=== PATIENT | male | born 1945 | race Caucasian/White ===

== ENCOUNTER 2018-07-10 12:17 | Outpatient (CLI) | payer MEDICARE, SELFPAY ==
[2018-07-11 09:52] LABS: PSA, Diagnostic 0.6 ng/ml (0-6.5)
== END 2018-07-10 12:37 ==
PROVIDERS: PCP Family Medicine; Visit Provider Nurse Practitioner
DX: C61 Malignant neoplasm of prostate (principal)
CPT/HCPCS: 36415; 84153

== ENCOUNTER 2018-12-29 07:00 | Outpatient (CLI) | payer MEDICARE, OTHER, SELFPAY ==
[2018-12-29 11:19] LABS: Cholesterol 185 mg/dL (50-200); Glucose 94 mg/dL (70-100); HDL Cholesterol 64 mg/dL (40-60); LDL CHOLESTEROL 106 mg/dL (<100); Triglyceride 95 mg/dL (30-150)
[2019-01-01 10:59] LABS: Hepatitis C Ab w Rflx HCV PCR Negative (NEGAT)
== END 2018-12-29 07:20 ==
PROVIDERS: PCP Family Medicine; Visit Provider Family Medicine
DX: E78.5 Hyperlipidemia, unspecified (principal); C61 Malignant neoplasm of prostate; Z11.59 Encounter for screening for other viral diseases
CPT/HCPCS: 36415; 80061; 82947; 83721; 86803; 84153

== ENCOUNTER 2019-04-27 04:17 | Outpatient (CLI) | payer MEDICARE, OTHER, SELFPAY ==
[2019-04-30 10:11] LABS: PSA, Screening 0.8 ng/ml (0-6.5)
== END 2019-04-27 04:37 ==
PROVIDERS: Family Medicine; PCP Family Medicine; Visit Provider Family Medicine
DX: C61 Malignant neoplasm of prostate (principal)
CPT/HCPCS: 84153

== ENCOUNTER 2019-08-14 12:47 | Outpatient (CLI) | payer MEDICARE, OTHER, SELFPAY ==
[2019-08-16 10:19] LABS: PSA, Diagnostic 0.9 ng/mL (0.0-6.5)
== END 2019-08-14 13:07 ==
PROVIDERS: PCP Family Medicine; Visit Provider Nurse Practitioner
DX: C61 Malignant neoplasm of prostate (principal)
CPT/HCPCS: 36415; 84153

== ENCOUNTER 2020-06-13 00:06 | Outpatient (CLI) | payer MEDICARE, OTHER, SELFPAY ==
[2020-06-13 12:49] LABS: Abs Immature Grans 0.02 10^3/uL (0.0-0.06); Absolute Basophil Count 0.05 10^3/uL (0.0-0.2); Basophils % 0.5; HCT 45.3 % (40.0-50.0); MCH 29.9 pg (27.0-33.0); MCHC 33.1 % (32.0-36.0); MCV 90.4 fL (80-95); MPV 11.6 fL (8.0-11.0); Nucleated RBC 0 %; RBC 5.01 10^6/uL (4.36-5.78); RDW 12.2 % (11.8-14.1); RDW-SD 40.1 fL; WBC 10.86 10^3/uL (4.4-10.8)
[2020-06-13 13:03] LABS: ALT 29 U/L (16-63); AST 20 U/L (15-37); Albumin 3.9 g/dL (3.4-5.0); Alkaline Phosphatase 52 U/L (46-116); Anion Gap 8.3 mmol/L (3-11); BUN 24 mg/dL (7-18); Bilirubin, Total 0.6 mg/dL (0.2-1.0); CO2 25.7 mmol/L (21.0-32.0); CREATININE 1.22 mg/dL (0.70-1.30); Calculated LDL 101 mg/dL (<100); Chloride 103 mmol/L (98-107); Cholesterol 178 mg/dL (<200); Estimated GFR 58.07 (mL/min/1.73m2); Glucose 90 mg/dL (74-106); HDL Cholesterol 56 mg/dL (40-60); Potassium 4.7 mmol/L (3.5-5.1); Sodium 137 mmol/L (136-145); Total Protein 6.7 g/dL (6.4-8.2); Triglyceride 105 mg/dL (<150)
[2020-06-13 13:40] LABS: Absolute Lymphocyte Count 5.97 10^3/uL (1.2-3.4); Absolute Neutrophil Count 3.26 10^3/uL (1.2-6.7)
[2020-06-13 13:43] LABS: Absolute Eosinophil Count 0.33 10^3/uL (0.0-0.7); Diff Comment Manual Differential
[2020-06-13 13:44] LABS: RBC Morphology Normal
[2020-06-13 13:46] LABS: Platelet Count 176 10^3/uL (130-400)
[2020-06-13 13:47] LABS: Atypical Lymphocytes % 8
[2020-06-16 11:38] LABS: Path Consult (Tech Order) C
== END 2020-06-13 00:26 ==
PROVIDERS: PCP Family Medicine; Visit Provider Family Medicine
DX: E78.5 Hyperlipidemia, unspecified (principal); C61 Malignant neoplasm of prostate
CPT/HCPCS: 80053; 80061; 84153; 85025

== ENCOUNTER 2020-07-13 12:15 | Emergency (ER) | payer MEDICARE, OTHER, SELFPAY ==
[2020-07-13 12:18] VITALS: BP 174/97; PULSE 76; RESP 18; TEMP 36.5; O2SAT 97
--- NOTE | 2020-07-13 12:43 | W.ED.GENAD ---
Discharge Plan Disposition Patient Disposition: HOME Condition: Improving Discharge Details Clinical Impression: Laceration of hand, right Primary Care Provider: Donnell Cabrera ED Provider: Juan Francisco Garcia Home Meds and New Rx's Prescriptions: Continued atorvastatin [Lipitor] 10 mg tablet 10 mg PO DAILY Qty: 90 RF: 3 PreserVision AREDS 1 EACH tablet 1 ea PO DAILY RF: 0 Discharge Instructions Instructions: Laceration (ED) Additional Instructions: Once daily gentle soap and water cleanse, pat dry and then replace dressing. Return to develop a fever, redness, foul-smelling discharge from the wound or any other acute concerns. Return in 7 to 10 days time for removal of sutures. Call your doctor's office on Tuesday to determine if you need an updated tetanus shot. Medical Decision Making 74-year-old male was struck by a tree on the dorsum of his right hand causing a approximate 7 cm chevron shaped laceration. Tetanus status is unclear, patient will follow-up with primary care Tuesday or Tuesday. He was verbally consented for the procedure, anesthetized, liberally irrigated, examined in a bloodless field without evidence of foreign body. 11 Interrupted sutures were placed with 4-0 nylon, with good approximation of the wound edges. Patient improved and stable for outpatient management. HPI General Mode of arrival: ambulatory. Date/Time Provider Initiated Documentation: 07/13/20 12:15. Limitations to Documentation: no limitations. Information obtained by: patient and family. History of Present Illness 74 year old M presents to the emergency department with the chief complaint of Right hand laceration after struck by tree, described as moderate, Quality is described as dull and constant, and is localized to the upper extremity. Patient reports no radiation. Patient started experiencing this minute(s) and it has been constant. No relieving factors improve symptom(s), No exacerbating factors reported . Patient notes denies fever/chills, headaches and syncope. Patient did receive the following treatments prior to arrival, none Related Data Home Medications Medication Instructions Recorded Confirmed PreserVision AREDS 1 ea PO DAILY 09/08/15 07/13/20 atorvastatin 10 mg tablet 10 mg PO DAILY #90 tab-cap 01/02/20 07/13/20 Previous Rx's Medication Instructions Recorded atorvastatin 10 mg tablet 10 mg PO DAILY #90 tab-cap 01/02/20 Allergies Allergy/AdvReac Type Severity Reaction Status Date / Time No Known Allergies Allergy Unverified 07/13/20 12:21 General Stated Complaint: Laceration TIM: 3 Review of Systems Narrative: Tetanus out of date. No numbness or tingling. No other injury. [facility] Family History Father , 84 Neoplasm Brother Hyperlipidemia Daughter No problems noted. Daughter No problems noted. Social History Smoking/Tobacco Use Status: Never Alcohol Intake: never Drug use: Never Caregiver/Support person: Yes Household members: spouse Housing: house Communication Needs: None Pets and animals: Yes Pets and animals: cat(s) Do you think of yourself as: straight/heterosexual What is your relationship status?: How often do you talk on the phone with friends or family?: twice per week How often do you get together with friends or relatives?: once per week How often do you attend mosque or hoahaoism services?: 1-3 times per year Do you belong to any clubs or organized social groups?: yes Panel score (0-1 are the most socially isolated patients): 3 What type of physical activity do you participate in: other Details: treadmill 3 miles a day. Katrin/Druze: Anabaptism Seatbelt use: always Helmet use: Yes Drive intox or ride w/intox driver's license examiner: No Do you feel safe at home: Yes Do you feel safe in your relationship?: Yes Exam Narrative Exam Narrative: GEN: awake, alert, oriented 3. Pleasant, well groomed, interactive. HEAD: Normocephalic, atraumatic CHEST/RESP: No respiratory distress EXT: Full ROM, no edema, the left arm has a subtle skin tear mid forearm. Right hand dorsum with a chevron shaped laceration measuring approximately 7 cm. Normal capillary refill and normal sensation. Neuro: Grossly normal neurologic exam, conversant, interactive. Psych: Speech fluent, thoughts congruent, affect normal Course Vital Signs Vital signs: Vital Signs Temperature 36.5 C 07/13/20 12:18 Pulse 76 07/13/20 12:18 Respiratory Rate 18 07/13/20 12:18 Blood Pressure 174/97 H 07/13/20 12:18 Pulse Oximetry 97 07/13/20 12:18 Temperature 36.5 C 07/13/20 12:18 Temperature Source Temporal Artery Scan 07/13/20 12:18 Pulse 76 07/13/20 12:18 Respiratory Rate 18 07/13/20 12:18 Respiratory Effort Non-Labored 07/13/20 12:23 Blood Pressure 174/97 H 07/13/20 12:18 Blood Pressure Position Sitting 07/13/20 12:18 Pulse Oximetry 97 07/13/20 12:18 Oxygen Delivery Method Room Air 07/13/20 12:18 Oxygen Flow Rate 0 07/13/20 12:18 Pain Level 0 07/13/20 12:18 Procedures Laceration Laceration 1: Site: hand Side (If applicable): right Size (cm): 7 Description: irregular Depth: simple, single layer Local Anesthetic: Lidocaine 1% Amount of anesthesia used (mL): 4 Pre-repair: wound explored and irrigated extensively Skin layer closed with: nylon Size (cm): 4-0 Number of sutures: 11 Technique: simple, interrupted
== END 2020-07-13 13:05 | disposition home or self-care (01) ==
PROVIDERS: Emergency Provider Emergency Medicine; PCP Family Medicine
DX: S61.411A Laceration without foreign body of right hand, initial encounter (principal); W20.8XXA Other cause of strike by thrown, projected or falling object, initial encounter
CPT/HCPCS: 12002; 90471

== ENCOUNTER 2020-07-25 10:48 | Emergency (ER) | payer MEDICARE, OTHER, SELFPAY ==
[2020-07-25 10:54] VITALS: BP 177/92; PULSE 69; RESP 18; TEMP 36.2; O2SAT 97
--- NOTE | 2020-07-25 10:58 | ED.GENADUL_ITS ---
Discharge Plan Disposition Patient Disposition: HOME Condition: Stable Discharge Details Clinical Impression: Encounter for removal of sutures Primary Care Provider: Donnell Cabrera ED Provider: April Mendez Home Meds and New Rx's Prescriptions: No Action atorvastatin [Lipitor] 10 mg tablet 10 mg PO DAILY Qty: 90 RF: 3 cephalexin 500 mg capsule 500 mg PO QID Qty: 20 RF: 0 PreserVision AREDS 1 EACH tablet 1 ea PO DAILY RF: 0 Discharge Instructions Instructions: Stitches Removal (ED) Additional Instructions: Continue taking antibiotics as previously prescribed by PCP. Keep Steri-Strips on for approximately 4 days. Keep clean and dry, covered with a clean dry dressing as needed. Follow up with primary care provider in 3-5 days. Return to ED sooner if any worsening or concerns. Increase oral fluids. Referrals: Donnell Cabrera [Primary Care Provider] - Discharge Data Discharge Date/Time-TO BE ENTERED AT DEPARTURE: 07/25/20 11:30 Medical Decision Making Sutures removed and Steri-Strips applied by director of staff development. Patient discussed home care, verbalized understanding. This text was generated using Hapticomation system, please disregard any oddities of phrase or misspellings. HPI General Mode of arrival: ambulatory . Date/Time Provider Initiated Documentation: 07/25/20 10:50 . Limitations to Documentation: no limitations . Information obtained by: patient and old records reviewed . HPI Narrative: Patient here for suture removal. Had 11 sutures placed to the dorsum of right hand on July 13, 2020. This was approximately 12 days ago. He has a arrow shaped laceration noted with mild surrounding erythema. He states that he was seen by his primary care 2 days ago for some surrounding redness and was placed on antibiotics which he is still currently taking. Sutures will be removed and Steri-Strips will be applied. Related Data Home Medications Medication Instructions Recorded Confirmed PreserVision AREDS 1 ea PO DAILY 09/08/15 07/14/20 atorvastatin 10 mg tablet 10 mg PO DAILY #90 tab-cap 01/02/20 07/14/20 cephalexin 500 mg capsule 500 mg PO QID #20 cap 07/18/20 07/18/20 Previous Rx's Medication Instructions Recorded atorvastatin 10 mg tablet 10 mg PO DAILY #90 tab-cap 01/02/20 cephalexin 500 mg capsule 500 mg PO QID #20 cap 07/18/20 Allergies Allergy/AdvReac Type Severity Reaction Status Date / Time No Known Allergies Allergy Unverified 07/14/20 16:51 General TIM: 3 Review of Systems All systems reviewed & are unremarkable except as noted in HPI and below Integumentary/Breasts Skin/Breast: Reports wounds (Sutured laceration noted to the dorsum of right hand) PFSH Family History Father , 84 Neoplasm Brother Hyperlipidemia Daughter No problems noted. Daughter No problems noted. Social History Smoking/Tobacco Use Status: Never Alcohol Intake: never Drug use: Never Caregiver/Support person: Yes Household members: spouse Housing: house Communication Needs: None Pets and animals: Yes Pets and animals: cat(s) Do you think of yourself as: straight/heterosexual What is your relationship status?: How often do you talk on the phone with friends or family?: twice per week How often do you get together with friends or relatives?: once per week How often do you attend scientology or buddhist services?: 1-3 times per year Do you belong to any clubs or organized social groups?: yes Panel score (0-1 are the most socially isolated patients): 3 What type of physical activity do you participate in: other Details: treadmill 3 miles a day. Katrin/Confucianism: Sabianism Seatbelt use: always Helmet use: Yes Drive intox or ride w/intox driver education road instructor: No Do you feel safe at home: Yes Do you feel safe in your relationship?: Yes Exam Extrem Hand/finger images: 1. Sutured laceration noted with 11 simple interrupted sutures with mild surrounding erythema. Will take out sutures and apply Steri-Strips.
[2020-07-25 11:24] VITALS: PULSE 69; RESP 18; TEMP 36.2; O2SAT 97
== END 2020-07-25 11:30 | disposition home or self-care (01) ==
PROVIDERS: Emergency Provider Registered Nurse Emergency; PCP Family Medicine
DX: S61.411D Laceration without foreign body of right hand, subsequent encounter (principal); W20.8XXA Other cause of strike by thrown, projected or falling object, initial encounter; Z48.02 Encounter for removal of sutures

== ENCOUNTER 2020-08-08 01:35 | Outpatient (CLI) | payer MEDICARE, OTHER, SELFPAY ==
[2020-08-08 12:24] LABS: Abs Immature Grans 0.02 10^3/uL (0.0-0.06); HCT 45.8 % (40.0-50.0); HGB 15.2 g/dL (13.5-17.5); MCH 29.9 pg (27.0-33.0); MCHC 33.2 % (32.0-36.0); MPV 11.5 fL (8.0-11.0); Nucleated RBC 0 %; Platelet Count 184 10^3/uL (130-400); RBC 5.09 10^6/uL (4.36-5.78); RDW 12.1 % (11.8-14.1); RDW-SD 39.7 fL
[2020-08-08 13:29] LABS: Absolute Neutrophil Count 4.77 10^3/uL (1.2-6.7)
[2020-08-08 13:30] LABS: Absolute Eosinophil Count 0.11 10^3/uL (0.0-0.7); Absolute Lymphocyte Count 5.77 10^3/uL (1.2-3.4); Absolute Monocyte Count 0.44 10^3/uL (0.1-0.8); Atypical Lymphocytes % 3
[2020-08-08 13:31] LABS: Diff Comment Manual Differential; RBC Morphology Normal
== END 2020-08-08 01:55 ==
PROVIDERS: PCP Family Medicine; Visit Provider Family Medicine
DX: D72.820 Lymphocytosis (symptomatic) (principal)
CPT/HCPCS: 36415; 85025

== ENCOUNTER 2020-12-30 21:22 | Outpatient (REF) | payer MEDICARE, OTHER, SELFPAY ==
[2020-12-30 21:21] LABS: Abs Immature Grans 0.03 10^3/uL (0.0-0.06); HGB 15.2 g/dL (13.5-17.5); MCHC 33.8 % (32.0-36.0); MCV 88.8 fL (80-95); MPV 11.2 fL (8.0-11.0); Nucleated RBC 0 %; Platelet Count 187 10^3/uL (130-400); RBC 5.07 10^6/uL (4.36-5.78); RDW-SD 38.7 fL; WBC 13.64 10^3/uL (4.4-10.8)
[2020-12-30 21:31] LABS: Anion Gap 12.2 mmol/L (3-11); BUN 21 mg/dL (7-18); CO2 25.8 mmol/L (21.0-32.0); CREATININE 1.3 mg/dL (0.70-1.30); Calcium 9.2 mg/dL (8.5-10.1); Chloride 105 mmol/L (98-107); Estimated GFR 53.82 (mL/min/1.73m2); Glucose 116 mg/dL (74-106); Sodium 143 mmol/L (136-145)
[2020-12-30 23:01] LABS: Absolute Lymphocyte Count 6.55 10^3/uL (1.2-3.4); Absolute Monocyte Count 0.41 10^3/uL (0.1-0.8); Absolute Neutrophil Count 6.68 10^3/uL (1.2-6.7); Atypical Lymphocytes % 15; RBC Morphology Normal
[2020-12-30 23:02] LABS: Diff Comment Manual Differential
[2020-12-31 09:58] LABS: C-Reactive Protein 0.06 mg/dL (0.0-0.3)
[2020-12-31 10:11] LABS: ESR 2 mm//hr (0-20)
== END 2020-12-30 21:23 | disposition home or self-care (01) ==
LOC: LBN 21:22
PROVIDERS: PCP Family Medicine; Visit Provider Family Medicine
DX: E87.1 Hypo-osmolality and hyponatremia (principal); D72.828 Other elevated white blood cell count; F48.8 Other specified nonpsychotic mental disorders; Z01.30 Encounter for examination of blood pressure without abnormal findings
CPT/HCPCS: 80048; 85652; 85025; 86140

== ENCOUNTER 2021-01-06 04:06 | Outpatient (CLI) | payer MEDICARE, OTHER, SELFPAY ==
[2021-01-06 10:35] LABS: HCT 46.3 % (40.0-50.0); HGB 15.5 g/dL (13.5-17.5); MCHC 33.5 % (32.0-36.0); MCV 89.6 fL (80-95); MPV 11.2 fL (8.0-11.0); Nucleated RBC 0 %; Platelet Count 178 10^3/uL (130-400); RBC 5.17 10^6/uL (4.36-5.78); RDW-SD 39.6 fL; WBC 11.64 10^3/uL (4.4-10.8)
[2021-01-06 11:14] LABS: Absolute Lymphocyte Count 5.59 10^3/uL (1.2-3.4); Absolute Neutrophil Count 5.35 10^3/uL (1.2-6.7); Atypical Lymphocytes % 36
[2021-01-06 11:15] LABS: Diff Comment Manual Differential; RBC Morphology Normal
[2021-01-09 10:38] LABS: Leukemia/Lymphoma by FC (Blood See Comments
== END 2021-01-06 04:07 | disposition home or self-care (01) ==
LOC: LBO 04:06
PROVIDERS: PCP Family Medicine; Visit Provider Family Medicine
DX: D72.829 Elevated white blood cell count, unspecified (principal)
CPT/HCPCS: 36415; 88185; 85025; 88184; 88189

== ENCOUNTER 2021-04-08 02:22 | Outpatient (CLI) | payer MEDICARE, OTHER, SELFPAY ==
[2021-04-08 12:48] LABS: HGB 14.6 g/dL (13.5-17.5); MCH 29.9 pg (27.0-33.0); MCV 87.9 fL (80-95); MPV 11.1 fL (8.0-11.0); Nucleated RBC 0 %; Platelet Count 160 10^3/uL (130-400); RBC 4.89 10^6/uL (4.36-5.78); RDW 12.2 % (11.8-14.1); RDW-SD 39.3 fL; WBC 11.59 10^3/uL (4.4-10.8)
[2021-04-08 12:52] LABS: Calculated LDL 112 mg/dL (<100); Cholesterol 184 mg/dL (<200); HDL Cholesterol 61 mg/dL (40-60); Triglyceride 55 mg/dL (<150)
[2021-04-08 12:53] LABS: ALT 28 U/L (16-63); AST 13 U/L (15-37); Albumin 3.9 g/dL (3.4-5.0); Alkaline Phosphatase 51 U/L (46-116); Anion Gap 10.2 mmol/L (3-11); BUN 24 mg/dL (7-18); Bilirubin, Total 0.9 mg/dL (0.2-1.0); CO2 25.8 mmol/L (21.0-32.0); CREATININE 1.3 mg/dL (0.70-1.30); Calcium 8.9 mg/dL (8.5-10.1); Chloride 107 mmol/L (98-107); Estimated GFR 53.82 (mL/min/1.73m2); Glucose 93 mg/dL (74-106); Potassium 4.1 mmol/L (3.5-5.1); Sodium 143 mmol/L (136-145); Total Protein 6.5 g/dL (6.4-8.2)
[2021-04-08 13:44] LABS: Absolute Eosinophil Count 0.23 10^3/uL (0.0-0.7); Absolute Lymphocyte Count 4.17 10^3/uL (1.2-3.4); Absolute Monocyte Count 1.39 10^3/uL (0.1-0.8); Diff Comment Manual Differential; RBC Morphology Normal
[2021-04-09 09:44] LABS: IgA 112 mg/dL (85-499); IgG 962 mg/dL (610-1,616); IgM 31 mg/dL (35-242)
== END 2021-04-08 02:23 | disposition home or self-care (01) ==
LOC: LOS 02:22
PROVIDERS: Student in an Organized Health Care Education/Training Program; PCP Nurse Practitioner Family; Visit Provider Nurse Practitioner Family
DX: N52.9 Male erectile dysfunction, unspecified (principal); E78.5 Hyperlipidemia, unspecified; D72.829 Elevated white blood cell count, unspecified; Z85.46 Personal history of malignant neoplasm of prostate
CPT/HCPCS: 36415; 80053; 80061; 82784; 84154; 85025

== ENCOUNTER 2021-07-20 02:51 | Outpatient (CLI) | payer MEDICARE, OTHER, SELFPAY ==
[2021-07-20 10:25] LABS: Abs Immature Grans 0.02 10^3/uL (0.0-0.06); Absolute Basophil Count 0.05 10^3/uL (0.0-0.2); Absolute Eosinophil Count 0.22 10^3/uL (0.0-0.7); Absolute Lymphocyte Count 4.39 10^3/uL (1.2-3.4); Absolute Monocyte Count 0.52 10^3/uL (0.1-0.8); Absolute Neutrophil Count 4.06 10^3/uL (1.2-6.7); Basophils % 0.5; Eosinophils % 2.4; HCT 43.7 % (40.0-50.0); HGB 14.8 g/dL (13.5-17.5); Immature Grans % 0.2; Lymphocytes % 47.4; MCH 30.5 pg (27.0-33.0); MCHC 33.9 % (32.0-36.0); MCV 90.1 fL (80-95); MPV 10.9 fL (8.0-11.0); Monocytes % 5.6; Neutrophils % 43.9; Nucleated RBC 0 %; Platelet Count 178 10^3/uL (130-400); RBC 4.85 10^6/uL (4.36-5.78); RDW 11.9 % (11.8-14.1); RDW-SD 39.3 fL; WBC 9.26 10^3/uL (4.4-10.8)
[2021-07-20 10:41] LABS: ALT 31 U/L (16-63); AST 23 U/L (15-37); Albumin 3.8 g/dL (3.4-5.0); Alkaline Phosphatase 53 U/L (46-116); Anion Gap 8.4 mmol/L (3-11); BUN 20 mg/dL (7-18); Bilirubin, Total 0.5 mg/dL (0.2-1.0); CO2 26.6 mmol/L (21.0-32.0); CREATININE 1.2 mg/dL (0.70-1.30); Calcium 8.7 mg/dL (8.5-10.1); Chloride 105 mmol/L (98-107); Estimated GFR 59.02 (mL/min/1.73m2); Glucose 79 mg/dL (74-106); Potassium 4.4 mmol/L (3.5-5.1); Sodium 140 mmol/L (136-145); Total Protein 6.6 g/dL (6.4-8.2)
[2021-07-21 10:01] LABS: IgA 107 mg/dL (85-499); IgG 928 mg/dL (610-1,616); IgM 31 mg/dL (35-242)
== END 2021-07-20 02:52 | disposition home or self-care (01) ==
LOC: LOS 02:52
PROVIDERS: PCP Nurse Practitioner Family; Visit Provider Internal Medicine Hematology & Oncology
DX: D72.820 Lymphocytosis (symptomatic) (principal)
CPT/HCPCS: 36415; 80053; 82784; 85025

== ENCOUNTER 2021-08-04 02:10 | Outpatient (CLI) | payer MEDICARE, SELFPAY ==
[2021-08-05 14:08] LABS: PSA, Ultrasensitive 1.5 ng/mL (<= 6.5)
== END 2021-08-04 02:11 | disposition home or self-care (01) ==
PROVIDERS: PCP Nurse Practitioner Family; Visit Provider Nurse Practitioner Family
DX: C61 Malignant neoplasm of prostate (principal)
CPT/HCPCS: 36415; 84153

== ENCOUNTER 2021-11-27 03:58 | Outpatient (CLI) | payer MEDICARE, SELFPAY ==
[2021-11-27 08:52] LABS: HCT 45.8 % (40.0-50.0); HGB 15.1 g/dL (13.5-17.5); MCH 29.8 pg (27.0-33.0); MCV 90.3 fL (80-95); MPV 10.9 fL (8.0-11.0); Nucleated RBC 0 %; Platelet Count 161 10^3/uL (130-400); RBC 5.07 10^6/uL (4.36-5.78); RDW 12.2 % (11.8-14.1); RDW-SD 40.2 fL; WBC 11.54 10^3/uL (4.4-10.8)
[2021-11-27 09:11] LABS: Absolute Eosinophil Count 0.81 10^3/uL (0.0-0.7); Absolute Lymphocyte Count 6.23 10^3/uL (1.2-3.4); Absolute Monocyte Count 0.46 10^3/uL (0.1-0.8); Absolute Neutrophil Count 4.04 10^3/uL (1.2-6.7); Atypical Lymphocytes % 38
[2021-11-27 09:12] LABS: Diff Comment Manual Differential; RBC Morphology Normal
[2021-11-27 09:23] LABS: ALT 27 U/L (16-63); AST 16 U/L (15-37); Albumin 4.1 g/dL (3.4-5.0); Alkaline Phosphatase 60 U/L (46-116); Anion Gap 7.3 mmol/L (3-11); BUN 23 mg/dL (7-18); Bilirubin, Total 0.5 mg/dL (0.2-1.0); CO2 27.7 mmol/L (21.0-32.0); CREATININE 1.3 mg/dL (0.70-1.30); Calcium 9.1 mg/dL (8.5-10.1); Chloride 105 mmol/L (98-107); Estimated GFR 53.67 (mL/min/1.73m2); Glucose 86 mg/dL (74-106); Potassium 4.3 mmol/L (3.5-5.1); Sodium 140 mmol/L (136-145)
[2021-11-30 10:24] LABS: IgA 118 mg/dL (85-499); IgG 990 mg/dL (610-1,616); IgM 32 mg/dL (35-242)
== END 2021-11-27 03:59 | disposition home or self-care (01) ==
PROVIDERS: PCP Family Medicine; Visit Provider Internal Medicine Hematology & Oncology
DX: D72.820 Lymphocytosis (symptomatic) (principal)
CPT/HCPCS: 36415; 80053; 82784; 85025

== ENCOUNTER 2022-02-04 03:35 | Outpatient (CLI) | payer MEDICARE, SELFPAY ==
[2022-02-04 12:39] LABS: LDH 197 U/L (85-227)
[2022-02-09 15:47] LABS: Testosterone, Total 623 ng/dL (240-950)
== END 2022-02-04 03:36 | disposition home or self-care (01) ==
LOC: LOS 03:35
PROVIDERS: PCP Family Medicine; Visit Provider Nurse Practitioner Family
DX: C61 Malignant neoplasm of prostate (principal)
CPT/HCPCS: 36415; 80053; 82784; 84153; 84403; 83615; 85025

== ENCOUNTER 2022-05-24 03:50 | Outpatient (CLI) | payer MEDICARE, SELFPAY ==
[2022-05-24 12:57] LABS: Abs Immature Grans 0.04 10^3/uL (0.0-0.06); Absolute Basophil Count 0.05 10^3/uL (0.0-0.2); Absolute Eosinophil Count 0.23 10^3/uL (0.0-0.7); Absolute Lymphocyte Count 4.42 10^3/uL (1.2-3.4); Absolute Monocyte Count 0.47 10^3/uL (0.1-0.8); Absolute Neutrophil Count 4.31 10^3/uL (1.2-6.7); Basophils % 0.5; Eosinophils % 2.4; HCT 42.2 % (40.0-50.0); HGB 14.5 g/dL (13.5-17.5); Immature Grans % 0.4; Lymphocytes % 46.4; MCH 30.3 pg (27.0-33.0); MCHC 34.4 % (32.0-36.0); MCV 88 fL (80-95); MPV 11.7 fL (8.0-11.0); Monocytes % 4.9; Neutrophils % 45.4; Platelet Count 155 10^3/uL (130-400); RBC 4.79 10^6/uL (4.36-5.78); RDW 12.2 % (11.8-14.1); RDW-SD 39.5 fL; WBC 9.52 10^3/uL (4.4-10.8)
[2022-05-24 13:25] LABS: ALT 56 U/L (16-63); AST 25 U/L (15-37); Albumin 3.7 g/dL (3.4-5.0); Alkaline Phosphatase 68 U/L (46-116); Anion Gap 10.3 mmol/L (3-11); BUN 24 mg/dL (7-18); Bilirubin, Total 0.6 mg/dL (0.2-1.0); CO2 25.7 mmol/L (21.0-32.0); CREATININE 1.2 mg/dL (0.70-1.30); Chloride 105 mmol/L (98-107); Estimated GFR 58.86 (mL/min/1.73m2); Glucose 114 mg/dL (74-106); Potassium 4.2 mmol/L (3.5-5.1); Sodium 141 mmol/L (136-145); Total Protein 6.9 g/dL (6.4-8.2)
[2022-05-25 09:40] LABS: IgA 105 mg/dL (85-499); IgG 946 mg/dL (610-1,616); IgM 31 mg/dL (35-242)
[2022-05-25 14:59] LABS: PSA, Ultrasensitive 0.59 ng/mL (<= 6.5)
[2022-05-29 02:03] LABS: Testosterone, Total 7.7 ng/dL (240-950)
== END 2022-05-24 03:51 | disposition home or self-care (01) ==
LOC: LOS 03:50
PROVIDERS: Internal Medicine; PCP Family Medicine; Visit Provider Nurse Practitioner Family
DX: C61 Malignant neoplasm of prostate (principal); C77.5 Secondary and unspecified malignant neoplasm of intrapelvic lymph nodes; D72.820 Lymphocytosis (symptomatic)
CPT/HCPCS: 36415; 80053; 82784; 84153; 84403; 85025

== ENCOUNTER 2022-07-05 04:44 | Outpatient (CLI) | payer MEDICARE, SELFPAY ==
[2022-07-05 12:33] LABS: Abs Immature Grans 0.03 10^3/uL (0.0-0.06); Absolute Basophil Count 0.05 10^3/uL (0.0-0.2); Absolute Eosinophil Count 0.19 10^3/uL (0.0-0.7); Absolute Lymphocyte Count 4.48 10^3/uL (1.2-3.4); Absolute Monocyte Count 0.52 10^3/uL (0.1-0.8); Absolute Neutrophil Count 4.16 10^3/uL (1.2-6.7); Basophils % 0.5; HCT 42.4 % (40.0-50.0); Immature Grans % 0.3; Lymphocytes % 47.5; MCV 91 fL (80-95); MPV 11.4 fL (8.0-11.0); Monocytes % 5.5; Neutrophils % 44.2; Platelet Count 175 10^3/uL (130-400); RBC 4.66 10^6/uL (4.36-5.78); RDW 12.6 % (11.8-14.1); RDW-SD 41.3 fL; WBC 9.43 10^3/uL (4.4-10.8)
[2022-07-05 12:54] LABS: ALT 36 U/L (16-63); AST 25 U/L (15-37); Albumin 3.8 g/dL (3.4-5.0); Alkaline Phosphatase 64 U/L (46-116); Anion Gap 7.7 mmol/L (3-11); BUN 26 mg/dL (7-18); Bilirubin, Total 0.6 mg/dL (0.2-1.0); CO2 27.3 mmol/L (21.0-32.0); CREATININE 1.2 mg/dL (0.70-1.30); Calcium 8.8 mg/dL (8.5-10.1); Chloride 104 mmol/L (98-107); Estimated GFR 62.67 (mL/min/1.73m2); Glucose 94 mg/dL (74-106); Potassium 4.2 mmol/L (3.5-5.1); Sodium 139 mmol/L (136-145)
[2022-07-06 15:44] LABS: PSA, Ultrasensitive 0.04 ng/mL (<= 6.5)
[2022-07-07 15:52] LABS: Testosterone, Total <7.0 ng/dL (240-950)
== END 2022-07-05 04:45 | disposition home or self-care (01) ==
LOC: LOS 04:44
PROVIDERS: PCP Family Medicine; Visit Provider Internal Medicine
DX: C61 Malignant neoplasm of prostate (principal); C77.5 Secondary and unspecified malignant neoplasm of intrapelvic lymph nodes
CPT/HCPCS: 36415; 80053; 84153; 84403; 85025

== ENCOUNTER 2022-09-24 00:57 | Outpatient (CLI) | payer MEDICARE, SELFPAY ==
[2022-09-24 12:20] LABS: Abs Immature Grans 0.01 10^3/uL (0.0-0.06); Absolute Basophil Count 0.08 10^3/uL (0.0-0.2); Absolute Eosinophil Count 0.31 10^3/uL (0.0-0.7); Absolute Lymphocyte Count 5.22 10^3/uL (1.2-3.4); Absolute Monocyte Count 0.56 10^3/uL (0.1-0.8); Absolute Neutrophil Count 4.04 10^3/uL (1.2-6.7); Basophils % 0.8; HCT 40.5 % (40.0-50.0); HGB 13.7 g/dL (13.5-17.5); Immature Grans % 0.1; Lymphocytes % 51.1; MCH 30.4 pg (27.0-33.0); MCHC 33.8 % (32.0-36.0); MCV 90 fL (80-95); MPV 11.3 fL (8.0-11.0); Monocytes % 5.5; Neutrophils % 39.5; Platelet Count 156 10^3/uL (130-400); RBC 4.51 10^6/uL (4.36-5.78); RDW 12.1 % (11.8-14.1); RDW-SD 39.9 fL; WBC 10.22 10^3/uL (4.4-10.8)
[2022-09-24 12:56] LABS: Diff Comment Diff Reviewed; RBC Morphology Normal
[2022-09-24 13:09] LABS: ALT 27 U/L (16-63); AST 27 U/L (15-37); Albumin 3.8 g/dL (3.4-5.0); Alkaline Phosphatase 71 U/L (46-116); Anion Gap 7.6 mmol/L (3-11); BUN 27 mg/dL (7-18); Bilirubin, Total 0.6 mg/dL (0.2-1.0); CO2 27.4 mmol/L (21.0-32.0); CREATININE 1.3 mg/dL (0.70-1.30); Calcium 9.3 mg/dL (8.5-10.1); Chloride 105 mmol/L (98-107); Estimated GFR 56.58 (mL/min/1.73m2); Glucose 95 mg/dL (74-106); Potassium 4.7 mmol/L (3.5-5.1); Sodium 140 mmol/L (136-145); Total Protein 6.9 g/dL (6.4-8.2)
[2022-09-29 11:42] LABS: PSA, Ultrasensitive <0.01 ng/mL (<= 6.5)
[2022-09-30 13:07] LABS: Testosterone, Total <7.0 ng/dL (240-950)
== END 2022-09-24 00:58 | disposition home or self-care (01) ==
LOC: LOS 00:57
PROVIDERS: PCP Family Medicine; Visit Provider Internal Medicine
DX: C61 Malignant neoplasm of prostate (principal); C77.5 Secondary and unspecified malignant neoplasm of intrapelvic lymph nodes
CPT/HCPCS: 36415; 80053; 84153; 84403; 85025

== ENCOUNTER 2022-12-20 04:03 | Outpatient (CLI) | payer MEDICARE, SELFPAY ==
[2022-12-20 12:25] LABS: Abs Immature Grans 0.02 10^3/uL (0.0-0.06); Absolute Basophil Count 0.04 10^3/uL (0.0-0.2); Absolute Eosinophil Count 0.15 10^3/uL (0.0-0.7); Absolute Lymphocyte Count 5.28 10^3/uL (1.2-3.4); Absolute Monocyte Count 0.52 10^3/uL (0.1-0.8); Absolute Neutrophil Count 4.69 10^3/uL (1.2-6.7); Basophils % 0.4; Eosinophils % 1.4; HCT 41.3 % (40.0-50.0); HGB 14.1 g/dL (13.5-17.5); Immature Grans % 0.2; Lymphocytes % 49.3; MCH 30.1 pg (27.0-33.0); MCHC 34.1 % (32.0-36.0); MCV 88 fL (80-95); MPV 11.5 fL (8.0-11.0); Monocytes % 4.9; Neutrophils % 43.8; Platelet Count 177 10^3/uL (130-400); RBC 4.69 10^6/uL (4.36-5.78); RDW 12.3 % (11.8-14.1); RDW-SD 39.1 fL
[2022-12-20 12:39] LABS: ALT 31 U/L (16-63); AST 25 U/L (15-37); Albumin 3.7 g/dL (3.4-5.0); Alkaline Phosphatase 74 U/L (46-116); Anion Gap 8.4 mmol/L (3-11); BUN 26 mg/dL (7-18); Bilirubin, Total 0.6 mg/dL (0.2-1.0); CO2 27.6 mmol/L (21.0-32.0); CREATININE 1.3 mg/dL (0.70-1.30); Chloride 105 mmol/L (98-107); Estimated GFR 56.58 (mL/min/1.73m2); Glucose 97 mg/dL (74-106); Potassium 3.7 mmol/L (3.5-5.1); Sodium 141 mmol/L (136-145); Total Protein 6.9 g/dL (6.4-8.2)
[2022-12-20 12:54] LABS: Diff Comment Agrees w/ Instrument; RBC Morphology Normal
[2022-12-23 11:08] LABS: PSA, Ultrasensitive <0.01 ng/mL (<= 6.5)
[2022-12-24 02:55] LABS: Testosterone, Total <7.0 ng/dL (240-950)
== END 2022-12-20 04:04 | disposition home or self-care (01) ==
PROVIDERS: PCP Family Medicine; Visit Provider Internal Medicine
DX: C61 Malignant neoplasm of prostate (principal); C77.5 Secondary and unspecified malignant neoplasm of intrapelvic lymph nodes
CPT/HCPCS: 36415; 80053; 84153; 84403; 85025

== ENCOUNTER 2023-03-11 01:06 | Outpatient (CLI) | payer MEDICARE, SELFPAY ==
[2023-03-11 12:45] LABS: Abs Immature Grans 0.01 10^3/uL (0.0-0.06); Absolute Basophil Count 0.04 10^3/uL (0.0-0.2); Absolute Eosinophil Count 0.17 10^3/uL (0.0-0.7); Absolute Lymphocyte Count 4.63 10^3/uL (1.2-3.4); Absolute Monocyte Count 0.51 10^3/uL (0.1-0.8); Absolute Neutrophil Count 4.43 10^3/uL (1.2-6.7); Basophils % 0.4; Eosinophils % 1.7; HCT 40.8 % (40.0-50.0); HGB 13.8 g/dL (13.5-17.5); Immature Grans % 0.1; Lymphocytes % 47.3; MCH 30.1 pg (27.0-33.0); MCHC 33.8 % (32.0-36.0); MCV 89 fL (80-95); MPV 11.2 fL (8.0-11.0); Monocytes % 5.2; Neutrophils % 45.3; Platelet Count 169 10^3/uL (130-400); RBC 4.58 10^6/uL (4.36-5.78); RDW 12.1 % (11.8-14.1); RDW-SD 39.3 fL; WBC 9.79 10^3/uL (4.4-10.8)
[2023-03-11 13:22] LABS: ALT 30 U/L (16-63); AST 25 U/L (15-37); Albumin 3.9 g/dL (3.4-5.0); Alkaline Phosphatase 69 U/L (46-116); Anion Gap 8.9 mmol/L (3-11); BUN 32 mg/dL (7-18); Bilirubin, Total 0.7 mg/dL (0.2-1.0); CO2 26.1 mmol/L (21.0-32.0); CREATININE 1.4 mg/dL (0.70-1.30); Calcium 9.5 mg/dL (8.5-10.1); Chloride 103 mmol/L (98-107); Estimated GFR 51.77 (mL/min/1.73m2); Glucose 91 mg/dL (74-106); Potassium 3.5 mmol/L (3.5-5.1); Sodium 138 mmol/L (136-145); Total Protein 7.1 g/dL (6.4-8.2)
[2023-03-11 13:27] LABS: Iron 106 ug/dL (65-175); Total Iron Binding Capacity 275 ug/dL (250-450); Transferrin Sat 39 % (20-55)
[2023-03-14 10:13] LABS: PSA, Ultrasensitive <0.01 ng/mL (<= 6.5)
[2023-03-15 23:20] LABS: Testosterone, Total 7.5 ng/dL (240-950)
== END 2023-03-11 01:07 | disposition home or self-care (01) ==
LOC: LOS 01:07
PROVIDERS: PCP Family Medicine; Visit Provider Family Medicine
DX: Z00.00 Encounter for general adult medical examination without abnormal findings; C61 Malignant neoplasm of prostate; C77.5 Secondary and unspecified malignant neoplasm of intrapelvic lymph nodes
CPT/HCPCS: 80053; 84153; 84403; 83540; 83550; 85025

== ENCOUNTER 2023-06-03 03:25 | Outpatient (CLI) | payer MEDICARE, SELFPAY ==
[2023-06-03 13:01] LABS: Abs Immature Grans 0.01 10^3/uL (0.0-0.06); Absolute Basophil Count 0.05 10^3/uL (0.0-0.2); Absolute Eosinophil Count 0.21 10^3/uL (0.0-0.7); Absolute Lymphocyte Count 4.87 10^3/uL (1.2-3.4); Absolute Monocyte Count 0.56 10^3/uL (0.1-0.8); Absolute Neutrophil Count 3.94 10^3/uL (1.2-6.7); Basophils % 0.5; Eosinophils % 2.2; HCT 39.2 % (40.0-50.0); HGB 13.5 g/dL (13.5-17.5); Immature Grans % 0.1; Lymphocytes % 50.5; MCH 30.3 pg (27.0-33.0); MCHC 34.4 % (32.0-36.0); MCV 88 fL (80-95); MPV 10.8 fL (8.0-11.0); Monocytes % 5.8; Neutrophils % 40.9; Platelet Count 165 10^3/uL (130-400); RBC 4.45 10^6/uL (4.36-5.78); RDW 12.1 % (11.8-14.1); RDW-SD 38.8 fL; WBC 9.64 10^3/uL (4.4-10.8)
[2023-06-03 13:10] LABS: ALT 32 U/L (16-63); AST 23 U/L (15-37); Albumin 3.6 g/dL (3.4-5.0); Alkaline Phosphatase 69 U/L (46-116); Anion Gap 9.3 mmol/L (3-11); BUN 30 mg/dL (7-18); Bilirubin, Total 0.7 mg/dL (0.2-1.0); CO2 25.7 mmol/L (21.0-32.0); CREATININE 1.3 mg/dL (0.70-1.30); Chloride 102 mmol/L (98-107); Estimated GFR 56.58 (mL/min/1.73m2); Glucose 116 mg/dL (74-106); Potassium 3.5 mmol/L (3.5-5.1); Sodium 137 mmol/L (136-145); Total Protein 6.6 g/dL (6.4-8.2)
[2023-06-07 12:44] LABS: PSA, Ultrasensitive <0.01 ng/mL (<= 6.5)
[2023-06-08 14:16] LABS: Testosterone, Total <7.0 ng/dL (240-950)
== END 2023-06-03 03:26 | disposition home or self-care (01) ==
LOC: LOS 03:25
PROVIDERS: Nurse Practitioner Family; PCP Family Medicine; Visit Provider Internal Medicine
DX: C61 Malignant neoplasm of prostate (principal); C77.5 Secondary and unspecified malignant neoplasm of intrapelvic lymph nodes
CPT/HCPCS: 36415; 80053; 84153; 84403; 85025

== ENCOUNTER 2023-08-29 03:32 | Outpatient (CLI) | payer MEDICARE, SELFPAY ==
[2023-08-29 12:28] LABS: Abs Immature Grans 0.03 10^3/uL (0.0-0.06); Absolute Basophil Count 0.06 10^3/uL (0.0-0.2); Absolute Eosinophil Count 0.16 10^3/uL (0.0-0.7); Absolute Lymphocyte Count 5.27 10^3/uL (1.2-3.4); Absolute Monocyte Count 0.53 10^3/uL (0.1-0.8); Absolute Neutrophil Count 4.53 10^3/uL (1.2-6.7); Basophils % 0.6; Eosinophils % 1.5; HCT 40.8 % (40.0-50.0); HGB 13.9 g/dL (13.5-17.5); Immature Grans % 0.3; Lymphocytes % 49.8; MCH 30.2 pg (27.0-33.0); MCHC 34.1 % (32.0-36.0); MCV 89 fL (80-95); MPV 11.5 fL (8.0-11.0); Neutrophils % 42.8; Platelet Count 167 10^3/uL (130-400); RBC 4.61 10^6/uL (4.36-5.78); RDW 12.2 % (11.8-14.1); RDW-SD 39.7 fL; WBC 10.58 10^3/uL (4.4-10.8)
[2023-08-29 12:41] LABS: ALT 25 U/L (16-63); AST 23 U/L (15-37); Albumin 3.7 g/dL (3.4-5.0); Alkaline Phosphatase 74 U/L (46-116); Anion Gap 9.1 mmol/L (3-11); BUN 30 mg/dL (7-18); Bilirubin, Total 0.5 mg/dL (0.2-1.0); CO2 27.9 mmol/L (21.0-32.0); CREATININE 1.3 mg/dL (0.70-1.30); Calcium 9.4 mg/dL (8.5-10.1); Chloride 104 mmol/L (98-107); Diff Comment Agrees w/ Instrument; Estimated GFR 56.23 (mL/min/1.73m2); Glucose 99 mg/dL (74-106); Potassium 3.8 mmol/L (3.5-5.1); RBC Morphology Normal; Sodium 141 mmol/L (136-145); Total Protein 7.1 g/dL (6.4-8.2)
[2023-08-30 16:45] LABS: PSA, Ultrasensitive <0.01 ng/mL (<= 6.5)
[2023-09-01 20:28] LABS: Testosterone, Total 7.1 ng/dL (240-950)
== END 2023-08-29 03:33 | disposition home or self-care (01) ==
LOC: LOS 03:32
PROVIDERS: PCP Family Medicine; Visit Provider Nurse Practitioner Family
DX: C61 Malignant neoplasm of prostate (principal)
CPT/HCPCS: 36415; 80053; 84153; 84403; 85025

== ENCOUNTER 2023-11-18 02:53 | Outpatient (CLI) | payer MEDICARE, SELFPAY ==
[2023-11-18 12:49] LABS: Abs Immature Grans 0.02 10^3/uL (0.0-0.06); Absolute Basophil Count 0.04 10^3/uL (0.0-0.2); Absolute Eosinophil Count 0.19 10^3/uL (0.0-0.7); Absolute Lymphocyte Count 4.84 10^3/uL (1.2-3.4); Absolute Monocyte Count 0.51 10^3/uL (0.1-0.8); Absolute Neutrophil Count 2.92 10^3/uL (1.2-6.7); Basophils % 0.5; Eosinophils % 2.2; HCT 37.5 % (40.0-50.0); HGB 12.9 g/dL (13.5-17.5); Immature Grans % 0.2; Lymphocytes % 56.8; MCH 30.4 pg (27.0-33.0); MCHC 34.4 % (32.0-36.0); MCV 88 fL (80-95); MPV 11.2 fL (8.0-11.0); Neutrophils % 34.3; Platelet Count 139 10^3/uL (130-400); RBC 4.24 10^6/uL (4.36-5.78); RDW 12.3 % (11.8-14.1); RDW-SD 39.6 fL; WBC 8.52 10^3/uL (4.4-10.8)
[2023-11-18 12:52] LABS: ALT 36 U/L (16-63); AST 36 U/L (15-37); Albumin 3.5 g/dL (3.4-5.0); Alkaline Phosphatase 65 U/L (46-116); Anion Gap 7.7 mmol/L (3-11); BUN 26 mg/dL (7-18); Bilirubin, Total 0.6 mg/dL (0.2-1.0); CO2 28.3 mmol/L (21.0-32.0); CREATININE 1.3 mg/dL (0.70-1.30); Chloride 104 mmol/L (98-107); Estimated GFR 56.23 (mL/min/1.73m2); Glucose 100 mg/dL (74-106); Potassium 4.5 mmol/L (3.5-5.1); Sodium 140 mmol/L (136-145); Total Protein 6.8 g/dL (6.4-8.2)
[2023-11-21 11:23] LABS: PSA, Ultrasensitive <0.01 ng/mL (<= 6.5)
[2023-11-22 12:32] LABS: Testosterone, Total <7.0 ng/dL (240-950)
== END 2023-11-18 02:54 | disposition home or self-care (01) ==
LOC: LOS 02:53
PROVIDERS: PCP Family Medicine; Visit Provider Internal Medicine
DX: C77.5 Secondary and unspecified malignant neoplasm of intrapelvic lymph nodes (principal); C61 Malignant neoplasm of prostate
CPT/HCPCS: 36415; 80053; 84153; 84403; 85025

== ENCOUNTER 2024-02-13 05:00 | Outpatient (CLI) | payer MEDICARE, SELFPAY ==
[2024-02-13 12:21] LABS: Abs Immature Grans 0.02 10^3/uL (0.0-0.06); Absolute Basophil Count 0.06 10^3/uL (0.0-0.2); Absolute Lymphocyte Count 4.94 10^3/uL (1.2-3.4); Absolute Monocyte Count 0.56 10^3/uL (0.1-0.8); Absolute Neutrophil Count 3.96 10^3/uL (1.2-6.7); Basophils % 0.6 %; Eosinophils % 2.1 %; HCT 40.7 % (40.0-50.0); HGB 13.6 g/dL (13.5-17.5); Immature Grans % 0.2 %; Lymphocytes % 50.7 %; MCHC 33.4 % (32.0-36.0); MCV 90 fL (80-95); MPV 11.1 fL (8.0-11.0); Monocytes % 5.7 %; Neutrophils % 40.7 %; Platelet Count 156 10^3/uL (130-400); RBC 4.54 10^6/uL (4.36-5.78); RDW 12.4 % (11.8-14.1); RDW-SD 40.7 fL; WBC 9.74 10^3/uL (4.4-10.8)
[2024-02-13 12:57] LABS: ALT 27 U/L (16-63); AST 21 U/L (15-37); Albumin 3.8 g/dL (3.4-5.0); Alkaline Phosphatase 75 U/L (46-116); Anion Gap 10.5 mmol/L (3-11); BUN 28 mg/dL (7-18); Bilirubin, Total 0.5 mg/dL (0.2-1.0); CO2 25.5 mmol/L (21.0-32.0); CREATININE 1.3 mg/dL (0.70-1.30); Calcium 9.2 mg/dL (8.5-10.1); Chloride 106 mmol/L (98-107); Estimated GFR 56.23 (mL/min/1.73m2); Glucose 93 mg/dL (74-106); Potassium 3.6 mmol/L (3.5-5.1); Sodium 142 mmol/L (136-145); Total Protein 6.9 g/dL (6.4-8.2)
[2024-02-15 13:43] LABS: PSA, Ultrasensitive <0.01 ng/mL (<= 6.5)
[2024-02-16 16:48] LABS: Testosterone, Total <7.0 ng/dL (240-950)
== END 2024-02-13 05:01 | disposition home or self-care (01) ==
LOC: LOS 05:01
PROVIDERS: PCP Family Medicine; Visit Provider Nurse Practitioner Family
DX: C61 Malignant neoplasm of prostate (principal); C77.5 Secondary and unspecified malignant neoplasm of intrapelvic lymph nodes
CPT/HCPCS: 36415; 80053; 84153; 84403; 85025

== ENCOUNTER → 2024-04-23 00:54 | Outpatient (CLI) | payer MEDICARE, SELFPAY ==
--- NOTE | 2024-04-23 | DI.DEXA_ITS ---
Exam(s) XR DEXA BONE DENSITY W/WO BRI EXAM: XR DEXA BONE DENSITY W/WO BRI CLINICAL HISTORY: PROSTATE CANCER C61 C77.5 ANDROGEN DEPRIVATION THERAPY Z79.818 OSTEOPOROSIS TECHNIQUE: COMPARISON: No exams were available for comparison FINDINGS: Lateral Spine Image: Unremarkable. No compression deformities identified. Left hip: Total T-Score: -0.9 Total Z-Score: 0.1 T- and Z-scores: Within normal limits. There is no evidence of osteoporosis. Lumbar Spine: Total T-Score: 0.5 Total Z-Score: 1.7 T- and Z-scores: Within normal limits. IMPRESSION: No evidence of osteoporosis.
== END ==
PROVIDERS: PCP Family Medicine; Visit Provider Internal Medicine
DX: Z79.818 Long term (current) use of other agents affecting estrogen receptors and estrogen levels (principal); C61 Malignant neoplasm of prostate; C77.5 Secondary and unspecified malignant neoplasm of intrapelvic lymph nodes
CPT/HCPCS: 77080

== ENCOUNTER 2024-05-14 03:32 | Outpatient (CLI) | payer MEDICARE, SELFPAY ==
--- OUTSIDE RECORDS SUMMARY | 2024-05-14 03:40 | XMS_ITS | Encounter Summary ---
Author Organization [facility] Address [facility] [place] [address] Care Team Providers Care Industrial Controller Name Role Phone Unknown Primary Care Provider Unavailabl e Encounter Details Date Type Department Care Team (Latest Contact Info) Description 06/14/2023 Travel Social History Tobacco Use Types Packs/Day Years Used Date Smoking Tobacco: Never Smokeless Tobacco: Never Overall Financial Resource Strain (CARDIA) Answe r Date Recorded How hard is it for you to pa y for the very basics like food, housing, medical care, and heating? Not hard at all 04/09/2022 Hunger Vital Sign Answer Date Recorded Within the past 12 months, y ou worried that your food would run out before you got the money to buy more. Never true 04/09/20 22 Ran Out of Food in the Last Year Not on file 04/09/2022 PRAPARE - Transportation Answer Date Re corded In the past 12 months, has l ack of transportation kept you from medical appointments or from getting medications? No 05/2022 In the past 12 months, has l ack of transportation kept you from meetings, work, or from getting things needed for daily living? No 04/09/2022 Housing Stability Vital Sign Answer Michael e Recorded In the last 12 months, was t here a time when you were not able to pay the mortgage or rent on time? No 04/09/2022 In the last 12 months, how many places have you lived? 1 04/09/2022 In the last 12 months, was t here a time when you did not have a steady place to sleep or slept in a nursing home (including now)? No 04/09/2022 Sex and Gender Information Value Date Recorded Sex Assigned at Not on file Gender Identity Not on file Sexual Orientation Not on file documented as of this encounter Plan of Treatment Upcoming Encounters Date Type Department Care Team (Late st Contact Info) Description 05/22/2024 1:00 PM EDT Office Visit Hematology/Oncology at [address] [phone] Iris Nguyen APRN [facility] DR MEDICAL ONCOLOGY [place] [address] 05/22/2024 1:30 PM EDT Infusion Hematology Oncology at [address] [phone] documented as of this encounter Visit Diagnoses Not on filedocumented in this encounter Care Teams Industrial Controller Relationship Specialty Start Date End Date Unknown None PCP - General 08/10/22 documented as of this encounter
--- OUTSIDE RECORDS SUMMARY | 2024-05-14 03:40 | XMS_ITS | Encounter Summary ---
Author Organization [facility] Address [address] [place] [address] Care Team Providers Care Mend Worker Name Role Phone Donnell Cabrera MD Primary Care Provider [phone] Encounter Details Date Type Department Care Team (Late st Contact Info) Description 01/07/2021 Lab Requisition [facility] Pathology & Laboratory Medicine - [facility] [address] [place] [address] Hong Sage MD [address] [place] [id number] Encounter for other general examination Social History Tobacco Use Types Packs/Day Years Used Date Smoking Tobacco: Never Assessed Sex and Gender Information Value Date Recorded Sex Assigned at Not on file Gender Identity Not on file Sexual Orientation Not on file documented as of this encounter Plan of Treatment Not on file documented as of this encounter Procedures Procedure Name Priority Date/Time Associated Diagnosis Comments LEUKEMIA/LYMPHOMA PANEL BY FLOW CYTOMETRY Today 01/06/2021 8:56 EDT Encounter for other general examination documented in this encounter Results * LEUKEMIA/LYMPHOMA PANEL BY FLOW CYTOMETRY (01/06/2021 8:56 EDT) Final Immunophenotypic Interpretation Peripheral blood, flow cytometric analysis: -CD5+ B-cell lymphoproliferative disorder. See comment. 15:05 EDT [facility] Comment The results of flow cytometry show a clonal proliferation of B-cells expressing CD5 without surface light chain expression. The immunophenotypic profile is characteristic of chronic lymphocytic leukemia; however, the absolute count of clonal B-cells is 4,520/cmm (6,550 * 69%). While the absolute count falls short of the numerical diagnostic criterion of 5,000/cmm for CLL, if there is evidence of a tissue mass or lymphadenopathy these findings would fit with CLL; otherwise, high count monoclonal B-cell lymphocytosis (MBL) remains in the differential diagnosis. Correlation of these findings with morphologic and clinical data is essential. 15:05 [facility] Attestation By the signature below, the attending physician certifies that they have 1) personally conducted a gross and/or microscopic examination of the described specimen(s), and/or personally interpreted the results of laboratory testing of the described specimen(s), and 2) personally rendered or confirmed the above diagnosis. 15:05 [facility] at 1505 Clinical History 75 yo male with abnormal lymphocytes. 15:05 [facility] Description The specimen consists of peripheral blood that has been prepared using ammonium chloride lysing agent. Gating is performed using CD45 fluorescence and side scatter. Cellular viability (assessed by propidium iodide exclusion) is excellent (99%) among cells with CD45 and side scatter properties typical of lymphocytes and excellent (99%) among CD45+ events overall. Scatter plots incorporating all of the markers have been interpreted and evaluated for the presence or absence of abnormal cell populations. Only pertinent abnormal findings are included. If not otherwise addressed all other markers were normal/negative. There is a clonal population of B-lymphocytes accounting for 69% of the lymphocytes. The cells comprising this population are positive for CD19, dim CD20, CD5, CD23, dim CD22 and HLA-DR. They are negative for CD10, FMC7, CD11c, CD11b and surface light chain expression. By light scatter criteria, the cells are similar in size to normal lymphocytes. 6% of the B-lymphocytes express CD38. A minority of the lymphoid cells are T-lymphocytes (CD2+CD3+CD5+CD7+) with CD4+ and CD8+ subsets represented. The remaining lymphocytes are NK-cells (CD2+CD3-CD16+CD56+) . The remainder of the CD45+ events is predominantly of myeloid lineage. There is no increase in blasts. 15:05 [facility] Flow Markers CD2, CD3, CD4, CD5, CD7, CD8, CD10, CD11b, CD11c, CD13, CD14, CD16, CD19, CD20, CD22, CD23, CD33, CD34, CD38, CD45, CD56, CD57, CD117, FMC7, HLADR, Handley, and Lambda. 1 15:05 T [facility] FDA Disclaimer This test was developed and its performance characteristics determined by the Department of Pathology and Laboratory Medicine, [place], [place] It has not been cleared or approved by the U.S. Food and Drug Administration. FDA does not require this test to go through premarket FDA review. This test is used for clinical purposes. It should not be regarded as investigational or for research. This laboratory is certified under the Clinical Laboratory Improvement Amendments (CLIA) as qualified to perform high complexity clinical laboratory testing. 1 15:05 T [facility] Scanned Images 1 15:05 [facility] Blood VENOUS BLOOD / Unknown 01/06/2021 8:56 EDT 01/07/2021 8:36 EDT Hong Sage MD PATHOLOGY ORDERAB LES [facility] [address] [place] [address] documented in this encounter Visit Diagnoses Diagnosis Encounter for other general examination documented in this encounter Care Teams Mend Worker Relationship Specialty Start Date End Date Donnell Cabrera MD PCP - General Family Medicine - Primary Care 01/01/21 documented as of this encounter
--- OUTSIDE RECORDS SUMMARY | 2024-05-14 03:40 | XMS_ITS | Encounter Summary ---
Author Organization [facility] Address [address] [place] [id number] Care Team Providers Care Felt Hat Flanging Operator Name Role Phone Donnell Cabrera MD Primary Care Provider [phone] Encounter Details Date Type Department Care Team (Late st Contact Info) Description 08/14/2019 Lab Requisition [facility] Pathology & Laboratory Medicine - [address] [address] Unknown, Provider, Social History Tobacco Use Types Packs/Day Years Used Date Smoking Tobacco: Never Assessed Sex and Gender Information Value Date Recorded Sex Assigned at Not on file Gender Identity Not on file Sexual Orientation Not on file documented as of this encounter Plan of Treatment Not on file documented as of this encounter Procedures Procedure Name Priority Date/Time Associated Diagnosis Comments PSA TOTAL, DIAGNOSTIC Routine 08/14/2019 12:55 EST documented in this encounter Results * PSA TOTAL, DIAGNOSTIC (08/14/2019 12:55 EST) PSA 0.9 0.0 - 6.5 ng/mL 08/15/2019 12:[address] [facility] Blood VENOUS BLOOD / Unknown Non-Lab Collect / Unknown 08/14/2019 12:55 EST 08/14/2019 22:38 EST Provider Unknown CHEMISTRY & BLOOD GA S ORDERABLES [facility] [address] [place] [address] documented in this encounter Visit Diagnoses Not on filedocumented in this encounter Care Teams Felt Hat Flanging Operator Relationship Specialty Start Date End Date Donnell Cabrera MD PCP - General Family Medicine - Primary Care 01/01/21 documented as of this encounter
--- OUTSIDE RECORDS SUMMARY | 2024-05-14 03:40 | XMS_ITS | Encounter Summary ---
Author Organization [facility] Address [facility] [place] [address] Care Team Providers Care Bender Helper Name Role Phone Unknown Primary Care Provider Unavailabl e Encounter Details Date Type Department Care Team (Latest Contact Info) Description 09/06/2023 Travel Social History Tobacco Use Types Packs/Day [...] place to sleep or slept in a fpc (including now)? No 04/09/2022 Sex and Gender Information Value Date Recorded Sex Assigned at Not on file Gender Identity Not on file Sexual Orientation Not on file documented as of this encounter Plan of Treatment Upcoming Encounters Date Type Department Care Team (Late st Contact Info) Description 05/22/2024 1:00 PM EDT Office Visit Hematology/Oncology at [address] [phone] Iris Nguyen APRN [facility] [place] [address] 05/22/2024 1:30 PM EDT Infusion Hematology Oncology at [address] [phone] documented as of this encounter Visit Diagnoses Not on filedocumented in this encounter Care Teams Bender Helper Relationship Specialty Start Date End Date Unknown None PCP - General 08/10/22 documented as of this encounter
--- OUTSIDE RECORDS SUMMARY | 2024-05-14 03:40 | XMS_ITS | Encounter Summary ---
Author Organization [facility] Address [facility] [place] [address] Care Team Providers Care Deputy Fire Chief Name Role Phone Unknown Primary Care Provider Unavailabl e Encounter Details Date Type Department Care Team (Latest Contact Info) Description 02/21/2024 Travel Social History Tobacco Use Types Packs/Day [...] place to sleep or slept in a fdc (including now)? No 04/09/2022 Sex and Gender Information Value Date Recorded Sex Assigned at Not on file Gender Identity Not on file Sexual Orientation Not on file documented as of this encounter Plan of Treatment Upcoming Encounters Date Type Department Care Team (Late st Contact Info) Description 05/22/2024 1:00 PM EDT Office Visit Hematology/Oncology at [address] [phone] Iris Nguyen APRN [facility] [place] [address] 05/22/2024 1:30 PM EDT Infusion Hematology Oncology at [address] [phone] documented as of this encounter Visit Diagnoses Not on filedocumented in this encounter Care Teams Deputy Fire Chief Relationship Specialty Start Date End Date Unknown None PCP - General 08/10/22 documented as of this encounter
--- OUTSIDE RECORDS SUMMARY | 2024-05-14 03:40 | XMS_ITS | Clinical Summary ---
Author Organization [facility] Address [facility] [place] [address] Care Team Providers Care Filbert Grower Name Role Phone Unknown Primary Care Provider Unavailabl e Allergies No known active allergies Medications Medication Sig Dispensed Refills Start Date End Date Status Vitamin A-Vitamin C-Vit E-Min Tablet Take by mouth. Active atorvastatin (LIPITOR) 10 mg Tablet Take 10 mg by mouth daily. Active losartan (Cozaar) 50 mg Tablet Take 50 mg by mouth nightly. 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 01/19/2021 Prostate cancer 12/06/2011 Encounters Date Type Department Care Team Description 04/23/2024 2:15 PM EDT Ancillary Procedure [place] [address] Roman Addison MD 02/21/2024 10:00 AM EDT Office Visit Hematology/Oncology at [address] [phone] Roman Addison MD Burns, Kimberly A, APRN Prostate cancer metastatic to intrapelvic lymph node (Primary Dx); Prostate cancer; Asymptomatic menopausal state; Androgen deprivation therapy 02/21/2024 Travel from Last 3 Months Family History Relation Status Comments Brother Alive Daughter 1 Alive A&W Daughter 2 Alive A&W Mother Alive alzheimer Social History Tobacco Use Types Packs/Day Years [...] place to sleep or slept in a chcf (including now)? No 04/09/2022 Sex and Gender Information Value Date Recorded Sex Assigned at Not on file Gender Identity Not on file Sexual Orientation Not on file Last Filed Vital Signs Vital Sign Reading Time Taken Comments Blood Pressure 127/76 02/21/2024 9:57 AM EDT Pulse 53 02/21/2024 9:57 AM EDT Temperature 36.3 ??C (97.3 ??F) 02/21/2024 9:57 AM ED T Respiratory Rate 16 02/21/2024 9:57 AM EDT Oxygen Saturation 97% 02/21/2024 9:57 AM EDT Inhaled Oxygen Concentration - - Weight 84.4 kg (186 lb) 02/21/2024 9:57 AM EDT Height 165.1 cm (5' 5) 02/21/2024 9:57 AM EDT Body Mass Index 30.95 02/21/2024 9:57 AM EDT Plan of Treatment Upcoming Encounters Date Type Department Care Team (Late st Contact Info) Description 05/22/2024 1:00 PM EDT Office Visit Hematology/Oncology at [address] [phone] Iris Nguyen APRN [facility] [place] [address] 05/22/2024 1:30 PM EDT Infusion Hematology Oncology at [address] [phone] Health Maintenance Due Date Last Done Comments Hepatitis C Screening 1963 Tdap adult 1964 Tetanus vaccine 1964 Zoster vaccine (1 of 2) 1995 Advance Directive 2000 Pneumoccocal Vaccine: 65+ (1 of 1 - PCV) 2010 Covid-19 Vaccine (1 - season) 2023 Influenza (Flu) vaccine (1 o f 1 - Influenza standard series) 06/03/2024 Procedures Procedure Name Priority Date/Time Associated Diagnosis Comments FILM LIBRARY- STORAGE ONLY DXA IMAGES Routine 04/23/2024 2:11 PM EDT DIAGNOSTIC RADIOLOGY SCAN 04/23/2024 12:00 AM EDT from Last 3 Months Results * Film Library- Storage Only DXA Images (04/23/2024 2:11 PM EDT) Narrative MARTINA - 04/23/2024 2:11 PM EDT This exam is auto-finalizing. It's purpose is for storage only. Roman Addison MD IMMiguel FILM LIBRARY ORD ERABLES MARTINA [place] * Scan Doc: Diagnostic Radiology (04/23/2024 12:00 AM EDT) Anatomical Region Laterality Modality Other Narrative 04/23/2024 12:00 AM EDT Ordered by an unspecified provider. Scanning Provider MEDIA MGR SCAN EXT O RDR/RSLT from Last 3 Months Care Teams Filbert Grower Relationship Specialty Start Date End Date Unknown None PCP - General 08/10/22
--- OUTSIDE RECORDS SUMMARY | 2024-05-14 03:40 | XMS_ITS | Encounter Summary ---
Author Organization [facility] Address [facility] [place] [address] Care Team Providers Care Adjuster Electrical Contacts Name Role Phone Unknown Primary Care Provider Unavailabl e Reason for Visit * Reason Comments Injections Lupron * Treatment/Therapy Plan Authorization (Routine) - Authorized Specialty Diagnoses / Procedures Referred By Contac t Referred To Contact Hematology and Oncology Diagnoses Prostate cancer metastatic to intrapelvic lymph node Procedures INFUSION Roman Addison MD [facility] DR [place] [address] Roman Addison MD [address] [place] [address] DR [place]EM[place]Y [place] [address] Referral ID Status Reason Start Date Expiration Date V isits Requested Visits Authorized [id number] Authorized 10/03/2022 07/09/2024 99 99 Encounter Details Date Type Department Care Team (Late st Contact Info) Description 06/14/2023 2:30 PM EDT Infusion Hematology Oncology at [address] [phone] Prostate cancer metastatic to intrapelvic lymph node Social History Tobacco Use Types Packs/Day Years [...] place to sleep or slept in a snf (including now)? No 04/09/2022 Sex and Gender Information Value Date Recorded Sex Assigned at Not on file Gender Identity Not on file Sexual Orientation Not on file documented as of this encounter Progress Notes * Nani Galvez RN - 06/14/2023 2:30 PM EDT Infusion Note Diagnosis: Prostate Cancer Treatment: Lupron Injection Administrations This Visit leuprolide (Lupron Depot) injection 22.5 mg Admin Date 06/14/2023 Action Given Dose 22.5 mg Route Intramuscular Administered By Nani Galvez, RN Patient aware to call clinic with any questions or concerns. Plan: Return to clinic as scheduled. documented in this encounter Plan of Treatment Upcoming Encounters Date Type Department Care Team (Late st Contact Info) Description 05/22/2024 1:00 PM EDT Office Visit Hematology/Oncology at [address] [phone] Iris Nguyen APRN [facility] [place] [address] 05/22/2024 1:30 PM EDT Infusion Hematology Oncology at [address] [phone] documented as of this encounter Visit Diagnoses Diagnosis Prostate cancer metastatic to intrapelvic lymph node documented in this encounter Administered Medications Inactive Administered Medications - up to 3 most recent administrations Medication Order MAR Action Action Date Dose Rate Site leuprolide (Lupron Depot) injection 22.5 mg 22.5 mg, Intramuscular, ONCE, 1 dose, On Tue06/14/23 at 1515, Last injection site was... leuprolide IM injection site: L Gluteal (12/28/2022 3:19 PM) , Routine, This agent is restricted to outpatient use. Is this drug being given as an outpatient? Yes Given 06/14/2023 3:15 PM EDT 22.5 mg documented in this encounter Care Teams Adjuster Electrical Contacts Relationship Specialty Start Date End Date Unknown None PCP - General 08/10/22 documented as of this encounter
--- OUTSIDE RECORDS SUMMARY | 2024-05-14 03:40 | XMS_ITS | Encounter Summary ---
Author Organization [facility] Address [address] [place] [address] Care Team Providers Care Mine Safety Manager Name Role Phone Donnell Cabrera MD Primary Care Provider [phone] Encounter Details Date Type Department Care Team (Late st Contact Info) Description 07/20/2021 Lab Requisition [facility] Pathology & Laboratory Medicine - [facility] [address], [place] [id number] Outr Resulting Lab, Provider Social History Tobacco Use Types Packs/Day Years Used Date Smoking Tobacco: Never Assessed Sex and Gender Information Value Date Recorded Sex Assigned at Not on file Gender Identity Not on file Sexual Orientation Not on file documented as of this encounter Plan of Treatment Not on file documented as of this encounter Procedures Procedure Name Priority Date/Time Associated Diagnosis Comments IMMUNOGLOBULINS Routine 07/20/2021 8:07 EDT documented in this encounter Results * (ABNORMAL) IMMUNOGLOBULINS (07/20/2021 8:07 EDT) IgG 928 610-1,616 mg/dL 07/21/2021 9:57 EDT [facility] IgA 107 85 - 499 mg/dL 07/21/2021 9:57 EDT [facility] IgM 31(L) 35 - 242 mg/dL 07/21/2021 9:57 EDT [facility] Blood VENOUS BLOOD / Unknown 07/20/2021 8:07 EDT 07/20/2021 17:14 EDT Provider Outr Resulting Lab CHEMISTRY & BLOOD GAS ORDERABLES [facility] [address] [place] [address] documented in this encounter Visit Diagnoses Not on filedocumented in this encounter Care Teams Mine Safety Manager Relationship Specialty Start Date End Date Donnell Cabrera MD PCP - General Family Medicine - Primary Care 01/01/21 documented as of this encounter
--- OUTSIDE RECORDS SUMMARY | 2024-05-14 03:40 | XMS_ITS | Encounter Summary ---
Author Organization [facility] Address [facility] [place] [address] Care Team Providers Care Sleep Tech Name Role Phone Unknown Primary Care Provider Unavailabl e Encounter Details Date Type Department Care Team (Late st Contact Info) Description 04/23/2024 2:15 PM EDT Ancillary Procedure [place] [phone] Roman Addison MD [facility] [place] [address] Social History Tobacco Use Types Packs/Day Years [...] place to sleep or slept in a longterm (including now)? No 04/09/2022 Sex and Gender Information Value Date Recorded Sex Assigned at Not on file Gender Identity Not on file Sexual Orientation Not on file documented as of this encounter Plan of Treatment Upcoming Encounters Date Type Department Care Team (Late st Contact Info) Description 05/22/2024 1:00 PM EDT Office Visit Hematology/Oncology at [address] [phone] Iris Nguyen APRN [facility] [place] [address] 05/22/2024 1:30 PM EDT Infusion Hematology Oncology at [address] [phone] documented as of this encounter Procedures Procedure Name Priority Date/Time Associated Diagnosis Comments FILM LIBRARY- STORAGE ONLY DXA IMAGES Routine 04/23/2024 2:11 PM EDT documented in this encounter Results * Film Library- Storage Only DXA Images (04/23/2024 2:11 PM EDT) Narrative MARTINA - 04/23/2024 2:11 PM EDT This exam is auto-finalizing. It's purpose is for storage only. Roman Addison MD IMG FILM LIBRARY ORD ERABLES [facility] [place], [place] documented in this encounter Visit Diagnoses Not on filedocumented in this encounter Care Teams Sleep Tech Relationship Specialty Start Date End Date Unknown None PCP - General 08/10/22 documented as of this encounter
--- OUTSIDE RECORDS SUMMARY | 2024-05-14 03:40 | XMS_ITS | Encounter Summary ---
Author Organization [facility] Address [facility] [place] [address] Care Team Providers Care Quotation Checker Name Role Phone Unknown Primary Care Provider Unavailabl e Encounter Details Date Type Department Care Team (Late st Contact Info) Description 09/06/2023 11:00 AM EST Office Visit Hematology/Oncology at [address] [phone] Roman Addison MD [facility] [address] [place] [address] Iris Nguyen APRN [facility] [place] [address] Prostate cancer metastatic to intrapelvic lymph node; Hot flashes Social History Tobacco Use Types Packs/Day Years [...] on file documented as of this encounter Last Filed Vital Signs Vital Sign Reading Time Taken Comments Blood Pressure 142/90 09/06/2023 10:52 AM EST Pulse 72 09/06/2023 10:52 AM EST Temperature 36.2 ??C (97.1 ??F) 09/06/2023 10:[address] Respiratory Rate 18 09/06/2023 10:52 AM EST Oxygen Saturation 98% 09/06/2023 10:52 AM EST Inhaled Oxygen Concentration - - Weight 83.2 kg (183 lb 6.4 oz) 09/06/2023 10:52 AM EST Height 165.1 cm (5' 5) 09/06/2023 10:52 AM EST Body Mass Index 30.52 09/06/2023 10:52 AM EST documented in this encounter Progress Notes * Iris Nguyen, SEGUNDO - 09/06/2023 11:00 AM EST Diagnosis: Prostate cancer with metastasis to pelvic lymph nodes CC:I feel fine HPI:Brenton Joaquin is 78 y.o.M referred by Yamel Woods for consultation of metastatic prostate cancer. He was initially diagnosed with intermediate risk localized prostate cancer in April 2012. He completed external beam radiation on 04/18/2012 and follow-up with radiation oncology team. There was continuing elevation from 1.0 to 1.5 in one year and then to 2.0 in next 6 months. PSA was 2.0 in January 2022 with PSA doubling time above 2 years. PET scan demonstrated activity in the prostate gland with Increased activity in right obturator and a left external iliac nodes concerning for metastatic disease. Based on the PSA his disease has been slowly progressing but technically he has metastatic cancer based on the PET scan. Interval history (06/14/23) Brenton Joaquin returns to clinic today for followup of his metastatic prostate cancer and Lupron injection. He continues to receive lupron every 3 months. He tolerates the treatment with only minimal side effects hot flashes and mild fatigue. Hot flashes are most bothersome during the summer months. He denies any pain. He denies any chest pain, shortness of breath or cou gh. His appetite is good. He continues to gain weight despite his best efforts. He has no issues with his bowels. He has no urinary symptoms. ROS is otherwise negative. Social History: He is . He lives in [place]. 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 Allergies: No Known Allergies Medications: losartan-hydroCHLOROthiazide (Hyzaar) 50-12.5 mg tablet losartan (Cozaar) 50 mg Tablet atorvastatin (LIPITOR) 10 mg Tablet Vitamin A-Vitamin C-Vit E-Min Tablet No current facility-administered medications for this visit. Review of Systems: As in interval history PE: General: AAAx3, in NAD Head: Normocephalic, without obvious abnormality, atraumatic Neck: No adenopathy Lungs: Clear to auscultation bilaterally, respirations unlabored Heart: Regular rate and rhythm Abdomen: Soft, non-tender, bowel sounds active all four quadrants, no masses, no organomegaly. There is no appreciable ascites Extremities: No swelling Lymph nodes: Cervical, supraclavicular, and axillary nodes normal Vitals BP 142/90 (Patient Position: Sitting) Pulse 72 Temp 36.2 ??C (97.1 ??F) (Temporal) Resp 18 Ht 165.1 cm (5' 5) Wt 83.2 kg (183 lb 6.4 oz) SpO2 98% BMI 30.52 kg/m?? Wt Readings from Last 3 Encounters: 09/06/23 83.2 kg (183 lb 6.4 oz) 06/14/23 83.6 kg (184 lb 6.4 oz) 03/22/23 86.3 kg (190 lb 3.2 oz) Pathology: 11/08/11 Adenocarcinoma, Linda grade 3+4 This was followed by TRUS biopsy which demonstrated Callender 3+4 involving 10% the right base core. The right lateral base had adenocarcinoma Callender 3+4 with 10% of this core. The left lateral apex had adenocarcinoma 3+3 involving 5% of the core. The remaining nine cores demonstrated benign prostatic tissue. Labs: 09/06/23 BUN 30, creatinine 1.3, glucose 99, calcium 9.4 AST 23, ALT 25, alkaline phosphatase 74, total protein 7.1, albumin 3.7, WBC 10.58, hemoglobin 13.9, platelet count 167, 06/03/2023 BUN 30, creatinine 1.3, glucose 116, calcium 9.0, AST 23, ALT 32, alkaline phosphatase 69,total protein 6.6, albumin 3.6, WBC 9.64, hemoglobin 13.5, platelet count 165, 03/11/23 WBC 9.79 H/H 13.8/40.8 Plts 169 Na 138 K+ 3.5 BUN/Cr 32/1.4 Glu 91 T bili 0.7 AST 25 ALT 30 Alk ramirez 69 12/20/22- WBC-10.70 Hgb/Hct-14.1/41.3 MCV-88 Plt-177 ANC-4.69 Na-141 K+-3.7 BUN/Cr-26/1.3 Glucose-97 Ca-9.0 T. Bili-0.6 AST-25 ALT-31 Alk phos-74 Albumin-3.7 09/24/22- WBC-10.22 Hgb/Hct-13.7/40.5 Plt-156 ANC-4.04 Na-140 K+-4.7 BUN/cr-27/1.3 Glucose-95 Ca-9.3 T. Bili-0.6 AST-27 ALT-27 Alk phos-71 Albumin-3.8 07/05/2022 BUN 26, creatinine 1.2, glucose 94, calcium 8.8, TB 0.6, AST 25, ALT 36, alkaline phosphatase 64, total protein 7.0, albumin 3.8, WBC 9.43, hemoglobin 14, platelet count 175, ANC 4.60 05/3022 WBC 9.52 H/H 14.5/42.2 Plts 155 Na 141 K+ 4.2 BUN/cr 24/1.2 T bili 0.6 ALT 56 AST 25 Ca 9.0 Date PSA Test Notes 09/06/23 <0.01 7.1 06/03/23 <0.01 <7.0 03/11/23 <0.01 7.5 12/20/22 <0.01 <7.0 09/24/22 <0.01 <7.0 07/05/22 0.04 <7.0 06/01/22 0.59 Pend. [id number] 02/04/2022 2.0 623 LDH 197 08/04/21 1.5 Date 06/13/2020 1.0 08/14/2019 0.9 07/10/2018 0.6 07/19/2017 0.5 07/20/2016 0.5 12/25/2015 0.5 06/05/2015 0.5 10/21/2014 0.5 05/01/14 0.5 11/19/13 0.5 08/03/13 0.7 04/30/2013 1.0 02/22/2013 1.50 11/09/2012 0.79 08/07/2012--first after treatment PSA 1.67 10/26/2011--before treatment 6.5 Imagin04/07/22 pelvic MRI: Extraprostatic disease: Seminal vesicle involvement:No Lymphadenopathy:No Sphincter involvement:No Bladder involvement:No Osseous metastases: No . MRI-derived Extraprostatic extension risk: None Other findings: Sigmoid diverticulosis without evidence of acute diverticulitis. 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 IMPRESSION No focal lesion identified. No finding to correlate with the abnormality seen on PSMA scan. 03/02/22 PET scan: IMPRESSION 1. Recurrent cancer within the prostate gland. 2. Increased activity in right obturator and a left external iliac nodes concerning for metastatic disease. Assessment and Plan: Diagnosis: Recurrence of prostate cancer with regional lymph node metastasis, Treatment: -04/18/2012 completed ERBT. Did not have ADT. 2021: PET scan demonstrated activity in the prostate gland with Increased activity in right obturator and a left external iliac nodes concerning for metastatic disease -04/30/22 to present: Lupron 22.5q 3months Mr. Joaquin had rising PSA s/p xrt. PSA was 2.0 in January 2022 with PSA doubling time above 2 years. PET scan demonstrated activity in the prostate gland with Increased activity in right obturator and a left external iliac nodes concerning for metastatic disease. Based on the PSA his disease has been slowly progressing but technically he has metastatic cancer based on the PET scan. He was informed ofthe prognosis of lymph node only metastatic disease with median survival around 8 years for all comers. He was informed of treatment option particularly first-line androgen deprivation therapy with either gonadotropin-releasing hormone agonist or antagonist. We discussed side effects of Lupron which include but not limited to hot flashes, night sweats, fatigue, musculoskeletal complaints, osteoporosis, increase blood sugar and cholesterol, decrease in muscle and bone mass, decrease in libido, remote increase in cardiovascular events. Given his minimal comorbidities and life expectancy 10+ years it was recommend he start ADT. Alternative would be continued observation and treatment only if he develops symptoms or PSA doubling timegetting significantly shorter than 6-9 months. He elected to proceed with Lupron. 06/01/22 He has had one dose of lupron on April 20. His PSA is lower than it was 3 months ago. He has had hot flashes with the lupron. He is otherwise tolerating it without any problems. We did have a brief discussion about abiraterone/ prednisone. We discussed possible side effects of the treatment. He will consider it and discuss it further with Dr Addison. 12/2822 PSA undetectable. He has had an excellent response to the treatment. Dr. Addison discussedadding abiraterone and prednisone to the treatment with ADT as data shows some improvement in outcome following comments. Discussed risks and benefits of abiraterone and prednisone. He like to hold off decision of secondary hormonal therapy. We will see him back in 3 months with blood work. Continue Lupron every 3 months we will discuss intermittent versus continuous ADT later. 03/2023 PSA remains undetectable. He continues to have an excellent response to treatment. At this point there is no need to add secondary hormonal treatment at this time. He knows that this remains an option should he need it. He will receive his Lupron today and return in 3 months with labs prior for his next dose. 06/14/23 PSA is undetectable. He tolerates treatment reasonably well with mild hot flashes and fatigue. He is doing well with oncological standpoint. We discussed intermittent versus continuous ADT. He wants to think about intermittent option but wants to continue leuprolide for now. We will see him back in 3 months with blood work. 09/06/23 PSA remains undetectable. He has mild hot flashes He continues to do well and elects continuous ADT at this time. Considering intermittent ADT in the future. We will see him back in 3 months with labs. #Monoclonal B cell lymphocytosis: Follows up with Dr. Thornton # Weight gain- Again discussed side effects of Lupron therapy - loss of muscle mass and relationship to weight gain. Discussed dietary changes- avoid sweets and processed foods. 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 #Hot flashes: secondary to treatment. Declines pharmacological therapy. Plan: 1. Lupron 22.5 mg today 2. Next visit in with CBC, CMP, PSA, testosterone and his next lupron injection. In 3 months Iris Nguyen APRN 30 minutes were spent on date of visit, including non-face to face time. We reviewed his labs and plan of care in detail today and all questions answered. documented in this encounter Plan of Treatment Upcoming Encounters Date Type Department Care Team (Late st Contact Info) Description 05/22/2024 1:00 PM EDT Office Visit Hematology/Oncology at [address] [phone] Iris Nguyen APRN [facility] MEDICAL [place] [address] 05/22/2024 1:30 PM EDT Infusion Hematology Oncology at [address] [phone] documented as of this encounter Visit Diagnoses Diagnosis Prostate cancer metastatic to intrapelvic lymph node Hot flashes Symptomatic menopausal or female climacteric states documented in this encounter Care Teams Quotation Checker Relationship Specialty Start Date End Date Unknown None PCP - General 08/10/22 documented as of this encounter
--- OUTSIDE RECORDS SUMMARY | 2024-05-14 03:40 | XMS_ITS | Encounter Summary ---
Author Organization [facility] Address [address] [place] [address] Care Team Providers Care Stabilizer Operator Name Role Phone Donnell Cabrera MD Primary Care Provider [phone] Encounter Details Date Type Department Care Team (Late st Contact Info) Description 06/13/2020 Lab Requisition [facility] Pathology & Laboratory Medicine - [facility] [address] [place], [place] [address] Outr Resulting Lab, Provider Social History Tobacco [...] Associated Diagnosis Comments PSA TOTAL, DIAGNOSTIC Routine 06/13/2020 8:59 EDT documented in this encounter Results * PSA TOTAL, DIAGNOSTIC (06/13/2020 8:59 EDT) PSA 1.0 0.0 - 6.5 ng/mL 06/16/2020 10:30 EDT [facility] Blood VENOUS BLOOD / Unknown 06/13/2020 8:59 EDT 06/13/2020 22:00 EDT Narrative [facility] - 06/16/2020 10:30 EDT NOTE: Serum PSA concentration should not be interpreted as absolute evidence for the presence or absence of malignant disease. Assayed on Siemens ADVIA Dr Lal [employer] XPT using chemiluminescent technology.??Values obtained by using different assay methods cannot be used interchangeably. Provider Outr Resulting Lab CHEMISTRY & BLOOD GAS ORDERABLES [facility] [address] [place] [address] documented in this encounter Visit Diagnoses Not on filedocumented in this encounter Care Teams Stabilizer Operator Relationship Specialty Start Date End Date Donnell Cabrera MD PCP - General Family Medicine - Primary Care 01/01/21 documented as of this encounter
--- OUTSIDE RECORDS SUMMARY | 2024-05-14 03:40 | XMS_ITS | Encounter Summary ---
Author Organization Formerly [facility] Address [facility] [place] [address] Care Team Providers Care Project Production Engineer Name Role Phone Unknown Primary Care Provider Unavailabl e Reason for Visit * Reason Comments Injections * Treatment/Therapy Plan Authorization (Routine) - Authorized Specialty Diagnoses / Procedures Referred By Contac t Referred To Contact Hematology and Oncology Diagnoses Prostate cancer metastatic to intrapelvic lymph node Procedures INFUSION Roman Addison MD [facility] DR HEM[place]Y [place] [address] Roman Addison MD [address] [place] [address] [place] [address] Referral ID Status Reason Start Date Expiration Date V isits Requested Visits Authorized [id number] Authorized 10/03/2022 07/09/2024 99 99 Encounter Details Date Type Department Care Team (Late st Contact Info) Description 09/06/2023 11:30 AM EST Infusion Hematology Oncology at [address] [phone] Prostate cancer metastatic to intrapelvic lymph node [...] place to sleep or slept in a long-term (including now)? No 04/09/2022 Sex and Gender Information Value Date Recorded Sex Assigned at Not on file Gender Identity Not on file Sexual Orientation Not on file documented as of this encounter Progress Notes * Kimberley Haile, RN - 09/06/2023 11:30 AM EST Infusion Note Diagnosis: Prostate Cancer Treatment: Lupron Injection Lupron injected IM in right buttocks. Patient instructed on side effects of Lupron. Patient states understanding of teaching and patient aware to call clinic with any questions or concerns. Plan: Return to clinic as scheduled. documented in this encounter Plan of Treatment Upcoming Encounters Date Type Department Care Team (Late st Contact Info) Description 05/22/2024 1:00 PM EDT Office Visit Hematology/Oncology at [address] [phone] Iris Nguyen APRN [facility] MEDICAL [place] [address] 05/22/2024 1:30 PM EDT Infusion Hematology Oncology at [address] [phone] documented as of this encounter Visit Diagnoses Diagnosis Prostate cancer metastatic to intrapelvic lymph node documented in this encounter Administered Medications Inactive Administered Medications - up to 3 most recent administrations Medication Order MAR Action Action Date Dose Rate Site leuprolide (Lupron Depot) injection 22.5 mg 22.5 mg, Intramuscular, ONCE, 1 dose, On Tue09/06/23 at 1200, Last injection site was... leuprolide IM injection site: R Gluteal (03/22/2023 9:24 AM) , Routine, This agent is restricted to outpatient use. Is this drug being given as an outpatient? Yes Given 09/06/2023 11:51 AM EST 22.5 mg Right Gluteal documented in this encounter Care Teams Project Production Engineer Relationship Specialty Start Date End Date Unknown None PCP - General 08/10/22 documented as of this encounter
--- OUTSIDE RECORDS SUMMARY | 2024-05-14 03:40 | XMS_ITS | Referral Summary ---
Author Organization [facility] Address [address] [place] [address] Care Team Providers Care Mobile Product Manager Name Role Phone Donnell Cabrera MD Primary Care Provider [phone] Social History Tobacco Use Types Packs/Day Years Used Date Smoking Tobacco: Never Assessed Sex and Gender Information Value Date Recorded Sex Assigned at Not on file Gender Identity Not on file Sexual Orientation Not on file Plan of Treatment Not on file Care Teams Mobile Product Manager Relationship Specialty Start Date End Date Donnell Cabrera MD PCP - General Family Medicine - Primary Care 01/01/21
--- OUTSIDE RECORDS SUMMARY | 2024-05-14 03:40 | XMS_ITS | Clinical Summary ---
Author Organization [facility] Address [address] [place] [address] Care Team Providers Care Vending Machine Filler Name Role Phone Donnell Cabrera MD Primary Care Provider [phone] Social History Tobacco Use Types Packs/Day Years Used Date Smoking Tobacco: Never Assessed Sex and Gender Information Value Date Recorded Sex Assigned at Not on file Gender Identity Not on file Sexual Orientation Not on file Plan of Treatment Health Maintenance Due Date Last Done Comments Hepatitis C Screen 1945 RSV Immunization ( o r 60+ Years) (1 - 1-dose 60+ series) 2005 Fall Risk Screening 2010 COVID-19 Vaccine (2022- season) 2023 Care Teams Vending Machine Filler Relationship Specialty Start Date End Date Donnell Cabrera MD PCP - General Family Medicine - Primary Care 01/01/21
--- OUTSIDE RECORDS SUMMARY | 2024-05-14 03:40 | XMS_ITS ---
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 Past Plans No past plan information found. Radiation Treatments * No radiation treatments are documented for this patient in [facility]. Treatments may have been administered in another system. Treatment Summaries Prostate cancer* Cancer Treatment Summary Provided by Cherise Tuttle on 07/29/16 General Information Patient name Brenton Joaquin (home) Date of 1945 Support contact Nicol Joaquin Care Team Medical Oncologist No primary care provider on file. Surgeon/Urologist Dr Luis Fernando Garcia Radiation Oncologist Dr Luis Fernando Gamez and Dr Kamlesh Nunez Primary Care Physician WILL RUSH Treatment Summary Chemotherapy and Supportive Care Treatment History Prostate Cancer Notes 11/13/2014 Date of Presentation 10/26/2011 Age at Presentation 66 year old PSA at Presentation 6.5 Presence of Symptoms at Presentation negative Result of ZACHARY normal Date of TRUS and Biopsy 11/08/2011 Volume in cc 29.1 [place] grade/score a+b=c 3+4=7 Total Cores 12 Positive cores 3 Prostate confined yes REZA--extracapsular extension -negative SV--seminal vesicle extension -negative Regular Lymph Nodes -negative Distant Mets -negative CT Abdomen/Pelvis at Presentation Yes --12/08/2011 Prostate Confined positive Dane Involvement -negative Metastases -negative Urinary Continence at Presentation normal Primary Therapy EBRT--external beam radiation EBRT Date Began 02/14/2012 ERBT Total Dose (Gy) 79.2 Gy Treatment Fractions 44 treatments Elapsed Date 04/18/2012 Concurrent ADT (hormone therapy) -none Histologic Type Adenocarcinoma Post Primary Therapy - Amari Date 11/19/2013 Post Primary Therapy - Amari PSA 0.5 Follow-up and Survivorship Care How Frequent? Coordinating Provider Radiation Oncology visits Yearly followup at this time Radiation oncology Lab tests PSA Radiation oncology Imaging exams Imaging would be needed if PSA were to rise to more than 2.5. Imaging would include abone scan, CT of the chest, abdomen and pelvis and possibly a MRI of the pelvis Radiation oncology Monitor for ongoing toxicities: Potential late effects of treatment(s): Late and custodial effects or radiation therapy to the prostate include the followin. Changes in urinary flow due to fibrosis or scaring that can occur to the bladder neck. 2. Blood in your urine could be due to previous radiation therapy. You may be at increased risk fora bladder tumor so this symptom needs to be evaluated if it occurs, with CT scans of your abdomen and pelvis and a test called a cystoscopy to look inside your bladder 3. Blood in your stool: Radiation therapy can cause some blood vessel changes to the lining of yourrectum called angioectasias. If you see blood in your stool you need to let your doctor know. 4. Erectile dysfunction can result from treatment . Call your doctor if you have any of these signs and symptoms: Difficulty or changes in your urine flow Blood in your urine or stool New pain that does not go away after two weeks You should have a colonoscopy every five years You should have your PSA checked as noted above. These recommendations are from the National cancercare Network (NCCN) guidelines. . Your PSA results have been as follows: Date 07/20/2016 0.5 12/25/2015 0.5 06/05/2015 0.5 10/21/2014 0.5 05/01/14 0.5 11/19/13 0.5 08/03/13 0.7 04/30/2013 1.0 02/22/2013 1.50 11/09/2012 0.79 08/07/2012--first after treatment PSA 1.67 10/26/2011--before treatment 6.5 03/19/2011 5.83 02/16/2010 5.57 08/29/2009 5.1 02/22/2013 1.50 11/09/2012 0.79 08/07/2012--first after treatment PSA 1.67 10/26/2011--before treatment 6.5 03/19/2011 5.83 02/16/2010 5.57 08/29/2009 5.1 Wellness: --continue to see your primary doctor for health maintenance --continue to see your primary doctor for immunization --we recommend regular exercise for bone health and for overall well being. --cancer screening: colonoscopy every five to ten years based on findings --diet with high fiber, fruits and vegetables to minimize risk of constipation --good hydration with water and avoiding caffeine to minimize risk of bladder irritation and bleeding. Comment: Based on current guidelines if your PSA were to rise to 2.5 you would be considered to have biochemical failure a term that means that your doctor should do some tests to determine if there is recurrence of your prostate cancer. Those tests should include a CT scan of your abdomen and pelvis as well as a nuclear bone scan. If your PSA were to rise at that level you should be seen by a medical oncologist for a consultation to calculate your PSA doubling time and to determine the timing for considering starting what is called hormone therapy and or chemotherapy. Resources: Helpful websites www. cancer. gov National Cancer [place] www.nccn.org National Comprehensive Cancer Network www.canceradvocacy.org National Coalition for Cancer Survivorship www.livestrong.org Livestrong Survivor Care www.acscsn.org Cancer Survivors Network Cherise Tuttle APRN- Radiation Oncology Adapted from [place] [employer] of Clinical Oncology 2008 Cancer Treatment Plan Summary Survivorship care provider contacts CERTIFIED GREEN BUILDING ENGINEER: Cherise Tuttle
--- OUTSIDE RECORDS SUMMARY | 2024-05-14 03:40 | XMS_ITS | Encounter Summary ---
Author Organization [facility] Address [address] [place] [address] Care Team Providers Care Bilingual Student Tutor Name Role Phone Donnell Cabrera MD Primary Care Provider [phone] Encounter Details Date Type Department Care Team (Late st Contact Info) Description 05/24/2022 Lab Requisition [facility] Pathology & Laboratory Medicine - [facility] [address] [place], [place] [address] Outr Resulting Lab, Provider Social History Tobacco [...] Priority Date/Time Associated Diagnosis Comments IMMUNOGLOBULINS Routine 05/24/2022 8:06 EDT documented in this encounter Results * (ABNORMAL) IMMUNOGLOBULINS (05/24/2022 8:06 EDT) IgG 946 610-1,616 mg/dL 05/25/2022 9:34 EDT [facility] IgA 105 85 - 499 mg/dL 05/25/2022 9:34 EDT [facility] IgM 31(L) 35 - 242 mg/dL 05/25/2022 9:34 EDT [facility] Blood VENOUS BLOOD / Unknown 05/24/2022 8:06 EDT 05/24/2022 21:20 EDT Provider Outr Resulting Lab CHEMISTRY & BLOOD GAS ORDERABLES [facility] [address] [place] [address] documented in this encounter Visit Diagnoses Not on filedocumented in this encounter Care Teams Bilingual Student Tutor Relationship Specialty Start Date End Date Donnell Cabrera MD PCP - General Family Medicine - Primary Care 01/01/21 documented as of this encounter
--- OUTSIDE RECORDS SUMMARY | 2024-05-14 03:40 | XMS_ITS | Encounter Summary ---
Author Organization Formerly [facility] Address [facility] [place] [address] Care Team Providers Care An/Sqq 89(V)15 Sonar System Journeyman Name Role Phone Unknown Primary Care Provider Unavailabl e Encounter Details Date Type Department Care Team (Late st Contact Info) Description 02/21/2024 10:00 AM EDT Office Visit Hematology/Oncology at [address] [phone] Roman Armstrong MD [facility] DR HEMATOLOGY [place] [address] Iris Nguyen APRN [facility] [place] [address] Prostate cancer metastatic to intrapelvic lymph node (Primary Dx); Prostate cancer; Asymptomatic menopausal state; Androgen deprivation therapy Social History Tobacco Use Types Packs/Day Years [...] place to sleep or slept in a mcc (including now)? No 04/09/2022 Sex and Gender [...] Mass Index 30.95 02/21/2024 9:57 AM EDT documented in this encounter Progress Notes * Roman Armstrong MD - 02/21/2024 10:00 AM EDT Diagnosis: Prostate cancer with metastasis to pelvic [...] based on the PET scan. Interval history Brenton Joaquin returns to clinic today for followup of his metastatic prostate cancer. He continues to receive lupron every 3 months. He tolerates the treatment with only minimal side effects hot flashes/sweats and mild fatigue. Hot flashes/ sweats are most bothersome during the summer months. He denies any pain. He denies any chest pain, shortness of breath or cough. His appetite is good. He continues to have some trouble sleeping, unrelated to hot flashes. He has no issues with his bowels. He has no urinary symptoms. ROS is otherwise negative. Social History: He is . He lives in [place]. 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 Allergies: No Known Allergies Medications: losartan (Cozaar) 50 mg Tablet atorvastatin (LIPITOR) 10 mg Tablet Vitamin A-Vitamin C-Vit E-Min Tablet Review of Systems: As in interval history [...] supraclavicular, and axillary nodes normal Vitals BP 127/76 (Patient Position: Sitting) Pulse 53 Temp 36.3 ??C (97.3 ??F) (Temporal) Resp 16 Ht 165.1 cm (5' 5) Wt 84.4 kg (186 lb) SpO2 97% BMI 30.95 kg/m?? Wt Readings from Last 3 Encounters: 02/21/24 84.4 kg (186 lb) 11/29/23 84.5 kg (186 lb 3.2 oz) 09/06/23 83.2 kg (183 lb 6.4 oz) Pathology: 11/08/11 Adenocarcinoma, [place] grade 3+4 This was followed by TRUS biopsy which demonstrated [place] 3+4 involving 10% the right base core. The right lateral base had adenocarcinoma [place] 3+4 with 10% of this core. The left lateral apex had adenocarcinoma 3+3 involving 5% of the core. The remaining nine cores demonstrated benign prostatic tissue. Labs: 02/13/2024 BUN 28, creatinine 1.3, calcium 9.2, AST 21, ALT 27, alkaline phosphatase 75, albumin 3.8, WBC 9.74, hemoglobin 13.6, platelet count 156, ANC 3.96. 11/18/23 BUN 26 creatinine 1.3, glucose 100, calcium 9.0 AST 36, ALT 36, alkaline phosphatase 65, total protein 6.8, albumin 3.5, WBC 8.52, hemoglobin 12.9, platelet count 139 09/06/23 BUN 30, creatinine 1.3, glucose 99, [...] 25 Ca 9.0 Date PSA Test Notes 02/13/24 <0.01 <7.0 11/18/23 <0.01 <7.0 09/06/23 <0.01 7.1 06/03/23 <0.01 <7.0 03/11/23 <0.01 7.5 12/20/22 <0.01 <7.0 09/24/22 <0.01 <7.0 07/05/22 0.04 <7.0 06/01/22 0.59 Pend. [id number] 02/04/2022 2.0 623 LDH 197 08/04/21 1.5 [...] it and discuss it further with Dr Armstrong. 12/2822 PSA undetectable. He has had an excellent response to the treatment. Dr. Armstrong discussedadding abiraterone and prednisone to the treatment [...] him back in 3 months with labs. 11/29/23 PSA remains undetectable. Testosterone is <7.0. He continues to have hot flashes which are bothersome during the summer months. Considering intermittent ADT and will discuss at next visit.He declines restaging studies. 02/21/2024 Mr. Joaquin has been on ADT since April 2022 with complete biochemical response. He has side effects including hot flashes and night sweats as well as fatigue and wants to discuss intermittent versus continuous ADT. We talked about benefits and the risks of intermittent ADT. Overall his prognosis is good. Intermittent ADT demonstrated improvement in quality of life but no change in outcome compared to continuousADT. Upon discussion with he decided to proceed with intermittent ADT. Will hold Lupron today. Willuse PSA of 2.0 for resuming of ADT. Next visit in 3 months with blood work # DEXA scan: Will obtain by DEXA scan prior to next visit #Monoclonal B cell lymphocytosis: Follows up with Dr. Thornton #Hot flashes: secondary to treatment. Declines pharmacological therapy. Plan: 1. Hold Lupron today 2. Next visit wit CBC, CMP, PSA, testosterone and possible lupron injection in 3 months ROMAN ARMSTRONG MD This encounter was primarily counseling-based (>50 % of total time) with total time of 30 minutes, of which 25 minutes was spent with the patien discussing: * Diagnostic/test results and/or recommendations for additional diagnostic or confirmatory studies; * Prognosis - related of the diagnosis/stage of the disease and course of treatment; * Risks and benefits of pertinent management and treatment options; * Instructions for disease management and the importance of compliance with recommended treatment; * Risk factor reduction, including additional screening and/or surveillance studies, documented in this encounter Miscellaneous Notes * Addendum Note - Roman Armstrong MD - 02/21/2024 10:00 AM EDTAddended by: ROMAN ARMSTRONG on: 02/21/2024 01:15 PM Modules accepted: Orders documented in this encounter Plan of Treatment Upcoming Encounters Date Type Department Care Team (Late st Contact Info) Description 05/22/2024 1:00 PM EDT Office Visit Hematology/Oncology at [address] [phone] Iris Nguyen APRN [facility] [place] [address] 05/22/2024 1:30 PM EDT Infusion Hematology Oncology at [address] [phone] Scheduled Orders Name Type Priority Associated Diagnoses Orde r Schedule PSA (Ultrasensitive) Lab Routine Prostate cancer metastatic to intrapelvic lymph node As Needed for 4 Occurrences starting 02/21/2024 until 02/20/2025 CBC (with Diff) Lab Routine Prostate cancer metastatic to intrapelvic lymph node As Needed for 4 Occurrences starting 02/21/2024 until 02/20/2025 Comprehensive metabolic panel (non-fasting) Lab Routine Prostate cancer metastatic to intrapelvic lymph node As Needed for 4 Occurrences starting 02/21/2024 until 02/20/2025 Testosterone, total Lab Routine Prostate cancer metastatic to intrapelvic lymph node As Needed for 4 Occurrences starting 02/21/2024 until 02/20/2025 DXA Central Spine, Hip, and/or Whole Body (Generic) Imaging Routine Prostate cancer metastatic to intrapelvic lymph node Asymptomatic menopausal state Androgen deprivation therapy Expected: 03/23/2024, Expires: 09/22/2024 documented as of this encounter Visit Diagnoses Diagnosis Prostate cancer metastatic to intrapelvic lymph node- Primary Prostate cancer Malignant neoplasm of prostate Asymptomatic menopausal state Asymptomatic postmenopausal status (age-related) (natural) Androgen deprivation therapy Encounter for therapeutic drug monitoring documented in this encounter Care Teams An/Sqq 89(V)15 Sonar System Journeyman Relationship Specialty Start Date End Date Unknown None PCP - General 08/10/22 documented as of this encounter
--- OUTSIDE RECORDS SUMMARY | 2024-05-14 03:40 | XMS_ITS | Encounter Summary ---
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 No 04/09/2022 Sex and Gender Information Value Date Recorded Sex Assigned at Not on file Gender Identity Not on file Sexual Orientation Not on file documented as of this encounter Last Filed Vital Signs Vital Sign Reading Time Taken Comments Blood Pressure 138/77 06/14/2023 2:13 PM EDT Pulse 86 06/14/2023 2:13 PM EDT Temperature 36.1 ??C (96.9 ??F) 06/14/2023 2:13 PM ED T Respiratory Rate 18 06/14/2023 2:13 PM EDT Oxygen Saturation 97% 06/14/2023 2:13 PM EDT Inhaled Oxygen Concentration - - Weight 83.6 kg (184 lb 6.4 oz) 06/14/2023 2:13 P M EDT Height 165.1 cm (5' 5) 06/14/2023 2:13 PM EDT Body Mass Index 30.69 06/14/2023 2:13 PM EDT documented in this encounter Progress Notes * Roman Addison MD - 06/14/2023 2:00 PM EDT Diagnosis: 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 He was initially diagnosed with intermediate risk localized prostate cancer in April 2012. He completed external beam radiation on 04/18/2012 and follow-up with radiation oncology team. There was continuing elevation from 1.0 to 1.5 in one year and then to 2.0 in next 6 months. ZACHARY 6 months ago: Prostate surface smooth, firm. No concerning reported symptoms or physical examination findings today. No urinary sx , no hematuria, no bleeding with stool. Has no bone pain. Interval history (06/14/23) Brenton Joaquin returns to clinic today for followup of his metastatic prostate cancer and Lupron injection. He continues to receive lupron every 3 months. He tolerates the treatment with only minimal side effects hot flashes and mild fatigue.. . He denies any pain. He denies any chest pain, shortness of breath or cough. His appetite is good. He continues to gain weight despite his best efforts. r. He has no issues with his bowels. He has no urinary symptoms. ROS is otherwise negative. 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 Allergies: Medications: Reviewed Review of Systems: Constitutional: Positive for hot flashes HEENT: Negative for sore throat, mouth sores and trouble swallowing. Eyes: Negative. Respiratory: Negative for cough, shortness of breath and wheezing. Cardiovascular: Negative for chest pain, palpitations and leg swelling. Gastrointestinal: Negative for nausea, vomiting, abdominal pain, diarrhea, constipation and abdominal distention. Genitourinary: Negative for dysuria and difficulty urinating. Musculoskeletal: Negative. Skin: Negative. Neurological: Negative. Hematological: Negative for adenopathy. PE: General: AAAx3, in NAD Head: Normocephalic, without obvious abnormality, atraumatic Eyes: Ears: Nose: Nares normal, septum midline, mucosa normal, no drainage or sinus tenderness Throat: Lips, mucosa, and tongue normal; teeth and gums normal Neck: Supple, symmetrical, trachea midline, no adenopathy, thyroid: not enlarged, symmetric, no tenderness/mass/nodules, no carotid bruit or JVD Back: Symmetric, no curvature, ROM normal, no CVA tenderness Lungs: Clear to auscultation bilaterally, respirations unlabored Chest Wall: No tenderness or deformity Heart: Regular rate and rhythm, S1, S2 normal, no murmur, rub or gallop Abdomen: Soft, non-tender, bowel sounds active all four quadrants, no masses, no organomegaly. There is no appreciable ascites Extremities: Extremities normal, atraumatic, no cyanosis or edema Pulses: 2+ and symmetric Skin: Skin color, texture, turgor normal, no rashes or lesions Lymph nodes: Cervical, supraclavicular, and axillary nodes normal Neurologic: Normal Vitals BP 138/77 (Patient Position: Sitting) Pulse 86 Temp 36.1 ??C (96.9 ??F) (Temporal) Resp 18 Ht 165.1 cm (5' 5) Wt 83.6 kg (184 lb 6.4 oz) SpO2 97% BMI 30.69 kg/m?? Wt Readings from Last 3 Encounters: 06/14/23 83.6 kg (184 lb 6.4 oz) 03/22/23 86.3 kg (190 lb 3.2 oz) 12/28/22 85.1 kg (187 lb 9.6 oz) Pathology: 11/08/11 Adenocarcinoma, Linda grade 3+4 This was followed by TRUS biopsy which demonstrated Linda 3+4 involving 10% the right base core. The right lateral base had adenocarcinoma [place] 3+4 with 10% of this core. The left lateral apex had adenocarcinoma 3+3 involving 5% of the core. The remaining nine cores demonstrated benign prostatic tissue. Labs: 06/03/2023 BUN 30, creatinine 1.3, glucose 116, [...] 25 Ca 9.0 Date PSA Test Notes 06/03/23 <0.01 03/11/23 <0.01 7.5 12/20/22 <0.01 <7.0 09/24/22 <0.01 <7.0 07/05/22 0.04 <7.0 06/01/22 0.59 Pend. [id number] 02/04/2022 2.0 623 LDH 197 08/04/21 1.5 [...] -04/18/2012 completed ERBT. Did not have ADT. Mr. Joaquin has rising PSA s/p xrt. Last PSA was 2.0 in January 2022 with PSA doubling time above 2 years. PET scan demonstrated activity in the prostate gland with Increased activity in right obturator and a left external iliac nodes concerning for metastatic disease. Based on the PSA his disease has been slowly progressing but technically he has metastatic cancer based on the PET scan. We discussed prognosis of lymph node only metastatic disease with median survival around 8 years for all comers. We discussed treatment option particularly first-line androgen deprivation therapy with either gonadotropin-releasing hormone agonist or antagonist. We discussed side effects of Lupron which include but not limited to hot flashes, night sweats, fatigue, musculoskeletal complaints, osteoporosis, increase blood sugar and cholesterol, decrease in muscle and bone mass, decrease in libido, remote increase in cardiovascular events. All questions were answered to patient satisfaction. Given his minimal comorbidities and life expectancy 10+ years I can recommend starting ADT. Alternative would be continued observation and treatment only if he develops symptoms or PSA doubling time getting significantly shorter than 6-9 months. He is interested to proceed with Lupron. Schedule first injection in 1-2 weeks at [facility]. We discussed the role of secondary hormonal therapy abiraterone/prednisone next visit. He would like to be followed in [facility] 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 to follow with Dr. Thornton 06/01/22 He has had one dose of [...] back in 3 months with blood work. # Weight gain- Discussed side effects of Lupron therapy - loss of muscle mass and relationship to weight gain. Discussed dietary changes- avoid sweets and processed foods. Watch caloric intake. He iswalking 3 miles a day on the [employer] [place] so he is active. Plan: 1. Lupron 22.5 mg today 2. Next visit in with CBc, cMP, PSA, testosterone and his next lupron injection. In 3 months documented in this encounter Plan of Treatment Upcoming Encounters Date Type Department Care Team (Late st Contact Info) Description 05/22/2024 1:00 PM EDT Office Visit Hematology/Oncology at [address] [phone] Iris Nguyen APRN [facility] MEDICAL ONCOLOGY [place], [place] [id number] 05/22/2024 1:30 PM EDT Infusion Hematology Oncology at [address] [phone] Scheduled Orders Name Type Priority Associated Diagnoses Orde r Schedule PSA (Ultrasensitive) Lab Routine Prostate cancer metastatic to intrapelvic lymph node Every 3 months for 4 Occurrences starting 06/14/2023 until 06/14/2024 CBC (with Diff) Lab Routine Prostate cancer metastatic to intrapelvic lymph node Every 3 months for 4 Occurrences starting 06/14/2023 until 06/14/2024 Comprehensive metabolic panel (non-fasting) Lab Routine Prostate cancer metastatic to intrapelvic lymph node Every 3 months for 4 Occurrences starting 06/14/2023 until 06/14/2024 Testosterone, total Lab Routine Prostate cancer metastatic to intrapelvic lymph node Every 3 months for 4 Occurrences starting 06/14/2023 until 06/14/2024 documented as of this encounter Visit Diagnoses Diagnosis Prostate cancer metastatic to intrapelvic lymph node- Primary Encounter for monitoring androgen deprivation therapy Encounter for therapeutic drug monitoring documented in this encounter Care Teams Kettle Loader Relationship Specialty Start Date End Date Unknown None PCP - General 08/10/22 documented as of this encounter
--- OUTSIDE RECORDS SUMMARY | 2024-05-14 03:40 | XMS_ITS | Encounter Summary ---
Author Organization [facility] Address [address] [place] [address] Care Team Providers Care Field Tech Name Role Phone Donnell Cabrera MD Primary Care Provider [phone] Encounter Details Date Type Department Care Team (Late st Contact Info) Description 04/08/2021 Lab Requisition [facility] Pathology & Laboratory Medicine - [facility] [address], [place] [address] Outr Resulting Lab, Provider Social History Tobacco [...] Priority Date/Time Associated Diagnosis Comments IMMUNOGLOBULINS Routine 04/08/2021 8:35 EDT documented in this encounter Results * (ABNORMAL) IMMUNOGLOBULINS (04/08/2021 8:35 EDT) IgG 962 610-1,616 mg/dL 04/09/2021 9:39 EDT [facility] IgA 112 85 - 499 mg/dL 04/09/2021 9:39 EDT [facility] IgM 31(L) 35 - 242 mg/dL 04/09/2021 9:39 EDT [facility] Blood VENOUS BLOOD / Unknown 04/08/2021 8:35 EDT 04/08/2021 20:46 EDT Provider Outr Resulting Lab CHEMISTRY & BLOOD GAS ORDERABLES [facility] [address] [place] [address] documented in this encounter Visit Diagnoses Not on filedocumented in this encounter Care Teams Field Tech Relationship Specialty Start Date End Date Donnell Cabrera MD PCP - General Family Medicine - Primary Care 01/01/21 documented as of this encounter
--- OUTSIDE RECORDS SUMMARY | 2024-05-14 03:40 | XMS_ITS | Encounter Summary ---
Author Organization [facility] Address [address] [place] [id number] Care Team Providers Care Section Supervisor Name Role Phone Donnell Cabrera MD Primary Care Provider [phone] Encounter Details Date Type Department Care Team (Late st Contact Info) Description 11/27/2021 Lab Requisition [facility] Pathology & Laboratory Medicine - [address] [phone] Outr Resulting Lab, Provider Social History Tobacco [...] Priority Date/Time Associated Diagnosis Comments IMMUNOGLOBULINS Routine 11/27/2021 8:25 EST documented in this encounter Results * (ABNORMAL) IMMUNOGLOBULINS (11/27/2021 8:25 EST) IgG 990 610-1,616 mg/dL 11/30/2021 10:19 EST [facility] IgA 118 85 - 499 mg/dL 11/30/2021 10:19 EST [facility] IgM 32(L) 35 - 242 mg/dL 11/30/2021 10:19 EST [facility] Blood VENOUS BLOOD / Unknown 11/27/2021 8:25 EST 11/27/2021 16:31 EST Provider Outr Resulting Lab CHEMISTRY & BLOOD GAS ORDERABLES [facility] [address] [place] [address] documented in this encounter Visit Diagnoses Not on filedocumented in this encounter Care Teams Section Supervisor Relationship Specialty Start Date End Date Donnell Cabrera MD PCP - General Family Medicine - Primary Care 01/01/21 documented as of this encounter
--- OUTSIDE RECORDS SUMMARY | 2024-05-14 03:40 | XMS_ITS | Encounter Summary ---
Author Organization [facility] Address [facility] [place] [address] Care Team Providers Care Supervisor Area Name Role Phone Unknown Primary Care Provider Unavailabl e Encounter Details Date Type Department Care Team (Latest Contact Info) Description 11/29/2023 Travel Social History Tobacco Use Types Packs/Day [...] place to sleep or slept in a prison (including now)? No 04/09/2022 Sex and Gender Information Value Date Recorded Sex Assigned at Not on file Gender Identity Not on file Sexual Orientation Not on file documented as of this encounter Plan of Treatment Upcoming Encounters Date Type Department Care Team (Late st Contact Info) Description 05/22/2024 1:00 PM EDT Office Visit Hematology/Oncology at [address] [phone] Iris Nguyen APRN [facility] [place] [address] 05/22/2024 1:30 PM EDT Infusion Hematology Oncology at [address] [phone] documented as of this encounter Visit Diagnoses Not on filedocumented in this encounter Care Teams Supervisor Area Relationship Specialty Start Date End Date Unknown None PCP - General 08/10/22 documented as of this encounter
--- OUTSIDE RECORDS SUMMARY | 2024-05-14 03:40 | XMS_ITS | Encounter Summary ---
Author Organization [facility] Address [facility] [place] [address] Care Team Providers Care Head Of Mathematics Name Role Phone Unknown Primary Care Provider Unavailabl e Encounter Details Date Type Department Care Team (Late st Contact Info) Description 11/29/2023 1:30 PM EST Office Visit Hematology/Oncology at [address] [phone] Roman Addison MD [facility] [place] [address] Iris Nguyen APRN [facility] [place] [place] [address] Hot flashes; Prostate cancer metastatic to intrapelvic lymph node [...] Sign Reading Time Taken Comments Blood Pressure 157/79 11/29/2023 1:29 PM EST Pulse 87 11/29/2023 1:29 PM EST Temperature 36.2 ??C (97.1 ??F) 11/29/2023 1:29 PM ES T Respiratory Rate 16 11/29/2023 1:29 PM EST Oxygen Saturation 98% 11/29/2023 1:29 PM EST Inhaled Oxygen Concentration - - Weight 84.5 kg (186 lb 3.2 oz) 11/29/2023 1:29 P M EST Height 165.1 cm (5' 5) 11/29/2023 1:29 PM EST Body Mass Index 30.99 11/29/2023 1:29 PM EST documented in this encounter Progress Notes * Iris Nguyen APRN - 11/29/2023 1:30 PM EST Diagnosis: Prostate cancer with metastasis to [...] most bothersome during the summer months. He declines any pharmacological treatment for his hot flashes. He denies any pain. He denies any chest pain, shortness of breath or cough. His appetite is good. He continues to have some trouble sleeping, unrelated to hot flashes. He has no issues with his bowels. He hasno urinary symptoms. ROS is otherwise negative. Social History: He is . He lives in [place]. 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 Wt Readings from Last 3 Encounters: 11/29/23 84.5 kg (186 lb 3.2 oz) 09/06/23 83.2 kg (183 lb 6.4 oz) 06/14/23 83.6 kg (184 lb 6.4 oz) Pathology: 11/08/11 Adenocarcinoma, Linda grade 3+4 This was followed by TRUS biopsy which demonstrated Linda 3+4 involving 10% the right base core. The right lateral base had adenocarcinoma [place] 3+4 with 10% of this core. The left lateral apex had adenocarcinoma 3+3 involving 5% of the core. The remaining nine cores demonstrated benign prostatic tissue. Labs: 11/18/23 BUN 26 creatinine 1.3, glucose 100, [...] 25 Ca 9.0 Date PSA Test Notes 11/18/23 <0.01 <7.0 09/06/23 <0.01 7.1 06/03/23 <0.01 <7.0 03/11/23 <0.01 7.5 12/20/22 <0.01 <7.0 09/24/22 <0.01 <7.0 07/05/22 0.04 <7.0 06/01/22 0.59 Pend. [id number] 02/04/2022 2.0 623 LDH 197 08/04/21 1.5 [...] discuss at next visit.He declines restaging studies. #Monoclonal B cell lymphocytosis: Follows up with Dr. Thornton #Hot flashes: secondary to treatment. Declines pharmacological therapy. Plan: 1. Lupron 22.5 mg today 2. Next visit with MD CBC, CMP, PSA, testosterone and possible lupron injection in 3 months (he is considering intermittent ADT). Iris Nguyen APRN 30 minutes were spent on date of visit, including non-face to face time. We reviewed his labs and plan of care in detail today and all questions answered. documented in this encounter Plan of Treatment Upcoming Encounters Date Type Department Care Team (Late st Contact Info) Description 05/22/2024 1:00 PM EDT Office Visit Hematology/Oncology at [address] [phone] Iris Nguyen, [facility] [place] [address] 05/22/2024 1:30 PM EDT Infusion Hematology Oncology at [address] [phone] documented as of this encounter Visit Diagnoses Diagnosis Hot flashes Symptomatic menopausal or female climacteric states Prostate cancer metastatic to intrapelvic lymph node documented in this encounter Care Teams Head Of Mathematics Relationship Specialty Start Date End Date Unknown None PCP - General 08/10/22 documented as of this encounter
--- OUTSIDE RECORDS SUMMARY | 2024-05-14 03:40 | XMS_ITS | Encounter Summary ---
Author Organization [facility] Address [facility] [place] [address] Care Team Providers Care Life Management Teacher Name Role Phone Unknown Primary Care Provider Unavailabl e Reason for Visit * Reason Comments Injections Lupron IM * Treatment/Therapy Plan Authorization (Routine) - Authorized Specialty Diagnoses / Procedures Referred By Contac t Referred To Contact Hematology and Oncology Diagnoses Prostate cancer metastatic to intrapelvic lymph node Procedures INFUSION Roman Addison MD [facility] DR HEMATOLOGY [place] [address] Roman Addison MD [address] [place] [address] DR HEMATOLOGY [place] [address] Referral ID Status Reason Start Date Expiration Date V isits Requested Visits Authorized [id number] Authorized 10/03/2022 07/09/2024 99 99 Encounter Details Date Type Department Care Team (Late st Contact Info) Description 11/29/2023 2:00 PM EST Infusion Hematology Oncology at [address] [phone] Prostate cancer metastatic to intrapelvic lymph node [...] place to sleep or slept in a correction (including now)? No 04/09/2022 Sex and Gender Information Value Date Recorded Sex Assigned at Not on file Gender Identity Not on file Sexual Orientation Not on file documented as of this encounter Progress Notes * Deb Orlando RN - 11/29/2023 2:00 PM EST Infusion Note Diagnosis: Prostate Cancer Treatment: Lupron Injection in RIGHT gluteal. Patient aware to call clinic with any questions or concerns. Plan: Return to clinic as scheduled. documented in this encounter Plan of Treatment Upcoming Encounters Date Type Department Care Team (Late st Contact Info) Description 05/22/2024 1:00 PM EDT Office Visit Hematology/Oncology at [address] [phone] Iris Nguyen [address]N [facility] [place] [address] 05/22/2024 1:30 PM EDT Infusion Hematology Oncology at [address] [phone] documented as of this encounter Visit Diagnoses Diagnosis Prostate cancer metastatic to intrapelvic lymph node documented in this encounter Administered Medications Inactive Administered Medications - up to 3 most recent administrations Medication Order MAR Action Action Date Dose Rate Site leuprolide (Lupron Depot) injection 22.5 mg 22.5 mg, Intramuscular, ONCE, 1 dose, On Tue11/29/23 at 1415, Last injection site was... leuprolide IM injection site: L Gluteal (06/14/2023 3:15 PM), Routine, This agent is restricted to outpatient use. Is this drug being given as an outpatient? Yes Given 11/29/2023 2:15 PM EST 22.5 mg Right Gluteal documented in this encounter Care Teams Life Management Teacher Relationship Specialty Start Date End Date Unknown None PCP - General 08/10/22 documented as of this encounter
--- OUTSIDE RECORDS SUMMARY | 2024-05-14 03:41 | XMS_ITS | Encounter Summary ---
Author Organization [facility] [place] [address] Care Team Providers Care Billing Specialist Name Role Phone Donnell Cabrera MD Primary Care Provider [phone] Encounter Details Date Type Department Care Team (Late Contact Info) Description 04/27/2021 Orders Only Hematology/Oncology at [address] [phone] Ryan Thornton MD [facility] DR [place] [address] Lymphocytosis; Monoclonal B-cell lymphocytosis Social History Tobacco Use Types Packs/Day Years Used Date Smoking Tobacco: Never Smokeless Tobacco: Never Sex and Gender Information Value Date Recorded Sex Assigned at Not on file Gender Identity Not on file Sexual Orientation Not on file documented as of this encounter Plan of Treatment Upcoming Encounters Date Type Department Care Team (Late Contact Info) Description 05/22/2024 1:00 PM EDT Office Visit Hematology/Oncology at [address] [phone] Iris Nguyen APRN [facility] [place] [address] 05/22/2024 1:30 PM EDT Infusion Hematology Oncology at [address] [phone] documented as of this encounter Visit Diagnoses Diagnosis Lymphocytosis Lymphocytosis (symptomatic) Monoclonal B-cell lymphocytosis Lymphocytosis (symptomatic) documented in this encounter Care Teams Billing Specialist Relationship Specialty Start Date End Date Donnell Cabrera MD PCP - General General Internal Medicine 08/23/19 9/3 documented as of this encounter
--- OUTSIDE RECORDS SUMMARY | 2024-05-14 03:41 | XMS_ITS | Encounter Summary ---
Author Organization [facility] Address [facility] [place] [address] Care Team Providers Care Primary Teacher Name Role Phone Unknown Primary Care Provider Unavailabl e Encounter Details Date Type Department Care Team (Latest Contact Info) Description 12/28/2022 Travel Social History Tobacco Use Types Packs/Day [...] 1:00 PM EDT Office Visit Hematology/Oncology at [address] [phone] Iris Nguyen APRN [facility] [place] [address] 05/22/2024 1:30 PM EDT Infusion Hematology Oncology at [address] [phone] documented as of this encounter Visit Diagnoses Not on filedocumented in this encounter Care Teams Primary Teacher Relationship Specialty Start Date End Date Unknown None PCP - General 08/10/22 documented as of this encounter
--- OUTSIDE RECORDS SUMMARY | 2024-05-14 03:41 | XMS_ITS | Encounter Summary ---
Author Organization [facility] Address [facility] [place] [address] Care Team Providers Care Combination Operator Name Role Phone Unknown Primary Care Provider Unavailabl e Encounter Details Date Type Department Care Team (Late st Contact Info) Description 03/25/2023 Orders Only Hematology/Oncology at [address] [phone] Christi Potter, [facility] [place] [address] Prostate cancer metastatic to intrapelvic lymph node [...] place to sleep or slept in a half-way (including now)? No 04/09/2022 Sex and Gender Information Value Date Recorded Sex Assigned at Not on file Gender Identity Not on file Sexual Orientation Not on file documented as of this encounter Plan of Treatment Upcoming Encounters Date Type Department Care Team (Late st Contact Info) Description 05/22/2024 1:00 PM EDT Office Visit Hematology/Oncology at [address] [phone] Iris Nguyen APRN [facility] [place] [address] 05/22/2024 1:30 PM EDT Infusion Hematology Oncology at [address] [phone] Scheduled Orders Name Type Priority Associated Diagnoses Orde r Schedule CBC (with Diff) Lab STAT Prostate cancer metastatic to intrapelvic lymph node Every 12 Weeks for 4 Occurrences starting 03/25/2023 until 03/25/2024 Comprehensive metabolic panel (non-fasting) Lab STAT Prostate cancer metastatic to intrapelvic lymph node Every 12 Weeks for 4 Occurrences starting 03/25/2023 until 03/25/2024 PSA (Ultrasensitive) Lab STAT Prostate cancer metastatic to intrapelvic lymph node Every 12 Weeks for 4 Occurrences starting 03/25/2023 until 03/25/2024 Testosterone, total Lab STAT Prostate cancer metastatic to intrapelvic lymph node Every 12 Weeks for 4 Occurrences starting 03/25/2023 until 03/25/2024 documented as of this encounter Visit Diagnoses Diagnosis Prostate cancer metastatic to intrapelvic lymph node documented in this encounter Care Teams Combination Operator Relationship Specialty Start Date End Date Unknown None PCP - General 08/10/22 documented as of this encounter
--- OUTSIDE RECORDS SUMMARY | 2024-05-14 03:41 | XMS_ITS | Encounter Summary ---
Author Organization [place] [address] Care Team Providers Care Senior Security Analyst Name Role Phone Donnell Cabrera MD Primary Care Provider [phone] Encounter Details Date Type Department Care Team (Latest Contact Info) Description 01/19/2021 9:19 AM EDT - 01/19/2021 11:59 PM EDT Hospital Encounter [place]ematology [place] [phone] Lymphocytosis Discharge Disposition: Home Social History Tobacco Use Types Packs/Day Years Used Date Smoking Tobacco: Never Smokeless Tobacco: Never Sex and Gender Information Value Date Recorded Sex Assigned at Not on file Gender Identity Not on file Sexual Orientation Not on file documented as of this encounter Medications at Time of Discharge Medication Sig Dispensed Refills Start Date End Date atorvastatin (LIPITOR) 10 mg Tablet Take 10 mg by mouth daily. Vitamin A-Vitamin C-Vit E-Min Tablet Take by mouth. losartan (Cozaar) 25 mg Tablet Take 50 mg by mouth daily. 12/28/2022 multivitamin (THERAGRAN) tablet Take 1 tablet by mouth daily. 10/05/2022 documented as of this encounter Plan of Treatment Upcoming Encounters Date Type Department Care Team (Late st Contact Info) Description 05/22/2024 1:00 PM EDT Office Visit Hematology/Oncology at [address] [phone] Iris Nguyen APRN [facility] [place] [address] 05/22/2024 1:30 PM EDT Infusion Hematology Oncology at [address] [phone] documented as of this encounter Procedures Procedure Name Priority Date/Time Associated Diagnosis Comments HC IGG, SERUM Routine 01/19/2021 9:39 AM EDT Lymphocytosis HEMOGRAM Routine 01/19/2021 9:39 AM EDT Lymphocytosis DIFFERENTIAL, AUTOMATED Routine 01/19/2021 9:39 AM EDT Lymphocytosis HC RETIC,AUTO INCLUDES RETHE & IRF Routine 01/19/2021 9:39 AM EDT Lymphocytosis HC CBC,PLT & AUTO DIFF Routine 9:39 AM EDT Lymphocytosis COMPREHENSIVE METABOLIC PANEL Routine 01/19/2021 9:39 AM EDT Lymphocytosis documented in this encounter Results * (ABNORMAL) Differential, Automated (01/19/2021 9:39 AM EDT) Neutrophil % 51.7 % [facility] Neutrophil Absolute 5.62 1.70 - 6.10 x10(3)/mc L [facility] Lymph % 42.5 % [facility] Lymphocytes Abs 4.6(H) 0.9 - 3.2 x10(3)/mc L [facility] Monocyte % 4.4 % [facility] Monocyte Abs 0.5 0.3 - 0.9 x10(3)/mc L [facility] Eos % 0.6 % [facility] Eosinophils Abs 0.1 0.0 - 0.4 x10(3)/mc L [facility] Basophil % 0.5 % [facility] Baso Absolute 0.0 0.0 - 0.1 x10(3)/mc L [facility] Immature Gran % 0.30 % [facility] Comment: Immature granulocytes(IG's)percentage and absolute count will include metamyelocytes, myelocytes, and promyelocytes. Blood smears from CBCs yielding IG's will be scanned manually for concordance. If this scan disagrees with the automated IG or if promyelocytes are noted, a manual differential will be performed. Immature Gran Absolute 0.03 0.00 - 0.04 x10(3)/mc L [facility] Blood specimen (specimen) 01/19/2021 9:39 AM EDT 01/19/2021 10:08 AM EDT Narrative Resulting Agency Comment Spec In Lab Naomie Beard MD HEMATOLOGY ORDERA BLES [facility] [place] [address] * (ABNORMAL) Hemogram (01/19/2021 9:39 AM EDT) White Blood Cell 10.8(H) 4.0 - 9.5 x10(3)/mc L [facility] Red Blood Cell 5.01 4.58 - 5.54 x10(6)/mc L [facility] Hemoglobin 15.1 13.7 - 16.5 gm/dL [facility] Hematocrit 45.0 40.5 - 48.5 % [facility] Mean Cell Volume 89.8 82.9 - 93.1 fL [facility] Mean Cell Hemoglobin 30.1 27.5 - 32.1 pg [facility] Mean Cell Hemoglobin Concentration 33.6 32.0 - 35.7 gm/dL [facility] Platelet 165 145 - 357 x10(3)/mc L [facility] RDW Standard Deviation 39.6 36.0 - 45.0 fL [facility] RDW coefficient of variation 12.3 11.4 - 13.8 % [facility] Mean Platelet Volume 11.2 7.6 - 12.9 fL [facility] NRBC% auto 0.0 % [facility] NRBC Absolute 0.000 0.000 - 0.000 x10(3)/mc L [facility] Blood specimen (specimen) 01/19/2021 9:39 AM EDT 01/19/2021 10:08 AM EDT Narrative Resulting Agency Comment Spec In Lab Naomie Beard MD HEMATOLOGY ORDERA BLES [facility] [place] [address] * (ABNORMAL) Comprehensive metabolic panel (non-fasting) (01/19/2021 9:39 AM EDT) Glucose 96 65 - 199 mg/dL [facility] Comment:Diabetes: >=200 mg/d L plus symptoms Blood Urea Nitrogen 21(H) 10 - 20 mg/dL [facility] Creatinine 1.18 0.80 - 1.50 mg/dL [facility] Sodium 140 135 - 145 mmol/L [facility] Potassium 4.6 3.5 - 5.0 mmol/L [facility] Comment: Please note: ??Patients with WBC >100,000 may have falsely elevated Potassium levels. ??For accurate Potassium quantification in these patients send serum separator tube (gold top) for subsequent determinations. ??Contact the Clinical Chemistry Laboratory if there are any questions. Chloride 106 98 - 107 mmol/L [facility] Carbon Dioxide 25 22 - 31 mmol/L [facility] Anion Gap 9 5 - 15 mmol/L [facility] Calcium 9.6 8.5 - 10.5 mg/dL [facility] Protein, Total 6.8 6.1 - 8.0 gm/dL [facility] Albumin 4.3 3.2 - 5.2 gm/dL [facility] Aspartate Aminotransferase 21 0 - 39 unit/L [facility] Alanine Aminotransferase 19 0 - 55 unit/L [facility] Alkaline Phosphatase 55 40 - 130 unit/L [facility] Bilirubin, Total 0.3 0.2 - 1.3 mg/dL [facility] Est Glomerular Filtration Rate 60 >=60 mL/min/1. 73 m?? [facility] Comment: This patient? s estimated glomerular filtration rate (eGFR) is between 60 mL/min/1.73 m2 (patients with less muscle mass per kg body weight) and 70 mL/min/1.73 m2 (patients with more muscle mass per kg body weight) as determined by the CKD-EPI equation. Assessment of eGFR is not appropriate when creatinine concentrations are rapidly changing. For clinical decisions where creatinine clearance will affect therapy, a 24-hour urine creatinine clearance may be advised. Assignment of CKD stage 1 - 5 for patients with an eGFR near the transition point between stages may be based on clinical assessment of muscle mass and symptoms in addition to eGFR. Blood specimen (specimen) 01/19/2021 9:39 AM EDT 01/19/2021 10:08 AM EDT Narrative Resulting Agency Comment Spec In Lab Ryan Thornton MD CHEMISTRY ORDERABLES [facility] [place] [address] * (ABNORMAL) Immunoglobulins, Quantitative (01/19/2021 9:39 AM EDT) Immunoglobulin G 981 700 - 1,600 mg/dL [facility] Comment: Pediatric Reference Intervals obtained from the Caliper Reference Interval project. http://www.sickkids.ca/caliperproject/index.html IgA 117 70 - 400 mg/dL [facility] IgM 29(L) 40 - 230 mg/dL [facility] Blood specimen (specimen) 01/19/2021 9:39 AM EDT 01/19/2021 10:08 AM EDT Narrative Resulting Agency Comment Spec In Lab Ryan Thornton MD CHEMISTRY ORDERABLES [facility] [place] [address] * Reticulocyte Count (01/19/2021 9:39 AM EDT) Reticulocyte % 1.3 0.7 - 2.6 % [facility] Retic Abs # 0.070 0.030 - 0.120 x10(6)/[facility] Immature Retic% 5.9 0.0 - 15.6 % [facility] Reticulated Hgb 34.6 31.3 - 40.2 pg [facility] Blood specimen (specimen) 01/19/2021 9:39 AM EDT 01/19/2021 10:08 AM EDT Narrative Resulting Agency Comment Spec In Lab Ryan Thornton MD HEMATOLOGY ORDERABLE S [facility] [address] documented in this encounter Visit Diagnoses Diagnosis Lymphocytosis Lymphocytosis (symptomatic) documented in this encounter Care Teams Senior Security Analyst Relationship Specialty Start Date End Date Donnell Cabrera MD PCP - General General Internal Medicine 08/23/19 9/ documented as of this encounter
--- OUTSIDE RECORDS SUMMARY | 2024-05-14 03:41 | XMS_ITS | Encounter Summary ---
Author Organization [facility] [place] [address] Care Team Providers Care Coal Conveyor Operator Name Role Phone Catracho Good MD Primary Care Provider [phone] Encounter Details Date Type Department Care Team (Late Contact Info) Description 01/12/2022 Orders Only Radiation Oncology at [address] [phone] Yamel Woods [facility] [place] [address] Malignant neoplasm of prostate (Primary Dx) Social History Tobacco Use Types Packs/Day Years [...] 1:00 PM EDT Office Visit Hematology/Oncology at [address] [phone] Iris Nguyen [facility] [place] [address] 05/22/2024 1:30 PM EDT Infusion Hematology Oncology at [address] [phone] documented as of this encounter Visit Diagnoses Diagnosis Malignant neoplasm of prostate- Primary documented in this encounter Care Teams Coal Conveyor Operator Relationship Specialty Start Date End Date Catracho Good MD PCP - General Family Medicine 08/12/21 08/09/22 documented as of this encounter
--- OUTSIDE RECORDS SUMMARY | 2024-05-14 03:41 | XMS_ITS | Encounter Summary ---
Author Organization [facility] [place] [address] Care Team Providers Care Sales Solutions Representative Name Role Phone Donnell Cabrera MD Primary Care Provider [phone] Encounter Details Date Type Department Care Team (Latest Contact Info) Description 01/19/2021 9:25 AM EDT Laboratory Appointment Lab [address] [place] [phone] Malignant neoplasm of prostate Social History Tobacco Use Types Packs/Day Years [...] 1:00 PM EDT Office Visit Hematology/Oncology at [address] [phone] Iris Nguyen APRN [facility] [place] [address] 05/22/2024 1:30 PM EDT Infusion Hematology Oncology at [address] [phone] documented as of this encounter Procedures Procedure Name Priority Date/Time Associated Diagnosis Comments HC PROSTATE SPECIFIC ANTIGEN Routine 01/19/2021 9:39 AM EDT Malignant neoplasm of prostate documented in this encounter Results * PSA (Ultrasensitive) (01/19/2021 9:39 AM EDT) Prostate Specific Antigen (Ultrasensitive ) 1.41 0.00 - 4.00 ng/mL [facility] Comment: PLEASE NOTE: The above reference interval is intended for healthy males with an intact prostate. Values within this reference interval may indicate recurrence in men who have undergone radical prostatectomy. Blood specimen (specimen) 01/19/2021 9:39 AM EDT 01/19/2021 10:08 AM EDT Narrative Resulting Agency Comment Spec In Lab Cherise Tuttle APRN CHEMISTRY ORDERABLES [facility] [place] [address] documented in this encounter Visit Diagnoses Diagnosis Malignant neoplasm of prostate documented in this encounter Care Teams Sales Solutions Representative Relationship Specialty Start Date End Date Donnell Cabrera MD PCP - General General Internal Medicine 08/23/19/ documented as of this encounter
--- OUTSIDE RECORDS SUMMARY | 2024-05-14 03:41 | XMS_ITS | Encounter Summary ---
Author Organization [facility] Address [facility] [place] [address] Care Team Providers Care Executive Creative Director Name Role Phone Unknown Primary Care Provider Unavailabl e Encounter Details Date Type Department Care Team (Latest Contact Info) Description 03/22/2023 Travel Social History Tobacco Use Types Packs/Day [...] 1:00 PM EDT Office Visit Hematology/Oncology at [address] [phone] Iris Nguyen APRN [facility] [place] [address] 05/22/2024 1:30 PM EDT Infusion Hematology Oncology at [address] [phone] documented as of this encounter Visit Diagnoses Not on filedocumented in this encounter Care Teams Executive Creative Director Relationship Specialty Start Date End Date Unknown None PCP - General 08/10/22 documented as of this encounter
--- OUTSIDE RECORDS SUMMARY | 2024-05-14 03:41 | XMS_ITS | Encounter Summary ---
[place] [address] Care Team Providers Care Junk Dealer Name Role Phone Catracho Good MD Primary Care Provider [phone] Reason for Visit * Diagnostic Test (Routine) - Closed Specialty Diagnoses / Procedures Referred By Contac t Referred To Contact Radiology Diagnoses Malignant neoplasm of prostate Procedures NM PET CT PSMA Prostate (Pylarify) Yamel Woods IT HELP DESK ANALYST [facility] [place] [address] [place] [address] Referral ID Status Reason Start Date Expiration Date V isits Requested Visits Authorized [id number] Closed Specialty Service Requested 02/11/2022 08/14/2023 1 1 Encounter Details Date Type Department Care Team (Latest Contact Info) Description 03/02/2022 11:54 AM EDT - 03/02/2022 11:59 PM EDT Hospital Encounter [place] [phone] Yamel Woods [facility] [place] [address] Discharge Disposition: Home Social History Tobacco Use [...] 1:00 PM EDT Office Visit Hematology/Oncology at [address] [phone] Iris Nguyen, IT HELP DESK ANALYST [facility] [place] [address] 05/22/2024 1:30 PM EDT Infusion Hematology Oncology at [address] [phone] documented as of this encounter Procedures Procedure Name Priority Date/Time Associated Diagnosis Comments NM PET CT PSMA PROSTATE (PYLARIFY) Routine 03/02/2022 1:25 PM EDT Malignant neoplasm of prostate documented in this encounter Results * NM PET CT PSMA Prostate (Pylarify) (03/02/2022 1:25 PM EDT) Anatomical Region Laterality Modality Positron Emissio n Tomography (PET) Impressions 03/04/2022 10:31 AM EDT 1. ??Recurrent cancer within the prostate gland. 2. ??Increased activity in right obturator and a left external iliac nodes concerning for metastatic disease. Thank you for referring this patient to [facility]. Thank you for letting us participate in the care of this patient. ??If you are a health care provider and have any questions regarding this report, please contact the number below. ??For patients who have questions please contact the health customer care team coach that requested your imaging first. ? Electronically signed by: Kamlesh Meier MD, [facility] ([phone]), at 03/04/2022 10:31 AM Narrative 03/04/2022 10:31 AM EDT EXAMINATION: NM PET CT PSMA PROSTATE (PYLARIFY) CLINICAL HISTORY: Prostate cancer, restaging rising PSA s/p xrt TECHNIQUE: Following IV injection of Piflufolastat (F-18 PSMA) and a standard uptake of approximately 60 minutes, a noncontrast CT scan followed by a PET scan were acquired from the base of the skull to mid thighs. The noncontrast CT was used for anatomic localization and photon attenuation correction of the PET scan. Piflufolastat (F-18 PSMA ligand) dose: 9.8 mCi COMPARISON: None FINDINGS: HEAD/NECK: Normal activity in all soft tissue regions of the neck and visualized lower head. Physiologic activity present in the lacrimal and salivary glands. CHEST: Normal activity in all soft tissue regions. A small amount of coronary artery calcification is present. ABDOMEN/PELVIS: Increased activity is present in the prostate gland. Increased activity is present in nonenlarged right obturator (image 250) and left external iliac (image 252) lymph nodes. There is a bowel containing right inguinal hernia. SKELETON/EXTREMITIES: Normal activity in all regions of the axial and visualized appendicular skeleton. Procedure Note Kamlesh Meier MD - 03/04/2022 EXAMINATION: NM PET CT PSMA PROSTATE (PYLARIFY) CLINICAL HISTORY: Prostate cancer, restaging rising PSA s/p xrt TECHNIQUE: Following IV injection of Piflufolastat (F-18 PSMA) and astandard uptake of approximately 60 minutes, a noncontrast CT scan followed by aPET scan were acquired from the base of the skull to mid thighs. The noncontrast CTwas used for anatomic localization and photon attenuation correction of thePET scan. Piflufolastat (F-18 PSMA ligand) dose: 9.8 mCi COMPARISON: None FINDINGS: HEAD/NECK: Normal activity in all soft tissue regions of the neck and visualizedlower head. Physiologic activity present in the lacrimal and salivary glands. CHEST: Normal activity in all soft tissue regions. A small amount of coronary artery calcification is present. ABDOMEN/PELVIS: Increased activity is present in the prostate gland. Increased activity is present in nonenlarged right obturator (image 250)and left external iliac (image 252) lymph nodes. There is a bowel containing right inguinal hernia. SKELETON/EXTREMITIES: Normal activity in all regions of the axial and visualized appendicular skeleton. IMPRESSION 1. Recurrent cancer within the prostate gland. 2. Increased activity in right obturator and a left external iliacnodes concerning for metastatic disease. Thank you for referring this patient to [facility]. Thank you for letting us participate in the care of this patient. If youare a health care provider and have any questions regarding this report,please contact the number below. For patients who have questions please contactthe health customer care team coach that requested your imaging first. Yamel Woods APRN [facility] PET ORDERABLES documented in this encounter Visit Diagnoses Not on filedocumented in this encounter Care Teams Junk Dealer Relationship Specialty Start Date End Date Catracho Good MD PCP - General Family Medicine 08/12/21 08/09/22 documented as of this encounter
--- OUTSIDE RECORDS SUMMARY | 2024-05-14 03:41 | XMS_ITS | Encounter Summary ---
Author Organization Formerly [facility] [place] [address] Care Team Providers Care Inspector Cold Working Name Role Phone Catracho Good MD Primary Care Provider [phone] Encounter Details Date Type Department Care Team (Late st Contact Info) Description 06/01/2022 11:00 AM EDT Office Visit Hematology/Oncology at [address] [phone] Christi Potter APRN [facility] [place] [address] Prostate cancer Social History Tobacco Use Types Packs/Day Years [...] place to sleep or slept in a care home (including now)? No 04/09/2022 Sex and Gender Information Value Date Recorded Sex Assigned at Not on file Gender Identity Not on file Sexual Orientation Not on file documented as of this encounter Last Filed Vital Signs Vital Sign Reading Time Taken Comments Blood Pressure 174/87 06/01/2022 11:19 AM EDT Pulse 67 06/01/2022 11:19 AM EDT Temperature 36.4 ??C (97.5 ??F) 06/01/2022 11:19 AM E DT Respiratory Rate 16 06/01/2022 11:19 AM EDT Oxygen Saturation 98% 06/01/2022 11:19 AM EDT Inhaled Oxygen Concentration - - Weight 82.6 kg (182 lb) 06/01/2022 11:19 AM EDT Height 165.1 cm (5' 5) 06/01/2022 11:19 AM EDT Body Mass Index 30.29 06/01/2022 11:19 AM EDT documented in this encounter Patient Instructions * Patient Instructions* Christi Potter APRN - 06/01/2022 11:00 AM EDT He will need labs lupron and provider visit jul 13. Also to discuss possible aberaterone. 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 Has no bone pain. 06/01/22 interval history: Since his last visit with Dr Addison he has received his first dose of lupron. He states that he is less tolerant of the heat and sweats more. He also is having hot flashes. His energy is about the same. He denies any problems with chest pain, shortness of breath or cough. His appetite is good. He has no blood in his urine or bowel movements. ROS Is otherwise negative. PMH: Hearing loss, hypertension, elevated cholesterol, monoclonal B-cell lymphocytosis Past Medical History: Diagnosis Date ??? Anxiety ??? Prostate cancer Patient Active Problem List Diagnosis ??? Prostate cancer metastatic to intrapelvic lymph node ??? Monoclonal B-cell lymphocytosis ??? Secondary hypertension ??? Prostate cancer Social History: Non-smoker, does not drink alcohol, he is retired, Family History: Noncontributory No family history on file. Allergies: Medications: Reviewed Review of Systems: Constitutional: Negative for fever, chills, activity change, fatigue and unexpected weight change. Positive for hot flashes HEENT: Negative for [...] Head: Normocephalic, without obvious abnormality, atraumatic Eyes: PERRL, conjunctiva/corneas clear, EOM's intact, fundi benign, both eyes Ears: Normal TM's and external ear canals, both ears Nose: Nares normal, septum midline, mucosa normal, [...] axillary nodes normal Neurologic: Normal Vitals BP 174/87 (Patient Position: Sitting) Pulse 67 Temp 36.4 ??C (97.5 ??F) (Temporal) Resp 16 Ht 165.1 cm (5' 5) Wt 82.6 kg (182 lb) SpO2 98% BMI 30.29 kg/m?? 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 The right lateral base had adenocarcinoma Linda 3+4 with 10% of this core. The left lateral apex had adenocarcinoma 3+3 involving 5% of the core. The remaining nine cores demonstrated benign prostatic tissue. Labs: 05/3022 WBC 9.52 H/H 14.5/42.2 Plts 155 Na 141 K+ 4.2 BUN/cr 24/1.2 T bili 0.6 ALT 56 AST 25 Ca 9.0 Date PSA Test Notes 06/01/22 0.59 Pend. [id number] 02/04/2022 2.0 623 LDH 197 08/04/21 1.5 Date 06/13/2020 1.0 08/14/2019 0.9 07/10/2018 0.6 07/19/2017 0.5 07/20/2016 0.5 12/25/2015 0.5 06/05/2015 0.5 10/21/2014 0.5 05/01/14 0.5 11/19/13 0.5 08/03/13 0.7 04/30/2013 1.0 02/22/2013 1.50 11/09/2012 0.79 08/07/2012--first after treatment PSA 1.67 10/26/2011--before treatment 6.5 Imagin04/07/22 pelvic MRI: Extraprostatic disease: ?? Seminal vesicle involvement:No Lymphadenopathy:No Sphincter involvement:No Bladder involvement:No Osseous metastases: No . MRI-derived Extraprostatic extension risk: None ?? Other findings: Sigmoid diverticulosis without evidence of acute diverticulitis. 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 ?? IMPRESSION ?? No focal lesion identified. No finding to correlate with the abnormality seen on PSMA scan. 03/02/22 PET scan: IMPRESSION 1. Recurrent cancer within the prostate gland. 2. Increased activity in right obturator and a left external iliac nodes concerning for metastatic disease. ?? Assessment and Plan: Diagnosis: Recurrence of prostate cancer with regional lymph node metastasis, Treatment: -04/18/2012 completed TURBT. Did not have ADT. Mr. Joaquin has [...] Schedule first injection in 1-2 weeks at [facility]. We discussed the role of secondary hormonal therapy abiraterone/prednisone next visit. He would like to be followed in [facility] ?? 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 Norberto 06/01/22 He has had one dose of [...] and discuss it further with Dr Addison. Plan: 1. We discussed abiraterone/prednisone briefly I have given him printed information and he will discuss this more with Dr Addison when he returns for followup. 2. Next visit in with CBc, cMP, PSA, testosterone when he returns in July for his next lupron injection. ? documented in this encounter Plan of Treatment Upcoming Encounters Date Type Department Care Team (Late st Contact Info) Description 05/22/2024 1:00 PM EDT Office Visit Hematology/Oncology at [address] [phone] Iris Nguyen APRN [facility] [place] [address] 05/22/2024 1:30 PM EDT Infusion Hematology Oncology at [address] [phone] documented as of this encounter Visit Diagnoses Diagnosis Prostate cancer Malignant neoplasm of prostate documented in this encounter Care Teams Inspector Cold Working Relationship Specialty Start Date End Date Catracho Good MD PCP - General Family Medicine 08/12/21 08/09/22 documented as of this encounter
--- OUTSIDE RECORDS SUMMARY | 2024-05-14 03:41 | XMS_ITS | Encounter Summary ---
[place] [address] Care Team Providers Care School Photographs Detailer Name Role Phone Catracho Good MD Primary Care Provider [phone] Reason for Referral * Consultation (Routine) - Closed Specialty Diagnoses / Procedures Referred By Damien craig Referred To Contact Hematology and Oncology Diagnoses Malignant neoplasm of prostate Yamel Woods APRN [facility] [place] [address] [facility] Hem [place]c [address] [place] [address] Referral ID Status Reason Start Date Expiration Date V isits Requested Visits Authorized [id number] Closed Consult, Test & Treat 03/05/2022 03/05/2023 1 1 * Diagnostic Test (Routine) - Closed Specialty Diagnoses / Procedures Referred By Damien craig Referred To Contact Radiology Diagnoses Malignant neoplasm of prostate Procedures MRI Pelvis wwo (Prostate) Yamel Woods APRN [facility] [place] [address] [facility] [place] [address] Referral ID Status Reason Start Date Expiration Date V isits Requested Visits Authorized [id number] Closed Specialty Service Requested 03/05/2022 09/04/2023 1 1 Encounter Details Date Type Department Care Team (Latest Contact Info) Description 03/05/2022 11:00 AM EDT TH Visit (TeleHealth) [place] [address] Yamel Woods APRN [facility] [place] [address] Malignant neoplasm of prostate (Primary Dx) Social History Tobacco Use Types Packs/Day Years Used Date Smoking Tobacco: Never Smokeless Tobacco: Never Sex and Gender Information Value Date Recorded Sex Assigned at Not on file Gender Identity Not on file Sexual Orientation Not on file documented as of this encounter Progress Notes * Yamel Woods APRN - 03/05/2022 11:00 AM EDTSummary: 76 year old male dx Prostate cancer, compl EBRT 04/18/12 PSA elevation to 2.0 PSMA PET + for recurring malignancy [facility] [place] [address] Phone: RADIATION ONCOLOGY FOLLOW UP NOTE Date of visit: 03/05/2022 Patient Brenton Joaquin 1945 PCP: Catracho Good MD pt just had new PCP assigned and will get name to us for records. Urologist:Dr Luis Fernando Garcia Radiation oncologist: Dr. Kamlesh Nunez consult then Luis Fernando Sanchez MD for [facility]. Chief Complaint: follow up/labs for prostate cancer // F/U on results of PET and discussion with Mariajose. Time since completed RT: completed external beam radiation on 04/18/2012 ADT:none Current treatment:Surveillance yearly of prostate cancer/PSA Additionally monitored now by heme/onc for MBL. HPI: Mr Joaquin is a pleasant 76 year old man who was treated with radiation therapy for prostate cancer.He completed external beam radiation on 04/18/2012 and is in clinic for scheduled follow up. ?? Mr Joaquin had his PSA monitored as part of yearly screening with the pattern noted below. Due TO PSA elevation he was referred to Dr Luis Fernando Garcia who saw patient on 11/08/[address] [facility]. An ultrasound was done which demonstrated a prostate volume of 29.1 cc with no hypoechoic areas. This was followed by TRUS biopsy which demonstrated Linda 3+4 involving 10% the right base core. The right lateral base had adenocarcinoma Lima 3+4 with 10% of this core. The left lateral apex had adenocarcinoma 3+3 involving 5% of the core. The remaining nine cores demonstrated benign prostatic tissue. After consultation with Dr Kamlesh Nunez, Mr Joaquin elected to be treated with external beam radiation therapy with care that was delivered at the [facility] in [facility] .He was treated to a total dose of 7920 cGy which was completed on 04/18/2012. ?? TREATMENT SUMMERY; Site Technique Dose/ Fraction Fraction Number MeV p e TOTAL DOSE Treatment Dates PTV 1 IMRT 180 25 p 4500 02/13 to 03/20/12 ? PTV 2 IMRT 180 14 P 2520 03/21 to 04/18/12 ? PTV 2 IMRT 180 5 p 900 04/12 to 04/18/12 FINAL DOSE: 7920: cGy in 44 FX ?? Reviewed prostate cancer survivor care plan with patient 11/13/2014 Prostate Cancer Notes 11/13/2014 Date of Presentation 10/26/2011 Age at Presentation 66 year old PSA at Presentation 6.5 Presence of Symptoms at Presentation negative Ethnicity White Result of ZACHARY normal Date of TRUS and Biopsy 11/08/2011 Volume in cc 29.1 CC Linda grade/score a+b=c 3+4=7 Total Cores 12 Positive cores 3 Prostate confined yes REZA -negative SV -negative Regular Nodes -negative Distant Mets -negative CT Abdomen/Pelvis at Presentation Yes --12/08/2011 Prostate Confined postive Dane Involvement -negative Metastases -negative Urinary Continence at Presentation normal Primary Therapy EBRT EBRT Date Began 02/14/2012 ERBT Total Dose (Gy) 79.2 Gy Treatment Fractions 44 Elapsed Date 04/18/2012 Concurrent ADT -negative Histologic Type Adenocarcinoma Post Primary Therapy - Amari Date 11/19/2013 Post Primary Therapy - Amari PSA 0.5 ?? Interim HPI: REVIEW OF PSMA PET TODAY EXAMINATION: NM PET CT PSMA PROSTATE (JORGITO) ?? CLINICAL HISTORY: Prostate cancer, restaging rising PSA s/p xrt ? TECHNIQUE: Following IV injection of Piflufolastat (F-18 PSMA) and a standard uptake of approximately 60 minutes, a noncontrast CT scan followed by a PET scan were acquired from the base of the skull to mid thighs. The noncontrast CT was used for anatomic localization and photon attenuation correction of the PET scan. ?? Piflufolastat (F-18 PSMA ligand) dose: 9.8 mCi ?? COMPARISON: None ?? FINDINGS: ?? HEAD/NECK: Normal activity in all soft tissue regions of the neck and visualized lower head. Physiologic activity present in the lacrimal and salivary glands. ?? CHEST: Normal activity in all soft tissue regions. ?? A small amount of coronary artery calcification is present. ?? ABDOMEN/PELVIS: Increased activity is present in the prostate gland. ?? Increased activity is present in nonenlarged right obturator (image 250) and left external iliac (image 252) lymph nodes. ?? There is a bowel containing right inguinal hernia. ?? SKELETON/EXTREMITIES: Normal activity in all regions of the axial and visualized appendicular skeleton. ?? IMPRESSION 1. Recurrent cancer within the prostate gland. 2. Increased activity in right obturator and a left external iliac nodes concerning for metastatic disease. ?? Thank you for referring this patient to [facility] PET Center. ?? 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 Clonal proliferation of B-Cells expressing CD5 without surface light chain expression Characteristic of CLL; however, the absolute count of clonal B cells is 4,520 (69% of 6,550). 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 losartan (Cozaar) 25 mg Tablet Take 25 mg by mouth daily. atorvastatin (LIPITOR) 10 mg Tablet Take 10 mg by mouth daily. Vitamin A-Vitamin C-Vit E-Min Tablet Take by mouth. multivitamin (THERAGRAN) tablet Take 1 tablet by mouth daily. No Known Allergies Past Medical History: Diagnosis Date ??? Anxiety ??? Prostate cancer No past surgical history on file. No family history on file. Social History Tobacco Use ??? Smoking status: Never Smoker ??? Smokeless tobacco: Never Used Review of Symptoms: I reviewed the IPSS/CINTHYA/Epic-Cp survey results from today 02/11/2022 ??1:00 PM EDT - Filed by Patient Urinary function problem No Problem Urinary control Total control Urinary dripping/leakage problem No problem 5. How big a problem, if any, has each of the following been for you? Pain or burning with urination No problem Weak urine stream/incomplete bladder emptying No problem Need to urinate frequently Very small problem 6. How big a problem, if any, has each of the following been for you? Rectal pain or urgency of bowel movements No problem Overall problems with your bowel movements No problem Bloody stools No problem Ability to reach orgasm Poor Quality of your erections None at all Problem with sexual function or lack of it No problem 10. How big a problem, if any, has each of the following been for you? Hot flashes or breast tenderness/enlargement No problem Feeling depressed No problem Urinary Incontinence Symptom Score (range: 0 - 12) 0 Urinary Irritation/Obstructive Symptom Score (range: 0 - 12) 1 Bowel Symptom Score (range: 0 - 16) 0 Vitality/Hormonal Symptom Score (range: 0 - 12) 0 Overall Prostate Cancer QOL Score (range: 0 - 60) 1 Q - Prostate Followup Survey Question 02/11/2022 ??1:03 PM EDT - Filed by Patient Reason for visit Follow up on existing problem(s) Incomplete emptying Not at all Frequency Not at all Intermittency Not at all Urgency Not at all Weak Stream Not at all Straining Not at all Nocturia None Quality of life Pleased Total IPSS Score (range: 0 - 35) 0 Confidence, level - past 6 months Very low Penetration - past 6 months Almost never or never Penetration, maintain - past 6 months Almost never or never Erection, maintain - past 6 months Did not attempt intercourse Sexual satisfaction - past 6 months Did not attempt intercourse Sexual Health in Men (range: 1 - 21) 3 (Severe ED) Patient concerns for most recent visit 02/11/22 Additionally today for this TOV he says he has some achiness at end of day when he is going to bed in the lower lumbar L hand side which may radiate to the buttocks. He still notes no issues with urination ad that there are no changes since we last spoke 2 weeks ago. 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 Still doing some repairs. Fatigue: Toward end of day gets a little tired, but fairly active in going up and down stairs and repairs, tries to walk 3 miles /day Weight/appetite/diet: appetite is good, a bit higher in wt than he would like Respiratory: No sx , no illness GI: No n/v/d/c, no blood in stool :See Q above, basically not having urinary sx, no blood in urine. There have been no real changesin urinary funx. 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 Bone health: Multi vit, no bone pain Neuro:no sx Mood:usually he has good mood. Sleep: no trouble sleeping, gets up early 4 am , gets on tread mill for hour Function:appliance repair. Exercise:sev miles per day Smoking:none Alcohol:not much Support/ social relationships: lives with , primary support, her health good Advanced directives not discussed at this time Financial/transportation concerns:none at this time Performance Status: KPS Score ECOG Grade Definition x 90-100 0 Fully active, able to carry on all pre-disease performance without restriction 70-80 1 Restricted in physically strenuous activity but ambulatory and able to carry out work of a light or sedentary nature, e.g., light house work, office work 50-60 2 Ambulatory and capable of all selfcare but unable to carry out any work activities; up and about more than 50% of waking hours 30-40 3 Capable of only limited selfcare; confined to bed or chair more than 50% of waking hours 10-20 4 Completely disabled; cannot carry on any selfcare; totally confined to bed or chair Physical Examination: TOV today Psychiatric: Mood and Affect: Mood normal. Behavior: Behavior normal. Thought Content: Thought content normal. Judgment: Judgment normal. New Labs Reviewed this visit: Date PSA Test Notes 02/04/2022 2.0 623 LDH 197 08/04/21 1.5 Date 06/13/2020 1.0 08/14/2019 0.9 07/10/2018 0.6 07/19/2017 0.5 07/20/2016 0.5 12/25/2015 0.5 06/05/2015 0.5 10/21/2014 0.5 05/01/14 0.5 11/19/13 0.5 08/03/13 0.7 04/30/2013 1.0 02/22/2013 1.50 11/09/2012 0.79 08/07/2012--first after treatment PSA 1.67 10/26/2011--before treatment 6.5 Lab results 11/27/2021 Hemoglobin 15.1 MCV 90.3 Platelet count 161 Absolute lymphocytes are high c/w his known monoclonal b cell proliferative process Sodium 140 Potassium 4.3 Chloride 105 BUN 23 Creatinine 1.3 Estimated GFR is 53.67 Calcium 9.1 Total bilirubin 0.5 AST 16 ALT 27 Alk phos 60 LDH 197 Albumin 4.1 Assessment: 76 y.o. presenting for follow up/ lab for prostate cancer. Medical Decision Making/Recommendations/Plan: # prostate cancer: reviewed PSA results with pt. There is continuing elevation from 1.0 to 1.5 in one year and then to 2.0 in next 6 months. ZACHARY 6 months ago: Prostate surface smooth, firm. No concerning reported symptoms or physical examination findings today. No urinary sx , no hematuria, no bleeding with stool. Has no bone pain. # Heme: no anemia, WBC now WNL, PLT WNL. Recent eval for CLL but finding of MBL as # not adequate to make dx. However he did not have eval with CT scan for adenopathy. He has no known palpable adenopathy, no constitutional sx. # effects of EBRT: Acute: 1. LUTS (lower urinary tract symptoms) 2. Bowel dysfunction 3. Sexual health/Erectile Dysfunction 4. Fatigue 5. Mood changes Late: We reviewed potential late effects of radiation that require medical evaluation including : 1. Changes in urinary flow/difficulty passing urine (scarring from radiation) 2. Blood in urine (may be infection, inflammation bladder wall (cystitis), formation of telangiectasia (small, thin blood vessels that are dilated or broken, near the surface of the bladder and may bleed) or bladder/genitourinary cancer 3. Blood in bowel movements (stools)- maybe from hemorrhoids, telangiectasia from radiation, colorectal cancer Symptoms that you should bring to the attention of your provider: Difficulty or changes in your urine flow Blood in your urine or stool # ADT:none # survivorship/lifestyle/wellness: Genetic Risk Evaluation: Body weight/nutrition weighs bit more than he would like. Exercise:3 miles/day amb Bone health:no bone pain Smoking:no smoking Alcohol: rare ETOH use Annual exam with PCP: Up to date on vaccinations:Moderna vaxs Nov -December 2020. Plans booster soon. Colorectal screening:never had, not interested. Never any bleeding. Lung cancer screening:n/a # resources provided:none at this time # referrals done: None at this time # follow up: Per NCCN guidelines, PSA and history/physical every 6-12 months X 5 years, then annually. Annual ZACHARY (unless PSA undetectable or prostatectomy). PSA may be checked more frequently depending on risk level or other patient specific factors. PSA now 2.0 and up from 1.5 /6 months prior. No changes in urinary funx. He has had some L sided back pain radiating to L buttock pain noticed when he goes to bed at [facility]. Discussed findings with Dr Nunez prior to TOV today and discussed with pt plan for MRI pelvis/prostate and will repeat the PSA and prostate labs when he comes in for MRI. Referral to Med Onc with note for appt to occur after the MRI sched and completed. Requesting TOV after the MRI so we can discuss and make sure of plan moving forward. May present at TB depending on findings. Next visit: TOV w/ [facility] after MRI soon Already have Aug appt and labs scheduled. Med Onc consult for prostate cancer recurr by PSMA scan. Labs: PSA, testosterone, CBC, CMP, LDH Brenton Joaquin had the opportunity to ask questions and I answered them to the best of my knowledge. Brenton Joaquin agreed to contact radiation oncology in between visits if he has any questions/concerns or new symptoms in regards to the radiation therapy/prostate cancer Yamel Woods MSN, TURBINE MECHANIC, OIL FIELD TESTER-C Nurse Practitioner Radiation Oncology documented in this encounter Plan of Treatment Upcoming Encounters Date Type Department Care Team (Late st Contact Info) Description 05/22/2024 1:00 PM EDT Office Visit Hematology/Oncology at [address] [phone] Iris Nguyen APRN [facility] [place] [address] 05/22/2024 1:30 PM EDT Infusion Hematology Oncology at [address] [phone] Scheduled Referrals Name Type Priority Associated Diagnoses Order Schedule Referral to Hematology and Oncology Outpatient Referral Routine Malignant neoplasm of prostate Ordered: 03/05/2022 documented as of this encounter Results * MRI Pelvis wwo (Prostate) (04/07/2022 1:15 PM EDT) Anatomical Region Laterality Modality Pelvis Magnetic Resonan ce Impressions 04/08/2022 8:45 AM EDT No focal lesion identified. No finding to correlate with the abnormality seen on PSMA scan. PI-RADS v2.1 Assessment Categories PI-RADS 1 -- Very low (clinically significant cancer is highly unlikely to be present) PI-RADS 2 -- Low (clinically significant cancer is unlikely to be present) PI-RADS 3 -- Intermediate (the presence of clinically significant cancer is equivocal) PI-RADS 4 -- High (clinically significant cancer is likely to be present) PI-RADS 5 -- Very high (clinically significant cancer is highly likely to be present) References: Kit S1, Anthony JH1, Luis Fernando S1, Soares C1, Klein J1, Czarnijose M1, Gold S1, Pena G1, Rayn K1, Adolfo MJ1, Niels BJ1, Mohsen PA1, Monica PL1, Gabby B1. ??A Grading System for the Assessment of Risk of Extraprostatic Extension of Prostate Cancer at Multiparametric MRI. Radiology. 2019 Dec;290(3):709-719. doi: 10.1148/radiol.3034914387. Epub 2018Oct 24. I have personally reviewed the image(s) and the resident's interpretation and agree with the findings, Preet Villanueva MD at 04/08/2022 8:45 AM Thank you for letting us participate in the care of this patient. ??If you are a health care provider and have any questions regarding this report, please contact the number below. ??For patients who have questions please contact the health floor care technician that requested your imaging first. ? Electronically signed by: Preet Villanueva MD, [facility] ([phone]), at 04/08/2022 8:45 AM Narrative 04/08/2022 8:45 AM EDT EXAMINATION: MRI PELVIS WWO (PROSTATE) CLINICAL HISTORY: 03/02/22 PSMA scan, No change in urinary funx, but has had some L back pain at noc rad to buttock. elevating PSA over last 3 readings 1.0-1.5-2.0. PSMA scan + for recurrence REASON FOR PROSTATE EXAM:Elevated PSA with positive PSMA, history of prostate cancer s/p external beam radiation completed in 2011 HAS PATIENT HAD PREVIOUS BIOPSY?:Yes MOST RECENT PSA LEVEL:2.0 TECHNIQUE: Multiparametric MRI of the prostate prior to and following IV administration of 17 cc of Dotarem contrast. ?? QUALITY: Compromized by motion artifact on multiple sequences. COMPARISON: Prostate MRI 01/20/2012 PET/CT 03/02/2022 FINDINGS: Prostate dimensions: 3.8 x 4.0 x 3.1cm. Estimated prostate volume: 24.5cc (X x Y x Z x 0.52) PSA density: 0.08 (PSA/prostate volume >0.15 susp, 0.25 highly susp) Peripheral zone: T2: Uniform high signal intensity . No focal lesions. Transition zone: No focal lesions. T2: Homogeneous intermediate signal intensity (normal) . Fiducial markers in place. Extraprostatic disease: Seminal vesicle involvement:No Lymphadenopathy:No Sphincter involvement:No Bladder involvement:No Osseous metastases: No . MRI-derived Extraprostatic extension risk: None Other findings: Sigmoid diverticulosis without evidence of acute diverticulitis. 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 Procedure Note Preet Villanueva MD - 04/08/2022 EXAMINATION: MRI PELVIS WWO (PROSTATE) CLINICAL HISTORY: 03/02/22 PSMA scan, No change in urinary funx, but hashad some L back pain at noc rad to buttock. elevating PSA over last 3 readings 1.0-1.5-2.0. PSMA scan + forrecurrence REASON FOR PROSTATE EXAM:Elevated PSA with positive PSMA, history ofprostate cancer s/p external beam radiation completed in 2011 HAS PATIENT HAD PREVIOUS BIOPSY?:Yes MOST RECENT PSA LEVEL:2.0 TECHNIQUE: Multiparametric MRI of the prostate prior to and following IV administration of 17 cc of Dotarem contrast. QUALITY: Compromized by motion artifact on multiple sequences. COMPARISON: Prostate MRI 01/20/2012 PET/CT 03/02/2022 FINDINGS: Prostate dimensions: 3.8 x 4.0 x 3.1cm. Estimated prostate volume: 24.5cc (X x Y x Z x 0.52) PSA density: 0.08 (PSA/prostate volume >0.15 susp, 0.25 highly susp) Peripheral zone: T2: Uniform high signal intensity . No focal lesions. Transition zone: No focal lesions. T2: Homogeneous intermediate signal intensity (normal). Fiducial markers in place. Extraprostatic disease: Seminal vesicle involvement:No Lymphadenopathy:No Sphincter involvement:No Bladder involvement:No Osseous metastases: No . MRI-derived Extraprostatic extension risk: None Other findings: Sigmoid diverticulosis without evidence of acutediverticulitis. 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 Rightspermatic cord lipoma.. IMPRESSION No focal lesion identified. No finding to correlate with the abnormalityseen on PSMA scan. PI-RADS v2.1 Assessment Categories PI-RADS 1 -- Very low (clinically significant cancer is highly unlikely mari present) PI-RADS 2 -- Low (clinically significant cancer is unlikely to bepresent) PI-RADS 3 -- Intermediate (the presence of clinically significant canceris equivocal) PI-RADS 4 -- High (clinically significant cancer is likely to bepresent) PI-RADS 5 -- Very high (clinically significant cancer is highly likely mari present) References: Memitchel S1, Anthony JH1, Gould S1, Soares C1, Klein J1, Czarniecki M1,Gold S1, Pena G1, Rayn K1, Mata MJ1, Wood BJ1, Connolly PA1, Monica PL1, Turkkat B1.A Grading System for the Assessment of Risk of Extraprostatic Extension of Prostate Cancer at Multiparametric MRI. Radiology. 2019Mar;290(3):709-719. doi: 10.1148/radiol.7663070384. Epub 2018Oct 24. I have personally reviewed the image(s) and the resident's interpretationand agree with the findings, Preet Villanueva MD at 04/08/2022 8:45 AM Thank you for letting us participate in the care of this patient. If youare a health care provider and have any questions regarding this report,please contact the number below. For patients who have questions please contactthe health floor care technician that requested your imaging first. Electronically signed by: Preet Villanueva MD, [facility]([phone]), at 04/08/2022 8:45 AM Yamel Woods APRN IMG MRI ORDERABLES documented in this encounter Visit Diagnoses Diagnosis Malignant neoplasm of prostate- Primary Malignant neoplasm of prostate documented in this encounter Care Teams School Photographs Detailer Relationship Specialty Start Date End Date Catracho Good MD PCP - General Family Medicine 08/12/21 08/09/22 documented as of this encounter
--- OUTSIDE RECORDS SUMMARY | 2024-05-14 03:41 | XMS_ITS | Encounter Summary ---
Author Organization [facility] Address [facility] [place] [address] Care Team Providers Care Pest Control Worker Name Role Phone Unknown Primary Care Provider Unavailabl e Encounter Details Date Type Department Care Team (Latest Contact Info) Description 10/05/2022 Travel Social History Tobacco Use Types Packs/Day [...] place to sleep or slept in a retirement (including now)? No 04/09/2022 Sex and Gender Information Value Date Recorded Sex Assigned at Not on file Gender Identity Not on file Sexual Orientation Not on file documented as of this encounter Plan of Treatment Upcoming Encounters Date Type Department Care Team (Late st Contact Info) Description 05/22/2024 1:00 PM EDT Office Visit Hematology/Oncology at [address] [phone] Iris Nguyen APRN [facility] [place] [address] 05/22/2024 1:30 PM EDT Infusion Hematology Oncology at [address] [phone] documented as of this encounter Visit Diagnoses Not on filedocumented in this encounter Care Teams Pest Control Worker Relationship Specialty Start Date End Date Unknown None PCP - General 08/10/22 documented as of this encounter
--- OUTSIDE RECORDS SUMMARY | 2024-05-14 03:41 | XMS_ITS | Encounter Summary ---
[place] [address] Care Team Providers Care Display And Banner Designer Name Role Phone Catracho Good MD Primary Care Provider [phone] Reason for Referral * Diagnostic Test (Routine) - Closed Specialty Diagnoses / Procedures Referred By Contac t Referred To Contact Radiology Diagnoses Malignant neoplasm of prostate Procedures NM PET CT PSMA Prostate (Pylarify) Yamel Woods APRN [facility] [place] [address] [place] [address] Referral ID Status Reason Start Date Expiration Date V isits Requested Visits Authorized [id number] Closed Specialty Service Requested 02/11/2022 08/14/2023 1 1 Encounter Details Date Type Department Care Team (Late st Contact Info) Description 02/11/2022 1:00 PM EDT Office Visit Radiation Oncology at [address] [phone] Yamel Woods APRN [facility] [place] [address] Malignant neoplasm of prostate (Primary Dx) Social History Tobacco Use Types Packs/Day Years Used Date Smoking Tobacco: Never Smokeless Tobacco: Never Sex and Gender Information Value Date Recorded Sex Assigned at Not on file Gender Identity Not on file Sexual Orientation Not on file documented as of this encounter Last Filed Vital Signs Vital Sign Reading Time Taken Comments Blood Pressure 175/86 02/11/2022 12:51 PM EDT Pulse 87 02/11/2022 12:51 PM EDT Temperature 37.2 ??C (98.9 ??F) 02/11/2022 12:51 PM E DT Respiratory Rate 18 02/11/2022 12:51 PM EDT Oxygen Saturation 99% 02/11/2022 12:51 PM EDT Inhaled Oxygen Concentration - - Weight 82.4 kg (181 lb 9.6 oz) 02/11/2022 12:51 PM EDT Height 165.1 cm (5' 5) 02/11/2022 12:51 PM EDT Body Mass Index 30.22 02/11/2022 12:51 PM EDT documented in this encounter Progress Notes * Yamel Woods, AMMUNITION AND EXPLOSIVES HANDLER - 02/11/2022 1:00 PM EDTSummary: 76 year old male dx Prostate cancer, compl EBRT 04/18/12 [facility] [place] [address] Phone: RADIATION ONCOLOGY FOLLOW UP NOTE Date of visit: 02/10/2022 Patient Brenton Joaquin 1945 PCP: Catracho Good MD pt just had new PCP assigned and will get name to us for records. Urologist:Dr Luis Fernando Garcia Radiation oncologist: Dr. Kamlesh Nunez consult then Luis Fernando Sanchez MD for [facility]. Chief Complaint: follow up/labs for prostate cancer Time since completed RT: completed external beam radiation on 04/18/2012 ADT:none Current treatment:Surveillance yearly of proste cancer/PSA Additionally monitored now by heme/onc for [...] Garcia who [place] [facility] An ultrasound was done which demonstrated a prostate volume of 29.1 cc with no hypoechoic areas. This was followed by TRUS biopsy which demonstrated [place] 3+4 involving 10% the right base core. [...] with care that was delivered at the [facility] in [facility] .He was treated to a total dose [...] - Amari PSA 0.5 ?? Interim HPI: Consult Heme/Onc Flow Cytometry 01/09/21: Interpretation: Peripheral [...] count monoc lonal B-cell lymphocytosis (MBL) Medications 12/03/21 1528 Medication Sig Taking? 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 BP 175/86 (Patient Position: Sitting) Pulse 87 Temp 37.2 ??C (98.9 ??F) (Temporal) Resp 18 Ht 165.1 cm (5' 5) Wt 82.4 kg (181 lb 9.6 oz) Constitutional: seen in clinic, no distress HENT: normocephalic, anicteric, neck supple, no adenopathy Cardiovascular: Rate and Rhythm: Normal rate and regular rhythm. Pulmonary: Effort: Pulmonary effort is normal. Genitourinary: Rectum: deferred as examined last visit: no bleeding per rectal exam, no pain with exam, prostate surface smooth. No irregular masses appreciated at that time Musculoskeletal: Normal range of motion. General: No swelling or deformity. No spinal percussion tenderness No CVA tenderness Comments: Ambulates without assistance Skin: General: Skin is warm and dry. Neurological: General: No focal deficit present. Mental Status: alert and oriented to person, place, and time. Gait: Gait normal. Psychiatric: Mood and Affect: Mood normal. Behavior: [...] Platelet count 161 Absolute lymphocytes are high Sodium 140 Potassium 4.3 Chloride 105 BUN [...] months prior. No changes in urinary funx. Will get PSMA scan and plan discuss findings in TOV after that Next visit: 3months (will check sooner to assess for further rising PSA) Labs: PSA, testosterone, CBC, CMP, LDH Brenton Joaquin had the opportunity to ask questions and I answered them to the best of my knowledge. Brenton Joaquin agreed to contact radiation oncology in between visits if he has any questions/concerns or new symptoms in regards to the radiation therapy/prostate cancer Yamel Woods MSN, AMMUNITION AND EXPLOSIVES HANDLER, BEEF CATTLE SPECIALIST-C Nurse Practitioner Radiation Oncology documented in this encounter Plan of Treatment Upcoming Encounters Date Type Department Care Team (Late st Contact Info) Description 05/22/2024 1:00 PM EDT Office Visit Hematology/Oncology at [address] [phone] Iris Nguyen APRN [facility] [place] [address] 05/22/2024 1:30 PM EDT Infusion Hematology Oncology at [address] [phone] documented as of this encounter Results * NM PET CT PSMA Prostate (Tg) (03/02/2022 1:25 PM EDT) Anatomical Region Laterality Modality Positron Emissio n Tomography (PET) Impressions 03/04/2022 10:31 AM EDT 1. ??Recurrent cancer within the prostate gland. 2. ??Increased activity in right obturator and a left external iliac nodes concerning for metastatic disease. Thank you for referring this patient to [facility]. Thank you for letting us participate in the care of this patient. ??If you are a health care provider and have any questions regarding this report, please contact the number below. ??For patients who have questions please contact the health reproductive healthcare assistant that requested your imaging first. ? Electronically signed by: Kamlesh Meier MD, [facility] ([phone]), at 03/04/2022 10:31 AM Narrative 03/04/2022 10:31 [...] Thank you for referring this patient to [facility]. Thank you for letting us participate in the care of this patient. If youare a health care provider and have any questions regarding this report,please contact the number below. For patients who have questions please contactthe health reproductive healthcare assistant that requested your imaging first. Yamel Mendoza Chuck AMMUNITION AND EXPLOSIVES HANDLER IMG PET ORDERABLES documented in this encounter Visit Diagnoses Diagnosis Malignant neoplasm of prostate- Primary Malignant neoplasm of prostate documented in this encounter Care Teams Display And Banner Designer Relationship Specialty Start Date End Date Catracho Good MD PCP - General Family Medicine 08/12/21 08/09/22 documented as of this encounter
--- OUTSIDE RECORDS SUMMARY | 2024-05-14 03:41 | XMS_ITS | Encounter Summary ---
Author Organization [facility] [place] [address] Care Team Providers Care Crabber Name Role Phone Catracho Good MD Primary Care Provider [phone] Encounter Details Date Type Department Care Team (Latest Contact Info) Description 04/13/2022 2:30 PM EDT TH Visit (TeleHealth) Radiation Oncology at [address] [phone] Yamel Woods, SEGUNDO [facility] [place] [address] Malignant neoplasm of prostate Social History Tobacco [...] place to sleep or slept in a usp (including now)? No 04/09/2022 Sex and Gender Information Value Date Recorded Sex Assigned at Not on file Gender Identity Not on file Sexual Orientation Not on file documented as of this encounter Progress Notes * Yamel Woods, CAUL PULLER - 04/13/2022 2:30 PM EDTSummary: 76 year old male dx Prostate cancer, compl EBRT 04/18/12 PSA elevation to 2.0 PSMA PET + for recurring malignancy [facility] [place] [address] Phone: RADIATION ONCOLOGY FOLLOW UP NOTE Date of visit: 04/12/2022 Patient Brenton Joaquin 1945 PCP: Catracho Good MD pt just had new PCP assigned and will get name to us for records. Urologist:Dr Luis Fernando Garcia Radiation oncologist: Dr. Kamlesh Nunez consult then Luis Fernando Sanchez MD for [facility]. Chief Complaint: follow up/labs for prostate cancer // F/U on results of imaging and check in on plan ongoing for care with medical oncology. Time since completed RT: completed external beam radiation on 04/18/2012 ADT:none (medical oncology has begun management ongoing now with lupron) Current treatment:Surveillance yearly of prostate cancer/PSA Additionally monitored now by heme/onc for [facility]. HPI: Mr Joaquin is a pleasant 76 [...] Garcia who saw patient on 11/08/2011 at [facility]. An ultrasound was done which demonstrated a [...] with care that was delivered at the [facility] in [facility] .He was treated to a [...] Biopsy 11/08/2011 Volume in cc 29.1 CC [place] grade/score a+b=c 3+4=7 Total Cores 12 Positive [...] PSA 0.5 ?? Interim HPI: REVIEW OF Narrative & Impression EXAMINATION: MRI PELVIS WWO (PROSTATE) ?? CLINICAL HISTORY: 03/02/22 PSMA scan, No change in urinary funx, but has had some L back pain at noc rad to buttock. elevating PSA over last 3 readings 1.0-1.5-2.0. PSMA scan + for recurrence ?? REASON FOR PROSTATE EXAM:Elevated PSA with positive PSMA, history of prostate cancer s/p external beam radiation completed in 2011 HAS PATIENT HAD PREVIOUS BIOPSY?:Yes MOST RECENT PSA LEVEL:2.0 ?? TECHNIQUE: Multiparametric MRI of the prostate prior to and following IV administration of 17 cc of Dotarem contrast. ?? QUALITY: Compromized by motion artifact on multiple sequences. ?? COMPARISON: Prostate MRI 01/20/2012 PET/CT 03/02/2022 ?? FINDINGS: Prostate dimensions: 3.8 x 4.0 x 3.1cm. Estimated prostate volume: 24.5cc (X x Y x Z x 0.52) PSA density: 0.08 (PSA/prostate volume >0.15 susp, 0.25 highly susp) ?? Peripheral zone: T2: Uniform high signal intensity . No focal lesions. ?? Transition zone: No focal lesions. T2: Homogeneous intermediate signal intensity (normal) . Fiducial markers in place. ?? Extraprostatic disease: ?? Seminal vesicle involvement:No Lymphadenopathy:No Sphincter involvement:No Bladder involvement:No Osseous metastases: No . MRI-derived Extraprostatic extension risk: None ?? Other findings: Sigmoid diverticulosis without evidence of acute diverticulitis. 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 ?? IMPRESSION ?? No focal lesion identified. No finding to correlate with the abnormality seen on PSMA scan. PSMA PET 03/02/22 EXAMINATION: NM PET CT PSMA PROSTATE (PYLARIFY) ?? CLINICAL HISTORY: Prostate cancer, restaging rising [...] Thank you for referring this patient to [facility]. ?? Consult Heme/Onc Flow Cytometry [...] count monoc lonal B-cell lymphocytosis (MBL) Medications 04/09/22 1313 Medication Sig Taking? losartan (Cozaar) 25 mg [...] Never Smoker ??? Smokeless tobacco: Never Used Vaping Use ??? Vaping Use: Never used Review of Symptoms: I reviewed the IPSS/CINTHYA/Epic-Cp survey results from last visit 02/11/22 02/11/2022 ??1:00 PM EDT - Filed by [...] to bed in the lower lumbar L side which may radiate to the buttocks. He still notes no issues with urination and that there are no changes since we last spoke 2 weeks ago. 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 Behavior: [...] Assessment: 76 y.o. presenting for follow up/ MRI for prostate cancer. As above we discussed the findings of the MRI and that the PSMA PET was more sensitive to finding areas of concern for mets of his Prostate cancer. He discussed the Lupron tx that was agreed upon from Dr Addison's last meeting with him and that will start soon. He had many questions and these were answered. I reviewed the last notes from Dr Addison. He knows he is in good hands with a plan for managing this next phase of his prostate cancer and that with the hormone blockade he may be able to get further years of control over the disease. We reviewed that there are other lines of tx as he goes forward if the lupron is not tolerable or the cancer progresses further and we discussed the abiraterone/prednisone, enzalutamide and further chemo options which could be discussed if dz progresses over time. He understands at this point he will carry on with medical oncology but can call me at any time if he has questions. Medical Decision Making/Recommendations/Plan: # prostate cancer: reviewed [...] noticed when he goes to bed at [facility]. Next visit: None further in Rad Oncology Brenton Joaquin had the opportunity to ask questions and I answered them to the best of my knowledge. Brenton Joaquin agreed to contact radiation oncology in between visits if he has any questions/concerns or new symptoms in regards to the radiation therapy/prostate cancer Yamel Woods MSN, CAUL PULLER, HYDRAULIC LIFT DRIVER-C Nurse Practitioner Radiation Oncology documented in this encounter Plan of Treatment Upcoming Encounters Date Type Department Care Team (Late st Contact Info) Description 05/22/2024 1:00 PM EDT Office Visit Hematology/Oncology at [address] [phone] Iris Nguyen APRN [facility] [place] [address] 05/22/2024 1:30 PM EDT Infusion Hematology Oncology at [address] [phone] documented as of this encounter Visit Diagnoses Diagnosis Malignant neoplasm of prostate documented in this encounter Care Teams Crabber Relationship Specialty Start Date End Date Catracho Good MD PCP - General Family Medicine 08/12/21 08/09/22 documented as of this encounter
--- OUTSIDE RECORDS SUMMARY | 2024-05-14 03:41 | XMS_ITS | Encounter Summary ---
Author Organization [facility] [place] [address] Care Team Providers Care Telephone Order Supervisor Name Role Phone Brady Christensen MD Primary Care Provider [phone] Reason for Visit * Reason Comments Radiation Follow-up prostate cancer Encounter Details Date Type Department Care Team (Late st Contact Info) Description 01/08/2016 9:45 AM EDT Office Visit Radiation Oncology at [address] [phone] Cherise Tuttle APR[address] RADI[place] [address] Malignant neoplasm of prostate Social History Tobacco Use Types Packs/Day Years Used Date Smoking Tobacco: Never Sex and Gender Information Value Date Recorded Sex Assigned at Not on file Gender Identity Not on file Sexual Orientation Not on file documented as of this encounter Last Filed Vital Signs Vital Sign Reading Time Taken Comments Blood Pressure 138/88 01/08/2016 9:00 AM EDT Pulse 75 01/08/2016 9:00 AM EDT Temperature 36.4 ??C (97.5 ??F) 01/08/2016 9:00 AM ED T Respiratory Rate 20 01/08/2016 9:00 AM EDT Oxygen Saturation 98% 01/08/2016 9:00 AM EDT Inhaled Oxygen Concentration - - Weight 86.6 kg (191 lb) 01/08/2016 9:00 AM EDT Height - - Body Mass Index 30.84 07/03/2015 10:43 AM EDT documented in this encounter Patient Instructions * Patient Instructions* Cherise Tuttle APRN - 01/08/2016 10:07 AM EDT Date 12/25/2015 0.5 06/05/2015 0.5 10/21/2014 0.5 05/01/14 0.5 11/19/13 0.5 08/03/13 0.7 04/30/2013 1.0 02/22/2013 1.50 11/09/2012 0.79 08/07/2012--first after treatment PSA 1.67 10/26/2011--before treatment 6.5 03/19/2011 5.83 02/16/2010 5.57 08/29/2009 5.1 02/22/2013 1.50 11/09/2012 0.79 08/07/2012--first after treatment PSA 1.67 10/26/2011--before treatment 6.5 03/19/2011 5.83 02/16/2010 5.57 08/29/2009 5.1 Vitals Office Visit from 01/08/2016 in [facility] Radiation Oncology Weight - Scale 86.637 kg (191 lb) Temp 36.4 ??C (97.5 ??F) Temp Source Oral Heart Rate 75 Heart Rate Source NIBP Resp 20 BP 138/88 mmHg BP Location Left arm SpO2 98 % documented in this encounter Progress Notes * Cherise Tuttle APRN - 01/07/2016 9:38 AM EDT Identification: Mr Joaquin is a pleasant 70 year old man who was treated with radiation therapy for prostate cancer. He completed external beam radiation on 04/18/2012 and is in clinic for scheduled follow up. HPI Mr Joaquin had his PSA monitored as part of yearly screening with the pattern noted below. Due PSA elevation he was referred to Dr Luis Fernando Garcia who saw patient on 11/08/2011 at [facility]. An ultrasound was done which demonstrated a prostate volume of 29.1 cc with no hypoechoic areas. This was followed by TRUS biopsy which demonstrated Daisetta 3+4 involving 10% the right base core. The right lateral base had adenocarcinoma Daisetta 3+4 with 10% of this core. The left lateral apex had adenocarcinoma 3+3 involving 5% of the core. The remaining nine cores demonstrated benign prostatic tissue. After consultation with Dr Kamlesh Nunez, Mr Joaquin elected to be treated with external beam radiation therapy with care that was delivered at the [facility] in [facility] .He was treated to a total dose of 7920 cGy which was completed on 04/18/2012. TREATMENT SUMMERY; Site Technique Dose/ Fraction Fraction Number MeV p e TOTAL DOSE Treatment Dates PTV 1 IMRT 180 25 p 4500 02/13 to 03/20/12 PTV 2 IMRT 180 14 P 2520 03/21 to 04/18/12 PTV 2 IMRT 180 5 p 900 04/12 to 04/18/12 FINAL DOSE: 7920: cGy in 44 FX Reviewed prostate cancer survivor care plan with patient 11/13/2014 Prostate Cancer Notes 11/13/2014 Date of Presentation 10/26/2011 Age at Presentation 66 year old PSA at Presentation 6.5 Presence of Symptoms at Presentation negative Ethnicity White Result of ZACHARY normal Date of TRUS and Biopsy 11/08/2011 Volume in cc 29.1 Linda grade/score a+b=c 3+4=7 Total Cores 12 Positive cores 3 Prostate confined yes REZA -negative SV -negative Regular Nodes -negative Distant Mets -negative CT Abdomen/Pelvis at Presentation Yes --12/08/2011 Prostate Confined postive Dane Involvement -negative Metastases -negative Urinary Continence at Presentation normal Primary Therapy EBRT EBRT Date Began 02/14/2012 ERBT Total Dose (Gy) 79.2 Gy Treatment Fractions 44 Elapsed Date 04/18/2012 Concurrent ADT - Histologic Type Adenocarcinoma Post Primary Therapy - Janey Date 11/19/2013 Post Primary Therapy - Janey PSA 0.5 PMH: Past Medical History Diagnosis Date ??? Anxiety ??? Prostate cancer PSH: none Family history: No history of malignancy, kidney stones, no bleeding disorders or trouble with anesthesia in the past. Mother with Alzheimer's. Patient was adopted by his stepfather. One biological brother, no known prostate issues. Social History: Never smoker. No EtOH. 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 , two daughters and three grandchildren. No Known Allergies Current Outpatient Prescriptions on File Prior to Visit Medication Sig Dispense Refill ??? atorvastatin (LIPITOR) 10 mg Tablet Take 10 mg by mouth daily. ??? Vitamin A-Vitamin C-Vit E-Min (OCUVITE) Tab Take by mouth. ??? multivitamin (THERAGRAN) tablet Take 1 tablet by mouth daily. No current facility-administered medications on file prior to visit. Advance Directive: Patient has executed and his is his DPOA Interim History: Mr Joaquin reports that he is doing well. 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 Heenjoys the work. He denies any urinary issues. His IPSS score is 2. He denies dysuria, hematuria and incontinence. He is pleased with his urinary function International Prostate Symptom Score Total Score__1__ 0 1 2 3 4 5 Not at all Less than one time in five Less than half of the time About half of the time More than half of the time Almost always Incomplete emptying X frequency X intermittency X urgency X Weak stream X Flow resistance X Not at all Every eight hours Every four hours Every three hours Every 2 hours Every hour nocturia X He denies any bowel issues . He has no diarrhea, no constipation, no abdominal discomfort. He has occasional bowel urgency. He is not sexually active. Review of Systems Constitutional: Negative for activity change, appetite change, fatigue and unexpected weight change. 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 Eyes: Negative. Respiratory: Negative. Negative for cough, chest tightness and shortness of breath. Cardiovascular: Negative. Negative for chest pain and leg swelling. Gastrointestinal: Negative. Negative for abdominal pain, diarrhea, constipation, blood in stool, abdominal distention and anal bleeding. Bowels move daily-no blood Bowels are regular He has never had a colonoscopy--screening guaiac by PCP Genitourinary: Negative. Negative for dysuria, urgency, frequency, hematuria, decreased urine volume and difficulty urinating. Not sexually active See interim history Musculoskeletal: Positive for back pain. Negative for arthralgias. Occasional low back pain --not persistent Skin: Negative. Neurological: Negative. Psychiatric/Behavioral: The patient is nervous/anxious. Anxiety before medical appointments is not new for patient Vitals Office Visit from 01/08/2016 in [facility] Radiation Oncology Weight - Scale 86.637 kg (191 lb) Temp 36.4 ??C (97.5 ??F) Temp Source Oral Heart Rate 75 Heart Rate Source NIBP Resp 20 BP 138/88 mmHg BP Location Left arm SpO2 98 % Karnofsky: 100 IPSS : 2 CINTHYA: 1--patient is not sexually active. Physical Exam Constitutional: He is oriented to person, place, and time. He appears well- developed and well-nourished. No distress. HENT: Head: Normocephalic and atraumatic. Eyes: Conjunctivae and EOM are normal. Right eye exhibits no discharge. Left eye exhibits no discharge. No scleral icterus. Neck: Neck supple. Cardiovascular: Normal rate, regular rhythm and normal heart sounds. Exam reveals no gallop and no friction rub. No murmur heard. Pulmonary/Chest: Effort normal and breath sounds normal. No respiratory distress. He has no wheezes. He has no rales. He exhibits no tenderness. Abdominal: Soft. Bowel sounds are normal. He exhibits no distension. There is no hepatomegaly. There is no tenderness. There is no CVA tenderness. Genitourinary: Rectum normal and prostate normal. Guaiac negative stool. Rectal: Good sphincter tone. Prostate is flat and smooth with no induration, no tenderness. Guaiac negative Musculoskeletal: Normal range of motion. He exhibits no edema or tenderness. Lymphadenopathy: Head (right side): No submental, no submandibular, no tonsillar, no preauricular, no posterior auricular and no occipital adenopathy present. Head (left side): No submental, no submandibular, no tonsillar, no preauricular, no posterior auricular and no occipital adenopathy present. He has no cervical adenopathy. He has no axillary adenopathy. Right: No supraclavicular adenopathy present. Left: No supraclavicular adenopathy present. Neurological: He is alert and oriented to person, place, and time. He exhibits normal muscle tone. Coordination normal. Skin: Skin is warm and dry. No rash noted. He is not diaphoretic. No erythema. No pallor. Psychiatric: He has a normal mood and affect. His behavior is normal. Judgment and thought content normal. Vitals reviewed. Date 12/25/2015 0.5 06/05/2015 0.5 10/21/2014 0.5 05/01/14 0.5 11/19/13 0.5 08/03/13 0.7 04/30/2013 1.0 02/22/2013 1.50 11/09/2012 0.79 08/07/2012--first after treatment PSA 1.67 10/26/2011--before treatment 6.5 03/19/2011 5.83 02/16/2010 5.57 08/29/2009 5.1 02/22/2013 1.50 11/09/2012 0.79 08/07/2012--first after treatment PSA 1.67 10/26/2011--before treatment 6.5 03/19/2011 5.83 02/16/2010 5.57 08/29/2009 5.1 Assessment Plan: Mr Joaquin is a pleasant 70 year old man with adenocarcinoma of the prostate, Daisetta 3+4=7, pretreatment PSA of 6.5. He was treated with external beam radiation 79.2 Gy completed on 04/18/2012. His PSA is stable at 0.5 and is at his post treatment janey. He is doing with no evidence of disease. We will repeat his PSA in six months and see him for clinical evaluation. Mr Joaquin is to call if he has any questions or concerns. documented in this encounter Plan of Treatment Upcoming Encounters Date Type Department Care Team (Late st Contact Info) Description 05/22/2024 1:00 PM EDT Office Visit Hematology/Oncology at [address] [phone] Iris Nguyen APRN [facility] [place] [address] 05/22/2024 1:30 PM EDT Infusion Hematology Oncology at [address] [phone] documented as of this encounter Visit Diagnoses Diagnosis Malignant neoplasm of prostate documented in this encounter Care Teams Telephone Order Supervisor Relationship Specialty Start Date End Date Brady Christensen MD [address] [place] [address] PCP - General 11/08/11 07/27/17 documented as of this encounter
--- OUTSIDE RECORDS SUMMARY | 2024-05-14 03:41 | XMS_ITS | Encounter Summary ---
Author Organization [facility] [place] [address] Care Team Providers Care Switch Repairer Name Role Phone Catracho Good MD Primary Care Provider [phone] Encounter Details Date Type Department Care Team (Late Contact Info) Description 11/26/2021 Telephone Hematology/Oncology at [address] [phone] Teagan Bronson Social History Tobacco Use Types Packs/Day Years [...] 1:00 PM EDT Office Visit Hematology/Oncology at [address] [phone] Iris Nguyen APRN [facility] [place] [address] 05/22/2024 1:30 PM EDT Infusion Hematology Oncology at [address] [phone] documented as of this encounter Visit Diagnoses Not on filedocumented in this encounter Care Teams Switch Repairer Relationship Specialty Start Date End Date Catracho Good MD PCP - General Family Medicine 08/12/21 08/09/22 documented as of this encounter
--- OUTSIDE RECORDS SUMMARY | 2024-05-14 03:41 | XMS_ITS | Encounter Summary ---
Author Organization [facility] Address [facility] [place] [address] Care Team Providers Care Nutritionist Public Health Name Role Phone Unknown Primary Care Provider Unavailabl e Reason for Visit * Reason Comments Injections Lupron 22.5mg * Treatment/Therapy Plan Authorization (Routine) - Authorized Specialty Diagnoses / Procedures Referred By Contac t Referred To Contact Hematology and Oncology Diagnoses Prostate cancer metastatic to intrapelvic lymph node Procedures INFUSION Roman Addison MD [facility] DR HEMATOLOGY [place] [address] Roman Addison MD [address] [place] [address] DR HEM[place]OLOGY [place] [address] Referral ID Status Reason Start Date Expiration Date V isits Requested Visits Authorized [id number] Authorized 10/03/2022 07/09/2024 99 99 Encounter Details Date Type Department Care Team (Late st Contact Info) Description 03/22/2023 9:00 AM EDT Infusion Hematology Oncology at [address] [phone] Prostate cancer metastatic to intrapelvic lymph node [...] as of this encounter Progress Notes * Dory Valentine RN - 03/22/2023 9:00 AM EDT Infusion Note Diagnosis: Prostate Cancer Treatment: Lupron Injection Lupron 22.5 mg injected IM in right buttocks. Patient instructed on side effects of Lupron. Patient states understanding of teaching and patient aware to call clinic with any questions or concerns. Plan: Return to clinic as scheduled. documented in this encounter Plan of Treatment Upcoming Encounters Date Type Department Care Team (Late st Contact Info) Description 05/22/2024 1:00 PM EDT Office Visit Hematology/Oncology at [address] [phone] Iris Nguyen APRN [facility] [place] [address] 05/22/2024 1:30 PM EDT Infusion Hematology Oncology at [address] [phone] documented as of this encounter Visit Diagnoses Diagnosis Prostate cancer metastatic to intrapelvic lymph node documented in this encounter Administered Medications Inactive Administered Medications - up to 3 most recent administrations Medication Order MAR Action Action Date Dose Rate Site leuprolide (Lupron Depot) injection 22.5 mg 22.5 mg, Intramuscular, ONCE, 1 dose, On Tue03/22/23 at 0930, Last injection site was... leuprolide IM injection site: L Gluteal (12/28/2022 3:19 PM) , Routine, This agent is restricted to outpatient use. Is this drug being given as an outpatient? Yes Given 03/22/2023 9:24 AM EDT 22.5 mg documented in this encounter Care Teams Nutritionist Public Health Relationship Specialty Start Date End Date Unknown None PCP - General 08/10/22 documented as of this encounter
--- OUTSIDE RECORDS SUMMARY | 2024-05-14 03:41 | XMS_ITS | Encounter Summary ---
Author Organization [facility] Address [facility] [place] [address] Care Team Providers Care Feather Maker Name Role Phone Donnell Cabrera MD Primary Care Provider [phone] Encounter Details Date Type Department Care Team (Late st Contact Info) Description 04/23/2021 1:30 PM EDT Office Visit Hematology/Oncology at [address] [phone] Ryan Thornton MD [facility] [place] [address] Azalia Cannon, [employer] [address] [place] [address] DR HEMATOLOGY ONCOLOGY [place], [place] [id number] Lymphocytosis; Monoclonal B-cell lymphocytosis Social History Tobacco Use Types Packs/Day Years Used Date Smoking Tobacco: Never Smokeless Tobacco: Never Sex and Gender Information Value Date Recorded Sex Assigned at Not on file Gender Identity Not on file Sexual Orientation Not on file documented as of this encounter Last Filed Vital Signs Vital Sign Reading Time Taken Comments Blood Pressure 154/91 04/23/2021 1:26 PM EDT Pulse 99 04/23/2021 1:26 PM EDT Temperature 37.1 ??C (98.8 ??F) 04/23/2021 1:26 PM ED T Respiratory Rate 20 04/23/2021 1:26 PM EDT Oxygen Saturation 98% 04/23/2021 1:26 PM EDT Inhaled Oxygen Concentration - - Weight 84.1 kg (185 lb 6.4 oz) 04/23/2021 1:26 P M EDT Height 167.5 cm (5' 5.95) 04/23/2021 1:26 PM ED T Body Mass Index 29.97 04/23/2021 1:26 PM EDT documented in this encounter Progress Notes * Azalia Cannon APRN - 04/23/2021 1:30 PM EDT Subjective: Patient ID: Brenton Joaquin is a 75 y.o. male. Patient Active Problem List Diagnosis ??? Monoclonal B-cell lymphocytosis ??? Secondary hypertension ??? Prostate cancer HPI (Summary visit notes Naomie Beard MD, 01/19/21) ASSESSMENT & PLANS Mr. Brenton Joaquin is a 75 y.o. male with a history of prostate cancer (s/p radiation) who presents for evaluation of leukocytosis. 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 Furthermore, his WBC and absolute lymphocyte count are down even further today, which is reassuring. He has no other signs/symptoms of CLL (no lymphadenopathy, splenomegaly, B symptoms such as night sweats or weight loss, no cytopenias or evidence of hemolysis etc). We reviewed his overall good prognosis and that this is not considered a blood cancer. We discussed that this does have the potential to become CLL,and we would consider repeating flow cytometry for confirmation if his WBC/absolute lymphocyte count continued to increase over time, or if he developed any symptoms. ?? We reviewed that even if this does develop into CLL, he may never require treatment. Briefly discussed treatment options - including a pill (I.e. Ibrutinib) instead of IV chemotherapy if he ever wereto require treatment, and also reviewed indications for treatment including: WBC doubling in less than 6mo (once above 20k), progressive anemia/thrombocytopenia, AIHA, B-symptoms, symptomatic splenomegaly, bulky adenopathy, among others, however, we remain hopeful this may never become a problem for him. In the interim, management consists of active surveillance following blood counts every 3-6moand then less frequently if blood counts remain stable. Will plan to follow with Dr. Thornton at [facility]. ?? Brenton and his had the opportunity to ask questions, all of which were answered. ?? Summary of Plan: # Monoclonal B Cell Lymphocytosis - Labs ordered today: CBC, CMP, Retic, Quantitative Immunoglobulins - RTC to [facility] in 3 mo with labs - knows to call with any questions or concerns in the interim INTERVAL HPI 04/23/21 Brenton Joaquin is a 75 yo male diagnosed 01/21 with Monoclonal B Cell Lymphocytosis. (See summary above.) He comes to the [facility] oncology clinic in [facility] today for 3 month follow-up. Brenton has been feeling well. His energy is good. He continues to work a few days a week and gets upevery morning at 530 and he and his walk 3 miles. He does feel tired later in the day, but attributes this to age. He denies unusual fatigue, unusual weight loss, night sweats or fevers. He has not had any change in appetite. He has not noticed any new lumps or bumps. His appetite is good. He denies abdominal pain, early satiety, abdominal cramping or fullness. Bowels are working well. No nausea. He has not noticed any unusual bleeding or bruising. He denies shortness of breath or new cough. Other ROS are negative. No Known Allergies Current Medications ??? losartan (Cozaar) 25 mg Tablet ??? atorvastatin (LIPITOR) 10 mg Tablet ??? Vitamin A-Vitamin C-Vit E-Min (OCUVITE) Tab ??? multivitamin (THERAGRAN) tablet Social History Tobacco Use ??? Smoking status: Never Smoker ??? Smokeless tobacco: Never Used Substance Use Topics ??? Alcohol use: Not on file ??? Drug use: Not on file Review of Systems Constitutional: Negative. Negative for fatigue. HENT: Negative. Respiratory: Negative. Cardiovascular: Negative. Gastrointestinal: Negative. Genitourinary: Negative. Musculoskeletal: Negative. Neurological: Negative. Hematological: Negative. Psychiatric/Behavioral: Negative. Objective: Physical Exam Vitals reviewed. Constitutional: Appearance: Normal appearance. He is not ill-appearing. Eyes: Extraocular Movements: Extraocular movements intact. Cardiovascular: Rate and Rhythm: Normal rate and regular rhythm. Pulmonary: Breath sounds: Normal breath sounds. No wheezing or rales. Abdominal: General: Bowel sounds are normal. Palpations: Abdomen is soft. There is no splenomegaly. Tenderness: There is no abdominal tenderness. Musculoskeletal: Right lower leg: No edema. Left lower leg: No edema. Lymphadenopathy: Cervical: No cervical adenopathy. Upper Body: Right upper body: No supraclavicular or axillary adenopathy. Left upper body: No supraclavicular or axillary adenopathy. Skin: General: Skin is warm and dry. Findings: No bruising. Neurological: Mental Status: He is alert and oriented to person, place, and time. Coordination: Coordination normal. Psychiatric: Mood and Affect: Mood normal. Thought Content: Thought content normal. BP (!) 154/91 (Patient Position: Sitting) Pulse 99 Temp 37.1 ??C (98.8 ??F) (Temporal) Resp 20 Ht 167.5 cm (5' 5.95) Wt 84.1 kg (185 lb 6.4 oz) SpO2 98% BMI 29.97 kg/m?? LABS 04/08/21 WBC 11.59; ANC 5.80; ALC 4.17; AMC 1.39; H/H 14.6/ 43.0; PLT 160; BUN 24; CREAT 1.3; BILI 0.9; LFTsnormal; electrolytes normal. IMMUNGLOBULINS IgG - 962; IgA - 112; IgM - 31. PSA - 1.2 Assessment and Plan: Assessment: Brenton Joaquin is a 75 yo male diagnosed 01/21 with Monoclonal B Cell Lymphocytosis. (See summary above.) He comes to the [facility] oncology clinic in [facility] today for 3 month follow-up. Brenton is doing well and he remains active. CBC, CMP, IMMUNOGLOBULINS are reviewed with Brenton today and are stable. Plan: Reviewed with Brenton signs/symptoms to notify clinic; ie night sweats, fevers, new lumps or bumps, unusual bleeding or fatigue. RTC in 3 months with labs. documented in this encounter Plan of Treatment Upcoming Encounters Date Type Department Care Team (Late st Contact Info) Description 05/22/2024 1:00 PM EDT Office Visit Hematology/Oncology at [address] [phone] Iris Nguyen APRN [facility] [place] [address] 05/22/2024 1:30 PM EDT Infusion Hematology Oncology at [address] [phone] documented as of this encounter Visit Diagnoses Diagnosis Lymphocytosis Lymphocytosis (symptomatic) Monoclonal B-cell lymphocytosis Lymphocytosis (symptomatic) documented in this encounter Care Teams Feather Maker Relationship Specialty Start Date End Date Donnell Cabrera MD PCP - General General Internal Medicine 08/23/19 9/3 documented as of this encounter
--- OUTSIDE RECORDS SUMMARY | 2024-05-14 03:41 | XMS_ITS | Encounter Summary ---
[place] [address] Care Team Providers Care Special Education Coordinator Name Role Phone Catracho Good MD Primary Care Provider [phone] Reason for Referral * Diagnostic Test (Routine) - Closed Specialty Diagnoses / Procedures Referred By Contac t Referred To Contact Radiology Diagnoses Malignant neoplasm of prostate Procedures NM PET CT PSMA Prostate (Pylarify) Yamel Woods PRIVACY MANAGER [facility] [address] [place] [address] Referral ID Status Reason Start Date Expiration Date V isits Requested Visits Authorized [id number] Closed Specialty Service Requested 02/11/2022 08/14/2023 1 1 Reason for Visit * Diagnostic Test (Routine) - Closed Specialty Diagnoses / Procedures Referred By Contac t Referred To Contact Radiology Diagnoses Malignant neoplasm of prostate Procedures NM PET CT PSMA Prostate (Pylarify) Yamel Woods APRN [facility] [address] [place] [address] Referral ID Status Reason Start Date Expiration Date V isits Requested Visits Authorized [id number] Closed Specialty Service Requested 02/11/2022 08/14/2023 1 1 Encounter Details Date Type Department Care Team (Latest Contact Info) Description 03/02/2022 11:53 AM EDT Hospital Encounter [place] [phone] [address] [facility] [place] [address] Malignant neoplasm of prostate Discharge Disposition: Home Social History Tobacco Use [...] 1:00 PM EDT Office Visit Hematology/Oncology at [address] [phone] Iris Nguyen [facility] [place] [address] 05/22/2024 1:30 PM EDT Infusion Hematology Oncology at [address] [phone] documented as of this encounter Procedures Procedure [...] Thank you for referring this patient to [facility]. Thank you for letting us participate in the care of this patient. ??If you are a health care provider and have any questions regarding this report, please contact the number below. ??For patients who have questions please contact the health home care and home health aides teacher that requested your imaging first. ? Electronically signed by: Kamlesh Meier MD, [facility] ([phone]), at 03/04/2022 10:31 AM Narrative 03/04/2022 10:31 [...] Thank you for referring this patient to [facility]. Thank you for letting us participate in the care of this patient. If youare a health care provider and have any questions regarding this report,please contact the number below. For patients who have questions please contactthe health home care and home health aides teacher that requested your imaging first. Electronically signed by: Kamlesh Meier MD, [facility]([phone]), at 03/04/2022 10:31 AM Yamel Woods PRIVACY MANAGER IMG PET ORDERABLES documented in this encounter Visit Diagnoses Diagnosis Malignant neoplasm of prostate documented in this encounter Administered Medications Inactive Administered Medications - up to 3 most recent administrations Medication Order MAR Action Action Date Dose Rate Site piflufolastat (F-18) injection 5-10 mCi 5-10 mCi, Intravenous, ONCE PRN, 1 dose, Starting on Tue03/02/22 at 1219, Until Tue03/02/22 at 1215, Per Protocol, Radiology Contrast, Routine Given 03/02/2022 12:15 PM EDT 9.8 mCi Right Arm documented in this encounter Care Teams Special Education Coordinator Relationship Specialty Start Date End Date Catracho Good MD PCP - General Family Medicine 08/12/21 08/09/22 documented as of this encounter
--- OUTSIDE RECORDS SUMMARY | 2024-05-14 03:41 | XMS_ITS | Encounter Summary ---
Author Organization [facility] Address [facility] [place] [address] Care Team Providers Care Wastewater Supervisor Name Role Phone Unknown Primary Care Provider Unavailabl e Encounter Details Date Type Department Care Team (Late st Contact Info) Description 03/22/2023 8:30 AM EDT Office Visit Hematology/Oncology at [address] [phone] Christi Potter, [facility] [address] Prostate cancer metastatic to intrapelvic lymph node [...] Sign Reading Time Taken Comments Blood Pressure 176/80 03/22/2023 8:39 AM EDT Pulse 73 03/22/2023 8:39 AM EDT Temperature 36.5 ??C (97.7 ??F) 03/22/2023 8:39 AM ED T Respiratory Rate 18 03/22/2023 8:39 AM EDT Oxygen Saturation 98% 03/22/2023 8:39 AM EDT Inhaled Oxygen Concentration - - Weight 86.3 kg (190 lb 3.2 oz) 03/22/2023 8:39 A M EDT Height 165.1 cm (5' 5) 03/22/2023 8:39 AM EDT Body Mass Index 31.65 03/22/2023 8:39 AM EDT documented in this encounter Patient Instructions * Patient Instructions* Christi Potter APRN - 03/22/2023 8:30 AM EDT He will return in 3 months with labs and alli. documented in this encounter Progress Notes * Christi Potter APRN - 03/22/2023 8:30 AM EDT Diagnosis: Prostate cancer with metastasis [...] stool. Has no bone pain. Interval history (03/22/23) Brenton Joaquin returns to clinic today for followup of his metastatic prostate cancer. He continues to receive lupron every 3 months. He continues to tolerate the treatmentwith only minimal side effects. He continues to have some mild hot flashes. He denies any pain. He denies any chest pain, shortness of breath or cough. His appetite is good. He continues to gain weight despite his best efforts. He is up 6 lb since the beginning of the year. He has no issues with his bowels. He has no urinary symptoms. Energy remains stable. ROS is otherwise negative. interval history(12/28/22): Brenton Joaquin is in clinic for follow-up on metastatic prostate cancer.He is receiving lupron injections every 3 months. He is tolerating the therapy well. He has some mild hot flashes especially at night. Otherwise no noticeable side effects. Denies any pain. Denies any bowel or urinary issues. No shortness of breath, chest pain or edema. He has gained some weight since starting therapy and he has noticed an increase in belly fat. ROS Is otherwise negative. PMH: No interval changes since [...] axillary nodes normal Neurologic: Normal Vitals BP 176/80 (Patient Position: Sitting) Pulse 73 Temp 36.5 ??C (97.7 ??F) (Temporal) Resp 18 Ht 165.1 cm (5' 5) Wt 86.3 kg (190 lb 3.2 oz) SpO2 98% BMI 31.65 kg/m?? Wt Readings from Last 3 Encounters: 03/22/23 86.3 kg (190 lb 3.2 oz) 12/28/22 85.1 kg (187 lb 9.6 oz) 10/05/22 83.5 kg (184 lb) Pathology: 11/08/11 Adenocarcinoma, Linda grade 3+4 This was followed by TRUS biopsy which demonstrated Fairburn 3+4 involving 10% the right base core. The right lateral base had adenocarcinoma Fairburn 3+4 with 10% of this core. The left lateral apex had adenocarcinoma 3+3 involving 5% of the core. The remaining nine cores demonstrated benign prostatic tissue. Labs: 03/11/23 WBC 9.79 H/H 13.8/40.8 Plts 169 [...] 25 Ca 9.0 Date PSA Test Notes 03/11/23 <0.01 <7.0 12/20/22 <0.01 <7.0 09/24/22 <0.01 <7.0 07/05/22 0.04 <7.0 06/01/22 0.59 Pend. [id number] 02/04/2022 2.0 623 LDH 197 08/04/21 1.5 [...] Schedule first injection in 1-2 weeks at [facility]. We discussed the role of secondary hormonal therapy abiraterone/prednisone next visit. 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 # Weight gain- Discussed side effects of Lupron therapy - loss of muscle mass and relationship to weight gain. Discussed dietary changes- avoid sweets and processed foods. Watch caloric intake. He iswalking 3 miles a day on the [employer] so he is active. Plan: 1. Lupron 22.5 mg today 2. Next visit in with CBc, cMP, PSA, testosterone and his next lupron injection. In 3 months documented in this encounter Plan of Treatment Upcoming Encounters Date Type Department Care Team (Late st Contact Info) Description 05/22/2024 1:00 PM EDT Office Visit Hematology/Oncology at [address] [phone] Iris Nguyen APRN [facility] [place] [address] 05/22/2024 1:30 PM EDT Infusion Hematology Oncology at [address] [phone] documented as of this encounter Visit Diagnoses Diagnosis Prostate cancer metastatic to intrapelvic lymph node documented in this encounter Care Teams Wastewater Supervisor Relationship Specialty Start Date End Date Unknown None PCP - General 08/10/22 documented as of this encounter
--- OUTSIDE RECORDS SUMMARY | 2024-05-14 03:41 | XMS_ITS | Encounter Summary ---
Author Organization [facility] Address [facility] [place] [address] Care Team Providers Care Admitting Supervisor Name Role Phone Unknown Primary Care Provider Unavailabl e Encounter Details Date Type Department Care Team (Late st Contact Info) Description 06/13/2023 Telephone Hematology/Oncology at [address] [phone] Latasha Anguiano Social History Tobacco Use Types Packs/Day Years [...] place to sleep or slept in a assisted (including now)? No 04/09/2022 Sex and Gender Information Value Date Recorded Sex Assigned at Not on file Gender Identity Not on file Sexual Orientation Not on file documented as of this encounter Miscellaneous Notes * Telephone Encounter - Latasha Anguiano - 06/13/2023 3:54 PM EDT Called to see if dana had labs done. I had to leave a message on the home number as cell phone is currently not available documented in this encounter Plan of Treatment Upcoming Encounters Date Type Department Care Team (Late st Contact Info) Description 05/22/2024 1:00 PM EDT Office Visit Hematology/Oncology at [address] [phone] Iris Nguyen APRN [facility] [place] [address] 05/22/2024 1:30 PM EDT Infusion Hematology Oncology at [address] [phone] documented as of this encounter Visit Diagnoses Not on filedocumented in this encounter Care Teams Admitting Supervisor Relationship Specialty Start Date End Date Unknown None PCP - General 08/10/22 documented as of this encounter
--- OUTSIDE RECORDS SUMMARY | 2024-05-14 03:41 | XMS_ITS | Encounter Summary ---
Author Organization [facility] Address [facility] [place] [address] Care Team Providers Care Firer Glost Kiln Name Role Phone Unknown Primary Care Provider Unavailabl e Reason for Visit * Reason Comments Injections Lupron 22.5mg * Treatment/Therapy Plan Authorization (Routine) - Authorized Specialty Diagnoses / Procedures Referred By Contcarlton t Referred To Contact Hematology and Oncology Diagnoses Prostate cancer metastatic to intrapelvic lymph node Procedures INFUSION Roman Addison MD [facility] [place] [address] Roman Addison MD [address] [place] [address] DR [place]Y [place] [address] Referral ID Status Reason Start Date Expiration Date V isits Requested Visits Authorized [id number] Authorized 10/03/2022 07/09/2024 99 99 Encounter Details Date Type Department Care Team (Late st Contact Info) Description 10/05/2022 11:30 AM EST Infusion Hematology Oncology at [address] [phone] Prostate cancer metastatic to intrapelvic [...] as of this encounter Progress Notes * Supriya Herrera RN - 10/05/2022 11:30 AM EST Infusion Note Diagnosis: Prostate [...] PM EDT Office Visit Hematology/Oncology at [address] [phone] Iris Nguyen APRN [facility] [address] 05/22/2024 1:30 PM EDT Infusion Hematology Oncology at [address] [phone] documented as of this encounter Visit Diagnoses Diagnosis Prostate cancer metastatic to intrapelvic lymph node documented in this encounter Administered Medications Inactive Administered Medications - up to 3 most recent administrations Medication Order MAR Action Action Date Dose Rate Site leuprolide (Lupron Depot) injection 22.5 mg 22.5 mg, Intramuscular, ONCE, 1 dose, On Tue10/05/22 at 1145, , Routine, This agent is restricted to outpatient use. Is this drug being given as an outpatient? Yes Given 10/05/2022 11:36 AM EST 22.5 mg documented in this encounter Care Teams Firer Glost Kiln Relationship Specialty Start Date End Date Unknown None PCP - General 08/10/22 documented as of this encounter
--- OUTSIDE RECORDS SUMMARY | 2024-05-14 03:41 | XMS_ITS | Encounter Summary ---
Author Organization [place] [address] Care Team Providers Care Diamond Sizer Name Role Phone Donnell Cabrera MD Primary Care Provider [phone] Encounter Details Date Type Department Care Team (Late st Contact Info) Description 08/14/2020 2:30 PM EST TH Visit (TeleHealth) Radiation Oncology at [address] [phone] Christi Potter APRN [facility] [place] [address] Prostate cancer Social History Tobacco Use Types Packs/Day Years Used Date Smoking Tobacco: Never Smokeless Tobacco: Never Sex and Gender Information Value Date Recorded Sex Assigned at Not on file Gender Identity Not on file Sexual Orientation Not on file documented as of this encounter Patient Instructions * Patient Instructions* Christi Potter APRN - 08/14/2020 2:30 PM EST He will return in one year with PSA documented in this encounter Progress Notes * Christi Potter APRN - 08/14/2020 2:30 PM EST Identification: Mr Joaquin is a pleasant 72 year old man who was treated with radiation therapy for prostate cancer. He completed external beam radiation on 04/18/2012 and is in clinic for scheduled follow up. He was last seen a year ago. HPI Mr Joaquin had his PSA monitored as part of yearly screening with the pattern noted below. Due TO PSA elevation he was referred to Dr Luis Fernando Garcia who saw patient on 11/08/2011 at [facility]. An ultrasound was done which demonstrated a prostate volume of 29.1 cc with no hypoechoic areas. This was followed by TRUS biopsy which demonstrated Linda 3+4 involving 10% the right base core. The right lateral base had adenocarcinoma Osakis 3+4 with 10% of this core. The left lateral apex had adenocarcinoma 3+3 involving 5% of the core. The remaining nine cores demonstrated benign prostatic tissue. After consultation with Dr Kamlesh Nunez, Mr Joaquin elected to be treated with external beam radiation therapy with care that was delivered at the [facility] in [facility] .He was treated to a [...] Biopsy 11/08/2011 Volume in cc 29.1 CC Osakis grade/score a+b=c 3+4=7 Total Cores 12 Positive [...] - Janey PSA 0.5 PMH: Past Medical History: Diagnosis Date ??? Anxiety ??? Prostate cancer PSH: none Family history: No history of malignancy, kidney stones, no bleeding disorders or trouble with anesthesia in the past. Mother with Alzheimer's. Patient was adopted by his stepfather. One biological brother, no known prostate issues. Social History: Never smoker. No Etoh. 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 , two daughters and three grandchildren. No Known Allergies Medications 08/14/20 1443 Medication Sig Taking? atorvastatin (LIPITOR) 10 mg Tablet Take 10 mg by mouth daily. Vitamin A-Vitamin C-Vit E-Min (OCUVITE) Tab Take by mouth. multivitamin (THERAGRAN) tablet Take 1 tablet by mouth daily. Advance Directive: Patient has executed and his is his DPOA Interim History: Mr Joaquin reports that he is doing well. He reports that his PCP checked his PSA afew months ago and that it was 1.0 and he was somewhat anxious about those results. He has not had any new health issues over the last year. 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 He enjoys the work. He is walking and is very active around the house doing projectsl He denies any urinary issues. He denies dysuria, hematuria and incontinence. He is pleased with hisurinary function He denies any bowel issues . He has no diarrhea, no constipation, no abdominal discomfort. He has occasional bowel urgency. He has never had a colonoscopy. He is not sexually active. See patient survey below: Expanded Prostate Cancer Index Composite For Clinical Practice (Epic-Cp) Question 08/23/2019 ??9:40 AM EST - Filed by Patient on 08/23/2019 Urinary function problem No Problem Urinary control Total control # of pads used per day None Urinary dripping/leakage problem No problem 5. How big a problem, if any, has each of the following been for you? Pain or burning with urination No problem 5. How big a problem, if any, has each of the following been for you? Weak urine stream/incomplete bladder emptying No problem 5. How big a problem, if any, has each of the following been for you? Need to urinate frequently No problem 6. How big a problem, if any, has each of the following been for you? Rectal pain or urgency of bowel movements No problem 6. How big a problem, if any, has each of the following been for you? Increased frequency of your bowel movements No problem 6. How big a problem, if any, has each of the following been for you? Overall problems with your bowel movements No problem 6. How big a problem, if any, has each of the following been for you? Bloody stools No problem Ability to reach orgasm Poor Quality of your erections None at all Problem with sexual function or lack of it No problem 10. How big a problem, if any, has each of the following been for you? Hot flashes or breast tenderness/enlargement No problem 10. How big a problem, if any, has each of the following been for you? Feeling depressed No problem 10. How big a problem, if any, has each of the following been for you? Lack of energy No problem Urinary Incontinence Symptom Score (range: 0 - 12) 0 Urinary Irritation/Obstructive Symptom Score (range: 0 - 12) 0 Bowel Symptom Score (range: 0 - 16) 0 Vitality/Hormonal Symptom Score (range: 0 - 12) 0 Overall Prostate Cancer QOL Score (range: 0 - 60) 0 Q - Prostate Followup Survey Question 08/23/2019 ??9:43 AM EST - Filed by Patient on 08/23/2019 Reason for visit Follow up on existing problem(s) Incomplete emptying Not at all Frequency Not at all Intermittency Not at all Urgency Not at all Weak Stream Not at all Straining Not at all Nocturia 1 time Quality of life Pleased Total IPSS Score (range: 0 - 35) 1 ( Mild LUTS) Confidence, level - past 6 months Very low Penetration - past 6 months No sexual activity Penetration, maintain - past 6 months Did not attempt intercourse Erection, maintain - past 6 months Did not attempt intercourse Sexual satisfaction - past 6 months Did not attempt intercourse Sexual Health in Men (range: 1 - 21) 1 (Severe ED) Review of Systems Constitutional: Negative. Negative for activity change, appetite change, fatigue and unexpected weight change. 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 HENT: Negative. Eyes: Negative. Respiratory: Negative. Negative for cough, chest tightness and shortness of breath. Cardiovascular: Negative. Negative for chest pain and leg swelling. Gastrointestinal: Negative. Negative for abdominal distention, abdominal pain, anal bleeding, bloodin stool, constipation and diarrhea. Bowels move daily-no blood Bowels are regular He has never had a colonoscopy--screening guaiac by PCP Genitourinary: Negative. Negative for decreased urine volume, difficulty urinating, dysuria, frequency, hematuria and urgency. Not sexually active See interim history Musculoskeletal: Positive for back pain. Negative for arthralgias. Occasional low back pain --not persistent Skin: Negative. Neurological: Negative. Negative for weakness. Psychiatric/Behavioral: The patient is not nervous/anxious. His ROS is unchanged from 1 year ago. Date 06/13/2020 1.0 08/14/2019 0.9 07/10/2018 0.6 07/19/2017 0.5 07/20/2016 0.5 12/25/2015 0.5 06/05/2015 0.5 10/21/2014 0.5 05/01/14 0.5 11/19/13 0.5 08/03/13 0.7 04/30/2013 1.0 02/22/2013 1.50 11/09/2012 0.79 08/07/2012--first after treatment PSA 1.67 10/26/2011--before treatment 6.5 Assessment Plan: Mr Joaquin is a pleasant 75 y.o. with adenocarcinoma of the prostate, Osakis 3+4=7, pretreatment PSA of 6.5. He was treated with external beam radiation 79.2 Gy completed on 04/18/2012. His PSA has risen slightly and is 1.0 with a janey of 0.5. Patient was reassured that this does not warrant any intervention other than ongoing monitoring yearly. Clinically and functionally he is doing very well. We will repeat his PSA in one year and see him for clinical evaluation. Mr Joaquin is to call if he has any questions or concerns. Patient verbally consents to this telephone visit and understands that this visit may be billed, similar to a clinic office visit. I provided care to the patient today via telephone call. The total time associated with this visit was 17 minutes. documented in this encounter Plan of Treatment Upcoming Encounters Date Type Department Care Team (Late st Contact Info) Description 05/22/2024 1:00 PM EDT Office Visit Hematology/Oncology at [address] [phone] Iris Nguyen APRN [facility] [place] [address] 05/22/2024 1:30 PM EDT Infusion Hematology Oncology at [address] [phone] documented as of this encounter Visit Diagnoses Diagnosis Prostate cancer Malignant neoplasm of prostate documented in this encounter Care Teams Diamond Sizer Relationship Specialty Start Date End Date Donnell Cabrera MD PCP - General General Internal Medicine 08/23/19/3 documented as of this encounter
--- OUTSIDE RECORDS SUMMARY | 2024-05-14 03:41 | XMS_ITS | Encounter Summary ---
Author Organization [facility] [place] [address] Care Team Providers Care Drafter Automotive Design Name Role Phone Hong Sage MD Primary Care Provider [phone] Encounter Details Date Type Department Care Team (Late st Contact Info) Description 01/04/2019 Telephone Radiation Oncology at [address] [phone] Cherise Tuttle APRN [address] [place] [address] [place] [address] Social History Tobacco Use Types Packs/Day Years Used Date Smoking Tobacco: Never Smokeless Tobacco: Never Sex and Gender Information Value Date Recorded Sex Assigned at Not on file Gender Identity Not on file Sexual Orientation Not on file documented as of this encounter Miscellaneous Notes * Telephone Encounter - Cherise Tuttle APRN - 01/04/2019 12:38 PM EDT Return call to patient. He recently saw his PCP and had his PSA done. It has risen to 1.0 and he was concerned about the rise and wondered if there were any interventions needed. I reassured Mr Joaquin that at this time ongoing surveillance is indicated and that there no needs for any intervention. He is due to return to clinic in July. He completed XRT in 2011. Patient questions were answered. documented in this encounter Plan of Treatment Upcoming Encounters Date Type Department Care Team (Late st Contact Info) Description 05/22/2024 1:00 PM EDT Office Visit Hematology/Oncology at [address] [phone] Iris Nguyen APRN [facility] [place] [address] 05/22/2024 1:30 PM EDT Infusion Hematology Oncology at [address] [phone] documented as of this encounter Visit Diagnoses Not on filedocumented in this encounter Care Teams Drafter Automotive Design Relationship Specialty Start Date End Date Hong Sage MD [address] [place] [address] PCP - General Family Medicine 07/28/17 08/22/19 documented as of this encounter
--- OUTSIDE RECORDS SUMMARY | 2024-05-14 03:41 | XMS_ITS | Encounter Summary ---
Author Organization [facility] Address [facility] [place] [address] Care Team Providers Care Gas Welder Name Role Phone Catracho Good MD Primary Care Provider [phone] Encounter Details Date Type Department Care Team (Late st Contact Info) Description 07/13/2022 3:30 PM EDT Office Visit Hematology/Oncology at [address] [phone] Roman Addison MD [facility] DR HEMATOLOGY [place] [address] Prostate cancer; Prostate cancer metastatic to intrapelvic lymph node [...] Sign Reading Time Taken Comments Blood Pressure 156/90 07/13/2022 3:39 PM EDT Pulse 75 07/13/2022 3:39 PM EDT Temperature 36.2 ??C (97.1 ??F) 07/13/2022 3:39 PM ED T Respiratory Rate 16 07/13/2022 3:39 PM EDT Oxygen Saturation 98% 07/13/2022 3:39 PM EDT Inhaled Oxygen Concentration - - Weight 81.6 kg (180 lb) 07/13/2022 3:39 PM EDT Height 165.1 cm (5' 5) 07/13/2022 3:39 PM EDT Body Mass Index 29.95 07/13/2022 3:39 PM EDT documented in this encounter Progress Notes * Roman Addison MD - 07/13/2022 3:30 PM EDT Diagnosis: Prostate cancer with metastasis [...] bleeding with stool. Has no bone pain. interval history: Brenton Joaquin is in clinic for follow-up on metastatic prostate cancer. He received first dose of Lupron 3 months ago and tolerated it well. Complains of mild hot flashes. Otherwise no noticeable side effects. Denies any pain. ROS Is otherwise negative. PMH: No interval [...] axillary nodes normal Neurologic: Normal Vitals BP 156/90 (Patient Position: Sitting) Pulse 75 Temp 36.2 ??C (97.1 ??F) (Temporal) Resp 16 Ht 165.1 cm (5' 5) Wt 81.6 kg (180 lb) SpO2 98% BMI 29.95 kg/m?? Pathology: 11/08/11 Adenocarcinoma, [place] grade 3+4 This was followed by TRUS biopsy which demonstrated Linda 3+4 involving 10% the right base core. The right lateral base had adenocarcinoma [place] 3+4 with 10% of this core. The left lateral apex had adenocarcinoma 3+3 involving 5% of the core. The remaining nine cores demonstrated benign prostatic tissue. Labs: 07/05/2022 BUN 26, creatinine 1.2, glucose 94, calcium 8.8, TB 0.6, AST 25, ALT 36, alkaline phosphatase 64, total protein 7.0, albumin 3.8, WBC 9.43, hemoglobin 14, platelet count 175, ANC 4.60 05/3022 WBC 9.52 H/H 14.5/42.2 Plts 155 Na 141 K+ 4.2 BUN/cr 24/1.2 T bili 0.6 ALT 56 AST 25 Ca 9.0 Date PSA Test Notes 07/05/22 0.04 <7.0 06/01/22 0.59 Pend. [id number] 02/04/2022 2.0 623 LDH 197 08/04/21 1.5 [...] Schedule first injection in 1-2 weeks at [facility]. We discussed the role of secondary hormonal therapy abiraterone/prednisone next visit. He would like to be followed in [facility] ?? 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 07/13/2022 PSA 0.04 down from 2 prior initiation of ADT. He has excellent response to the treatment. We discussed setting abiraterone and prednisone to the treatment with ADT as data shows some improvement in outcome following comments. Discussed risks and benefits of abiraterone and prednisone. Helike to hold off decision of secondary hormonal therapy. I am okay with that plan. We will see him back in 3 months with blood work. Continue Lupron every 3 months we will discuss intermittent versuscontinuous ADT later Plan: 1. Lupron 22.5 mg today 2. Next visit in with CBc, cMP, PSA, testosterone and his next lupron injection. In 3 months ? documented in this encounter Plan of Treatment Upcoming Encounters Date Type Department Care Team (Late st Contact Info) Description 05/22/2024 1:00 PM EDT Office Visit Hematology/Oncology at [address] [phone] Iris Nguyen APRN [facility] [place] [address] 05/22/2024 1:30 PM EDT Infusion Hematology Oncology at [address] [phone] documented as of this encounter Visit Diagnoses Diagnosis Prostate cancer Malignant neoplasm of prostate Prostate cancer metastatic to intrapelvic lymph node documented in this encounter Care Teams Gas Welder Relationship Specialty Start Date End Date Catracho Good MD PCP - General Family Medicine 08/12/21 08/09/22 documented as of this encounter
--- OUTSIDE RECORDS SUMMARY | 2024-05-14 03:41 | XMS_ITS | Encounter Summary ---
[facility] [address] Care Team Providers Care Cut Off Machine Operator Name Role Phone Brady Christensen MD Primary Care Provider [phone] Reason for Visit * Reason Comments Radiation Follow-up prostate cancer Encounter Details Date Type Department Care Team (Late st Contact Info) Description 07/29/2016 9:45 AM EDT Office Visit Radiation Oncology at [address] [phone] Cherise Tuttle [address] [place] [address] Malignant neoplasm of prostate Social History Tobacco Use Types Packs/Day Years Used Date Smoking Tobacco: Never Sex and Gender Information Value Date Recorded Sex Assigned at Not on file Gender Identity Not on file Sexual Orientation Not on file documented as of this encounter Last Filed Vital Signs Vital Sign Reading Time Taken Comments Blood Pressure 173/83 07/29/2016 9:45 AM EDT Pulse 83 07/29/2016 9:45 AM EDT Temperature 37 ??C (98.6 ??F) 07/29/2016 9:45 AM EDT Respiratory Rate 18 07/29/2016 9:45 AM EDT Oxygen Saturation 99% 07/29/2016 9:45 AM EDT Inhaled Oxygen Concentration - - Weight 83.2 kg (183 lb 6.4 oz) 07/29/2016 9:45 A M EDT Height 167.6 cm (5' 5.98) 07/29/2016 9:45 AM ED T copy Body Mass Index 29.62 07/29/2016 9:45 AM EDT documented in this encounter Patient Instructions * Patient Instructions* Cherise Tuttle APRN - 07/29/2016 9:45 AM EDT Date 07/20/2016 0.5 12/25/2015 0.5 06/05/2015 0.5 10/21/2014 0.5 05/01/14 0.5 11/19/13 0.5 08/03/13 0.7 04/30/2013 1.0 02/22/2013 1.50 11/09/2012 0.79 08/07/2012--first after treatment PSA 1.67 10/26/2011--before treatment 6.5 03/19/2011 5.83 02/16/2010 5.57 08/29/2009 5.1 02/22/2013 1.50 11/09/2012 0.79 08/07/2012--first after treatment PSA 1.67 10/26/2011--before treatment 6.5 03/19/2011 5.83 02/16/2010 5.57 08/29/2009 5.1 Vitals Office Visit from 07/29/2016 in [facility] Radiation Oncology Weight - Scale 83.2 kg (183 lb 6.4 oz) Height 167.6 cm (5' 5.98) [copy] BSA (Calculated - sq m) 1.97 sq meters BMI (Calculated) 29.7 Temp 37 ??C (98.6 ??F) Temp Source Oral Heart Rate 83 Heart Rate Source NIBP Resp 18 BP 173/83 BP Location Left arm Patient Position Sitting SpO2 99 % documented in this encounter Progress Notes * Cherise Tuttle APRN - 07/29/2016 9:45 AM EDT Identification: Mr Joaquin is a pleasant 71 year old man who was treated with radiation therapy for prostate cancer. He completed external beam radiation on 04/18/2012 and is in clinic for scheduled follow up. HPI Mr Joaquin had his PSA monitored as part of yearly screening with the pattern noted below. Due PSA elevation he was referred to Dr Luis Fernando Garcia who saw patient on 11/08/2011 at [facility]. An ultrasound was done which demonstrated a prostate volume of 29.1 cc with no hypoechoic areas. This was followed by TRUS biopsy which demonstrated [place] 3+4 involving 10% the right base core. The right lateral base had adenocarcinoma [place] 3+4 with 10% of this core. The left lateral apex had adenocarcinoma 3+3 involving 5% of the core. The remaining nine cores demonstrated benign prostatic tissue. After consultation with Dr Kamlesh Nunez, Mr Joaquin elected to be treated with external beam radiation therapy with care that was delivered at the [facility] in [facility] .He was treated to a [...] Social History: Never smoker. No EtOH. 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 , [...] is doing well. 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 He enjoys the work. He denies any urinary issues. [...] fatigue and unexpected weight change. 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 Eyes: Negative. Respiratory: Negative. [...] new for patient Vitals Office Visit from 07/29/2016 in [facility] Radiation Oncology Weight - Scale 83.2 kg (183 lb 6.4 oz) Height 167.6 cm (5' 5.98) [copy] BSA (Calculated - sq m) 1.97 sq meters BMI (Calculated) 29.7 Temp 37 ??C (98.6 ??F) Temp Source Oral Heart Rate 83 Heart Rate Source NIBP Resp 18 BP 173/83 (patient monitors B/P at home BP Location Left arm Patient Position Sitting SpO2 99 % Karnofsky: 100 IPSS : 2 CINTHYA: [...] There is no tenderness. There is no rebound and no CVA tenderness. Genitourinary: Rectum normal. Genitourinary Comments: Rectal: due 2017 visit Musculoskeletal: Normal range of motion. He exhibits no edema, tenderness or deformity. Lymphadenopathy: Head (right side): No submental, no [...] and thought content normal. Vitals reviewed. Date 07/20/2016 0.5 12/25/2015 0.5 06/05/2015 0.5 10/21/2014 0.5 05/01/14 0.5 11/19/13 0.5 08/03/13 0.7 04/30/2013 1.0 02/22/2013 1.50 11/09/2012 0.79 08/07/2012--first after treatment PSA 1.67 10/26/2011--before treatment 6.5 03/19/2011 5.83 02/16/2010 5.57 08/29/2009 5.1 02/22/2013 1.50 11/09/2012 0.79 08/07/2012--first after treatment PSA 1.67 10/26/2011--before treatment 6.5 03/19/2011 5.83 02/16/2010 5.57 08/29/2009 5.1 Assessment Plan: Mr Joaquin is a pleasant 71 year old man with adenocarcinoma of the prostate, Linda 3+4=7, pretreatment PSA of 6.5. He was treated with external beam radiation 79.2 Gy completed on 04/18/2012. His PSA is stable at 0.5 and is at his post treatment janey. He is doing very well with no evidence of disease. We will repeat his PSA in one year and see him for clinical evaluation. Mr Joaquin is to call if he has any questions or concerns. documented in this encounter Plan of Treatment Upcoming Encounters Date Type Department Care Team (Late st Contact Info) Description 05/22/2024 1:00 PM EDT Office Visit Hematology/Oncology at [address] [phone] Iris Nguyen APRN [facility] [place] [address] 05/22/2024 1:30 PM EDT Infusion Hematology Oncology at [address] [phone] documented as of this encounter Visit Diagnoses Diagnosis Malignant neoplasm of prostate documented in this encounter Care Teams Cut Off Machine Operator Relationship Specialty Start Date End Date Brady Christensen MD [address] [place] [address] PCP - General 11/08/11 07/27/17 documented as of this encounter
--- OUTSIDE RECORDS SUMMARY | 2024-05-14 03:41 | XMS_ITS | Encounter Summary ---
Author Organization [facility] [place] [address] Care Team Providers Care Relay Checker Name Role Phone Hong Sage MD Primary Care Provider [phone] Reason for Visit * Reason Comments Radiation Follow-up prostate cancer Encounter Details Date Type Department Care Team (Late st Contact Info) Description 07/20/2018 9:45 AM EDT Office Visit Radiation Oncology at [address] [phone] Cherise Tuttle [address] [place] [address] Malignant neoplasm of prostate Social History Tobacco Use Types Packs/Day Years Used Date Smoking Tobacco: Never Smokeless Tobacco: Never Sex and Gender Information Value Date Recorded Sex Assigned at Not on file Gender Identity Not on file Sexual Orientation Not on file documented as of this encounter Last Filed Vital Signs Vital Sign Reading Time Taken Comments Blood Pressure 161/88 07/20/2018 9:49 AM EDT Pulse 73 07/20/2018 9:49 AM EDT Temperature 36.7 ??C (98.1 ??F) 07/20/2018 9:49 AM ED T Respiratory Rate 18 07/20/2018 9:49 AM EDT Oxygen Saturation 99% 07/20/2018 9:49 AM EDT Inhaled Oxygen Concentration - - Weight 83.5 kg (184 lb) 07/20/2018 9:49 AM EDT Height 167.6 cm (5' 6) 07/20/2018 9:49 AM EDT Body Mass Index 29.7 07/20/2018 9:49 AM EDT documented in this encounter Patient Instructions * Patient Instructions* Cherise Tuttle APRN - 07/20/2018 9:45 AM EDT Date 07/10/2018 0.6 07/19/2017 0.5 07/20/2016 0.5 12/25/2015 0.5 06/05/2015 0.5 10/21/2014 0.5 05/01/14 0.5 11/19/13 0.5 08/03/13 0.7 04/30/2013 1.0 02/22/2013 1.50 11/09/2012 0.79 08/07/2012--first after treatment PSA 1.67 10/26/2011--before treatment 6.5 documented in this encounter Progress Notes * Cherise Tuttle APRN - 07/20/2018 9:45 AM EDT Identification: Mr Joaquin is a pleasant 72 [...] he was referred to Dr Luis Fernando Gacria who saw patient on 11/08/2011 at [facility]. An ultrasound was done which demonstrated a [...] that was delivered at the [facility] in [facility] .He [...] and Biopsy 11/08/2011 Volume in cc 29.1 [place] grade/score a+b=c 3+4=7 Total Cores 12 Positive [...] Social History: Never smoker. No Etoh. 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 , two daughters and three grandchildren. No Known Allergies Medications 07/20/18 1003 Medication Sig Taking? atorvastatin (LIPITOR) 10 mg Tablet Take 10 mg by mouth daily. Yes Vitamin A-Vitamin C-Vit E-Min (OCUVITE) Tab Take by mouth. Yes multivitamin (THERAGRAN) tablet Take 1 tablet by mouth daily. Yes Advance Directive: Patient has executed and his is his DPOA Interim History: Mr Joaquin reports that he is doing well. He reports that he has not had any new health issues over the last year. 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 He enjoys the work. He has been walking every day and has a regular exercise regimen. He denies any urinary issues. His IPSS score is 1. He denies dysuria, hematuria and incontinence. He [...] a colonoscopy. He is not sexually active. Q - Expanded Prostate Cancer Index Composite For Clinical Practice (Epic-Cp) Urinary function problem No Problem Urinary control [...] or urgency of bowel movements No problem Increased frequency of your bowel movements No problem Overall problems with your bowel movements No problem Bloody stools No problem Ability to reach orgasm Very poor to none Quality of your erections Not firm enough for any sexual activity Problem with sexual function or lack of it No problem 10. How big a problem, if any, has each of the following been for you? Hot flashes or breast tenderness/enlargement No problem Feeling depressed No problem Lack of energy No problem Urinary Incontinence Symptom Score (range: 0 - 12) 0 Urinary Irritation/Obstructive Symptom Score (range: 0 - 12) 1 Bowel Symptom Score (range: 0 - 16) 0 Vitality/Hormonal Symptom Score (range: 0 - 12) 0 Overall Prostate Cancer QOL Score (range: 0 - 60) 1 Review of Systems Constitutional: Negative. Negative for activity change, appetite change, fatigue and unexpected weight change. 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 Eyes: Negative. Respiratory: Negative. [...] weakness. Psychiatric/Behavioral: The patient is not nervous/anxious. Vitals Office Visit from 07/20/2018 in [address] Oncology at [facility] Weight 83.5 kg (184 lb) Height 167.6 cm (5' 6) BSA (Calculated - sq m) 1.97 sq meters BMI (Calculated) 29.7 Temp 36.7 ??C (98.1 ??F) Temp src Oral Heart Rate 73 Heart Rate Source NIBP Resp 18 BP 161/88 ---patient reports that his home B/P today was 135/75 BP Location Left arm Patient Position Sitting SpO2 99 % Karnofsky: 100 IPSS : 1 CINTHYA: 1--patient is not sexually active. Physical Exam Constitutional: He is oriented to person, place, and time. He appears well- developed and well-nourished. No distress. HENT: Head: Normocephalic and atraumatic. Mouth/Throat: Oropharynx is clear and moist. No oropharyngeal exudate. Eyes: Conjunctivae and EOM are normal. Right [...] rebound and no CVA tenderness. Genitourinary: Rectum normal and prostate normal. Rectal exam shows guaiac negative stool. Genitourinary Comments: Rectal: good sphincter tone, no tenderness, prostate is smooth with no induration, no nodularity. Guaiac negative Musculoskeletal: Normal range of motion. [...] He has no axillary adenopathy. Right: No inguinal and no supraclavicular adenopathy present. Left: No inguinal and no supraclavicular adenopathy present. Neurological: He is alert and oriented to person, place, and time. He exhibits normal muscle tone. Coordination normal. Skin: Skin is warm and dry. No rash noted. He is not diaphoretic. No erythema. No pallor. Psychiatric: He has a normal mood and affect. His behavior is normal. Judgment and thought content normal. Vitals reviewed. Date 07/10/2018 0.6 07/19/2017 0.5 07/20/2016 0.5 12/25/2015 0.5 06/05/2015 0.5 10/21/2014 0.5 05/01/14 0.5 11/19/13 0.5 08/03/13 0.7 04/30/2013 1.0 02/22/2013 1.50 11/09/2012 0.79 08/07/2012--first after treatment PSA 1.67 10/26/2011--before treatment 6.5 Assessment Plan: Mr Joaquin is a pleasant 72 year old man with adenocarcinoma of the prostate, [place] 3+4=7, pretreatment PSA of 6.5. He was treated with external beam radiation 79.2 Gy completed on 04/18/2012. His PSA is stable at 0.6. His PSA janey is 0.5. He is doing very well with no evidence of disease. We willrepeat his PSA in one year and see him for clinical evaluation. Mr Joaquin is to call if he has any questions or concerns. documented in this encounter Plan of Treatment Upcoming Encounters Date Type Department Care Team (Late st Contact Info) Description 05/22/2024 1:00 PM EDT Office Visit Hematology/Oncology at [address] [phone] Iris Nguyen APRN [facility] [place] [address] 05/22/2024 1:30 PM EDT Infusion Hematology Oncology at [address] [phone] documented as of this encounter Procedures Procedure Name Priority Date/Time Associated Diagnosis Comments LAB SCAN 07/10/2018 12:00 AM EDT documented in this encounter Results * SCAN DOC: LAB (07/10/2018 12:00 AM EDT) Narrative 07/10/2018 12:00 AM EDT Ordered by an unspecified provider. Scanning Provider MEDIA MGR SCAN EXT O RDR/RSLT documented in this encounter Visit Diagnoses Diagnosis Malignant neoplasm of prostate documented in this encounter Care Teams Relay Checker Relationship Specialty Start Date End Date Hogn Sage MD [address] [place] [address] PCP - General Family Medicine 07/28/17 08/22/19 documented as of this encounter
--- OUTSIDE RECORDS SUMMARY | 2024-05-14 03:41 | XMS_ITS | Encounter Summary ---
Author Organization [facility] [place] [address] Care Team Providers Care Thoracic Surgeon Name Role Phone Catracho Good MD Primary Care Provider [phone] Reason for Visit * Reason Onset Date Comments Labs Only 06/10/2022 Lab data processing systems consultant Encounter Details Date Type Department Care Team (Late st Contact Info) Description 06/10/2022 Telephone Hematology Oncology at [address] [phone] Deb Orlando, RN Labs Only (Lab data processing systems consultant) Social History Tobacco Use Types Packs/Day Years [...] place to sleep or slept in a intermediate (including now)? No 04/09/2022 Sex and Gender Information Value Date Recorded Sex Assigned at Not on file Gender Identity Not on file Sexual Orientation Not on file documented as of this encounter Plan of Treatment Upcoming Encounters Date Type Department Care Team (Late st Contact Info) Description 05/22/2024 1:00 PM EDT Office Visit Hematology/Oncology at [address] [phone] Iris Nguyen, [facility] [place] [address] 05/22/2024 1:30 PM EDT Infusion Hematology Oncology at [address] [phone] documented as of this encounter Procedures Procedure Name Priority Date/Time Associated Diagnosis Comments CBC (WITH DIFF) Routine 05/24/2022 documented in this encounter Results * CBC (with Diff) (05/24/2022) White Blood Cell 9.52 Red Blood Cell 4.79 Hemoglobin 14.5 Hematocrit 42.2 Platelet 155 ANC 4.31 Blood 05/24/2022 Historical Provider HEMATOLOGY ORDERA BLES documented in this encounter Visit Diagnoses Not on filedocumented in this encounter Care Teams Thoracic Surgeon Relationship Specialty Start Date End Date Catracho Good MD PCP - General Family Medicine 08/12/21 08/09/22 documented as of this encounter
--- OUTSIDE RECORDS SUMMARY | 2024-05-14 03:41 | XMS_ITS | Encounter Summary ---
Author Organization [facility] [place] [address] Care Team Providers Care Abstract Clerk Name Role Phone Hong Sage MD Primary Care Provider [phone] Reason for Visit * Reason Comments Radiation Follow-up prostate cancer Encounter Details Date Type Department Care Team (Late st Contact Info) Description 07/28/2017 9:00 AM EDT Office Visit Radiation Oncology at [address] [phone] [address] Malignant neoplasm of prostate Social History Tobacco Use Types Packs/Day Years Used Date Smoking Tobacco: Never Sex and Gender Information Value Date Recorded Sex Assigned at Not on file Gender Identity Not on file Sexual Orientation Not on file documented as of this encounter Last Filed Vital Signs Vital Sign Reading Time Taken Comments Blood Pressure 149/84 07/28/2017 9:01 AM EDT Pulse 74 07/28/2017 9:01 AM EDT Temperature 36.5 ??C (97.7 ??F) 07/28/2017 9:01 AM ED T Respiratory Rate 18 07/28/2017 9:01 AM EDT Oxygen Saturation 100% 07/28/2017 9:01 AM EDT Inhaled Oxygen Concentration - - Weight 83 kg (183 lb) 07/28/2017 9:01 AM EDT Height 167.6 cm (5' 5.98) 07/28/2017 9:01 AM ED T copied Body Mass Index 29.55 07/28/2017 9:01 AM EDT documented in this encounter Patient Instructions * Patient Instructions* Cherise Tuttle APRN - 07/28/2017 9:00 AM EDT Date 07/19/2017 0.5 07/20/2016 0.5 12/25/2015 0.5 06/05/2015 0.5 10/21/2014 0.5 05/01/14 0.5 11/19/13 0.5 08/03/13 0.7 04/30/2013 1.0 02/22/2013 1.50 11/09/2012 0.79 08/07/2012--first after treatment PSA 1.67 10/26/2011--before treatment 6.5 03/19/2011 5.83 02/16/2010 5.57 08/29/2009 5.1 02/22/2013 1.50 11/09/2012 0.79 08/07/2012--first after treatment PSA 1.67 10/26/2011--before treatment 6.5 03/19/2011 5.83 02/16/2010 5.57 08/29/2009 5.1 Vitals Office Visit from 07/28/2017 in Radiation Oncology at [facility] Weight - Scale 83 kg (183 lb) Height 167.6 cm (5' 5.98) [copied] BSA (Calculated - sq m) 1.97 sq meters BMI (Calculated) 29.55 Temp 36.5 ??C (97.7 ??F) Temp Source Oral Heart Rate 74 Heart Rate Source NIBP Resp 18 BP 149/84 BP Location Left arm Patient Position Sitting SpO2 100 % documented in this encounter Progress Notes * Cherise Tuttle APRN - 07/28/2017 9:00 AM EDT Identification: Mr Joaquin is a [...] was followed by TRUS biopsy which demonstrated Fowler 3+4 involving 10% the right base core. [...] with care that was delivered at the [facility] in [facility] .He was treated to a total [...] Social History: Never smoker. No Etoh. 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 , [...] Mr Joaquin reports that he is doing well--no new health issues. 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 He enjoys the work. He has been walking every day and has a regular exercise regimen. He denies any urinary issues. His IPSS score is 1. He denies dysuria, hematuria and incontinence. He is delighted with his urinary function International Prostate Symptom [...] a colonoscopy. He is not sexually active. Review of Systems Constitutional: Negative. Negative for activity change, appetite change, fatigue and unexpected weight change. 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 Eyes: Negative. Respiratory: Negative. [...] is not nervous/anxious. Vitals Office Visit from 07/28/2017 in Radiation Oncology at [facility] Weight - Scale 83 kg (183 lb) Height 167.6 cm (5' 5.98) [copied] BSA (Calculated - sq m) 1.97 sq meters BMI (Calculated) 29.55 Temp 36.5 ??C (97.7 ??F) Temp Source Oral Heart Rate 74 Heart Rate Source NIBP Resp 18 BP 149/84 BP Location Left arm Patient Position Sitting SpO2 100 % Karnofsky: 100 IPSS : 1 CINTHYA: [...] and thought content normal. Vitals reviewed. Date 07/19/2017 0.5 07/20/2016 0.5 12/25/2015 0.5 06/05/2015 [...] PM EDT Office Visit Hematology/Oncology at [address] [phone] Iris Nguyen APRN [facility] [place] [address] 05/22/2024 1:30 PM EDT Infusion Hematology Oncology at [address] [phone] documented as of this encounter Visit Diagnoses Diagnosis Malignant neoplasm of prostate documented in this encounter Care Teams Abstract Clerk Relationship Specialty Start Date End Date Hong Sage MD [address] [place], [place] [id number] PCP - General Family Medicine 07/28/17 08/22/19 documented as of this encounter
--- OUTSIDE RECORDS SUMMARY | 2024-05-14 03:41 | XMS_ITS | Encounter Summary ---
Author Organization [facility] Address [facility] [place] [address] Care Team Providers Care State Patrol Officer Name Role Phone Unknown Primary Care Provider Unavailabl e Encounter Details Date Type Department Care Team (Late st Contact Info) Description 12/28/2022 2:30 PM EDT Office Visit Hematology/Oncology at [address] [phone] Sheila Alfonso, RN Prostate cancer metastatic to intrapelvic lymph node [...] Sign Reading Time Taken Comments Blood Pressure 161/82 12/28/2022 2:56 PM EDT Pulse 89 12/28/2022 2:56 PM EDT Temperature 36.3 ??C (97.3 ??F) 12/28/2022 2:56 PM ED T Respiratory Rate 18 12/28/2022 2:56 PM EDT Oxygen Saturation 99% 12/28/2022 2:56 PM EDT Inhaled Oxygen Concentration - - Weight 85.1 kg (187 lb 9.6 oz) 12/28/2022 2:56 P M EDT Height 165.1 cm (5' 5) 12/28/2022 2:56 PM EDT Body Mass Index 31.22 12/28/2022 2:56 PM EDT documented in this encounter Progress Notes * Sheila Alfonso, SEGUNDO - 12/28/2022 2:30 PM EDT Diagnosis: Prostate cancer with metastasis [...] with stool. Has no bone pain. interval history(12/28/22): Brenton Joaquin is in clinic [...] cancer Patient Active Problem List Diagnosis ??? Elevated blood-pressure reading without diagnosis of hypertension ??? Hyperlipidemia ??? Prostate cancer metastatic to intrapelvic lymph [...] axillary nodes normal Neurologic: Normal Vitals BP 161/82 (Patient Position: Sitting) Pulse 89 Temp 36.3 ??C (97.3 ??F) (Temporal) Resp 18 Ht 165.1 cm (5' 5) Wt 85.1 kg (187 lb 9.6 oz) SpO2 99% BMI 31.22 kg/m?? Wt Readings from Last 3 Encounters: 12/28/22 85.1 kg (187 lb 9.6 oz) 10/05/22 83.5 kg (184 lb) 07/13/22 81.6 kg (180 lb) Pathology: 11/08/11 Adenocarcinoma, Phoenix grade 3+4 This was followed by TRUS biopsy which demonstrated Phoenix 3+4 involving 10% the right base core. The right lateral base had adenocarcinoma Linda 3+4 with 10% of this core. The left lateral apex had adenocarcinoma 3+3 involving 5% of the core. The remaining nine cores demonstrated benign prostatic tissue. Labs: 12/20/22- WBC-10.70 Hgb/Hct-14.1/41.3 MCV-88 Plt-177 ANC-4.69 Na-141 [...] 25 Ca 9.0 Date PSA Test Notes 12/20/22 <0.01 <7.0 09/24/22 <0.01 <7.0 07/05/22 0.04 <7.0 06/01/22 0.59 Pend. [id number] 02/04/2022 2.0 623 LDH 197 08/04/21 1.5 [...] Schedule first injection in 1-2 weeks at [facility]. We discussed the role of secondary hormonal therapy abiraterone/prednisone next visit. He would like to be followed in [facility] ?? 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 # Weight gain- Discussed side effects of Lupron therapy - loss of muscle mass and relationship to weight gain. Discussed dietary changes- avoid sweets and processed foods. Watch caloric intake. He iswalking 3 [place] a [place] [employer] so he is active. Plan: 1. Lupron 22.5 mg today 2. Next visit in with CB[facility], cMP, PSA, testosterone and his next lupron injection. In 3 months ? documented in this encounter Plan of Treatment Upcoming Encounters Date Type Department Care Team (Late st Contact Info) Description 05/22/2024 1:00 PM EDT Office Visit Hematology/Oncology at [address] [phone] Iris Nguyen APRN [facility] [place] [address] 05/22/2024 1:30 PM EDT Infusion Hematology Oncology at [address] [phone] documented as of this encounter Visit Diagnoses Diagnosis Prostate cancer metastatic to intrapelvic lymph node documented in this encounter Care Teams State Patrol Officer Relationship Specialty Start Date End Date Unknown None PCP - General 08/10/22 documented as of this encounter
--- OUTSIDE RECORDS SUMMARY | 2024-05-14 03:41 | XMS_ITS | Encounter Summary ---
Author Organization Formerly [facility] Address [facility] [place] [address] Care Team Providers Care Bi Specialist Name Role Phone Donnell Cabrera MD Primary Care Provider [phone] Reason for Visit * Reason Comments Advice Only * Consultation (Routine) - Closed Specialty Diagnoses / Procedures Referred By Damien craig Referred To Contact Hematology and Oncology Diagnoses Elevated white blood cell count, unspecified Hong Sage MD [address] [place] [address] [facility] Hem Onc [address] [place] [address] Referral ID Status Reason Start Date Expiration Date V isits Requested Visits Authorized [id number] Closed Consult, Test & [facility] PCP Updated and/or Approved 01/09/2021 01/09/2022 6 6 Encounter Details Date Type Department Care Team (Late st Contact Info) Description 01/19/2021 8:15 AM EDT Office Visit Hematology [place] [phone] Ryan Thornton MD [facility] [address] [place] [address] Suly Tate APRN [facility] [place] [address] Naomie Beard MD [facility] HEMATOLOGY/[place] [address] Monoclonal B-cell lymphocytosis Social History Tobacco Use Types Packs/Day Years Used Date Smoking Tobacco: Never Smokeless Tobacco: Never Sex and Gender Information Value Date Recorded Sex Assigned at Not on file Gender Identity Not on file Sexual Orientation Not on file documented as of this encounter Last Filed Vital Signs Vital Sign Reading Time Taken Comments Blood Pressure 159/88 01/19/2021 8:01 AM EDT Pulse 80 01/19/2021 8:01 AM EDT Temperature 36.6 ??C (97.9 ??F) 01/19/2021 8 :01 AM EDT Respiratory Rate 18 01/19/2021 8:01 AM EDT Oxygen Saturation 100% 01/19/2021 8:0 1 AM EDT Inhaled Oxygen Concentration - - Weight 84.2 kg (185 lb 9.6 oz) 01/20/20 8:01 AM EDT with shoes Height 167.5 cm (5' 5.95) 01/19/2021 8 :01 AM EDT with shoes Body Mass Index 30.01 01/19/2021 8:01 AM EDT documented in this encounter Progress Notes * Naomie Beard MD - 01/19/2021 8:15 AM EDT Images from the original note were not included. HEMATOLOGY CONSULTATION VISIT NOTE DATE OF VISIT : 01/19/21 REASON FOR VISIT: Brenton Joaquin is a 75 y.o. male referred by Hong Madden for evaluation of leukocytosis. The history is obtained from the patient, and I also have reviewed all the available medical records provided by the referring physician and located in the electronic medical records. HISTORY OF PRESENT ILLNESS Brenton Joaquin is a 75 y.o. male with a history of prostate cancer (s/p radiation) who presents forevaluation of leukocytosis. Overall he has been feeling well, but was noted to have persistent mildly elevated white blood cell count on routine labs over the last few months. Energy is good, appetite good, weight stable. He denies any fevers, chills, night sweats, adenopathy, frequent infections, or unexpected weight loss. Denies cough, SOB, CP, abd pain, N/V, diarrhea, constipation, hematochezia, melena, urinary changes, or any tingling, numbness, or weakness. REVIEW OF SYSTEMS Constitutional: No Fevers, sweats, weight loss, fatigue HEENT: No change in vision, congestion, sore throat Respiratory: No cough, SOB Cardiovascular: No chest pain, palpitations, extremity edema Gastrointestinal: No abdominal pain, nausea, vomiting, diarrhea Genitourinary: No hematuria, dysuria Skin: No rashes, lesions Neurological: No tingling, numbness, weakness, headaches Hematological: No abnormal bleeding, bruising, enlarged nodes Musculoskeletal: No arthralgias, myalgias Psychiatric: No confusion ?? Other ROS reviewed and except as stated in HPI, are negative PROBLEM LIST Patient Active Problem List Diagnosis ??? Prostate cancer PAST MEDICAL Hx: - Prostate Cancer s/p radiation - HTN PAST SURGICAL Hx: No past surgical history on file. MEDICATIONS ??? losartan (Cozaar) 25 mg Tablet ??? atorvastatin (LIPITOR) 10 mg Tablet ??? Vitamin A-Vitamin C-Vit E-Min (OCUVITE) Tab ??? multivitamin (THERAGRAN) tablet ALLERGIES/ADR No Known Allergies PERSONAL and SOCIAL HISTORY ?? Lives in: [facility] with his , Nicol ?? 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 ETOH: very rare use ?? Smoking: Never smoker FAMILY HISTORY - Mother - Leukemia (uncertain which type) PHYSICAL EXAM VITAL SIGNS: Blood pressure 159/88, pulse 80, temperature 36.6 ??C (97.9 ??F), temperature source Temporal, resp. rate 18, height 167.5 cm (5' 5.95), weight 84.2 kg (185 lb 9.6 oz), SpO2 100 %. Gen: WD/WN M, A&C in NAD, hard of hearing Skin: warm and dry, no suspect rashes HEENT: Conjunctiva clear, sclera anicteric, MMM, OP clear w/out lesions Neck: Supple Lymph: no palpable cervical, supraclavicular, or axillary adenopathy Chest: CTA Bilat, no wheezes, rales Cardiac: RRR, nl s1 s2, no appreciable M/R/G Abdomen: Soft, ND/NT, no appreciable hepatosplenomegaly Extremities: WWP w/out cyanosis or edema Neuro: No gross deficits (aside from hearing loss) LABORATORY Recent Results (from the past 72 hour(s)) Reticulocyte Count Result Value Ref Range Retic Ct % 1.3 0.7 - 2.6 % Retic Ct Abs 0.070 0.030 - 0.120 x10(6)/mcL Immature Retic% 5.9 0.0 - 15.6 % Reticulated Hgb 34.6 31.3 - 40.2 pg Immunoglobulins, Quantitative Result Value Ref Range IgG 981 700 - 1,600 mg/dL IgA 117 70 - 400 mg/dL IgM 29 (L) 40 - 230 mg/dL Comprehensive metabolic panel (non-fasting) Result Value Ref Range Glucose Lvl 96 65 - 199 mg/dL BUN 21 (H) 10 - 20 mg/dL Creatinine 1.18 0.80 - 1.50 mg/dL Sodium 140 135 - 145 mmol/L Potassium 4.6 3.5 - 5.0 mmol/L Chloride 106 98 - 107 mmol/L CO2 25 22 - 31 mmol/L Anion Gap 9 5 - 15 mmol/L Calcium 9.6 8.5 - 10.5 mg/dL Total Protein 6.8 6.1 - 8.0 gm/dL Albumin 4.3 3.2 - 5.2 gm/dL AST 21 0 - 39 unit/L ALT 19 0 - 55 unit/L Alk Phos 55 40 - 130 unit/L Total Bilirubin 0.3 0.2 - 1.3 mg/dL Estimated GFR 60 >=60 mL/min/1.73 m?? PSA (Ultrasensitive) Result Value Ref Range PSA Total (Ultrasensitive) 1.41 0.00 - 4.00 ng/mL Hemogram Result Value Ref Range WBC 10.8 (H) 4.0 - 9.5 x10(3)/mcL RBC 5.01 4.58 - 5.54 x10(6)/mcL Hemoglobin 15.1 13.7 - 16.5 gm/dL Hematocrit 45.0 40.5 - 48.5 % MCV 89.8 82.9 - 93.1 fL MCH 30.1 27.5 - 32.1 pg MCHC 33.6 32.0 - 35.7 gm/dL Platelets 165 145 - 357 x10(3)/mcL RDWSD 39.6 36.0 - 45.0 fL RDWCV 12.3 11.4 - 13.8 % MPV 11.2 7.6 - 12.9 fL nRBC % Auto 0.0 % nRBC Abs Auto 0.000 0.000 - 0.000 x10(3)/mcL Differential, Automated Result Value Ref Range Neutrophils % 51.7 % Neutr Abs (ANC) 5.62 1 - 6 x10(3)/mcL Lymphocytes % 42.5 % Lymphocytes Abs 4.6 (H) 0.9 - 3.2 x10(3)/mcL Monocytes % 4.4 % Monocyte Abs 0.5 0.3 - 0.9 x10(3)/mcL Eosinophils % 0.6 % Eosinophils Abs 0.1 0.0 - 0.4 x10(3)/mcL Basophils % 0.5 % Basophils Abs 0.0 0.0 - 0.1 x10(3)/mcL Immature Gran % 0.30 % Carla Gran Abs 0.03 0.00 - 0.04 x10(3)/mcL Most recent labs reviewed 01/06/21: WBC 11.64 (ALC 5.59k), Hgb 15.5, Plts 178 Cr 1.3, BUN 21 Flow Cytometry 01/09/21: Interpretation: Peripheral blood, flow cytometry consistent with a CD5+ B-cell lymphoproliferative disorder, see comment: Clonal proliferation of B-Cells expressing CD5 without surface light chain expression Characteristic of CLL; however, the absolute count of clonal B cells is 4,520 (69% of 6,550). If there is evidence of a tissue mass or lymphadenopathy, these findings would fit with CLL; otherwise, high count monoc lonal B-cell lymphocytosis (MBL) RADIOLOGY - None ASSESSMENT & PLANS Mr. Brenton Joaquin is [...] time, or if he developed any symptoms. We reviewed that even if this does [...] plan to follow with Dr. Thornton at [facility]. Brenton and his had the opportunity to ask questions, all of which were answered. Summary of Plan: # Monoclonal B Cell Lymphocytosis - Labs ordered today: CBC, CMP, Retic, Quantitative Immunoglobulins - RTC to [facility] in 3 mo with labs - knows to call with any questions or concerns in the interim CC: MD Chu Stallworth Mitchell J This patient was evaluated with Dr. Thornton who agrees with the plan as above. Naomie Beard MD Hematology/Oncology Fellow Pager #[phone] 01/19/21 I saw this patient with Dr Beard. I agree with the details of History and Physical Exam as documented in the above note. I was present for the critical portions of the history, exam and discussion of our recommendations. Currently he fits best with monoclonal B-cell lymphocytosis. 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 Either way follow-up is appropriate. We will [facility] to see him in the [facility] which is closer to his home. Please see above note for full details. documented in this encounter Plan of Treatment Upcoming Encounters Date Type Department Care Team (Late st Contact Info) Description 05/22/2024 1:00 PM EDT Office Visit Hematology/Oncology at [address] [phone] Iris Nguyen APRN [facility] [place] [address] 05/22/2024 1:30 PM EDT Infusion Hematology Oncology at [address] [phone] documented as of this encounter Results * Reticulocyte Count (01/19/2021 9:39 AM EDT) Pathologist [facility] Reticulocyte % 1.3 0.7 - 2.6 % [facility] Retic Abs # 0.070 0.030 - 0.120 x10(6)/mcL [facility] Immature Retic% 5.9 0.0 - 15.6 % [facility] Reticulated Hgb 34.6 31.3 - 40.2 pg [facility] Blood specimen (specimen) 01/19/2021 9:39 AM EDT 01/19/2021 10:08 AM EDT Narrative Resulting Agency Comment Spec In Lab Ryan Thornton MD HEMATOLOGY ORDERABLE S [facility] [place] [address] * (ABNORMAL) Immunoglobulins, Quantitative (01/19/2021 9:39 AM EDT) Immunoglobulin G 981 700 - 1,600 mg/dL [facility] Comment: Pediatric Reference Intervals obtained from the Caliper Reference Interval project. http://www.sickkids.ca/caliperproject/index.html IgA 117 70 - 400 mg/dL [facility] IgM 29(L) 40 - 230 mg/dL [facility] Blood specimen (specimen) 01/19/2021 9:39 AM EDT 01/19/2021 10:08 AM EDT Narrative Resulting Agency Comment Spec In Lab Ryan Thornton MD CHEMISTRY ORDERABLES [facility] [place] [address] * (ABNORMAL) Comprehensive metabolic panel (non-fasting) (01/19/2021 9:39 AM EDT) Glucose 96 65 - 199 mg/dL [facility] Comment:Diabetes: >=200 mg/d L plus symptoms Blood Urea Nitrogen 21(H) 10 - 20 mg/dL [facility] Creatinine 1.18 0.80 - 1.50 mg/dL [facility] Sodium 140 135 - 145 mmol/L [facility] Potassium 4.6 3.5 - 5.0 mmol/L [facility] Comment: Please note: ??Patients with WBC >100,000 may have falsely elevated Potassium levels. ??For accurate Potassium quantification in these patients send serum separator tube (gold top) for subsequent determinations. ??Contact the Clinical Chemistry Laboratory if there are any questions. Chloride 106 98 - 107 mmol/L [facility] Carbon Dioxide 25 22 - 31 mmol/L [facility] Anion Gap 9 5 - 15 mmol/L [facility] Calcium 9.6 8.5 - 10.5 mg/dL [facility] Protein, Total 6.8 6.1 - 8.0 gm/dL [facility] Albumin 4.3 3.2 - 5.2 gm/dL [facility] Aspartate Aminotransferase 21 0 - 39 unit/L [facility] Alanine Aminotransferase 19 0 - 55 unit/L [facility] Alkaline Phosphatase 55 40 - 130 unit/L [facility] Bilirubin, Total 0.3 0.2 - 1.3 mg/dL [facility] Est Glomerular Filtration Rate 60 >=60 mL/min/1. 73 m?? [facility] Comment: This patient? s estimated glomerular [...] In Lab Ryan Thornton MD CHEMISTRY ORDERABLES Performing Organization Address City/State/[facility] Co de Phone Number [facility] [place] [address] documented in this encounter Visit Diagnoses Diagnosis Monoclonal B-cell lymphocytosis Lymphocytosis (symptomatic) documented in this encounter Care Teams Bi Specialist Relationship Specialty Start Date End Date Donnell Cabrera MD PCP - General General Internal Medicine 08/23/19 9/3 documented as of this encounter
--- OUTSIDE RECORDS SUMMARY | 2024-05-14 03:41 | XMS_ITS | Encounter Summary ---
Author Organization [facility] [place] [address] Care Team Providers Care Bulk System Operator Name Role Phone Unknown Primary Care Provider Unavailabl e Encounter Details Date Type Department Care Team (Late st Contact Info) Description 07/30/2021 2:00 PM EDT Office Visit Hematology/Oncology at [address] [phone] Azalia Cannon APRN [address] [place] [address] DR HEMATOLOGY ONCOLOGY [place], [place] [id number] Lymphocytosis; Monoclonal B-cell lymphocytosis Social History Tobacco Use Types Packs/Day Years Used Date Smoking Tobacco: Never Smokeless Tobacco: Never Sex and Gender Information Value Date Recorded Sex Assigned at Not on file Gender Identity Not on file Sexual Orientation Not on file documented as of this encounter Last Filed Vital Signs Vital Sign Reading Time Taken Comments Blood Pressure 171/83 07/30/2021 1:58 PM EDT Pulse 71 07/30/2021 1:58 PM EDT Temperature 36.9 ??C (98.4 ??F) 07/30/2021 1:58 PM ED T Respiratory Rate 24 07/30/2021 1:58 PM EDT Oxygen Saturation 99% 07/30/2021 1:58 PM EDT Inhaled Oxygen Concentration - - Weight 83.5 kg (184 lb) 07/30/2021 1:58 PM EDT Height 167.5 cm (5' 5.95) 07/30/2021 1:58 PM ED T Body Mass Index 29.75 07/30/2021 1:58 PM EDT documented in this encounter Progress Notes * Kassandra Azalia Roberta, PASTEURIZING SUPERVISOR - 07/30/2021 2:00 PM EDT Subjective: Patient ID: Brenton Joaquin is a 76 y.o. male. Patient Active Problem List Diagnosis [...] plan to follow with Dr. Thornton at [facility]. ?? Brenton and his had the opportunity to ask questions, all of which were answered. ?? Summary of Plan: # Monoclonal B Cell Lymphocytosis - Labs ordered today: CBC, CMP, Retic, Quantitative Immunoglobulins - RTC to [facility] in 3 mo with labs - knows to call with any questions or concerns in the interim INTERVAL HPI 07/29/21 Brenton Joaquin is a 75 yo male diagnosed 01/21 with Monoclonal B Cell Lymphocytosis. (See summary above.) He comes to the [facility] oncology clinic in [facility] today for 3 month follow-up. He is onobservation only. Brenton has been feeling well. His energy [...] Normal breath sounds. No wheezing or rales. Chest: Breasts: Right: No axillary adenopathy or supraclavicular adenopathy. Left: No axillary adenopathy or supraclavicular adenopathy. Abdominal: General: Bowel sounds are normal. Palpations: [...] normal. Thought Content: Thought content normal. BP 171/83 (Patient Position: Sitting) Pulse 71 Temp 36.9 ??C (98.4 ??F) (Temporal) Resp 24 Ht 167.5 cm (5' 5.95) Wt 83.5 kg (184 lb) SpO2 99% BMI 29.75 kg/m?? LABS 07/20/21 WBC 9.26; ANC 4.06; H/H 14.8/ 43.7; PLT 178; BUN 20; CREAT 1.2; CA++8.7; LFTs normal. IMMUNOGLOBULINS 07/20/21 IgG 928; IgA 107; IgM 31. Assessment and Plan: Assessment: Brenton Joaquin is a 75 yo male diagnosed 01/21 with Monoclonal B Cell Lymphocytosis. (See summary above.) He comes to the [facility] oncology clinic in [facility] today for 3 month follow-up. Brenton shows no clinical signs of progressive lymphocytosis. He is feeling well and remains active. CBC, CMP, IMMUNOGLOBULINS are reviewed with Brenton today and are stable. Plan: Reviewed with Brenton signs/symptoms to notify clinic; ie night sweats, fevers, new lumps or bumps, unusual bleeding or fatigue. RTC in 4 months with labs. documented in this encounter Plan of Treatment Upcoming Encounters Date Type Department Care Team (Late st Contact Info) Description 05/22/2024 1:00 PM EDT Office Visit Hematology/Oncology at [address] [phone] [facility] [place] [address] 05/22/2024 1:30 PM EDT Infusion Hematology Oncology at [address] [phone] documented as of this encounter Procedures Procedure Name Priority Date/Time Associated Diagnosis Comments IMMUNE GLOBULIN IM Routine 07/20/2021 CBC (WITH DIFF) Routine 07/20/2021 COMPREHENSIVE METABOLIC PANEL Routine 07/20/2021 IMMUNE GLOBULIN IM Routine 04/08/2021 CBC (WITH DIFF) Routine 04/08/2021 COMPREHENSIVE METABOLIC PANEL Routine 04/08/2021 documented in this encounter Results * (ABNORMAL) IMMUNE GLOBULIN IM (07/20/2021) Pathologist [facility] Immunoglobulin G 928 IgA 107 IgM 31(L) Ryan Thornton MD IMMUNE GLOBULIN ORDE RABLES * (ABNORMAL) Comprehensive metabolic panel (non-fasting) (07/20/2021) [facility] Blood Urea Nitrogen 20(H) Creatinine 1.2 Sodium 140 Potassium 4.4 Calcium 8.7 Protein, Total 6.6 Albumin 3.8 Bilirubin, Total 0.5 Alkaline Phosphatase 53 Aspartate Aminotransferase 23 Alanine Aminotransferase 31 Blood 07/20/2021 Ryan Thornton MD CHEMISTRY ORDERABLES * CBC (with Diff) (07/20/2021) [facility] White Blood Cell 9.26 Red Blood Cell 4.85 Hemoglobin 14.8 Hematocrit 43.7 Platelet 178 ANC 4.06 Blood 07/20/2021 Ryan Thornton MD HEMATOLOGY ORDERABLE S * (ABNORMAL) IMMUNE GLOBULIN IM (04/08/2021) Immunoglobulin G 962 IgA 112 IgM 31(L) Ryan Thornton MD IMMUNE GLOBULIN ORDE RABLES * (ABNORMAL) Comprehensive metabolic panel (non-fasting) (04/08/2021) Pathologist [facility] Blood Urea Nitrogen 24(H) Creatinine 1.3 Sodium 143 Potassium 4.1 Calcium 8.9 Protein, Total 6.5 Albumin 3.9 Bilirubin, Total 0.9 Alkaline Phosphatase 51 Aspartate Aminotransferase 13(L) Alanine Aminotransferase 28 Blood 04/08/2021 Ryan Thornton MD CHEMISTRY ORDERABLES * CBC (with Diff) (04/08/2021) Pathologist [facility] White Blood Cell 11.59 Red Blood Cell 4.89 Hemoglobin 14.6 Hematocrit 43.0 Platelet 160 ANC 5.80 Blood 04/08/2021 Ryan Thornton MD HEMATOLOGY ORDERABLE S documented in this encounter Visit Diagnoses Diagnosis Lymphocytosis Lymphocytosis (symptomatic) Monoclonal B-cell lymphocytosis Lymphocytosis (symptomatic) documented in this encounter Care Teams Bulk System Operator Relationship Specialty Start Date End Date Unknown None PCP - General 07/03/21 08/11/21 documented as of this encounter
--- OUTSIDE RECORDS SUMMARY | 2024-05-14 03:41 | XMS_ITS | Encounter Summary ---
Author Organization Formerly [facility], [facility]–1983 Address [facility] [place] [address] Care Team Providers Care Carton Stenciler Name Role Phone Catracho Good MD Primary Care Provider [phone] Reason for Visit * Reason Comments Injections Lupron * Treatment/Therapy Plan Authorization (Routine) - Authorized Specialty Diagnoses / Procedures Referred By Contac t Referred To Contact Hematology and Oncology Diagnoses Prostate cancer metastatic to intrapelvic lymph node Procedures INFUSION Roman Addison MD [facility] DR HEMATOLOGY [place] [address] Roman Addison MD [address] [place] [address] DR HEMATOLOGY [place] [address] Referral ID Status Reason Start Date Expiration Date V isits Requested Visits Authorized [id number] Authorized 10/03/2022 07/09/2024 99 99 Encounter Details Date Type Department Care Team (Late st Contact Info) Description 07/13/2022 4:00 PM EDT Infusion Hematology Oncology at [address] [phone] Prostate cancer metastatic to intrapelvic [...] Progress Notes * Nani Galvez RN - 07/13/2022 4:00 PM EDT Infusion Note Diagnosis: Prostate Cancer Treatment: Lupron Injection Lupron 22.5 mg injected IM in left buttocks. Patient instructed on side effects of Lupron. Patient states understanding of teaching and patient aware to call clinic with any questions or concerns. Plan: Return to clinic as scheduled. documented in this encounter Plan of Treatment Upcoming Encounters Date Type Department Care Team (Late st Contact Info) Description 05/22/2024 1:00 PM EDT Office Visit Hematology/Oncology at [address] [phone] Iris Nguyen APRN [facility] [place] [address] 05/22/2024 1:30 PM EDT Infusion Hematology Oncology at [address] [phone] documented as of this encounter Visit Diagnoses Diagnosis Prostate cancer metastatic to intrapelvic lymph node documented in this encounter Administered Medications Inactive Administered Medications - up to 3 most recent administrations Medication Order MAR Action Action Date Dose Rate Site leuprolide (Lupron Depot) injection 22.5 mg 22.5 mg, Intramuscular, ONCE, 1 dose, On Tue07/13/22 at 1615, Routine, This agent is restricted to outpatient use. Is this drug being given as an outpatient? Yes Given 07/13/2022 4:08 PM EDT 22.5 mg Le ft Gluteal documented in this encounter Care Teams Carton Stenciler Relationship Specialty Start Date End Date Catracho Good MD PCP - General Family Medicine 08/12/21 08/09/22 documented as of this encounter
--- OUTSIDE RECORDS SUMMARY | 2024-05-14 03:41 | XMS_ITS | Encounter Summary ---
Author Organization [facility] [place] [address] Care Team Providers Care Digital Advertising Analyst Name Role Phone Catracho Good MD Primary Care Provider [phone] Reason for Visit * Reason Comments Establish Care * Consultation (Routine) - Closed Specialty Diagnoses / Procedures Referred By Damien craig Referred To Contact Hematology and Oncology Diagnoses Malignant neoplasm of prostate Yamel Woods, [facility] [place] [address] [facility] [place] [place] Hem [address]c [address] [place] [address] Referral ID Status Reason Start Date Expiration Date V isits Requested Visits Authorized [id number] Closed Consult, Test & Treat 03/05/2022 03/05/2023 1 1 Encounter Details Date Type Department Care Team (Late st Contact Info) Description 04/09/2022 1:00 PM EDT Office Visit Hematology [place] [phone] Roman Addison MD [facility] DR HEMATOLOGY [place] [address] Mili Donnelly [facility] HEMATOLOGY [place] [address] 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.] bleeding with stool. Has no bone pain. PMH: Hearing loss, hypertension, elevated cholesterol, monoclonal B-cell lymphocytosis Past Medical History: Diagnosis Date ??? Anxiety ??? Prostate cancer Patient Active Problem List Diagnosis ??? Monoclonal B-cell lymphocytosis ??? Secondary hypertension ??? Prostate cancer Social History: Non-smoker, does not drink alcohol, he is retired, Family History: Noncontributory No family history on file. Allergies: Medications: Reviewed Review of Systems: Constitutional: Negative for fever, chills, activity change, fatigue and unexpected weight change. HEENT: Negative for sore throat, mouth sores [...] axillary nodes normal Neurologic: Normal Vitals BP (!) 162/93 (Patient Position: Sitting) Pulse 85 Temp 36.8 ??C (98.2 ??F) (Temporal) Resp 19 Ht 165.1 cm (5' 5) Wt 81.2 kg (179 lb) SpO2 96% BMI 29.79 kg/m?? Pathology: 11/08/11 Adenocarcinoma, Linda grade 3+4 This was followed by TRUS biopsy which demonstrated [place] 3+4 involving 10% the right base core. The right lateral base had adenocarcinoma [place] 3+4 with 10% of this core. The left lateral apex had adenocarcinoma 3+3 involving 5% of the core. The remaining nine cores demonstrated benign prostatic tissue. Labs: Date PSA Test Notes 02/04/2022 2.0 623 [...] Schedule first injection in 1-2 weeks at [facility]. We discussed the role of secondary hormonal therapy abiraterone/prednisone next visit. He would like to be followed in [facility] ?? 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 Thornton Plan: 1. Stand alone Lupron 22.5 mg at [facility] in 1-2 weeks 2. Next visit in with CBc, cMP, PSA, testosterone in [address] [facility] The plan was discussed with Mr. Joaquin in details. All questions were answered to patient's satisfaction. I would like to thank Dr. Good and Yamel Woods for allowing me to participate in the care of this wonderful gentleman ? documented in this encounter Plan of Treatment Upcoming Encounters Date Type Department Care Team (Late st Contact Info) Description 05/22/2024 1:00 PM EDT Office Visit Hematology/Oncology at [address] [phone] Iris Nguyen [facility] [place] [address] 05/22/2024 1:30 PM EDT Infusion Hematology Oncology at [address] [phone] documented as of this encounter Visit Diagnoses Diagnosis Prostate cancer metastatic to intrapelvic lymph node- Primary documented in this encounter Care Teams Digital Advertising Analyst Relationship Specialty Start Date End Date Catracho Good MD PCP - General Family Medicine 08/12/21 08/09/22 documented as of this encounter
--- OUTSIDE RECORDS SUMMARY | 2024-05-14 03:41 | XMS_ITS | Encounter Summary ---
Author Organization Formerly [facility] [place] [address] Care Team Providers Care Room Server Name Role Phone Unknown Primary Care Provider Unavailabl e Encounter Details Date Type Department Care Team (Late st Contact Info) Description 08/11/2021 11:00 AM EST Office Visit Radiation Oncology at [address] [phone] Yamel Woods APRN [facility] [place] [address] Malignant neoplasm of prostate (Primary Dx) Social History Tobacco Use Types Packs/Day Years Used Date Smoking Tobacco: Never Smokeless Tobacco: Never Sex and Gender Information Value Date Recorded Sex Assigned at Not on file Gender Identity Not on file Sexual Orientation Not on file documented as of this encounter Last Filed Vital Signs Vital Sign Reading Time Taken Comments Blood Pressure 156/99 08/11/2021 10:58 AM EST Pulse 74 08/11/2021 10:58 AM EST Temperature 36.7 ??C (98 ??F) 08/11/2021 10:58 AM EST Respiratory Rate 20 08/11/2021 10:58 AM EST Oxygen Saturation 99% 08/11/2021 10:58 AM EST Inhaled Oxygen Concentration - - Weight 83.7 kg (184 lb 9.6 oz) 08/11/2021 10:58 AM EST Height 167.5 cm (5' 5.95) 08/11/2021 10:[address] Body Mass Index 29.84 08/11/2021 10:58 AM EST documented in this encounter Progress Notes * Yamel Woods, RIPENING ROOM ATTENDANT - 08/11/2021 11:00 AM ESTSummary: 76 year old male dx Prostate cancer, compl EBRT 04/18/12 [facility] [place] [address] Phone: RADIATION ONCOLOGY FOLLOW UP NOTE Date of visit: 08/10/2021 Patient Brenton Joaquin 1945 PCP: Unknown pt just had new PCP assigned and will get name to us for records. Urologist:Dr Luis Fernando Garcia Radiation oncologist: Dr. Kamlesh Nunez consult then Dr Bro Cm for [facility]. Chief Complaint: follow up/labs for prostate cancer Time since completed RT: completed external beam radiation on 04/18/2012 ADT:none Current treatment:Surveillance yearly of proste cancer/PSA Additionally monitored now by heme/onc for [facility]. HPI: Mr Joaquin is a pleasant 72 year old man who was treated with radiation therapy for prostate cancer.He completed external beam radiation on 04/18/2012 and is in clinic for scheduled follow up. He was last seen a year ago. ?? HPI Mr Joaquin had his PSA monitored as part of yearly screening with the pattern noted below. Due TO PSA elevation he was referred to Dr Luis Fernando Garcia who saw patient on 11/08/2011 at [facility]. An ultrasound was done which demonstrated a prostate volume of 29.1 cc with no hypoechoic areas. This was followed by TRUS biopsy which demonstrated [place] 3+4 involving 10% the right base core. The right lateral base had adenocarcinoma [place] 3+4 with 10% of this core. The left lateral apex had adenocarcinoma 3+3 involving 5% of the core. The remaining nine cores demonstrated benign prostatic tissue. After consultation with Dr Kamlesh Nunez, Mr Joaquin elected to be treated with external beam radiation therapy with care that was delivered at the [facility] in [facility] .He was treated to [...] Biopsy 11/08/2011 Volume in cc 29.1 CC [place] grade/score a+b=c 3+4=7 Total Cores 12 Positive [...] count monoc lonal B-cell lymphocytosis (MBL) Medications 07/30/21 1401 Medication Sig Taking? 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 Fatigue: Toward end of day gets a little tired, but fairly active in going up and down stairs and repairs, tries to walk 3 miles /day Weight/appetite/diet: appetite is good, a bit higher in wt than he would like Respiratory: No sx GI: No n/v/d/c, no blood in stool :See Q above, basically not having urinary sx, no blood in urine Endocrine:no problems Sexual health:ED complete Muscle skeletal:no problems generally, has had some sciatical in L leg over years from lifting Bone health: Multi vit, no bone pain Neuro:no sx Mood:usually he has good mood. Sleep: no trouble sleeping, gets up early 4 am , gets on [employer] for hour Function:appliance repair. Exercise:sev miles [...] chair Physical Examination: Body mass index is 29.84 kg/m??. BP (!) 156/99 (Patient Position: Sitting) Pulse 74 Temp 36.7 ??C (98 ??F) (Temporal) Resp 20 Ht 167.5 cm (5' 5.95) Wt 83.7 kg (184 lb 9.6 oz) Constitutional: seen in clinic, no distress HENT: normocephalic, anicteric, neck supple, no adenopathy Cardiovascular: Rate and Rhythm: Normal rate and regular rhythm. Heart sounds: Normal heart sounds. No murmur Pulmonary: Effort: Pulmonary effort is normal. Breath sounds: Normal breath sounds. No wheezing or rales. Abdomen: Soft, flat, no HSM, no masses, non-tender, active bowel sounds Genitourinary: Rectum: no bleeding per rectal exam, no pain with exam, prostate surface smooth. No irregular masses appreciated. No inguinal adenopathy Musculoskeletal: Normal range of motion. General: No [...] Reviewed this visit: Date PSA Test Notes 08/04/21 1.5 Date 06/13/2020 1.0 08/14/2019 0.9 07/10/2018 0.6 07/19/2017 0.5 07/20/2016 0.5 12/25/2015 0.5 06/05/2015 0.5 10/21/2014 0.5 05/01/14 0.5 11/19/13 0.5 08/03/13 0.7 04/30/2013 1.0 02/22/2013 1.50 11/09/2012 0.79 08/07/2012--first after treatment PSA 1.67 10/26/2011--before treatment 6.5 ??07/20/2021 CBC Component 3 wk ago WBC 9.26 RBC 4.85 Hemoglobin 14.8 Hematocrit 43.7 Platelets 178 Neutr Abs (ANC) 4.06 Assessment: 76 y.o. presenting for follow up/ lab for prostate cancer Medical Decision Making/Recommendations/Plan: # prostate cancer: reviewed PSA results with pt. There is small elevation from 1.0 to 1.5 in one year. Prostate surface smooth, firm. No concerning reported [...] risk level or other patient specific factors. Next visit:6 months (check sooner to assess for further rising PSA) Labs: PSA, testosterone, CBC, CMP, LDH Brenton Joaquin had the opportunity to ask questions and I answered them to the best of my knowledge. Brenton Joaquin agreed to contact radiation oncology in between visits if he has any questions/concerns or new symptoms in regards to the radiation therapy/prostate cancer Yamel Woods MSN, RIPENING ROOM ATTENDANT, RAILROAD CRANE OPERATOR-C Nurse Practitioner Radiation Oncology documented in this encounter Plan of Treatment Upcoming Encounters Date Type Department Care Team (Late st Contact Info) Description 05/22/2024 1:00 PM EDT Office Visit Hematology/Oncology at [address] [phone] Iris Nguyen APRN [facility] [place] [address] 05/22/2024 1:30 PM EDT Infusion Hematology Oncology at [address] [phone] documented as of this encounter Visit Diagnoses Diagnosis Malignant neoplasm of prostate- Primary documented in this encounter Care Teams Room Server Relationship Specialty Start Date End Date Unknown None PCP - General 07/03/21 08/11/21 documented as of this encounter
--- OUTSIDE RECORDS SUMMARY | 2024-05-14 03:41 | XMS_ITS | Encounter Summary ---
Author Organization [facility] Address [facility] [place] [address] Care Team Providers Care Qa Automation Architect Name Role Phone Catracho Good MD Primary Care Provider [phone] Encounter Details Date Type Department Care Team (Latest Contact Info) Description 06/17/2022 4:30 PM EDT Office Visit Hematology/Oncology at [address] [phone] Ryan Thornton MD [facility] DR [place]EM[place]Y [place] [address] Monoclonal B-cell lymphocytosis Social History Tobacco Use [...] Sign Reading Time Taken Comments Blood Pressure 149/83 06/17/2022 4:21 PM EDT Pulse 64 06/17/2022 4:21 PM EDT Temperature 36.4 ??C (97.5 ??F) 06/17/2022 4:21 PM ED T Respiratory Rate 18 06/17/2022 4:21 PM EDT Oxygen Saturation 99% 06/17/2022 4:21 PM EDT Inhaled Oxygen Concentration - - Weight 81.3 kg (179 lb 3.2 oz) 06/17/2022 4:21 P M EDT Height 165.1 cm (5' 5) 06/17/2022 4:21 PM EDT Body Mass Index 29.82 06/17/2022 4:21 PM EDT documented in this encounter Progress Notes * Ryan Thornton MD - 06/17/2022 4:30 PM EDT Subjective Patient ID: Brenton Joaquin is a 76 y.o. male. He returns for follow-up to the [facility]. 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 The patient is seen in the [facility]. He was diagnosed with a monoclonal B-cell lymphocytosis 01/21. He had evidence of a slight lymphocytosis dating back for quite a while. He has just been observed. His big concern is that his prostate cancer may be back and he started Lupron therapy again. Following medical oncology here. No recent infections. No palpable adenopathy. Patient Active Problem List Diagnosis Code ??? Prostate cancer C61 ??? 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 Secondary hypertension I15.9 ??? Prostate cancer metastatic to intrapelvic lymph node C61, C77.5 Hypercholesterolemia Current Outpatient Medications: ??? losartan (Cozaar) 25 mg Tablet, Take 50 mg by mouth daily., Disp: , Rfl: ??? atorvastatin (LIPITOR) 10 mg Tablet, Take 10 mg by mouth daily., Disp: , Rfl: ??? Vitamin A-Vitamin C-Vit E-Min Tablet, Take by mouth. , Disp: , Rfl: ??? multivitamin (THERAGRAN) tablet, Take 1 tablet by mouth daily., Disp: , Rfl: No Known Allergies Review of Systems Constitutional: Negative for fatigue, fever and unexpected weight change. HENT: Negative for nosebleeds. Respiratory: Negative for cough and shortness of breath. Cardiovascular: Negative for chest pain and palpitations. Gastrointestinal: Negative for abdominal pain and diarrhea. Musculoskeletal: Negative for back pain. Skin: Negative for rash. Neurological: Negative for speech difficulty. Hematological: Negative for adenopathy. Does not bruise/bleed easily. All other systems reviewed and are negative. Objective BP 149/83 (Patient Position: Sitting) Pulse 64 Temp 36.4 ??C (97.5 ??F) (Temporal) Resp 18 Ht 165.1 cm (5' 5) Wt 81.3 kg (179 lb 3.2 oz) SpO2 99% BMI 29.82 kg/m?? Physical Exam Constitutional: General: He is not in acute distress. HENT: Mouth/Throat: Pharynx: No oropharyngeal exudate. Eyes: General: No scleral icterus. Cardiovascular: Rate and Rhythm: Normal rate and regular rhythm. Heart sounds: Normal heart sounds. Pulmonary: Breath sounds: Normal breath sounds. No wheezing. Abdominal: General: Bowel sounds are normal. Palpations: Abdomen is soft. There is no splenomegaly. Tenderness: There is no abdominal tenderness. Lymphadenopathy: Cervical: No cervical adenopathy. Neurological: Mental Status: He is oriented to person, place, and time. CBC from 05/24/2022 White count 9.5, absolute lymphocyte count 4.4, hemoglobin 14.5, platelets 155 Assessment and Plan 76-year-old man with a monoclonal B-cell lymphocytosis. His white count has really not progressed at all and his lymphocytes remain quite low. There is a risk he could progress to CLL and even that would just be observed without treatment. At this point I would have him follow-up with his primary care doctor. I would recommend a CBC oncea year. He should be referred back to hematology if his lymphocyte count gets greater than 20-25,000 or if he develops anemia with hemoglobin less than 12 or thrombocytopenia with a platelet count less than 80,000. I would be happy to be available if there are any concerns in the meantime. I did not make a return appointment for him here in the hematology clinic. documented in this encounter Plan of Treatment Upcoming Encounters Date Type Department Care Team (Late st Contact Info) Description 05/22/2024 1:00 PM EDT Office Visit Hematology/Oncology at [address] [phone] Iris Nguyen APRN [facility] [place] [address] 05/22/2024 1:30 PM EDT Infusion Hematology Oncology at [address] [phone] documented as of this encounter Visit Diagnoses Diagnosis Monoclonal B-cell lymphocytosis Lymphocytosis (symptomatic) documented in this encounter Care Teams Qa Automation Architect Relationship Specialty Start Date End Date Catracho Good MD PCP - General Family Medicine 08/12/21 08/09/22 documented as of this encounter
--- OUTSIDE RECORDS SUMMARY | 2024-05-14 03:41 | XMS_ITS | Encounter Summary ---
Author Organization [facility] Address [facility] [place] [address] Care Team Providers Care Community Health Navigator Name Role Phone Unknown Primary Care Provider Unavailabl e Encounter Details Date Type Department Care Team (Late st Contact Info) Description 10/05/2022 11:00 AM EST Office Visit Hematology/Oncology at [address] [phone] Sheila Alfonso, RN Prostate cancer [...] place to sleep or slept in a detention (including now)? No 04/09/2022 Sex and Gender Information Value Date Recorded Sex Assigned at Not on file Gender Identity Not on file Sexual Orientation Not on file documented as of this encounter Last Filed Vital Signs Vital Sign Reading Time Taken Comments Blood Pressure 175/89 10/05/2022 10:57 AM EST Pulse 73 10/05/2022 10:57 AM EST Temperature 36.3 ??C (97.3 ??F) 10/05/2022 10:[address] Respiratory Rate 18 10/05/2022 10:57 AM EST Oxygen Saturation 99% 10/05/2022 10:57 AM EST Inhaled Oxygen Concentration - - Weight 83.5 kg (184 lb) 10/05/2022 10:57 AM EST Height 165.1 cm (5' 5) 10/05/2022 10:57 AM EST Body Mass Index 30.62 10/05/2022 10:57 AM EST documented in this encounter Progress Notes * Sheila Alfonso, WATER MANGLE TENDER - 10/05/2022 11:00 AM EST Diagnosis: Prostate cancer with [...] with stool. Has no bone pain. interval history(10/05/22): Brenton Joaquin is in clinic for follow-up on metastatic prostate cancer. He is receiving lupron injections every 3 months. He is tolerating the therapy well. He has some mild hot flashes especially at night. Otherwise no noticeable side effects. Denies any pain. Denies anybowel or urinary issues. No shortness of breath, chest pain or edema. ROS Is otherwise negative. PMH: No interval [...] alcohol, he is retired, Family History: Noncontributory History reviewed. No pertinent family history. Allergies: Medications: Reviewed Review of Systems: Constitutional: [...] axillary nodes normal Neurologic: Normal Vitals BP 175/89 (Patient Position: Sitting) Pulse 73 Temp 36.3 ??C (97.3 ??F) (Temporal) Resp 18 Ht 165.1 cm (5' 5) Wt 83.5 kg (184 lb) SpO2 99% BMI 30.62 kg/m?? Pathology: 11/08/11 Adenocarcinoma, Linda grade 3+4 This was followed by TRUS biopsy which demonstrated [place] 3+4 involving 10% the right base core. The right lateral base had adenocarcinoma Linda 3+4 with 10% of this core. The left lateral apex had adenocarcinoma 3+3 involving 5% of the core. The remaining nine cores demonstrated benign prostatic tissue. Labs: 09/24/22- WBC-10.22 Hgb/Hct-13.7/40.5 Plt-156 ANC-4.04 Na-140 K+-4.7 [...] 25 Ca 9.0 Date PSA Test Notes 09/24/22 <0.01 <7.0 07/05/22 0.04 <7.0 06/01/22 0.59 Pend. [id number] 02/04/2022 2.0 623 LDH 197 08/04/21 1.5 [...] Schedule first injection in 1-2 weeks at [facility]. We discussed the role of secondary hormonal therapy abiraterone/prednisone next visit. He would like to be followed in [facility] ?? 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 10/05/22 PSA 0.01 down from 2 prior initiation of ADT. He has had an excellent response to the treatment. Dr. Addison discussed adding abiraterone and prednisone to the treatment with ADT as data shows some improvement in outcome following comments. Discussed risks and benefits of abiraterone and prednisone. He like to hold off decision of secondary hormonal therapy. We will see him back in 3 months with blood work. Continue Lupron every 3 months we will discuss intermittent versus continuous ADT later. Plan: 1. Lupron 22.5 mg today 2. Next visit in with CBc, cMP, PSA, testosterone and his next lupron injection. In 3 months ? documented in this encounter Plan of Treatment Upcoming Encounters Date Type Department Care Team (Late st Contact Info) Description 05/22/2024 1:00 PM EDT Office Visit Hematology/Oncology at [address] [phone] Iris Nguyen APRN [facility] [place] [address] 05/22/2024 1:30 PM EDT Infusion Hematology Oncology at [address] [phone] documented as of this encounter Visit Diagnoses Diagnosis Prostate cancer metastatic to intrapelvic lymph node documented in this encounter Care Teams Community Health Navigator Relationship Specialty Start Date End Date Unknown None PCP - General 08/10/22 documented as of this encounter
--- OUTSIDE RECORDS SUMMARY | 2024-05-14 03:41 | XMS_ITS | Encounter Summary ---
Author Organization [facility] [place] [address] Care Team Providers Care Poker Supervisor Name Role Phone Donnell Cabrera MD Primary Care Provider [phone] Reason for Visit * Reason Comments Radiation Follow-up prostate cancer Encounter Details Date Type Department Care Team (Late st Contact Info) Description 08/23/2019 9:45 AM EST Office Visit Radiation Oncology at [address] [phone] Cherise Tuttle APRN [address] [place] [address] [place] [address] Malignant neoplasm of prostate Social History Tobacco Use Types Packs/Day Years Used Date Smoking Tobacco: Never Smokeless Tobacco: Never Sex and Gender Information Value Date Recorded Sex Assigned at Not on file Gender Identity Not on file Sexual Orientation Not on file documented as of this encounter Last Filed Vital Signs Vital Sign Reading Time Taken Comments Blood Pressure 179/91 08/23/2019 9:55 AM EST Pulse 91 08/23/2019 9:55 AM EST Temperature 36.9 ??C (98.4 ??F) 08/23/2019 9:55 AM ES T Respiratory Rate 18 08/23/2019 9:55 AM EST Oxygen Saturation 97% 08/23/2019 9:55 AM EST Inhaled Oxygen Concentration - - Weight 84.9 kg (187 lb 3.2 oz) 08/23/2019 9:55 A M EST Height 172.7 cm (5' 8) 08/23/2019 9:55 AM EST Body Mass Index 28.46 08/23/2019 9:55 AM EST documented in this encounter Patient Instructions * Patient Instructions* Cherise Tuttle APRN - 08/23/2019 9:45 AM EST Date 08/14/2019 0.9 07/10/2018 0.6 07/19/2017 0.5 07/20/2016 0.5 12/25/2015 0.5 06/05/2015 0.5 10/21/2014 0.5 05/01/14 0.5 11/19/13 0.5 08/03/13 0.7 04/30/2013 1.0 02/22/2013 1.50 11/09/2012 0.79 08/07/2012--first after treatment PSA 1.67 10/26/2011--before treatment 6.5 documented in this encounter Progress Notes * Cherise Tuttle APRN - 08/23/2019 9:45 AM EST Identification: Mr Joaquin is a pleasant [...] Garcia who saw patient on 11/08/2011 at [facility]. An ultrasound was done which demonstrated a prostate volume of 29.1 cc with no hypoechoic areas. This was followed by TRUS biopsy which demonstrated Linda 3+4 involving 10% the right base core. The right lateral base had adenocarcinoma [place] 3+4 with 10% of this core. The left lateral apex had adenocarcinoma 3+3 involving 5% of the core. The remaining nine cores demonstrated benign prostatic tissue. After consultation with Dr Kamlesh Nunez, Mr Joaquin elected to be treated with external beam radiation therapy with care that was delivered at the [facility] in [facility] .He was treated to a total [...] Social History: Never smoker. No Etoh. 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 , two daughters and three grandchildren. No Known Allergies Medications 08/23/19 0955 Medication Sig Taking? atorvastatin (LIPITOR) 10 mg [...] the last year. 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 He enjoys the work. He has been walking every day and has a regular exercise regimen. He denies any urinary issues. He denies [...] fatigue and unexpected weight change. 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 Eyes: Negative. Respiratory: Negative. [...] is not nervous/anxious. Vitals Office Visit from 08/23/2019 in Radiation Oncology at [facility] Weight 84.9 kg (187 lb 3.2 oz) Height 172.7 cm (5' 8) BSA (Calculated - sq m) 2.02 sq meters BMI (Calculated) 28.46 Temp 36.9 ??C (98.4 ??F) Temp src Oral Heart Rate 91 Heart Rate Source NIBP Resp 18 BP (!) 179/91 Patient checks B/P at home regularly and usually around 130/80 BP Location Right arm Patient Position Sitting SpO2 97 % Karnofsky: 100 Physical Exam Constitutional: He is oriented to [...] is smooth with no induration, no nodularity. + external hemorrhoids, Guaiac negative Musculoskeletal: Normal range of motion. [...] and thought content normal. Vitals reviewed. Date 08/14/2019 0.9 07/10/2018 0.6 07/19/2017 0.5 07/20/2016 0.5 12/25/2015 0.5 06/05/2015 0.5 10/21/2014 0.5 05/01/14 0.5 11/19/13 0.5 08/03/13 0.7 04/30/2013 1.0 02/22/2013 1.50 11/09/2012 0.79 08/07/2012--first after treatment PSA 1.67 10/26/2011--before treatment 6.5 Assessment Plan: Mr Joaquin is a pleasant 74 year old man with adenocarcinoma of the prostate, Linda 3+4=7, pretreatment PSA of 6.5. He was treated with external beam radiation 79.2 Gy completed on 04/18/2012. His PSA has risen slightly and is 0.9 with a janey of 0.5. Patient was [...] 1:00 PM EDT Office Visit Hematology/Oncology at [address] [phone] Iris Nguyen APRN [facility] [place] [address] 05/22/2024 1:30 PM EDT Infusion Hematology Oncology at [address] [phone] documented as of this encounter Results * PSA (Ultrasensitive) (01/19/2021 9:39 AM EDT) Pathologist [facility] Prostate Specific Antigen (Ultrasensitive ) 1.41 0.00 - 4.00 ng/mL [facility] Comment: PLEASE NOTE: The above reference interval is intended for healthy males with an intact prostate. Values within this reference interval may indicate recurrence in men who have undergone radical prostatectomy. Blood specimen (specimen) 01/19/2021 9:39 AM EDT 01/19/2021 10:08 AM EDT Narrative Resulting Agency Comment Spec In Lab Cherise Tuttle INSTRUMENTATION DESIGNER CHEMISTRY ORDERABLES [facility] [place] [address] documented in this encounter Visit Diagnoses Diagnosis Malignant neoplasm of prostate documented in this encounter Care Teams Poker Supervisor Relationship Specialty Start Date End Date Donnell Cabrera MD PCP - General General Internal Medicine 08/23/1906/05 documented as of this encounter
--- OUTSIDE RECORDS SUMMARY | 2024-05-14 03:41 | XMS_ITS | Encounter Summary ---
Author Organization [facility] [place] [address] Care Team Providers Care Out Patient Therapist Name Role Phone Catracho Good MD Primary Care Provider [phone] Reason for Visit * Reason Onset Date Comments Questions 07/26/2022 Review info on a biraterone Encounter Details Date Type Department Care Team (Late st Contact Info) Description 07/26/2022 Telephone Hematology/Oncology at [address] [phone] Chantelle Rashid, JUAN Questions (Review info on abiraterone) Social History Tobacco Use Types Packs/Day Years [...] place to sleep or slept in a residential (including now)? No 04/09/2022 Sex and Gender Information Value Date Recorded Sex Assigned at Not on file Gender Identity Not on file Sexual Orientation Not on file documented as of this encounter Miscellaneous Notes * Telephone Encounter - Chantelle Rashid RN - 07/26/2022 4:48 PM EDT Brenton called with questions about abiraterone. Explained not chemotherapy, it would mean taking 4 pills a day and one prednisone daily, comes from speciality pharmacy, may have high copay would work with speciality pharmacy [facility] to help with this. Reviewed that at this time Dr. Addison is finewith waiting to start this medication as Brenton response to lurpon has been excellent. Brenton appreciated the information and will call with any more questions. documented in this encounter Plan of Treatment Upcoming Encounters Date Type Department Care Team (Late st Contact Info) Description 05/22/2024 1:00 PM EDT Office Visit Hematology/Oncology at [address] [phone] Iris Nguyen APRN [facility] [place] [address] 05/22/2024 1:30 PM EDT Infusion Hematology Oncology at [address] [phone] documented as of this encounter Visit Diagnoses Not on filedocumented in this encounter Care Teams Out Patient Therapist Relationship Specialty Start Date End Date Catracho Good MD PCP - General Family Medicine 08/12/21 08/09/22 documented as of this encounter
--- OUTSIDE RECORDS SUMMARY | 2024-05-14 03:41 | XMS_ITS | Encounter Summary ---
Author Organization [facility] Address [facility] [place] [address] Care Team Providers Care Stonework Supervisor Name Role Phone Unknown Primary Care Provider Unavailabl e Reason for Visit * Reason Onset Date Comments Sweats 05/02/2023 Hot flashes Encounter Details Date Type Department Care Team (Late st Contact Info) Description 05/02/2023 Telephone Hematology/Oncology at [address] [phone] Aelxia Leos, RN Sweats (Hot flashes) Social History Tobacco Use Types Packs/Day Years [...] place to sleep or slept in a skilled nursing (including now)? No 04/09/2022 Sex and Gender Information Value Date Recorded Sex Assigned at Not on file Gender Identity Not on file Sexual Orientation Not on file documented as of this encounter Miscellaneous Notes * Telephone Encounter - Alexia Leos RN - 05/02/2023 8:43 AM EDT Reason for Call: Sweats (Hot flashes) Brief Health History (Onset, Location, Duration, Characteristics, Aggravating Factors, Relieving Factors/Radiation,Timing, and Severity): Brenton reports he has had an increase in sweating, especially his face/forehead, mostly for the month of April when he is working. 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 His PCP prescribed Venlafaxine 37mg, he only took it for 3-4 days and stopped taking it after reading about potential side effects of the medication. He is wondering what else might be prescribed to help with the hot flashes. Disposition: Discussed it has been particularly hot and humid for most of April which may be contributing to the increase in hot flashes/sweating. Also discussed that all medications come with potential side effects. Home care instructions: -Keep a glass/bottle ice water on hand -Use fans and air conditioning when possible -Wear absorbent clothing such as cotton- avoid synthetic fabrics -Reach out to your PCP to inform them you having stopped the Venlafaxine and discuss other options. Brenton expressed understanding and is in agreement with the plan. Worsening Symptoms: Emphasized symptoms that require emergent/urgent care according to EPIC protocol utilized or other documented decision support tool. Patient able to teach back worsening symptoms and action to take. Decision support tool: Telephone Triage for Oncology Nurses, Bernadine 3rd Edition Patient/Caregiver demonstrates understanding via teach back: Yes * Telephone Encounter - Alexia Leos RN - 05/02/2023 8:42 AM EDT ----- Message from Lu Gay sent at 05/02/2023 8:06 AM EDT ----- Brenton called in asking about side effects from the Lupron, he is having a lot of forehead sweating from it an wondered if there was something that he could take that would help with that. Best call back number [phone] or [phone] documented in this encounter Plan of Treatment Upcoming Encounters Date Type Department Care Team (Late st Contact Info) Description 05/22/2024 1:00 PM EDT Office Visit Hematology/Oncology at [address] [phone] Iris Nguyen APRN [facility] [place] [address] 05/22/2024 1:30 PM EDT Infusion Hematology Oncology at [address] [phone] documented as of this encounter Visit Diagnoses Not on filedocumented in this encounter Care Teams Stonework Supervisor Relationship Specialty Start Date End Date Unknown None PCP - General 08/10/22 documented as of this encounter
--- OUTSIDE RECORDS SUMMARY | 2024-05-14 03:41 | XMS_ITS | Encounter Summary ---
Author Organization Formerly [facility] Address [facility] [place] [address] Care Team Providers Care Turkey Egg Gatherer Name Role Phone Catracho Good MD Primary Care Provider [phone] Encounter Details Date Type Department Care Team (Latest Contact Info) Description 12/03/2021 3:30 PM EST Office Visit Hematology/Oncology at [address] [phone] Ryan Thornton MD [facility] [address] [place] [address] Monoclonal B-cell lymphocytosis Social History Tobacco Use Types Packs/Day Years Used Date Smoking Tobacco: Never Smokeless Tobacco: Never Sex and Gender Information Value Date Recorded Sex Assigned at Not on file Gender Identity Not on file Sexual Orientation Not on file documented as of this encounter Last Filed Vital Signs Vital Sign Reading Time Taken Comments Blood Pressure 187/91 12/03/2021 3:24 PM EST Pulse 77 12/03/2021 3:24 PM EST Temperature 36.2 ??C (97.2 ??F) 12/03/2021 3:24 PM ES T Respiratory Rate 18 12/03/2021 3:24 PM EST Oxygen Saturation 98% 12/03/2021 3:24 PM EST Inhaled Oxygen Concentration - - Weight 83.6 kg (184 lb 4.8 oz) 12/03/2021 3:24 P M EST Height 165.1 cm (5' 5) 12/03/2021 3:24 PM EST Body Mass Index 30.67 12/03/2021 3:24 PM EST documented in this encounter Progress Notes * Ryan Thornton MD - 12/03/2021 3:30 PM EST Subjective Patient ID: Brenton Joaquin is a 76 y.o. male. He returns for follow-up to the [facility]. 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 The patient is seen in the [facility]. We have been following him about every 3 to 4 months through this first year of observation. Clinically he has remained okay. He also gets follow-upfor his remote history of prostate cancer in the radiation oncology clinic here in [facility]. No fevers chills sweats or weight loss. He has not noted any lumps or bumps. No recent infections. Generally he is doing pretty well. He is a little bit anxious about some of his medical issues. Patient Active Problem List Diagnosis Code ??? Prostate cancer C61 ??? 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 losartan (Cozaar) 25 mg Tablet, Take 25 mg by mouth daily., Disp: , Rfl: ??? atorvastatin (LIPITOR) 10 mg Tablet, Take 10 mg by mouth daily., Disp: , Rfl: ??? multivitamin (THERAGRAN) tablet, Take 1 tablet by mouth daily., Disp: , Rfl: ??? Vitamin A-Vitamin C-Vit E-Min Tablet, Take by mouth. , Disp: , Rfl: No Known Allergies Review [...] systems reviewed and are negative. Objective BP (!) 187/91 (Patient Position: Sitting) Pulse 77 Temp 36.2 ??C (97.2 ??F) (Temporal) Resp 18 Ht 165.1 cm (5' 5) Wt 83.6 kg (184 lb 4.8 oz) SpO2 98% BMI 30.67 kg/m?? Physical Exam Constitutional: General: He is [...] to person, place, and time. 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 His lymphocyte count has slightly increased over the last year and may be closer to 5000 which would be the cutoff for CLL. Nonetheless he has not developed any other findings. No adenopathy, no splenomegaly, no anemia, and no t hrombocytopenia. The rate of progression over the last year has been minimal so even if he did have CLL we would just be observing him. At this point we will see him back in 6 months with a repeat CBC then. I think is very likely that given the pace of change he will not need close follow-up and is unlikely to ever need therapy for this condition. He will follow up with his other doctors for his other medical issues. documented in this encounter Plan of Treatment Upcoming Encounters Date Type Department Care Team (Late st Contact Info) Description 05/22/2024 1:00 PM EDT Office Visit Hematology/Oncology at [address] [phone] Iris Nguyen APRN [facility] [place] [address] 05/22/2024 1:30 PM EDT Infusion Hematology Oncology at [address] [phone] documented as of this encounter Procedures Procedure Name Priority Date/Time Associated Diagnosis Comments IMMUNE GLOBULIN IM Routine 11/27/2021 CBC (WITH DIFF) Routine 11/27/2021 COMPREHENSIVE METABOLIC PANEL Routine 11/27/2021 documented in this encounter Results * IMMUNE GLOBULIN IM (11/27/2021) Immunoglobulin G 990 IgA 118 IgM 32 Historical Provider IMMUNE GLOBULIN O RDERABLES * Comprehensive metabolic panel (non-fasting) (11/27/2021) Blood Urea Nitrogen 23 Creatinine 1.3 Sodium 140 Potassium 4.3 Calcium 9.1 Protein, Total 7.0 Albumin 4.1 Bilirubin, Total 0.5 Alkaline Phosphatase 60 Aspartate Aminotransferase 16 Alanine Aminotransferase 27 Blood 11/27/2021 Historical Provider CHEMISTRY ORDERAB LES * CBC (with Diff) (11/27/2021) White Blood Cell 11.54 Red Blood Cell 5.07 Hemoglobin 15.1 Hematocrit 45.8 Platelet 161 ANC 4.04 Blood 11/27/2021 Historical Provider HEMATOLOGY ORDERA BLES documented in this encounter Visit Diagnoses Diagnosis Monoclonal B-cell lymphocytosis Lymphocytosis (symptomatic) documented in this encounter Care Teams Turkey Egg Gatherer Relationship Specialty Start Date End Date Catracho Good MD PCP - General Family Medicine 08/12/21 08/09/22 documented as of this encounter
--- OUTSIDE RECORDS SUMMARY | 2024-05-14 03:41 | XMS_ITS | Encounter Summary ---
[place] [address] Care Team Providers Care Marble Helper Name Role Phone Catracho Good MD Primary Care Provider [phone] Reason for Referral * Diagnostic Test (Routine) - Closed Specialty Diagnoses / Procedures Referred By Pushpaac t Referred To Contact Radiology Diagnoses Malignant neoplasm of prostate Procedures MRI Pelvis wwo (Prostate) Yamel Woods LBD TEACHER [facility] [place] [address] [place] [address] Referral ID Status Reason Start Date Expiration Date V isits Requested Visits Authorized [id number] Closed Specialty Service Requested 03/05/2022 09/04/2023 1 1 Reason for Visit * Diagnostic Test (Routine) - Closed Specialty Diagnoses / Procedures Referred By Contac t Referred To Contact Radiology Diagnoses Malignant neoplasm of prostate Procedures MRI Pelvis wwo (Prostate) Yamel Woods APRN [facility] [place] [address] [place] [address] Referral ID Status Reason Start Date Expiration Date V isits Requested Visits Authorized [id number] Closed Specialty Service Requested 03/05/2022 09/04/2023 1 1 Encounter Details Date Type Department Care Team (Latest Contact Info) Description 04/07/2022 11:20 AM EDT - 04/07/2022 11:59 PM EDT Hospital Encounter MRI at [facility] [place] [address] Yamel Woods, [facility] [place] [address] Malignant neoplasm of prostate Discharge Disposition: Home [...] PM EDT Office Visit Hematology/Oncology at [address] [phone] Iris Nguyen, [facility] [place] [address] 05/22/2024 1:30 PM EDT Infusion Hematology Oncology at [address] [phone] documented as of this encounter Procedures Procedure Name Priority Date/Time Associated Diagnosis Comments MRI PELVIS WWO (PROSTATE) Routine 04/07/2022 1:15 PM EDT Malignant neoplasm of prostate documented in this encounter Results * MRI Pelvis wwo [...] Luis Fernando S1, Soares C1, Klein J1, Lawrence M1, Gold S1, Pena G1, Rayn K1, Adolfo MJ1, Niels BJ1, Mohsen PA1, Monica PL1, Gabby B1. ??A Grading System for the Assessment of Risk of Extraprostatic Extension of Prostate Cancer at Multiparametric MRI. Radiology. 2019 Dec;290(3):709-719. doi: 10.1148/radiol.0243233549. Epub 2018Oct 24. I have personally reviewed [...] who have questions please contact the health care asst that requested your imaging first. ? Narrative 04/08/2022 8:45 AM EDT EXAMINATION: MRI [...] cancer is highly likely mari present) References: Kit S1, Anthony JH1, Luis Fernando S1, Soares C1, Klein J1, Balanijose M1,Gold S1, Pena G1, Rayn K1, Adolfo MJ1, Niels BJ1, Mohsen PA1, Monica PL1, Gabby B1.A Grading System for the Assessment of Risk of Extraprostatic Extension of Prostate Cancer at Multiparametric MRI. Radiology. 2019Mar;290(3):709-719. doi: 10.1148/radiol.6303434419. Epub 2018Oct 24. I have personally reviewed the image(s) and the resident's interpretationand agree with the findings, Preet Villanueva MD at 04/08/2022 8:45 AM Thank you for letting us participate in the care of this patient. If youare a health care provider and have any questions regarding this report,please contact the number below. For patients who have questions please contactthe health care asst that requested your imaging first. Yamel Mendoza Chuck LBD TEACHER IMG MRI ORDERABLES documented in this encounter Visit Diagnoses Diagnosis Malignant neoplasm of prostate documented in this encounter Administered Medications Inactive Administered Medications - up to 3 most recent administrations Medication Order MAR Action Action Date Dose Rate Site gadoterate meglumine (Dotarem) (0.5 mMol/mL) injection solution 0-100 mL 0-100 mL, Intravenous, ONCE PRN, 1 dose, Starting on Tue04/07/22 at 1246, Until Tue04/07/22 at 1253, Per Protocol, Radiology Contrast, Routine Given 04/07/2022 12:53 PM EDT 17 mLs documented in this encounter Care Teams Marble Helper Relationship Specialty Start Date End Date Catracho Good MD PCP - General Family Medicine 08/12/21 08/09/22 documented as of this encounter
--- OUTSIDE RECORDS SUMMARY | 2024-05-14 03:41 | XMS_ITS | Encounter Summary ---
Author Organization [facility] Address [facility] [place] [address] Care Team Providers Care Department Clerk Name Role Phone Unknown Primary Care Provider Unavailabl e Reason for Visit * Reason Comments Injections Lupron 22.5mg * Treatment/Therapy Plan Authorization (Routine) - Authorized Specialty Diagnoses / Procedures Referred By Contac t Referred To Contact Hematology and Oncology Diagnoses Prostate cancer metastatic to intrapelvic lymph node Procedures INFUSION Roman Addison MD [facility] [address] [place] [address] Roman Addison MD [address] [place] [address] DR HEMATOLOGY [place] [address] Referral ID Status Reason Start Date Expiration Date V isits Requested Visits Authorized [id number] Authorized 10/03/2022 07/09/2024 99 99 Encounter Details Date Type Department Care Team (Late st Contact Info) Description 12/28/2022 3:00 PM EDT Infusion Hematology Oncology at [address] [phone] Prostate cancer metastatic to intrapelvic [...] place to sleep or slept in a alf (including now)? No 04/09/2022 Sex and Gender Information Value Date Recorded Sex Assigned at Not on file Gender Identity Not on file Sexual Orientation Not on file documented as of this encounter Progress Notes * Supriya Herrera RN - 12/28/2022 3:00 PM EDT Infusion Note Diagnosis: Prostate Cancer [...] PM EDT Office Visit Hematology/Oncology at [address] [phone] Iris Nguyen APRN [facility] [place] [address] 05/22/2024 1:30 PM EDT Infusion Hematology Oncology at [address] [phone] documented as of this encounter Visit Diagnoses Diagnosis Prostate cancer metastatic to intrapelvic lymph node documented in this encounter Administered Medications Inactive Administered Medications - up to 3 most recent administrations Medication Order MAR Action Action Date Dose Rate Site leuprolide (Lupron Depot) injection 22.5 mg 22.5 mg, Intramuscular, ONCE, 1 dose, On Tue12/28/22 at 1530, , Routine, This agent is restricted to outpatient use. Is this drug being given as an outpatient? Yes Given 12/28/2022 3:19 PM EDT 22.5 mg Left Gluteal documented in this encounter Care Teams Department Clerk Relationship Specialty Start Date End Date Unknown None PCP - General 08/10/22 documented as of this encounter
--- OUTSIDE RECORDS SUMMARY | 2024-05-14 03:41 | XMS_ITS | Encounter Summary ---
Author Organization [facility] Address [facility] [place] [address] Care Team Providers Care Hydro Excavation Operator Name Role Phone Catracho Good MD Primary Care Provider [phone] Reason for Visit * Reason Comments Injections Lupron * Treatment/Therapy Plan Authorization (Routine) - Authorized Specialty Diagnoses / Procedures Referred By Contac t Referred To Contact Hematology and Oncology Diagnoses Prostate cancer metastatic to intrapelvic lymph node Procedures INFUSION Roman Addison MD [facility] DR HEMATOLOGY AND [place] [address] Roman Addison MD [address] [place] [address] DR HEMATOLOGY [place] [address] Referral ID Status Reason Start Date Expiration Date V isits Requested Visits Authorized [id number] Authorized 10/03/2022 07/09/2024 99 99 Encounter Details Date Type Department Care Team (Late st Contact Info) Description 04/20/2022 2:00 PM EDT Infusion Hematology Oncology at [address] [phone] Prostate cancer metastatic to intrapelvic [...] place to sleep or slept in a senior care (including now)? No 04/09/2022 Sex and Gender Information Value Date Recorded Sex Assigned at Not on file Gender Identity Not on file Sexual Orientation Not on file documented as of this encounter Last Filed Vital Signs Vital Sign Reading Time Taken Comments Blood Pressure 184/95 04/20/2022 2:05 PM EDT pt reports its normal at home and always elevated when he goes to MD office Pulse 79 04/20/2022 2:05 PM EDT Temperature 36.6 ??C (97.8 ??F) 04/20/2022 2 :05 PM EDT Respiratory Rate 18 04/20/2022 2:05 PM EDT Oxygen Saturation 98% 04/20/2022 2:0 5 PM EDT Inhaled Oxygen Concentration - - Weight - - Height - - Body Mass Index - - documented in this encounter Progress Notes * Ricardo Smith RN - 04/20/2022 2:00 PM EDT Infusion Note Diagnosis: Prostate Cancer Treatment: Lupron Injection Lupron 22.5 mg injected IM in right buttocks per pt request. Patient instructed on side effects of Lupron. Patient states understanding of teaching and patient aware to call clinic with any questions or concerns. Plan: Return to clinic as scheduled. documented in this encounter Plan of Treatment Upcoming Encounters Date Type Department Care Team (Late st Contact Info) Description 05/22/2024 1:00 PM EDT Office Visit Hematology/Oncology at [address] [phone] Iris Nguyen APRN [facility] DR MEDICAL [place] [address] 05/22/2024 1:30 PM EDT Infusion Hematology Oncology at [address] [phone] documented as of this encounter Visit Diagnoses Diagnosis Prostate cancer metastatic to intrapelvic lymph node documented in this encounter Administered Medications Inactive Administered Medications - up to 3 most recent administrations Medication Order MAR Action Action Date Dose Rate Site leuprolide (Lupron Depot) injection 22.5 mg 22.5 mg, Intramuscular, ONCE, 1 dose, On Tue04/20/22 at 1400, Routine, This agent is restricted to outpatient use. Is this drug being given as an outpatient? Yes Given 04/20/2022 2:19 PM EDT 22.5 mg Right Gluteal documented in this encounter Care Teams Hydro Excavation Operator Relationship Specialty Start Date End Date Catracho Good MD PCP - General Family Medicine 08/12/21 08/09/22 documented as of this encounter
--- OUTSIDE RECORDS SUMMARY | 2024-05-14 03:42 | XMS_ITS | Encounter Summary ---
Author Organization [facility] [place] [address] Care Team Providers Care Inspector Production Plastic Parts Name Role Phone Brady Christensen MD Primary Care Provider [phone] Encounter Details Date Type Department Care Team (Late Contact Info) Description 12/14/2011 Orders Only [place] [address] Kamlesh Nunez MD [facility] [place] [address] Prostate cancer (Primary Dx) Social History Tobacco Use Types [...] 1:00 PM EDT Office Visit Hematology/Oncology at [address] [phone] Iris Nguyen APRN [facility] [place] [address] 05/22/2024 1:30 PM EDT Infusion Hematology Oncology at [address] [phone] documented as of this encounter Results * MRI pelvis WO contrast (01/20/2012 1:36 PM EDT) Anatomical Region Laterality Modality Pelvis Magnetic Resonan ce 01/20/2012 1:36 PM EDT Impressions 01/20/2012 5:10 PM EDT IMPRESSION: 1. ??No definite focal signal abnormalities within the peripheral zone of the prostate to correspond to patient's biopsy proven prostate cancer or MR evicence of extracapsular extension. 2. ??Somewhat diffuse area of mildly decreased T2 signal intensity and increased T1 signal intensity within the right gland, consistent with post biopsy hemorrhage. 3. ??Benign prostatic hypertrophy with associated bladder trabeculations. Film and interpretation reviewed by the attending Narrative 01/20/2012 5:10 PM EDT MRI OF THE PELVIS WITHOUT CONTRAST, 01/20/2012 CLINICAL HISTORY: ??Prostate cancer, RT protocol. COMPARISON: ??CT of the abdomen, 12/08/2011 and prostate ultrasound 11/08/2011 TECHNIQUE: ??MRI of the prostate performed per standard protocol with images obtained without the use of intravenous contrast. FINDINGS: ??No focal areas of T2 hypointensity are clearly identified within the peripheral zone of the prostate. ??The prostate measures 5.3 x 3.4 x 2.7 cm. ?? Note is made of a subtle area of T2 hypointensity with corresponding T1 hyperintensity within the mid peripheral zone on the right consistent with post biopsy hemorrhage. ??Additional note is also made of a heterogenous appearance of the central zone consistent with benign prostatic hypertrophy. ??No MR evidence of extracapsular extension or invasion into the neurovascular bundle. Seminal vessicles are normal. No pelvic or retroperitoneal lymphadenopathy. ??No marrow lesions. ??Note is made of a trabeculated appearance of the bladder, presumably secondary to chronic bladder outlet obstruction. Procedure Note Nolan Luz DO - 01/20/2012 MRI OF THE PELVIS WITHOUT CONTRAST, 01/20/2012 CLINICAL HISTORY: Prostate cancer, RT protocol. COMPARISON: CT of the abdomen, 12/08/2011 and prostate holwejlspr92/06/2012 TECHNIQUE: MRI of the prostate performed per standard protocol withimages obtained without the use of intravenous contrast. FINDINGS: No focal areas of T2 hypointensity are clearly identifiedwithin the peripheral zone of the prostate. The prostate measures 5.3 x 3.4 x 2.7cm. Note is made of a subtle area of T2 hypointensity with corresponding T1 hyperintensity within the mid peripheral zone on the right consistent withpost biopsy hemorrhage. Additional note is also made of a heterogenousappearance of the central zone consistent with benign prostatic hypertrophy. No MR evidence of extracapsular extension or invasion into the neurovascularbundle. Seminal vessicles are normal. No pelvic or retroperitoneallymphadenopathy. No marrow lesions. Note is made of a trabeculated appearance of the bladder, presumably secondary to chronic bladder outlet obstruction. IMPRESSION IMPRESSION: 1. No definite focal signal abnormalities within the peripheral zone ofthe prostate to correspond to patient's biopsy proven prostate cancer or MR evicence of extracapsular extension. 2. Somewhat diffuse area of mildly decreased T2 signal intensity andincreased T1 signal intensity within the right gland, consistent with post biopsy hemorrhage. 3. Benign prostatic hypertrophy with associated bladder trabeculations. Film and interpretation reviewed by the attending Kamlesh Nunez MD IMG MRI ORDERABLES documented in this encounter Visit Diagnoses Diagnosis Prostate cancer- Primary Malignant neoplasm of prostate Prostate cancer Malignant neoplasm of prostate documented in this encounter Care Teams Inspector Production Plastic Parts Relationship Specialty Start Date End Date Brady Christensen MD [address] [place] [address] PCP - General 11/08/11 07/27/17 documented as of this encounter
--- OUTSIDE RECORDS SUMMARY | 2024-05-14 03:42 | XMS_ITS | Encounter Summary ---
Author Organization [facility] [place] [address] Care Team Providers Care Sap Bi Architect Name Role Phone Brady Christensen MD Primary Care Provider [phone] Reason for Visit * Reason Comments Radiation Treatment Encounter Details Date Type Department Care Team (Late st Contact Info) Description 03/01/2012 8:15 AM EDT Follow-Up Radiation Oncology at [address] [phone] Luis Fernando Gamez MD [facility] [place] [address] Prostate cancer (Primary Dx) Discharge Disposition: Home Social History Tobacco Use Types Packs/Day Years Used Date Smoking Tobacco: Never Sex and Gender Information Value Date Recorded Sex Assigned at Not on file Gender Identity Not on file Sexual Orientation Not on file documented as of this encounter Last Filed Vital Signs Vital Sign Reading Time Taken Comments Blood Pressure 159/95 03/01/2012 8:35 AM EDT Pulse 78 03/01/2012 8:35 AM EDT Temperature - - Respiratory Rate 16 03/01/2012 8:35 AM EDT Oxygen Saturation 95% 03/01/2012 8:35 AM EDT Inhaled Oxygen Concentration - - Weight 83 kg (183 lb) 03/01/2012 8:35 AM EDT Height - - Body Mass Index - - documented in this encounter Progress Notes * LuisF ernando Gamez MD - 03/01/2012 9:30 AM EDT TREATMENT VISIT: DATE: PATIENT STATUS: Prostate: GS=3+4=7/10, PSA=6.5, [id number] . TREATMENT PLAN: RADIATION ; Site Technique Dose/ Fraction Fraction Number MeV p e TOTAL DOSE Treatment Dates PTV 1 IMRT 180 25 p 4500 02/13 to DOSE to DATE:2160 cGy in 12 FX RADIATION TREATMENT IMAGING: matches original approved images ON TREATMENT EVALUATION: MEDICAL:0 PHYSICAL: 0 AIDS: LABS: TOXICITY:0 REFER TO NURSES UPDATED NOTES RESPONSE TO TREATMENT:good MANAGEMENT PLAN: CONTINUE TREATMENT PLANNED: XX CHANGE TREATMENT HOLD TREATMENT STOP TREATMENT Discussion time with patient (face to face)10 min. documented in this encounter Plan of Treatment Upcoming Encounters Date Type Department Care Team (Late st Contact Info) Description 05/22/2024 1:00 PM EDT Office Visit Hematology/Oncology at [address] [phone] Iris Nguyen [facility] [place] [address] 05/22/2024 1:30 PM EDT Infusion Hematology Oncology at [address] [phone] documented as of this encounter Visit Diagnoses Diagnosis Prostate cancer- Primary Malignant neoplasm of prostate documented in this encounter Care Teams Sap Bi Architect Relationship Specialty Start Date End Date Brady Christensen MD [address] [place] [address] PCP - General 11/08/11 07/27/17 documented as of this encounter
--- OUTSIDE RECORDS SUMMARY | 2024-05-14 03:42 | XMS_ITS | Encounter Summary ---
[place] [address] Care Team Providers Care Capital Markets Specialist Name Role Phone Brady Christensen MD Primary Care Provider [phone] Encounter Details Date Type Department Care Team (Late st Contact Info) Description 12/20/2011 Notes Only [place] [phone] Mela Mckeon, RN Social History Tobacco Use Types Packs/Day Years Used Date Smoking Tobacco: Never Sex and Gender Information Value Date Recorded Sex Assigned at Not on file Gender Identity Not on file Sexual Orientation Not on file documented as of this encounter Progress Notes * Mela Mckeon, RN - 12/20/2011 2:42 PM EDT Mr Joaquin was called and I read the Gold Coil instructions to him. Information was also mailed to him. [facility] [place] [place] Patient Teaching for Prostate Fiducials: Procedure and Preparation Procedure: __Rationale for fiducials: to michael the prostate and allow for tighter margins for RT boost. __Two small gold coils will be inserted through the perineum into the prostate gland using transrectal ultrasound for guidance. Local anesthetic will be used to numb the area, but the ultrasound probe may feel like uncomfortable pressure. Preparation: __A week before the coils are scheduled to be placed, anti-coagulants should be discontinued. You will need to get your doctor's permission to do this, if you are taking an anti-coagulant for a current heart condition or clotting disorder. __You will need to administer two Fleets enemas, one the night before and one the morning of the procedure. __You may have a normal breakfast and take your usual medications (minus the anticoagulants) the day of the procedure. __A prescription for an antibiotic to prevent infection will be given to you to start taking beforethe procedure: Cipro 250 mg BID x 3 days starting the day before / Levaquin 500 mg one tab the night before and one tab the morning of the procedure. __A prescription for dexamethasone taper (2 mg BID x 3 days, then 2 mg QD x 3 days)will be given [place] and you will start this the day of the procedure. After the Procedure: __You will be allowed to drive yourself home, UNLESS you have taken something to help you relax. __A week or so after the procedure you will have an appointment for the planning session, called a simulation treatment. __Written patient education material was given to the patient. x next to the bullet: Item discussed with patient, and patient verbalizes understanding of item. Patient questions and concerns: documented in this encounter Plan of Treatment Upcoming Encounters Date Type Department Care Team (Late st Contact Info) Description 05/22/2024 1:00 PM EDT Office Visit Hematology/Oncology at [address] [phone] Iris Nguyen APRN [facility] [place] [address] 05/22/2024 1:30 PM EDT Infusion Hematology Oncology at [address] [phone] documented as of this encounter Visit Diagnoses Not on filedocumented in this encounter Care Teams Capital Markets Specialist Relationship Specialty Start Date End Date Brady Christensen MD [address] [place] [id number] PCP - General 11/08/11 07/27/17 documented as of this encounter
--- OUTSIDE RECORDS SUMMARY | 2024-05-14 03:42 | XMS_ITS | Encounter Summary ---
Author Organization [facility] [place] [address] Care Team Providers Care Hospital Sales Representative Name Role Phone Brady Christensen MD Primary Care Provider Reason for Visit * Reason Comments Radiation Consult Prostate Cancer Encounter Details Date Type Department Care Team (Late st Contact Info) Description 12/06/2011 1:00 PM EST Office Visit [place] [phone] Kamlesh Nunez MD [facility] [place] [address] Prostate cancer (Primary Dx) Discharge Disposition: Home Social History Tobacco Use Types Packs/Day Years Used Date Smoking Tobacco: Never Sex and Gender Information Value Date Recorded Sex Assigned at Not on file Gender Identity Not on file Sexual Orientation Not on file documented as of this encounter Last Filed Vital Signs Vital Sign Reading Time Taken Comments Blood Pressure 167/86 12/06/2011 1:51 PM EST Pulse 85 12/06/2011 1:51 PM EST Temperature 36.6 ??C (97.8 ??F) 12/06/2011 1:51 PM ES T Respiratory Rate 20 12/06/2011 1:51 PM EST Oxygen Saturation 97% 12/06/2011 1:51 PM EST Inhaled Oxygen Concentration - - Weight 81.2 kg (179 lb) 12/06/2011 1:51 PM EST Height - - Body Mass Index - - documented in this encounter Patient Instructions * Patient Instructions* Kamlesh Nunez MD - 12/06/2011 4:21 PM EST With your Linda Score of 7/10 prostate cancer in two cores, you would do well to have this cancertreated. Radiation therapy, whether in the form of external beam treatment or a seed implant, wouldbe a good option. A seed implant might be more convenient, but a nine-week course of radiation treatments offers the opportunity to treat this prostate cancer while minimizing side effects. If you wish, you can add a short course of hormonal therapy on top of the external beam treatments. Another option would be to enroll on the protocol RTOG 0815, that compares combination of hormones plus radiation to radiation alone as treatment for this disease. Please review the materials I gave you for more information about this protocol. We'll call you in about two weeks, if we haven't heard from you before then. Please call with any questions or concerns. documented in this encounter Progress Notes * Kamlesh Nunez MD - 12/06/2011 3:52 PM EST Identification Brenton Joaquin is a 66 y.o. gentleman with PSA 6.5 Linda Score 3+4=7/10 prostate cancer, Stage [id number]. He is being seen at the request of Dr Garcia for consideration of the role of radiation therapy in his further management. History of Present Illness Elevated PSA found on yearly screening. PSA History: 08/29/09 - 5.1 02/16/10- 5.57 6./- 5.83 09/20/11- 7.07 10/26/11- 6.5 total, 0.5 free = 7.6% free Ultrasound 11/08/11 demonstrated -- Size (cm) L: 4.41 AP: 2.76 TV: 4.57 Vol (ml): 29.1 Comment: No hypoechoic areas seen. Pathology demonstrated -- ---Pathologic Diagnosis--- A - Prostatic core needle biopsy, right base: Adenocarcinoma, Linda grade 3+4, involving approximately 10% of the single bio spy core. B - Prostatic core needle biopsy, right mid: Benign prostatic tissue. C - Prostatic core needle biopsy, right apex: Benign prostatic tissue. D - Prostatic core needle biopsy, right lateral base: Adenocarcinoma, Linda grade 3+4, involving approximately 10% of the single biopsy core. E - Prostatic core needle biopsy, right lateral mid: Benign prostatic tissue. F - Prostatic core needle biopsy, right lateral apex: Benign prostatic tissue. G - Prostatic core needle biopsy, left base: Benign prostatic tissue. H - Prostatic core needle biopsy, left mid: Benign prostatic tissue. I - Prostatic core needle biopsy, left apex: Benign prostatic tissue. J - Prostatic core needle biopsy, left lateral base: Benign prostatic tissue. K - Prostatic core needle biopsy, left lateral mid: Benign prostatic tissue. L - Prostatic core needle biopsy, left lateral apex: Adenocarcinoma, Linda grade 3+3, involving approximately 5% of the single biopsy core. Current IPSS is 1. He reports: (0=not at all; 1=less than 20%; 2=less than 50%; 3=about 50%; 4=more than 50%; 5=almost always) Incomplete emptying -- 0 Urinary frequency -- 0 Intermittency -- 0 Urgency -- 0 Weak stream -- 0 Straining -- 0 At night, he typically gets up -- 1 (0=not at all; 1=once every 8 hrs; 2=once every 4 hrs; 3=once every 3 hrs; 4=once every 2 hrs; 5=once an hour) No dysuria or hemtauria. Bowel movements are typically once a day, withoutout constipation, diarrhea, or blood IL. Erectile dysfunction with CINTHYA at 1. -- nonfunctional for several years. Otherwise ROS is unremarkable. No current outpatient prescriptions on file prior to encounter. No Known Allergies History reviewed. No pertinent past medical history.. History reviewed. No pertinent past surgical history. History reviewed. No pertinent family history. History Social History ??? Marital Status: Spouse Name: N/A Number of Children: N/A ??? 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 Smoking status: Never Smoker ??? Smokeless tobacco: Not on file ??? Alcohol Use: Not on file ??? Drug Use: Not on file ??? Sexually Active: Not on file Other Topics Concern ??? Not on file Social History Narrative ??? No narrative on file Physical Exam BP 167/86 Pulse 85 Temp(Src) 36.6 ??C (97.8 ??F) (Oral) Resp 20 Wt 81.194 kg (179 lb) SpO2 97% Sclera anicteric. No adenopathy in cervical, supraclavicular, or inguinal regions. Lungs clear in all amador. No back or costo-vertebral angle tenderness. CV with regular rate and rhythm Abdomen soft, nontender, positive bowels sounds, no hepatosplenomegaly. No suprapubic tenderness. Question of pulsatile mass spanning c. 4-5 cm diameter midabdomen. External genitalia unremarkable. No pretibial edema. Rectal with normal tone, guiac negative stool, no masses. Prostate is smooth, broad-based, with firm ridge of tissue along left lateral aspect of gland, no discrete nodularity. Investigations Pathology as above. Assessment/Plan Mr. Joaquin presents with Stage [id number] [place] 3+4=7/10 prostate cancer arising in 10% of two cores, as well as [place] 3+3=6/10 in 10% of one additional core, pre-treatment PSA 6.5 ng/ml. With this Linda Score 7/10 prostate cancer in two cores, Mr. Joaquin would do well to have this cancer treated. Surgical resection would be a reasonable option. Radiation therapy, whether in the form of external beam treatment or a seed implant, would also be a very good option. A seed implant might be more convenient, but a nine-week course of radiation treatments would offer the opportunity totreat this prostate cancer while minimizing side effects. We discussed adding a short course of hormonal therapy on top of the external beam treatments. Another option would be to enroll on the protocol RTOG 0815, comparing combination of hormones plus radiation to radiation alone. The patient was given an informed consent summarizing information about this protocol. We will be in contact with Mr. Joaquin within the next two weeks, to further ascertain his preferences. Regarding the question of a pulsatile mass in the abdomen, I discussed this issue with diagnostic radiology. We will check an abdominal/pelvic CT scan, which will provide staging information for thispatient's [place] 7/10 prostate cancer, and will also provide diagnostic information regarding the possible presence and size of an aneurysm. Of note in this context, an ultrasound exam would provideno information not evident on the CT. Brenton Joaquin was seen for a total of 80 minutes, with 70 minutes of that time spent in discussionwith the patient regarding his current clinical condition, test results, and further management. * Mela Mckeon RN - 12/06/2011 2:18 PM EST RADIATION ONCOLOGY NURSING INITIAL NURSING ASSESSMENT IDENTIFICATION: Brenton Joaquin is a 66 y.o. year-old male with prostate cancer ADVANCE DIRECTIVES: In EDH __x__ Has documents yes Will bring in ____ IF NO: Advance Directive pamphlet provided ____ Referral to Care Management ____ PRESENTING SYSTEMS and PATHOLOGY:prostate cancer REVIEW OF SYSTEMS:Review of Systems Constitutional: Negative. HENT: Positive for tinnitus (chronic). Eyes: Negative. Respiratory: Negative. Cardiovascular: Negative. Gastrointestinal: Negative. Genitourinary: Positive for frequency (1x night). Musculoskeletal: Negative. Skin: Negative. Neurological: Negative. Endo/Heme/Allergies: Negative. Psychiatric/Behavioral: Positive for depression (since dx). The patient is nervous/anxious (since dx). The patient does not have insomnia. Prior Radiotherapy: _x__ Site Date Facility Prior Chemotherapy: __x_ Drug LastTreatment Facility____ Prior Hormone Therapy:x RADIATION SPECIFIC REVIEW: NO: YES: Hearing Aides x Claustrophobia or requires sedation for MRIs x Allergy to CT or MRI contrast agent, iodine or shellfish/ hx asthma Don't know, never been exposed Diabetic and on metformin x Metal in body, implanted device, worked with metal, body piercings,braces x Dental health- loose, broken or chipped teeth ,dentures (no=intact) Healthy teeth Pacemaker x Difficulty breathing/pain while lying flat x Kidney problems/creatinine x SOCIAL ASSESSMENT: See [facility] social assessment information entered. Support Systems:: Nicol Barriers to treatment: closer to [facility]. Referrals/Interventions:none LEARNING STYLE:verbal and written RADIATION SPECIFIC TEACHING: __x_ [facility] and You and folder given ___ Site specific teaching : ___ Other: PLAN: Follow with Dr. Nunez documented in this encounter Plan of Treatment Upcoming Encounters Date Type Department Care Team (Late st Contact Info) Description 05/22/2024 1:00 PM EDT Office Visit Hematology/Oncology at [address] [phone] Iris Nguyen APRN [facility] [place] [address] 05/22/2024 1:30 PM EDT Infusion Hematology Oncology at [address] [phone] documented as of this encounter Results * CT abdomen & pelvis with contrast (12/08/2011 1:05 PM EST) Anatomical Region Laterality Modality Abdomen, Pelvis Computed Tomogra phy 12/08/2011 1:05 PM EST Impressions 12/09/2011 8:22 AM EST IMPRESSION: 1. No evidence of osseous or jaqui metastasis. ?? 2. Circumferential bladder wall thickening, which could be related to chronic outlet obstruction with slight asymmetry at the anterolateral left bladder wall and surrounding inflammatory change. Cystitis cannot be entirely excluded. Please correlate with urinary studies. ?? Film and interpretation reviewed by the attending Narrative 12/09/2011 8:[address] OF THE ABDOMEN AND PELVIS WITH CONTRAST: HISTORY: ??Newly diagnosed prostate cancer. ?? COMPARISON: ??None. ?? TECHNIQUE: ??Contiguous axial images of the abdomen and pelvis were performed after the administration of enteric and intravenous contrast with a standard protocol. 110 cc of Omnipaque-350 was administered. ?? CONTRAST: ??110 cc of Omnipaque-350. FINDINGS: ABDOMEN: ??The lung bases are clear. ?? The liver is not enlarged. The liver contour is smooth. There is a subcentimeter hypoattenuating lesion in the anterior segment right lobe of the liver (Segment VIII), which is too small to definitively characterize. No other hepatic masses identified. There is no intrahepatic or extrahepatic biliary ductal dilatation. The portal and hepatic veins enhance unremarkably. ?? The spleen, gallbladder, pancreas, and adrenal glands all appear unremarkable. ?? The kidneys enhance symmetrically without evidence of hydronephrosis. There is a 3.1 cm cyst in the interpolar left kidney. A smaller hypoattenuating lesion lateral interpolar left kidney is too small to definitively characterize, but likely represents a cyst. ?? No pathologically enlarged abdominal lymph nodes are seen. ?? There is no abdominal aortic aneurysm. ?? There is no ascites, abnormal fluid collection, or pneumoperitoneum. ?? PELVIS: ??There is minimal circumferential bladder wall thickening, which appears slightly asymmetric at the anterolateral left bladder wall. There is also minimal surrounding perivesicular inflammatory change. These findings are nonspecific, but could be related to underlying cystitis. The seminal vesicles are symmetric. The prostate appears enlarged. ?? No pathologically enlarged pelvic lymph nodes are identified. There is no free pelvic fluid. ?? MUSCULOSKELETAL: ??No suspicious lytic or blastic lesion is identified. Degenerative disc disease is seen, worst at L5-S1. ?? Procedure Note Hardik Jimenez MD - 12/09/2011 CT OF THE ABDOMEN AND PELVIS WITH CONTRAST: HISTORY: Newly diagnosed prostate cancer. COMPARISON: None. TECHNIQUE: Contiguous axial images of the abdomen and pelvis wereperformed after the administration of enteric and intravenous contrast with astandard protocol. 110 cc of Omnipaque-350 was administered. CONTRAST: 110 cc of Omnipaque-350. FINDINGS: ABDOMEN: The lung bases are clear. The liver is not enlarged. The liver contour is smooth. There is a subcentimeter hypoattenuating lesion in the anterior segment right lobe ofthe liver (Segment VIII), which is too small to definitively characterize. Noother hepatic masses identified. There is no intrahepatic or extrahepaticbiliary ductal dilatation. The portal and hepatic veins enhance unremarkably. The spleen, gallbladder, pancreas, and adrenal glands all appearunremarkable. The kidneys enhance symmetrically without evidence of hydronephrosis.There is a 3.1 cm cyst in the interpolar left kidney. A smaller hypoattenuatinglesion lateral interpolar left kidney is too small to definitively characterize,but likely represents a cyst. No pathologically enlarged abdominal lymph nodes are seen. There is no abdominal aortic aneurysm. There is no ascites, abnormal fluid collection, or pneumoperitoneum. PELVIS: There is minimal circumferential bladder wall thickening, which appears slightly asymmetric at the anterolateral left bladder wall. Thereis also minimal surrounding perivesicular inflammatory change. These findingsare nonspecific, but could be related to underlying cystitis. The seminalvesicles are symmetric. The prostate appears enlarged. No pathologically enlarged pelvic lymph nodes are identified. There is nofree pelvic fluid. MUSCULOSKELETAL: No suspicious lytic or blastic lesion is identified. Degenerative disc disease is seen, worst at L5-S1. IMPRESSION IMPRESSION: 1. No evidence of osseous or jaqui metastasis. 2. Circumferential bladder wall thickening, which could be related tochronic outlet obstruction with slight asymmetry at the anterolateral left bladderwall and surrounding inflammatory change. Cystitis cannot be entirely excluded. Please correlate with urinary studies. Film and interpretation reviewed by the attending Kamlesh Nunez MD IMG CT ORDERABLES documented in this encounter Visit Diagnoses Diagnosis Prostate cancer- Primary Malignant neoplasm of prostate Prostate cancer Malignant neoplasm of prostate documented in this encounter Care Teams Hospital Sales Representative Relationship Specialty Start Date End Date Brady Christensen MD [address] [place] [address] PCP - General 11/08/11 07/27/17 documented as of this encounter
--- OUTSIDE RECORDS SUMMARY | 2024-05-14 03:42 | XMS_ITS | Encounter Summary ---
Author Organization [facility] Address [facility] [place] [address] Care Team Providers Care Cafeteria Clerk Name Role Phone Brady Christensen MD Primary Care Provider [phone] Reason for Visit * Reason Comments Radiation Treatment Encounter Details Date Type Department Care Team (Late st Contact Info) Description 04/18/2012 7:45 AM EDT Office Visit Radiation Oncology at [address] [phone] Luis Fernando Gamez MD [facility] [place] [address] Prostate ca (Primary Dx) Discharge Disposition: Home Social History Tobacco Use Types Packs/Day Years Used Date Smoking Tobacco: Never Sex and Gender Information Value Date Recorded Sex Assigned at Not on file Gender Identity Not on file Sexual Orientation Not on file documented as of this encounter Progress Notes * Luis Fernando Gamez MD - 04/18/2012 4:40 PM EDT COMPLETION OF RADIATION TREATMENT: : DATE:04/18/2012 PATIENT STATUS: Prostate: GS=3+4=10, PSA=6.5, [id number] . TREATMENT SUMMERY; Site Technique Dose/ Fraction Fraction Number MeV p e TOTAL DOSE Treatment Dates PTV 1 IMRT 180 25 p 4500 14 to 03/20/12 PTV 2 IMRT 180 14 P 2520 03/21 to 04/18/12 PTV 2 IMRT 180 5 p 900 04/12 to 04/18/12 FINAL DOSE: 7920: cGy in 44 FX RADIATION TREATMENT IMAGING: matches original approved images END OF TREATMENT EVALUATION: MEDICAL: Denies diarrhea. Increased urinary frequency. Drinking lots of water. No pain. Energy level ok. PHYSICAL: no change. TOXICITY: Increased frequency of urination. Ge 1 tox RESPONSE TO TREATMENT:good MANAGEMENT PLAN: RTC 4 MO Note to attendings Discussion time with patient (face to face)10 min. documented in this encounter Plan of Treatment Upcoming Encounters Date Type Department Care Team (Late st Contact Info) Description 05/22/2024 1:00 PM EDT Office Visit Hematology/Oncology at [address] [phone] Iris Nguyen [facility] [place] [address] 05/22/2024 1:30 PM EDT Infusion Hematology Oncology at [address] [phone] documented as of this encounter Visit Diagnoses Diagnosis Prostate CA- Primary Malignant neoplasm of prostate documented in this encounter Care Teams Cafeteria Clerk Relationship Specialty Start Date End Date Brady Christensen MD [address] [place] [address] PCP - General 11/08/11 07/27/17 documented as of this encounter
--- OUTSIDE RECORDS SUMMARY | 2024-05-14 03:42 | XMS_ITS | Encounter Summary ---
[facility] Organization [facility] [place] [address] Care Team Providers Care Test Engineering Manager Name Role Phone Brady Christensen MD Primary Care Provider [phone] Reason for Visit * Reason Comments Radiation Follow-up prostate cancer Encounter Details Date Type Department Care Team (Late st Contact Info) Description 08/10/2012 9:00 AM EST Follow-Up Radiation Oncology at [address] [phone] Cherise Tuttle APRN [address] [place] [address] [place] [address] Prostate cancer (Primary Dx) Discharge Disposition: Home Social History Tobacco Use Types Packs/Day Years Used Date Smoking Tobacco: Never Sex and Gender Information Value Date Recorded Sex Assigned at Not on file Gender Identity Not on file Sexual Orientation Not on file documented as of this encounter Last Filed Vital Signs Vital Sign Reading Time Taken Comments Blood Pressure 147/86 08/10/2012 9:41 AM EST Pulse 109 08/10/2012 8:53 AM EST Temperature 36.8 ??C (98.2 ??F) 08/10/2012 8:53 AM ES T Respiratory Rate 16 08/10/2012 8:53 AM EST Oxygen Saturation 99% 08/10/2012 8:53 AM EST Inhaled Oxygen Concentration - - Weight 84.4 kg (186 lb) 08/10/2012 8:53 AM EST Height - - Body Mass Index - - documented in this encounter Patient Instructions * Patient Instructions* Cherise Tuttle APRN - 08/10/2012 9:21 AM EST Mr Joaquin you are doing very well.with a PSA today of 1.67 which is excellent. Your exam was also fine. Continue to check your B/P at home. Date PSA testosterone 08/07/2012--first after treatment psa 1.67 10/26/2011--before treatment 6.5 03/19/2011 5.83 02/16/2010 5.57 08/29/2009 5.1 What we will be looking for in the future is your janey number which is your lowest PSA. It sometimes takes a couple years to get to it. What we don't want is a rapid rise of 2.0 over your lowest PSA after you have been treated. documented in this encounter Progress Notes * Cherise Tuttle APRN - 08/10/2012 9:09 AM EST Identification: Mr Joaquin is a 67 year old man who was treated with radiation therapy for prostate cancer. He completed external beam radiation on 04/18/2012 and is in clinic for his first follow up. HPI Mr Joaquin had his [...] was followed by TRUS biopsy which demonstrated Montezuma 3+4 involving 10% the right base core. The right lateral base had adenocarcinoma Montezuma 3+4 with 10% of this core. The left lateral apex had adenocarcinoma 3+3 involving 5% of the core. The remaining nine cores demonstrated benign prostatic tissue. After consultation with Dr Kamlesh Nunez, Mr Joaquin elected to be treated with external beam radiation therapy with care that was delivered at the [facility] in [facility] .He was treated to a total dose of 7920 cGy which was completed on 04/18/2012. TREATMENT SUMMERY; Site Technique Dose/ Fraction Fraction Number MeV p e TOTAL DOSE Treatment Dates PTV 1 IMRT 180 25 p 4500 05/14 to 03/20/12 PTV 2 IMRT 180 14 P 2520 03/21 to 04/18/12 PTV 2 IMRT 180 5 p 900 04/12 to 04/18/12 FINAL DOSE: 7920: cGy in 44 FX PMH: Past Medical History Diagnosis Date ??? Anxiety ??? Prostate cancer PSH: none Family history: No history of malignancy, kidney stones, no bleeding disorders or trouble with anesthesia in the past. Mother with Alzheimer's. Patient was adopted by his stepfather. One biological brother, no known prostate issues. Social History: Never smoker. No EtOH. 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 , two daughters and three grandchildren. No Known Allergies Current outpatient prescriptions ordered prior to encounter Medication Sig Dispense Refill ??? multivitamin (THERAGRAN) tablet Take 1 tablet by mouth daily. ??? UNABLE TO FIND Med Name: red yeast rice ??? [place]-3 Fatty Acids (FISH OIL) 300 mg Cap Take by mouth. Interim History: Mr Joaquin reports that he was not able to sleep last night. He was very anxious toget the result of his first post treatment PSA. He reports that he is doing very well. 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 He denies any urinary issues. His IPSS score is 1. He denies dysuria, hematuria and incontinence. International Prostate Symptom Score Total Score__1__ 0 [...] diarrhea, no constipation, no abdominal discomfort. He does report occ rectal tenderness. He is not sexually active. Review of Systems Constitutional: Negative for activity change, appetite change, fatigue and unexpected weight change. Still working parts remover--appliance repair No pain HENT: Negative. Eyes: Negative. Respiratory: Negative. Negative for cough, chest tightness and shortness of breath. Cardiovascular: Negative. Negative for chest pain and leg swelling. Gastrointestinal: Negative. Negative for abdominal pain, diarrhea, constipation, blood in stool, abdominal distention and anal bleeding. Bowels move daily-no blood occ tenderness rectum Genitourinary: Negative. Negative for dysuria, urgency, frequency, hematuria, decreased urine volume and difficulty urinating. Not sexually active See interim history Musculoskeletal: Negative. Negative for back pain and arthralgias. Occasional low back pain --not persistent Skin: Negative. Neurological: Negative. Negative for dizziness, weakness and headaches. Hematological: Negative. Psychiatric/Behavioral: The patient is nervous/anxious. Anxiety before medical appointments is not new for patient Filed Vitals: 08/10/12 0853 08/10/12 0941 BP: 151/109 147/86 Pulse: 109 Temp: 36.8 ??C (98.2 ??F) TempSrc: Oral Resp: 16 Weight: 84.369 kg (186 lb) SpO2: 99% Physical Exam Vitals reviewed. Constitutional: He is oriented to person, place, and time. He appears well- developed and well-nourished. No distress. HENT: Head: Normocephalic and atraumatic. Eyes: Conjunctivae and EOM are normal. No scleral icterus. Neck: Neck supple. Cardiovascular: Normal rate, regular rhythm and normal heart sounds. Exam reveals no gallop and no friction rub. No murmur heard. Pulmonary/Chest: Effort normal and breath sounds normal. No respiratory distress. He has no wheezes. He has no rales. He exhibits no tenderness. Abdominal: Soft. Bowel sounds are normal. He exhibits no distension and no mass. No tenderness. He has no rebound and no guarding. Genitourinary: Rectum normal and prostate normal. Guaiac negative stool. Rectal: Good sphincter tone, No masses, no tenderness, prostate smooth with no induration. Musculoskeletal: Normal range of motion. He exhibits no edema and no tenderness. Lymphadenopathy: Head (right side): No submental, [...] and time. He exhibits normal muscle tone. Skin: Skin is warm and dry. No rash noted. He is not diaphoretic. No erythema. No pallor. Psychiatric: He has a normal mood and affect. His behavior is normal. Judgment and thought content normal. Date PSA 08/07/2012--first after treatment PSA 1.67 10/26/2011--before treatment 6.5 03/19/2011 5.83 02/16/2010 5.57 08/29/2009 5.1 Assessment Plan: Adenocarcinoma of the prostate; Mr Joaquin is doing well with a very good response to treatment witha decreasing PSA and BOB. We reviewed late effects of radiation therapy to the pelvis including risk for radiation cystitis and radiation proctitis. He is encouraged to keep well hydrated and we reviewed bowel care. We reviewed signs and symptoms he needs to report including blood in his urine or stool, problems with urinary flow or new persistent pain. We reviewed the NCCN recommended post treatment surveillance and we will plan to see him again in three months for a repeat PSA and clinical evaluation. All of his questions were answered. documented in this encounter Procedure Notes * Provider, Scanning - 11/09/2012 6:06 AM ESTAssociated Order(s): SCAN DOC: LAB documented in this encounter Plan of Treatment Upcoming Encounters Date Type Department Care Team (Late st Contact Info) Description 05/22/2024 1:00 PM EDT Office Visit Hematology/Oncology at [address] [phone] Iris Nguyen APRN [facility] [place] [address] 05/22/2024 1:30 PM EDT Infusion Hematology Oncology at [address] [phone] documented as of this encounter Procedures Procedure Name Priority Date/Time Associated Diagnosis Comments LAB SCAN 11/09/2012 6:06 AM EST documented in this encounter Results * SCAN DOC: LAB (11/09/2012 6:06 AM EST) Narrative Transcriptions Provider, Scanning - 11/09/2012 6:06 AM EST Scanning Provider MEDIA MGR SCAN EXT O RDR/RSLT documented in this encounter Visit Diagnoses Diagnosis Prostate cancer- Primary Malignant neoplasm of prostate documented in this encounter Care Teams Test Engineering Manager Relationship Specialty Start Date End Date Brady Christensen MD [address] [place] [address] PCP - General 11/08/11 07/27/17 documented as of this encounter
--- OUTSIDE RECORDS SUMMARY | 2024-05-14 03:42 | XMS_ITS | Encounter Summary ---
Author Organization [facility] [place] [address] Care Team Providers Care Electoral Officer Name Role Phone Brady Christensen MD Primary Care Provider [phone] Encounter Details Date Type Department Care Team (Late st Contact Info) Description 05/10/2013 1:30 PM EDT Follow-Up Hematology Oncology at [address] [phone] Christi Potter APRN [facility] [place] [address] Prostate cancer (Primary Dx) Discharge Disposition: Home Social History Tobacco Use Types Packs/Day Years Used Date Smoking Tobacco: Never Sex and Gender Information Value Date Recorded Sex Assigned at Not on file Gender Identity Not on file Sexual Orientation Not on file documented as of this encounter Last Filed Vital Signs Vital Sign Reading Time Taken Comments Blood Pressure 161/94 05/10/2013 1:08 PM EDT Pulse 98 05/10/2013 1:08 PM EDT Temperature 36.8 ??C (98.2 ??F) 05/10/2013 1:08 PM ED T Respiratory Rate 18 05/10/2013 1:08 PM EDT Oxygen Saturation 98% 05/10/2013 1:08 PM EDT Inhaled Oxygen Concentration - - Weight 83.9 kg (185 lb) 05/10/2013 1:08 PM EDT Height - - Body Mass Index - - documented in this encounter Progress Notes * Christi Potter APRN - 05/10/2013 2:21 PM EDT Identification: Mr Joaquin is a 67 year old man who was treated with radiation therapy for prostate cancer. He completed external beam radiation on 04/18/2012 and is in clinic for routine followup. HPI Mr Joaquin had his PSA monitored as part of yearly screening with the pattern noted below. Due PSA elevation he was referred to Dr Luis Fernando Garcia who saw patient on 11/08/2011 at [facility]. An ultrasound was done which demonstrated a prostate volume of 29.1 cc with no hypoechoic areas. This was followed by TRUS biopsy which demonstrated Fur[place] 3+4 involving 10% the right base core. [...] delivered at the [facility] in [facility] .He was treated to a total [...] Social History: Never smoker. No EtOH. 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 , two daughters and three grandchildren. No Known Allergies Current Outpatient Prescriptions on File Prior to Visit Medication Sig Dispense Refill ??? Vitamin A-Vitamin C-Vit E-Min (OCUVITE) Tab Take by mouth. ??? multivitamin (THERAGRAN) tablet Take 1 tablet by mouth daily. ??? UNABLE TO FIND Med Name: red yeast rice ??? [place]-3 Fatty Acids (FISH OIL) 300 mg Cap Take by mouth. Advance Directive: Not on file Interim History: Mr Joaquin reports that he is doing well but does get very anxious prior to appointments. His B/P is elevated. He does indicate that he checks it at home and that it is in the normal range 130/80 range He reports that he is doing very well. 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 He does report concerns related to his mother. She is living in her own home but is increasingly forgetful and argumentative. She is also having some visual changes. He and his brother are trying to provide some care to her but are looking for help. He denies any urinary issues. His IPSS [...] no abdominal discomfort. He has occasional bowel urgency.. He is not sexually active. Review of Systems Constitutional: Negative for activity change, appetite change, fatigue and unexpected weight change. 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 Eyes: Negative. Respiratory: Negative. Negative for cough, chest tightness and shortness of breath. Cardiovascular: Negative. Negative for chest pain and leg swelling. Gastrointestinal: Negative. Negative for abdominal pain, diarrhea, constipation, blood in stool, abdominal distention and anal bleeding. Bowels move daily-no blood occ bowel urgency Genitourinary: Negative. Negative for dysuria, urgency, frequency, hematuria, decreased urine volume and difficulty urinating. Not sexually active See interim history Musculoskeletal: Negative. Negative for back pain and arthralgias. Occasional low back pain --not persistent Skin: He is concerned about a skin change below his left eye that has been present for two years . He is agreeable to a referral to dermatology. This has not happened yet. I will reorder it. Neurological: Negative. Negative for dizziness, weakness and headaches. Hematological: Negative. Psychiatric/Behavioral: The patient is nervous/anxious. Anxiety before medical appointments is not new for patient Filed Vitals: 05/10/13 1308 BP: 161/94 Pulse: 98 Temp: 36.8 ??C (98.2 ??F) TempSrc: Oral Resp: 18 Weight: 83.915 kg (185 lb) SpO2: 98% Karnofsky: 90 IPSS : 1 CINTHYA: 1--patient is not sexually active. Physical Exam Vitals reviewed. Constitutional: He is oriented to person, place, and time. He appears well- developed and well-nourished. No distress. HENT: Head: Normocephalic and atraumatic. Eyes: Conjunctivae normal and EOM are normal. No scleral icterus. Neck: Neck supple. Cardiovascular: Normal rate, regular rhythm and normal heart sounds. No murmur heard. Pulmonary/Chest: Effort normal and breath sounds normal. No respiratory distress. He has no wheezes. He has no rales. He exhibits no tenderness. Abdominal: Soft. Bowel sounds are normal. He exhibits no distension and no mass. There is no hepatomegaly. There is no tenderness. There is no rebound, no guarding and no CVA tenderness. Genitourinary: Rectum normal and prostate normal. Guaiac negative stool. Rectal: Good sphincter tone, No masses, no tenderness, prostate smooth with no induration. Guiac negative. Musculoskeletal: Normal range of motion. He exhibits no edema and no tenderness. Lymphadenopathy: Right: No inguinal and no supraclavicular adenopathy present. Left: No inguinal and no supraclavicular adenopathy present. Neurological: He is alert and oriented to person, place, and time. He exhibits normal muscle tone. Skin: Skin is warm and dry. No rash noted. He is not diaphoretic. No erythema. No pallor. Sun damaged skin with erythematous plaque under left eye Psychiatric: He has a normal mood and affect. His behavior is normal. Judgment and thought content normal. Date PSA 04/30/2013 1.0 02/22/2013 1.50 11/09/2012 0.79 08/07/2012--first after treatment PSA 1.67 10/26/2011--before treatment 6.5 03/19/2011 5.83 02/16/2010 5.57 08/29/2009 5.1 Assessment Plan: Adenocarcinoma of the prostate; Mr Joaquin PSA is lower today. He is now 1 yr from treatment. Clinically there is no evidence of disease. We will repeat his PSA in three months and see him for clinical evaluation. Bowel urgency : Recommended use of metamucil 1 tsp daily to help with bowel control Caregiver stress due to mother with Alzheimer's disease: support provided- he continues to deal with these issues. His brother is helping. She is becoming more argumentative. Skin changes: referral to Dr Foster.I asked the secretaries again to schedule this appointment for him. Mr Joaquin is to call if he has any questions or concerns. documented in this encounter Procedure Notes * Provider, Scanning - 08/06/2013 3:07 PM ESTAssociated Order(s): SCAN DOC: LAB documented in this encounter Plan of Treatment Upcoming Encounters Date Type Department Care Team (Late st Contact Info) Description 05/22/2024 1:00 PM EDT Office Visit Hematology/Oncology at [address] [phone] Iris Nguyen APRN [facility] [place] [address] 05/22/2024 1:30 PM EDT Infusion Hematology Oncology at [address] [phone] documented as of this encounter Procedures Procedure Name Priority Date/Time Associated Diagnosis Comments LAB SCAN 08/06/2013 3:07 PM EST documented in this encounter Results * SCAN DOC: LAB (08/06/2013 3:07 PM EST) Narrative 08/06/2013 3:07 PM EST Procedure Note Provider, Scanning - 08/06/2013 3:07 PM EST Scanning Provider MEDIA MGR SCAN EXT O RDR/RSLT documented in this encounter Visit Diagnoses Diagnosis Prostate cancer- Primary Malignant neoplasm of prostate documented in this encounter Care Teams Electoral Officer Relationship Specialty Start Date End Date Brady Christensen MD [address] [place] [address] PCP - General 11/08/11 07/27/17 documented as of this encounter
--- OUTSIDE RECORDS SUMMARY | 2024-05-14 03:42 | XMS_ITS | Encounter Summary ---
Author Organization [facility] [place] [address] Care Team Providers Care Systems Analysis Manager Name Role Phone Brady Christensen MD Primary Care Provider [phone] Reason for Visit * Reason Comments Radiation Treatment Encounter Details Date Type Department Care Team (Late st Contact Info) Description 02/23/2012 8:15 AM EDT Follow-Up Radiation Oncology at [address] [phone] Luis Fernando Gamez MD [facility] DR [place] [address] Prostate cancer (Primary Dx) Discharge Disposition: Home Social History Tobacco Use Types Packs/Day Years Used Date Smoking Tobacco: Never Sex and Gender Information Value Date Recorded Sex Assigned at Not on file Gender Identity Not on file Sexual Orientation Not on file documented as of this encounter Last Filed Vital Signs Vital Sign Reading Time Taken Comments Blood Pressure 156/95 02/23/2012 8:39 AM EDT Pulse 77 02/23/2012 8:39 AM EDT Temperature 36.6 ??C (97.9 ??F) 02/23/2012 8:39 AM ED T Respiratory Rate 16 02/23/2012 8:39 AM EDT Oxygen Saturation 97% 02/23/2012 8:39 AM EDT Inhaled Oxygen Concentration - - Weight 82.6 kg (182 lb) 02/23/2012 8:39 AM EDT Height - - Body Mass Index - - documented in this encounter Progress Notes * Luis Fernando Gamez MD - 02/23/2012 11:29 AM EDT TREATMENT VISIT: DATE:02/23/2012 PATIENT STATUS: Prostate: GS=3+4=7/10, PSA=6.5, [id number] . TREATMENT PLAN: RADIATION ; Site Technique Dose/ Fraction Fraction Number MeV p e TOTAL DOSE Treatment Dates PTV 1 IMRT 180 25 p 4500 02/13 to DOSE to DATE:1440 cGy in 8 FX RADIATION TREATMENT IMAGING: matches original approved [...] PM EDT Office Visit Hematology/Oncology at [address] [phone] Iris Nguyen [facility] [place] [address] 05/22/2024 1:30 PM EDT Infusion Hematology Oncology at [address] [phone] documented as of this encounter Visit Diagnoses Diagnosis Prostate cancer- Primary Malignant neoplasm of prostate documented in this encounter Care Teams Systems Analysis Manager Relationship Specialty Start Date End Date rBady Christensen MD [address] [place] [address] PCP - General 11/08/11 07/27/17 documented as of this encounter
--- OUTSIDE RECORDS SUMMARY | 2024-05-14 03:42 | XMS_ITS | Encounter Summary ---
Author Organization [facility] [place] [address] Care Team Providers Care Hand Former Name Role Phone Brady Christensen MD Primary Care Provider [phone] Reason for Visit * Reason Comments Radiation Treatment Encounter Details Date Type Department Care Team (Late st Contact Info) Description 03/07/2012 8:00 AM EDT Follow-Up Radiation Oncology at [address] [phone] Suly Guzman MD [facility] [place] [address] Malignant neoplasm of prostate (Primary Dx) Discharge Disposition: Home Social History Tobacco Use Types Packs/Day Years Used Date Smoking Tobacco: Never Sex and Gender Information Value Date Recorded Sex Assigned at Not on file Gender Identity Not on file Sexual Orientation Not on file documented as of this encounter Patient Instructions * Patient Instructions* Suly Guzman MD - 03/07/2012 8:04 AM EDT Continue as you have been. If you develop diarrhea, cut back on fresh fruits & vegetables, greasy foods & foods with alot of fiber/bran. documented in this encounter Progress Notes * Suly Guzman MD - 03/07/2012 7:57 AM EDT TREATMENT VISIT: DATE: PATIENT STATUS: Prostate: GS=3+4=7/10, PSA=6.5, [id number] . TREATMENT PLAN: RADIATION ; Site Technique Dose/ Fraction Fraction Number MeV p e TOTAL DOSE Treatment Dates PTV 1 IMRT 180 25 p 4500 02/13 to DOSE to DATE:2880 cGy in 16 FX RADIATION TREATMENT IMAGING: matches original approved images ON TREATMENT EVALUATION: MEDICAL: Bowel movements smaller & more frequent, but denies diarrhea. Increased urinary frequency. No dysuria. Drinking lots of water. PHYSICAL: A&Ox3, in NAD. Amb stable. AIDS: LABS: TOXICITY: Increased frequency of bowel movement & urination. RESPONSE TO TREATMENT:good MANAGEMENT PLAN: CONTINUE TREATMENT PLANNED: XX CHANGE TREATMENT HOLD TREATMENT STOP TREATMENT Discussion time with patient (face to face)10 min. documented in this encounter Plan of Treatment Upcoming Encounters Date Type Department Care Team (Late st Contact Info) Description 05/22/2024 1:00 PM EDT Office Visit Hematology/Oncology at [address] [phone] Iris Nguyen APRN [facility] [place] [address] 05/22/2024 1:30 PM EDT Infusion Hematology Oncology at [address] [phone] documented as of this encounter Visit Diagnoses Diagnosis Malignant neoplasm of prostate- Primary documented in this encounter Care Teams Hand Former Relationship Specialty Start Date End Date Brady Christensen MD [address] [place] [address] PCP - General 11/08/11 07/27/17 documented as of this encounter
--- OUTSIDE RECORDS SUMMARY | 2024-05-14 03:42 | XMS_ITS | Encounter Summary ---
Author Organization [facility] [place] [address] Care Team Providers Care Pin Drafting Machine Tender Name Role Phone Brady Christensen MD Primary Care Provider [phone] Encounter Details Date Type Department Care Team (Late Contact Info) Description 12/13/2011 Telephone [place] [phone] Mela Mckeon, RN Social History Tobacco Use Types Packs/Day Years Used Date Smoking Tobacco: Never Sex and Gender Information Value Date Recorded Sex Assigned at Not on file Gender Identity Not on file Sexual Orientation Not on file documented as of this encounter Miscellaneous Notes * Telephone Encounter - Mela Mckeon, RN - 12/13/2011 4:16 PM EDT I spoke with Mr Joaquin re his tx. He is interested in getting radiation tx but does not want to have hormones. He does not want to do the research program. documented in this encounter Plan of Treatment Upcoming Encounters Date Type Department Care Team (Late Contact Info) Description 05/22/2024 1:00 PM EDT Office Visit Hematology/Oncology at [address] [phone] Iris Nguyen APRN [facility] [place] [address] 05/22/2024 1:30 PM EDT Infusion Hematology Oncology at [address] [phone] documented as of this encounter Visit Diagnoses Not on filedocumented in this encounter Care Teams Pin Drafting Machine Tender Relationship Specialty Start Date End Date Brady Christensen MD [address] [place] [address] PCP - General 11/08/11 07/27/17 documented as of this encounter
--- OUTSIDE RECORDS SUMMARY | 2024-05-14 03:42 | XMS_ITS | Encounter Summary ---
Author Organization [facility] [place] [address] Care Team Providers Care Creative Services Director Name Role Phone Brady Christensen MD Primary Care Provider [phone] Encounter Details Date Type Department Care Team (Late st Contact Info) Description 11/08/2011 11:06 AM EST - 11/08/2011 11:59 PM EST Hospital En[place] [phone] Elevated PSA Social History Tobacco Use Types Packs/Day Years [...] PM EDT Office Visit Hematology/Oncology at [address] [phone] Iris Nguyen APRN [facility] [place] [address] 05/22/2024 1:30 PM EDT Infusion Hematology Oncology at [address] [phone] documented as of this encounter Procedures Procedure Name Priority Date/Time Associated Diagnosis Comments SURGICAL PATHOLOGY REPORT Routine 11/08/2011 1:03 PM EST US GUIDED BIOPSY PROSTATE ([place] ONLY) Routine 11/08/2011 12:21 PM EST Elevated PSA documented in this encounter Results * SURGICAL PATHOLOGY REPORT (11/08/2011 1:03 PM EST) Surgical Pathology Report ? [facility] ? Provider: ?? ANILA GARCIA ?Pt. Name: ?? BRENTON JOAQUIN ? Acc #: ?[id number] ?Pt. ? Col Date: ?? 11/08/2011 ?/Sex: ?1945,(66 years),Male ? Rec Date: ?? 11/08/2011 ?LOC: ?3K ? SURGICAL PATHOLOGY ? ---Pathologic Diagnosis--- ? A - Prostatic core needle biopsy, right base: ? Adenocarcinoma, [place] grade 3+4, involving approximately 10% of the ? single bio spy core. ? B - Prostatic core needle biopsy, right mid: ? Benign prostatic tissue. ? C - Prostatic core needle biopsy, right apex: ? Benign prostatic tissue. ? D - Prostatic core needle biopsy, right lateral base: ? Adenocarcinoma, [place] grade 3+4, involving approximately 10% of the ? single biopsy core. ? E - Prostatic core needle biopsy, right lateral mid: ? Benign prostatic tissue. ? F - Prostatic core needle biopsy, right lateral apex: ? Benign prostatic tissue. ? G - Prostatic core needle biopsy, left base: ? Benign prostatic tissue. ? H - Prostatic core needle biopsy, left mid: ? Benign prostatic tissue. ? I - Prostatic core needle biopsy, left apex: ? Benign prostatic tissue. ? J - Prostatic core needle biopsy, left lateral base: ? Benign prostatic tissue. ? K - Prostatic core needle biopsy, left lateral mid: ? Benign prostatic tissue. ? L - Prostatic core needle biopsy, left lateral apex: ? Adenocarcinoma, [place] grade 3+3, involving approximately 5% of the ? single biopsy core. ? [facility] ? Provider: ?? ANILA GARCIA ?Pt. Name: ?? BRENTON JOAQUIN ? Acc #: ?[id number] ?Pt. ? Col Date: ?? 11/08/2011 ?/Sex: ?1945,(66 years),Male ? Rec Date: ?? 11/08/2011 ?LOC: ?3K ? SURGICAL PATHOLOGY ? CR-0 ? 11/09/11 ? BJM ? 11/09/11 Verified by: ? Kamlesh Gonzalez MD ? Pathologist ? (Electronic Signature) ? The attending pathologist whose signature appears on this report has ? reviewed all diagnostic slides and has edited the gross and/or ? microscopic portion of the report in rendering the final pathologic ? diagnosis. ? ---Microscopic Description--- ? Slides reviewed, microscopic description not recorded. ? ---Gross Description--- ? A - Labeled/Fixative: Right base prostate, formalin. ? Qty/Size/Weight: ?Single soliman-white needle core biopsy, 1.4 x 0.1 cm. ? Sections/Processi ng: ??(T1) ? B - Labeled/Fixative: Right mid prostate, formalin. ? Qty/Size/Weight: ?Single soliman-white needle core biopsy, 1.5 x 0.1 cm. ? Sections/Processi ng: ??(T1) ? C - Labeled/Fixative: Right apex prostate, formalin. ? Qty/Size/Weight: ?Single soliman-white needle core biopsy, 0.9 x 0.1 cm. ? Sections/Processi ng: ??(T1) ? D - Labeled/Fixative: Right lateral base prostate, formalin. ? Qty/Size/Weight: ?Single soliman-white needle core biopsy, 1.8 x 0.1 cm. ? Sections/Processi ng: ??(T1) ? E - Labeled/Fixative: Right lateral mid prostate, formalin. ? Qty/Size/Weight: ?Single soliman-white needle core biopsy, 1.5 x 0.1 cm. ? Sections/Processi ng: ??(T1) ? F - Labeled/Fixative: Right lateral apex prostate, formalin. ? Qty/Size/Weight: ?Single soliman-white needle core biopsy, 1.2 x 0.1 cm. ? Sections/Processi ng: ??(T1) ? G - Labeled/Fixative: Left base prostate, formalin. ? Qty/Size/Weight: ?Single soliman-white needle core biopsy, 1.9 x 0.1 cm. ? Sections/Processi ng: ??(T1) ? [facility] ? Provider: ?? ANILA GARCIA ?Pt. Name: ?? JOAQUIN BRENTON Weller ? Acc #: ?[id number] ?Pt. ? Col Date: ?? 11/08/2011 ?/Sex: ?1945,(66 years),Male ? Rec Date: ?? 11/08/2011 ?LOC: ?3K ? SURGICAL PATHOLOGY ? H - Labeled/Fixative: Left mid prostate, formalin. ? Qty/Size/Weight: ?Single soliman-white needle core biopsy, 1.7 x 0.1 cm. ? Sections/Processi ng: ??(T1) ? I - Labeled/Fixative: Left apex prostate, formalin. ? Qty/Size/Weight: ?Single soliman-white needle core biopsy, 1.7 x 0.1 cm. ? Sections/Processi ng: ??(T1) ? J - Labeled/Fixative: Left lateral base prostate, formalin. ? Qty/Size/Weight: ?Single soliman-white needle core biopsy, 1.5 x 0.1 cm. ? Also submitted is a smaller, wispy fragment of ? soliman-white soft tissue, 0.9 x less than 0.1 cm. ? Sections/Processi ng: ??(T1) ? K - Labeled/Fixative: Left lateral mid prostate, formalin. ? Qty/Size/Weight: ?Two soliman-white needle core biopsies, 0.6 x 0.1 cm ? and 0.8 x 0.1 cm. ? Sections/Processi ng: ??(T1) ? L - Labeled/Fixative: Left lateral apex prostate, formalin. ? Qty/Size/Weight: ?Single soliman-white needle core biopsy, 1.7 x 0.1 cm. ? Sections/Processi ng: ??(T1) ??vms/PPS ? ---Clinical Information--- ? Specimen Submitted: ? Prostate ? A - Right base ? B - Right mid ? C - Right apex ? D - Right lateral base ? E - Right lateral mid ? F - Right lateral apex ? G - Left base ? H - Left mid ? I - Left apex ? J - Left lateral base ? K - Left lateral mid ? L - Left lateral apex ? Clinical History/Diagnosis : ? Dx elevated PSA JOSE MARTIN CASTORENA 11/08/2011 1:03 PM EST Anila Garcia MD PATHOLOGY/CYTOLOGY O RDERABLES Performing Organization Address City/State/[facility] Co de Phone Number JOSE MARTIN CASTORENA * US guided transrectal biopsy (11/08/2011 12:21 PM EST) Anatomical Region Laterality Modality Pelvis Ultrasound 11/08/2011 12:2 1 PM EST Narrative 11/08/2011 12:25 PM EST ?Male Pelvis ? (Signed Final 11/08/2011 12:24 pm) Patient Info ID: ? [id number] ? : ??[birth year] (66 yrs) Name: ? BRENTON JOAQUIN ?Visit Date: 11/08/2011 12:20 pm Performed By Performed By: ?Eden Farmer RDMS Attending: ? Megan STEWARD, Jessica Webster Referred By: ? ANILA GARCIA MD Service(s) Provided UTRBX - Ultrasound - Prostate Biopsy - [id number] ?[id number] Indications Elevated PSA Technique/Scan Quality Technique: ?Transducer #: 12 Comparison None. -------- Prostate -------- Size (cm) ?L: ??4.41 ?AP: ??2.76 ?TV: ??4.57 Vol (ml): ?29.1 Comment: ?No hypoechoic areas seen. Impression Ultrasound - Prostate Ultrasound - Summary Transrectal ultrasound was performed. ??Estimated prostate volume as above. No hypoechoic areas seen Ultrasound - Prostate Biopsy - Summary Ultrasound guidance was provided for Dr. Garcia of the section of Urology who performed a total of 12 prostate biopsies, 6 of the right lobe and 6 of the left lobe, at [facility] clinic location. I ??viewed the images and agree with the above interpretation. Thank you for allowing us to participate in the care of BRENTON JOAQUIN. Please do not hesitate to call if you have any questions. ?Jessica Guzman MD Electronically Signed Final Report ?? 11/08/2011 12:24 pm Procedure Note Jessica Guzman MD - 11/08/2011 Male Pelvis (Signed Final 11/08/2011 12:24 pm) Patient Info ID: [id number] : [birth year] (66 yrs) Name: BRENTON JOAQUIN Visit Date: 11/08/2011 12:20 pm Performed By Performed By: Eden Farmer RDMS Attending: Jessica Guzman MD Referred By: ANILA GARCIA MD Service(s) Provided UTRBX - Ultrasound - Prostate Biopsy - [id number] Indications Elevated PSA Technique/Scan Quality Technique: Transducer #: 12 Comparison None. -------- Prostate -------- Size (cm) L: 4.41 AP: 2.76 TV: 4.57 Vol (ml): 29.1 Comment: No hypoechoic areas seen. Impression Ultrasound - Prostate Ultrasound - Summary Transrectal ultrasound was performed. Estimated prostate volume as above. No hypoechoic areas seen Ultrasound - Prostate Biopsy - Summary Ultrasound guidance was provided for Dr. Garcia of the section of Urology who performed a total of 12 prostate biopsies, 6 of the right lobe and 6 of the left lobe, at [facility] clinic location. I viewed the images and agree with the above interpretation. Thank you for allowing us to participate in the care of BRENTON JOAQUIN. Please do not hesitate to call if you have any questions. Jessica Guzman MD Electronically Signed Final Report 11/08/2011 12:24 pm Anila Garcia MD IMG PROC ORDERABL ES documented in this encounter Visit Diagnoses Diagnosis Elevated PSA Elevated prostate specific antigen (PSA) documented in this encounter Care Teams Creative Services Director Relationship Specialty Start Date End Date Brady Christensen MD [address] [place] [address] PCP - General 11/08/11 07/27/17 documented as of this encounter
--- OUTSIDE RECORDS SUMMARY | 2024-05-14 03:42 | XMS_ITS | Encounter Summary ---
Author Organization [facility] [place] [address] Care Team Providers Care Global Cto Name Role Phone Brady Christensen MD Primary Care Provider [phone] Reason for Visit * Reason Comments Follow-up Encounter Details Date Type Department Care Team (Late st Contact Info) Description 11/28/2013 1:00 PM EST Follow-Up Hematology Oncology at [address] [phone] Christi Potter APRN [facility] [place] [address] Prostate cancer (Primary Dx) Discharge Disposition: Home Social History Tobacco Use Types Packs/Day Years Used Date Smoking Tobacco: Never Sex and Gender Information Value Date Recorded Sex Assigned at Not on file Gender Identity Not on file Sexual Orientation Not on file documented as of this encounter Last Filed Vital Signs Vital Sign Reading Time Taken Comments Blood Pressure 163/89 11/28/2013 12:54 PM EST Pulse - - Temperature 36.4 ??C (97.5 ??F) 11/28/2013 1:41 PM ES T Respiratory Rate 20 11/28/2013 12:54 PM EST Oxygen Saturation - - Inhaled Oxygen Concentration - - Weight 83.9 kg (185 lb) 11/28/2013 12:54 PM EST Height 167.6 cm (5' 6) 11/28/2013 12:54 PM EST Body Mass Index 29.86 11/28/2013 12:54 PM EST documented in this encounter Progress Notes * Christi Potter, AQUATICS INSTRUCTOR - 11/28/2013 1:21 PM EST Identification: Mr Joaquin is a 68 y.o. man who was treated with radiation therapy for prostate cancer. He completed external beam radiation on 04/18/2012 and is in clinic for routine followup. HPI Mr Joauqin had his PSA monitored as part of yearly screening with the pattern noted below. Due PSA elevation he was referred to Dr Luis Fernando Garcia who saw patient on 11/08/2011 at [facility]. An ultrasound was done which demonstrated a prostate volume of 29.1 cc with no hypoechoic areas. This was followed by TRUS biopsy which demonstrated [place] 3+4 involving 10% the right base core. The right lateral base had adenocarcinoma [place] 3+4 with 10% of this core. The left lateral apex had adenocarcinoma 3+3 involving 5% of the core. The remaining nine cores demonstrated benign prostatic tissue. After consultation with Dr Kamlesh Nunez, Mr Joaquin elected to be treated with external beam radiation therapy with care that was delivered at the [facility] in [facility] .He was treated to a total [...] Social History: Never smoker. No EtOH. 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 , two daughters and three grandchildren. No Known Allergies Current Outpatient Prescriptions on File Prior to Visit Medication Sig Dispense Refill ??? Vitamin A-Vitamin C-Vit E-Min (OCUVITE) Tab Take by mouth. ??? multivitamin (THERAGRAN) tablet Take 1 tablet by mouth daily. ??? UNABLE TO FIND Med Name: red yeast rice ??? [place]-3 Fatty Acids (FISH OIL) 300 mg Cap Take by mouth. Advance Directive: Not on file Interim History: Mr Joaquin reports that he is doing well but does get anxious prior to appointments. His B/P is elevated. He does indicate that he checks it at home and that it is in the normal aimdo677/80 range. He is always anxious when he comes to clinic. He reports that he is doing very well. 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 He has been well through the winter so far. He does continue to try and care for his mother who has alzheimers. She is living in her own home but is increasingly forgetful and argumentative. She is also having some visual changes. He feels that she is losing her vision. Her hygiene is not as good as before. He and his brother are trying to provide some care to her but are looking for help. It is hard to get into the house to do housework and other tasks that need to be done. He denies any urinary issues. His IPSS [...] fatigue and unexpected weight change. Still working participant administrator--appliance repair No pain HENT: Negative. Eyes: Negative. [...] Negative. Negative for back pain and arthralgias. Skin: no Neurological: Negative. Negative for dizziness, weakness and headaches. Hematological: Negative. Psychiatric/Behavioral: The patient is nervous/anxious. Anxiety before medical appointments is not new for patient Filed Vitals: 11/28/13 1254 BP: 163/89 Resp: 20 Height: 167.6 cm (5' 6) Weight: 83.915 kg (185 lb) Karnofsky: 90 IPSS : 1 CINTHYA: 1--patient [...] Judgment and thought content normal. Date PSA 11/19/13 0.5 08/03/13 0.7 04/30/2013 1.0 02/22/2013 1.50 11/09/2012 0.79 08/07/2012--first after treatment PSA 1.67 10/26/2011--before treatment 6.5 03/19/2011 5.83 02/16/2010 5.57 08/29/2009 5.1 Assessment Plan: Adenocarcinoma of the prostate; Mr Joaquin PSA is lower today. He is now nearly 19 months from completion of treatment. Clinically there is no evidence of disease. We will repeat his PSA in four months and see him for clinical evaluation. Caregiver stress due to mother with Alzheimer's disease: support provided- he continues to deal with these issues. His brother is helping. She is becoming more argumentative and difficult to handle. She is not able to do grooming as well as before. It is becoming more obvious that she will not be able to be home for too much longer. Mr Joaquin is to call if he has any questions or concerns. documented in this encounter Plan of Treatment Upcoming Encounters Date Type Department Care Team (Late st Contact Info) Description 05/22/2024 1:00 PM EDT Office Visit Hematology/Oncology at [address] [phone] Iris Nguyen APRN [facility] [place] [address] 05/22/2024 1:30 PM EDT Infusion Hematology Oncology at [address] [phone] documented as of this encounter Visit Diagnoses Diagnosis Prostate cancer- Primary Malignant neoplasm of prostate documented in this encounter Care Teams Global Cto Relationship Specialty Start Date End Date Brady Christensen MD [address] [place] [address] PCP - General 11/08/11 07/27/17 documented as of this encounter
--- OUTSIDE RECORDS SUMMARY | 2024-05-14 03:42 | XMS_ITS | Encounter Summary ---
Author Organization [facility] Address [facility] [place] [address] Care Team Providers Care Hospital Pharmacy Director Name Role Phone Brady Christensen MD Primary Care Provider [phone] Reason for Referral * Consultation (Routine) - Closed by system - unspecified Specialty Diagnoses / Procedures Referred By Damien craig Referred To Contact Dermatology Diagnoses Skin lesion Cherise Tuttle APRN [facility] [place] [address] Referral ID Status Reason Start Date Expiration Date Visits Requested Visits Authorized [id number] Closed by system - unspecified Consult, Test & Treat 02/22/2013 08/21/2013 1 1 Reason for Visit * Reason Comments Radiation Follow-up prostate cancer Encounter Details Date Type Department Care Team (Late st Contact Info) Description 02/22/2013 9:30 AM EDT Follow-Up Radiation Oncology at [address] [phone] Cherise Tuttle [address] [place] [address] Prostate cancer (Primary Dx); Skin lesion Discharge Disposition: Home Social History Tobacco Use Types Packs/Day Years Used Date Smoking Tobacco: Never Sex and Gender Information Value Date Recorded Sex Assigned at Not on file Gender Identity Not on file Sexual Orientation Not on file documented as of this encounter Last Filed Vital Signs Vital Sign Reading Time Taken Comments Blood Pressure 150/97 02/22/2013 9:30 AM EDT Pulse 90 02/22/2013 9:30 AM EDT Temperature - - Respiratory Rate 18 02/22/2013 9:30 AM EDT Oxygen Saturation 98% 02/22/2013 9:30 AM EDT Inhaled Oxygen Concentration - - Weight 83.9 kg (185 lb) 02/22/2013 9:30 AM EDT Height - - Body Mass Index - - documented in this encounter Patient Instructions * Patient Instructions* Cherise Tuttle APRN - 02/22/2013 9:09 AM EDT Mr Joaquin your PSA has increased today. I want to reassure you that did DOES NOT MEAN recurrence. It is a frequent effect at at about 9-10 months after treatment that the PSA will rise up as we see today and then will decrease again after this. We will repeat your PSA in three months. Date PSA 02/22/2013 1.50 11/09/2012 0.79 08/07/2012--first after treatment PSA 1.67 10/26/2011--before treatment 6.5 03/19/2011 5.83 02/16/2010 5.57 08/29/2009 5.1 Filed Vitals: 02/22/13 0930 BP: 150/97 Pulse: 90 Resp: 18 Weight: 83.915 kg (185 lb) SpO2: 98% documented in this encounter Progress Notes * Cherise Tuttle APRN - 02/22/2013 9:05 AM EDT Identification: Mr Joaquin is a 67 [...] Garcia who saw patient on 11/08/2011 at [facility]. An ultrasound was done which demonstrated a prostate volume of 29.1 cc with no hypoechoic areas. This was followed by TRUS biopsy which demonstrated [place] 3+4 involving 10% the right base core. [...] with care that was delivered at the [facility] in [facility] .He was treated to a total [...] Social History: Never smoker. No EtOH. 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 , two daughters and three grandchildren. No Known Allergies Current Outpatient Prescriptions on File Prior to Visit Medication Sig Dispense Refill ??? Vitamin A-Vitamin C-Vit E-Min (OCUVITE) Tab Take by mouth. ??? multivitamin (THERAGRAN) tablet Take 1 tablet by mouth daily. ??? UNABLE TO FIND Med Name: red yeast rice ??? [place]-3 Fatty Acids (FISH OIL) 300 mg Cap [...] doing very well. 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 He does report concerns related to his mother. She is living in her own home but is increasingly forgetful. She is also having some visual changes. He will be taking her to [facility] for a second opinion regarding treatment for her vision. He is unsure regarding what to do in regards to the oysterman care needs of his Mom. He denies any urinary issues. His IPSS [...] fatigue and unexpected weight change. 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 Eyes: Negative. [...] He is agreeable to a referral to dermatology Neurological: Negative. Negative for dizziness, weakness and headaches. Hematological: Negative. Psychiatric/Behavioral: The patient is nervous/anxious. Anxiety before medical appointments is not new for patient Filed Vitals: 02/22/13 0930 BP: 150/97 Pulse: 90 Resp: 18 Weight: 83.915 kg (185 lb) SpO2: 98% Karnofsky: 100 IPSS : 1 CINTHYA: 1--patient [...] Judgment and thought content normal. Date PSA 02/22/2013 1.50 11/09/2012 0.79 08/07/2012--first after treatment PSA 1.67 10/26/2011--before treatment 6.5 03/19/2011 5.83 02/16/2010 5.57 08/29/2009 5.1 Assessment Plan: Adenocarcinoma of the prostate; Mr Joaquin PSA has increased today. He is about nine months from completion of treatment and it is not unusual to see a rebound effect at this time. He was reassured. Clinically there is no evidence of disease. We will repeat his PSA in three months and see him for clinical evaluation. Bowel urgency : Recommended use of metamucil 1 tsp daily to help with bowel control Caregiver stress due to mother with Alzheimer's disease: support provided and information given patient regarding area on aging resources for [facility] where patient's mother resides. Skin changes: referral to Dr Foster. Mr Joaquin is to call if he has any questions or concerns. documented in this encounter Procedure Notes * Provider, Scanning - 05/01/2013 10:08 PM EDTAssociated Order(s): SCAN DOC: LAB documented in this encounter Plan of Treatment Upcoming Encounters Date Type Department Care Team (Late st Contact Info) Description 05/22/2024 1:00 PM EDT Office Visit Hematology/Oncology at [address] [phone] Iris Nguyen APRN [facility] [place] [address] 05/22/2024 1:30 PM EDT Infusion Hematology Oncology at [address] [phone] Scheduled Referrals Name Type Priority Associated Diagnoses Order Schedule Referral to Dermatology Outpatient Referral Routine Skin lesion Ordered: 02/22/2013 documented as of this encounter Procedures Procedure Name Priority Date/Time Associated Diagnosis Comments LAB SCAN 05/01/2013 10:08 PM EDT documented in this encounter Results * SCAN DOC: LAB (05/01/2013 10:08 PM EDT) Narrative 05/01/2013 10:08 PM EDT Procedure Note Provider, Scanning - 05/01/2013 10:08 PM EDT Scanning Provider MEDIA MGR SCAN EXT O RDR/RSLT documented in this encounter Visit Diagnoses Diagnosis Prostate cancer- Primary Malignant neoplasm of prostate Skin lesion Unspecified disorder of skin and subcutaneous tissue documented in this encounter Care Teams Hospital Pharmacy Director Relationship Specialty Start Date End Date Brady Christensen MD [address] [place] [address] PCP - General 11/08/11 07/27/17 documented as of this encounter
--- OUTSIDE RECORDS SUMMARY | 2024-05-14 03:42 | XMS_ITS | Encounter Summary ---
Author Organization [facility] [place] [address] Care Team Providers Care Director Of Logistics Name Role Phone Brady Christensen MD Primary Care Provider Encounter Details Date Type Department Care Team (Late st Contact Info) Description 07/05/2012 Orders Only Radiation Oncology at [address] [phone] Gracie Finley, RN Prostate cancer (Primary Dx) Social History Tobacco [...] PM EDT Office Visit Hematology/Oncology at [address] [phone] Iris Nguyen APRN [facility] [place] [address] 05/22/2024 1:30 PM EDT Infusion Hematology Oncology at [address] [phone] documented as of this encounter Visit Diagnoses Diagnosis Prostate cancer- Primary Malignant neoplasm of prostate documented in this encounter Care Teams Director Of Logistics Relationship Specialty Start Date End Date Brady Christensen MD [address] [place] [address] PCP - General 11/08/11 07/27/17 documented as of this encounter
--- OUTSIDE RECORDS SUMMARY | 2024-05-14 03:42 | XMS_ITS | Encounter Summary ---
Author Organization Formerly [facility] [place] [address] Care Team Providers Care Front Office Coordinator Name Role Phone Brady Christensen MD Primary Care Provider Reason for Visit * Reason Comments Radiation Treatment Encounter Details Date Type Department Care Team (Late st Contact Info) Description 04/04/2012 7:45 AM EDT Follow-Up Radiation Oncology at [address] [phone] Luis Fernando Gamez MD [facility] [place] [address] Prostate ca (Primary Dx) Discharge Disposition: Home Social History Tobacco Use Types Packs/Day Years Used Date Smoking Tobacco: Never Sex and Gender Information Value Date Recorded Sex Assigned at Not on file Gender Identity Not on file Sexual Orientation Not on file documented as of this encounter Last Filed Vital Signs Vital Sign Reading Time Taken Comments Blood Pressure 142/100 04/04/2012 8:13 AM EDT Pulse 80 04/04/2012 8:13 AM EDT Temperature - - Respiratory Rate 16 04/04/2012 8:13 AM EDT Oxygen Saturation 97% 04/04/2012 8:13 AM EDT Inhaled Oxygen Concentration - - Weight 83.9 kg (185 lb) 04/04/2012 8:13 AM EDT Height - - Body Mass Index - - documented in this encounter Progress Notes * Luis Fernando Gamez MD - 04/04/2012 10:17 AM EDT ON TREATMENT VISIT: DATE:04/03/2012 PATIENT STATUS: Prostate: GS=3+4=7/10, PSA=6.5, [id number] . TREATMENT PLAN: RADIATION ; Site Technique Dose/ Fraction Fraction Number MeV p e TOTAL DOSE Treatment Dates PTV 1 IMRT 180 25 p 4500 02/13 to 03/20/12 PTV 2 IMRT 180 14 P 2520 03/21 to DOSE to DATE:6300 cGy in 35 FX RADIATION TREATMENT IMAGING: matches original approved images ON TREATMENT EVALUATION: MEDICAL: Denies diarrhea. Increased urinary frequency. Drinking lots of water. No pain. Energy level ok. PHYSICAL: no change. AIDS: LABS : TOXICITY: Increased frequency of urination. Ge 1 tox RESPONSE TO TREATMENT:good MANAGEMENT PLAN: CONTINUE TREATMENT PLANNED: XX CHANGE TREATMENT HOLD TREATMENT STOP TREATMENT Discussion time with patient (face to face)10 min. documented in this encounter Plan of Treatment Upcoming Encounters Date Type Department Care Team (Late st Contact Info) Description 05/22/2024 1:00 PM EDT Office Visit Hematology/Oncology at [address] [phone] Iris Nguyen APRN [facility] [place] [address] 05/22/2024 1:30 PM EDT Infusion Hematology Oncology at [address] [phone] documented as of this encounter Visit Diagnoses Diagnosis Prostate CA- Primary Malignant neoplasm of prostate documented in this encounter Care Teams Front Office Coordinator Relationship Specialty Start Date End Date Brady Christensen MD [address] [place] [address] PCP - General 11/08/11 07/27/17 documented as of this encounter
--- OUTSIDE RECORDS SUMMARY | 2024-05-14 03:42 | XMS_ITS | Encounter Summary ---
[place] [address] Care Team Providers Care Continuing Education Instructor Name Role Phone Brady Christensen MD Primary Care Provider [phone] Reason for Visit * Reason Onset Date Comments Post Procedure Call 01/11/2012 Encounter Details Date Type Department Care Team (Late st Contact Info) Description 01/11/2012 Telephone [place] [phone] Zuleika Adames RN Post Procedure Call Social History Tobacco Use Types Packs/Day Years Used Date Smoking Tobacco: Never Sex and Gender Information Value Date Recorded Sex Assigned at Not on file Gender Identity Not on file Sexual Orientation Not on file documented as of this encounter Miscellaneous Notes * Telephone Encounter - Zuleika Adames RN - 01/11/2012 5:09 PM EDT Radiation Oncology Post-Procedure Phone Not Procedure: Placement of Gold Coil Fiducials Date of Procedure: 01/10/12 Spoke on the phone to: Patient If not patient, whom? x Message left on answering machine Call attempted - unable to contact patient General condition as stated by the patient or designee: Excellent Good Fair Poor Other x The patient's pain is controlled: YES NO x Comments/intervention: No pain Patient reports tenderness / swelling in perineum/scrotum: YES NO x Coments/intervention: Patient reports changes in urinary symptoms: YES NO x Comments/intervention: Patient has questions re medications: YES NO x Comments/interventions: Patient knows how to contact us in case of emergency: YES NO x Comments/intervention: Brenton states he is feeling well and experienced no adverse effects from the gold coil placement procedure yesterday. He will call with any questions or concerns prior to his next appointment. documented in this encounter Plan of Treatment Upcoming Encounters Date Type Department Care Team (Late st Contact Info) Description 05/22/2024 1:00 PM EDT Office Visit Hematology/Oncology at [address] [phone] Iris Nguyen [facility] [place] [address] 05/22/2024 1:30 PM EDT Infusion Hematology Oncology at [address] [phone] documented as of this encounter Visit Diagnoses Not on filedocumented in this encounter Care Teams Continuing Education Instructor Relationship Specialty Start Date End Date Brady Christensen MD [address] [place] [address] PCP - General 11/08/11 07/27/17 documented as of this encounter
--- OUTSIDE RECORDS SUMMARY | 2024-05-14 03:42 | XMS_ITS | Encounter Summary ---
[place] [address] Care Team Providers Care Primer Inserting Machine Operator Name Role Phone Brady Christensen MD Primary Care Provider [phone] Encounter Details Date Type Department Care Team (Late st Contact Info) Description 12/20/2011 Orders Only [place] [address] Mela Mckeon, RN Cancer (Primary Dx) Social History Tobacco Use Types [...] 1:00 PM EDT Office Visit Hematology/Oncology at [address] [phone] Iris Nguyen APRN [facility] [place] [address] 05/22/2024 1:30 PM EDT Infusion Hematology Oncology at [address] [phone] documented as of this encounter Visit Diagnoses Diagnosis Cancer- Primary Other malignant neoplasm without specification of site documented in this encounter Care Teams Primer Inserting Machine Operator Relationship Specialty Start Date End Date Brady Christensen MD [address] [place] [address] PCP - General 11/08/11 07/27/17 documented as of this encounter
--- OUTSIDE RECORDS SUMMARY | 2024-05-14 03:42 | XMS_ITS | Encounter Summary ---
Author Organization [facility] Address [facility] [place] [address] Care Team Providers Care Bulk Sealer Operator Name Role Phone Brady Christensen MD Primary Care Provider [phone] Encounter Details Date Type Department Care Team (Latest Contact Info) Description 12/08/2011 10:53 AM EST - 12/08/2011 11:59 PM [facility] Hospital [place] [address] CLINIC, Kamlesh Richter MD [facility] [address] [place] [address] Prostate cancer Discharge Disposition: Home Social History Tobacco Use Types Packs/Day Years Used Date Smoking Tobacco: Never Sex and Gender Information Value Date Recorded Sex Assigned at Not on file Gender Identity Not on file Sexual Orientation Not on file documented as of this encounter Medications at Time of Discharge Medication Sig Dispensed Refills Start Date End Date multivitamin (THERAGRAN) tablet Take 1 tablet by mouth daily. 10/05/2022 UNABLE TO FIND Med Name: red yeast rice 07/03/2015 [place]-3 Fatty Acids (FISH OIL) 300 mg Cap Take by mouth. 07/03/2015 documented as of this encounter Miscellaneous Notes * Miscellaneous - Provider, Scanning - 12/13/2011 10:09 AM EDT documented in this encounter Plan of Treatment Upcoming Encounters Date Type Department Care Team (Late st Contact Info) Description 05/22/2024 1:00 PM EDT Office Visit Hematology/Oncology at [address] [phone] Iris Nguyen APRN [facility] [place] [address] 05/22/2024 1:30 PM EDT Infusion Hematology Oncology at [address] [phone] documented as of this encounter Procedures Procedure Name Priority Date/Time Associated Diagnosis Comments CT ABDOMEN AND PELVIS W CONTRAST Routine 12/08/2011 1:05 PM EST Prostate cancer documented in this encounter Results * CT abdomen & [...] in this encounter Visit Diagnoses Diagnosis Prostate cancer Malignant neoplasm of prostate documented in this encounter Administered Medications Inactive Administered Medications - up to 3 most recent administrations Medication Order MAR Action Action Date Dose Rate Site iohexol (OMNIPAQUE) 350 mg/mL injection 17,500 mg 17,500 mg (50 mL), Oral, ONCE PRN, 1 dose, Starting on Tue12/08/11 at 1250, Until Tue12/08/11 at 1100, Per Protocol, Routine Given 12/08/2011 11:00 AM EST 17,500 mg iohexol (OMNIPAQUE) 350 mg/mL injection 38,500 mg 38,500 mg (110 mL), Intravenous, ONCE PRN, 1 dose, Starting on Tue12/08/11 at 1250, Until Tue12/08/11 at 1200, Per Protocol, Routine Given 12/08/2011 12:00 PM EST 38,500 mg documented in this encounter Care Teams Bulk Sealer Operator Relationship Specialty Start Date End Date Brady Christensen MD [address] [place] [address] PCP - General 11/08/11 07/27/17 documented as of this encounter
--- OUTSIDE RECORDS SUMMARY | 2024-05-14 03:42 | XMS_ITS | Encounter Summary ---
Author [facility] [place] [address] Care Team Providers Care Slubber Hand Name Role Phone Brady Christensen MD Primary Care Provider [phone] Reason for Visit * Reason Comments Radiation Follow-up PROSTATE CANCER Encounter Details Date Type Department Care Team (Late st Contact Info) Description 07/03/2015 10:30 AM EDT Office Visit Radiation Oncology at [address] [phone] Cherise Tuttle APR[address] [place] [address] Malignant neoplasm of prostate Social History Tobacco Use Types Packs/Day Years Used Date Smoking Tobacco: Never Sex and Gender Information Value Date Recorded Sex Assigned at Not on file Gender Identity Not on file Sexual Orientation Not on file documented as of this encounter Last Filed Vital Signs Vital Sign Reading Time Taken Comments Blood Pressure 179/92 07/03/2015 10:43 AM EDT Pulse 89 07/03/2015 10:43 AM EDT Temperature 36.8 ??C (98.2 ??F) 07/03/2015 10:43 AM E DT Respiratory Rate 16 07/03/2015 10:43 AM EDT Oxygen Saturation 99% 07/03/2015 10:43 AM EDT Inhaled Oxygen Concentration - - Weight 85.5 kg (188 lb 8 oz) 07/03/2015 10:43 AM EDT Height 167.6 cm (5' 5.98) 07/03/2015 10:43 AM E DT Body Mass Index 30.44 07/03/2015 10:43 AM EDT documented in this encounter Patient Instructions * Patient Instructions* Cherise Tuttle APRN - 07/03/2015 10:53 AM EDT Date 06/05/2015 0.5 10/21/2014 0.5 05/01/14 0.5 11/19/13 0.5 08/03/13 0.7 04/30/2013 1.0 02/22/2013 1.50 11/09/2012 0.79 08/07/2012--first after treatment PSA 1.67 10/26/2011--before treatment 6.5 03/19/2011 5.83 02/16/2010 5.57 08/29/2009 5.1 02/22/2013 1.50 11/09/2012 0.79 08/07/2012--first after treatment PSA 1.67 10/26/2011--before treatment 6.5 03/19/2011 5.83 02/16/2010 5.57 08/29/2009 5.1 Vitals Office Visit from 07/03/2015 in [facility] Radiation Oncology Weight - Scale 85.503 kg (188 lb 8 oz) Height 167.6 cm (5' 5.98) BSA (Calculated - sq m) 2 sq meters BMI (Calculated) 30.5 Temp 36.8 ??C (98.2 ??F) Temp Source Oral Heart Rate 89 Heart Rate Source Left, NIBP Resp 16 BP (!) 179/92 mmHg BP Location Left arm Patient Position Sitting SpO2 99 % documented in this encounter Progress Notes * Cherise Tuttle APRN - 07/03/2015 8:42 AM EDT Identification: Mr Joaquin is a 69 year old man who was treated with radiation therapy for prostate cancer. He completed external beam radiation on 04/18/2012 and is in clinic for his first follow up. HPI Mr Joaquin had his PSA monitored as part of yearly screening with the pattern noted below. Due PSA elevation he was referred to Dr Luis Fernando Garcia who saw [place] [facility] An ultrasound was done which demonstrated a prostate volume of 29.1 cc with no hypoechoic areas. This was followed by TRUS biopsy which demonstrated Oneill 3+4 involving 10% the right base core. The right lateral base had adenocarcinoma Oneill 3+4 with 10% of this core. The left lateral apex had adenocarcinoma 3+3 involving 5% of the core. The remaining nine cores demonstrated benign prostatic tissue. After consultation with Dr Kamlesh Nunez, Mr Joaquin elected to be treated with external beam radiation therapy with care that was delivered at the [facility] .He was treated to a total [...] Social History: Never smoker. No EtOH. 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 , two daughters and three grandchildren. No Known Allergies Current Outpatient Prescriptions on File Prior to Visit Medication Sig Dispense Refill ??? Vitamin A-Vitamin C-Vit E-Min (OCUVITE) Tab Take by mouth. ??? multivitamin (THERAGRAN) tablet Take 1 tablet by mouth daily. ??? UNABLE TO FIND Med Name: red yeast rice ??? [place]-3 Fatty Acids (FISH OIL) 300 mg Cap Take by mouth. No current facility-administered medications on file prior to visit. Advance Directive: Patient has executed and his is his DPOA Interim History: Mr Joaquin reports that he is doing well but does get very anxious prior to appointments. His B/P is elevated. He does indicate that he checks it at home and that it is in the normal range 130/80 range. This morning at home it was 127/80. He reports that he is doing very well. 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 Previously he had been concernedabout his mother who is nearly 90 and has dementia. She was moved to a a [facility] facility. 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 She a coupleof months ago after being in the [facility] facility for a six months. He denies any urinary issues. His IPSS [...] He has occasional bowel urgency. He has heard from some of his customers that they have been on the watchful waiting approach to prostate cancer management and wondered how that decision gets made. He is not sexually active. Review of Systems Constitutional: Negative for activity change, appetite change, fatigue and unexpected weight change. Still working veneer department manager--appliance repair No pain HENT: Negative. Eyes: Negative. [...] new for patient Vitals Office Visit from 07/03/2015 in [facility] Radiation Oncology Weight - Scale 85.503 kg (188 lb 8 oz) Height 167.6 cm (5' 5.98) BSA (Calculated - sq m) 2 sq meters BMI (Calculated) 30.5 Temp 36.8 ??C (98.2 ??F) Temp Source Oral Heart Rate 89 Heart Rate Source Left, NIBP Resp 16 BP (!) 179/92 mmHg BP Location Left arm Patient Position Sitting [...] There is no CVA tenderness. Genitourinary: Rectum normal. Rectal: Due 12/2015 Musculoskeletal: Normal range of motion. He exhibits [...] and thought content normal. Vitals reviewed. Date 06/05/2015 0.5 10/21/2014 0.5 05/01/14 0.5 11/19/13 0.5 08/03/13 0.7 04/30/2013 1.0 02/22/2013 1.50 11/09/2012 0.79 08/07/2012--first after treatment PSA 1.67 10/26/2011--before treatment 6.5 03/19/2011 5.83 02/16/2010 5.57 08/29/2009 5.1 02/22/2013 1.50 11/09/2012 0.79 08/07/2012--first after treatment PSA 1.67 10/26/2011--before treatment 6.5 03/19/2011 5.83 02/16/2010 5.57 08/29/2009 5.1 Assessment Plan: Mr Joaquin is a pleasant 69 year old man with adenocarcinoma of the prostate, Linda 3+4=7, pretreatment PSA of 6.5. He was treated with external beam radiation 79.2 Gy completed on 04/18/2012. His PSA is 0.5 and is at his post treatment janey. He is doing with no evidence of disease. We discussed why watchful waiting is now an approach to early prostate cancer. We discussed that with a Linda 7 prostate cancer and three positive cores that treatment would have been recommended. He is comfortable with the decision he made. We will repeat his PSA in six months and see him for clinical evaluation. Mr Joaquin is to call if he has any questions or concerns. documented in this encounter Plan of Treatment Upcoming Encounters Date Type Department Care Team (Late st Contact Info) Description 05/22/2024 1:00 PM EDT Office Visit Hematology/Oncology at [address] [phone] Iris Nguyen APRN [facility] [place] [address] 05/22/2024 1:30 PM EDT Infusion Hematology Oncology at [address] [phone] documented as of this encounter Visit Diagnoses Diagnosis Malignant neoplasm of prostate documented in this encounter Care Teams Slubber Hand Relationship Specialty Start Date End Date Brady Christensen MD [address] [place] [address] PCP - General 11/08/11 07/27/17 documented as of this encounter
--- OUTSIDE RECORDS SUMMARY | 2024-05-14 03:42 | XMS_ITS | Encounter Summary ---
Author Organization [facility] [place] [address] Care Team Providers Care Sharepoint Net Developer Name Role Phone Brady Christensen MD Primary Care Provider [phone] Encounter Details Date Type Department Care Team (Late Contact Info) Description 12/27/2011 Telephone [place] [phone] Mela Mckeon, RN Social History Tobacco Use Types Packs/Day Years Used Date Smoking Tobacco: Never Sex and Gender Information Value Date Recorded Sex Assigned at Not on file Gender Identity Not on file Sexual Orientation Not on file documented as of this encounter Miscellaneous Notes * Telephone Encounter - Mela Mckeon, RN - 12/27/2011 9:36 AM EDT I returned Mr Mccall's call. He had second thoughts about radiation tx last week, but this week he is set to proceed with radiation tx. documented in this encounter Plan of Treatment Upcoming Encounters Date Type Department Care Team (Late Contact Info) Description 05/22/2024 1:00 PM EDT Office Visit Hematology/Oncology at [address] [phone] Iris Nguyen APRN [facility] [place] [address] 05/22/2024 1:30 PM EDT Infusion Hematology Oncology at [address] [phone] documented as of this encounter Visit Diagnoses Not on filedocumented in this encounter Care Teams Sharepoint Net Developer Relationship Specialty Start Date End Date Brady Christensen MD [address] [place] [address] PCP - General 11/08/11 07/27/17 documented as of this encounter
--- OUTSIDE RECORDS SUMMARY | 2024-05-14 03:42 | XMS_ITS | Encounter Summary ---
Author Organization [facility] [place] [address] Care Team Providers Care Real Estate Loan Processor Name Role Phone Brady Christensen MD Primary Care Provider [phone] Reason for Visit * Reason Comments Radiation Follow-up Encounter Details Date Type Department Care Team (Late st Contact Info) Description 08/15/2013 2:00 PM EST Follow-Up Hematology Oncology at [address] [phone] Christi Potter, SEGUNDO [facility] [place] [address] Prostate cancer (Primary Dx) Discharge Disposition: Home Social History Tobacco Use Types Packs/Day Years Used Date Smoking Tobacco: Never Sex and Gender Information Value Date Recorded Sex Assigned at Not on file Gender Identity Not on file Sexual Orientation Not on file documented as of this encounter Last Filed Vital Signs Vital Sign Reading Time Taken Comments Blood Pressure 174/95 08/15/2013 2:00 PM EST Pulse 118 08/15/2013 2:00 PM EST Temperature - - Respiratory Rate 16 08/15/2013 2:00 PM EST Oxygen Saturation 95% 08/15/2013 2:00 PM EST Inhaled Oxygen Concentration - - Weight - - Height - - Body Mass Index - - documented in this encounter Progress Notes * Christi Potter, SEGUNDO - 08/15/2013 2:32 PM EST Identification: Mr Joaquin is a [...] Garcia who saw patient on 11/08/2011 at [facility]. An ultrasound was done which demonstrated a [...] with care that was delivered at the [facility] in [facility] .He was treated to a [...] Social History: Never smoker. No EtOH. 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 , two daughters and three grandchildren. No Known Allergies Current Outpatient Prescriptions on File Prior to Visit Medication Sig Dispense Refill ??? Vitamin A-Vitamin C-Vit E-Min (OCUVITE) Tab Take by mouth. ??? multivitamin (THERAGRAN) tablet Take 1 tablet by mouth daily. ??? UNABLE TO FIND Med Name: red yeast rice ??? [place]-3 Fatty Acids (FISH OIL) 300 mg Cap Take by mouth. Advance Directive: Not on file Interim History: Mr Joaquin reports that he is doing well but does get anxious prior to appointments. His B/P is elevated. He does indicate that he checks it at home and that it is in the normal [id number]/80 range He reports that he is doing very well. 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 He does continue to try and care [...] fatigue and unexpected weight change. 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 Eyes: Negative. [...] Negative for back pain and arthralgias. Skin: He is concerned about a skin change below his left eye that has been present for two years . He is agreeable to a referral to dermatology. This has not happened yet. I will reorder it. Neurological: Negative. Negative for dizziness, weakness and headaches. Hematological: Negative. Psychiatric/Behavioral: The patient is nervous/anxious. Anxiety before medical appointments is not new for patient Filed Vitals: 08/15/13 1400 BP: 174/95 Pulse: 118 Resp: 16 SpO2: 95% Karnofsky: 90 IPSS : 1 CINTHYA: 1--patient [...] Judgment and thought content normal. Date PSA 08/03/13 0.7 04/30/2013 1.0 02/22/2013 1.50 11/09/2012 0.79 08/07/2012--first after treatment PSA 1.67 10/26/2011--before treatment 6.5 03/19/2011 5.83 02/16/2010 5.57 08/29/2009 5.1 Assessment Plan: Adenocarcinoma of the prostate; Mr Joaquin PSA is lower today. He is now nearly 18 months from treatment. Clinically there is no evidence of disease. We will repeat his PSA in three months and see himfor clinical evaluation. Caregiver stress due to mother [...] PM EDT Office Visit Hematology/Oncology at [address] [phone] Iris Nguyen APRN [facility] [place] [address] 05/22/2024 1:30 PM EDT Infusion Hematology Oncology at [address] [phone] documented as of this encounter Visit Diagnoses Diagnosis Prostate cancer- Primary Malignant neoplasm of prostate documented in this encounter Care Teams Real Estate Loan Processor Relationship Specialty Start Date End Date Brady Christensen MD [address] [place] [address] PCP - General 11/08/11 07/27/17 documented as of this encounter
--- OUTSIDE RECORDS SUMMARY | 2024-05-14 03:42 | XMS_ITS | Encounter Summary ---
Author Organization [facility] [place] [address] Care Team Providers Care Rf Engineer Name Role Phone Brady Christensen MD Primary Care Provider [phone] Reason for Visit * Reason Comments Radiation Treatment Encounter Details Date Type Department Care Team (Late st Contact Info) Description 03/22/2012 7:45 AM EDT Follow-Up Radiation Oncology at [address] [phone] Luis Fernando Gamez MD [facility] [place] [address] Prostate ca (Primary Dx) Discharge Disposition: Home Social History Tobacco Use Types Packs/Day Years Used Date Smoking Tobacco: Never Sex and Gender Information Value Date Recorded Sex Assigned at Not on file Gender Identity Not on file Sexual Orientation Not on file documented as of this encounter Last Filed Vital Signs Vital Sign Reading Time Taken Comments Blood Pressure 136/89 03/22/2012 8:01 AM EDT Pulse 82 03/22/2012 8:01 AM EDT Temperature 36.8 ??C (98.2 ??F) 03/22/2012 8:01 AM ED T Respiratory Rate 16 03/22/2012 8:01 AM EDT Oxygen Saturation 98% 03/22/2012 8:01 AM EDT Inhaled Oxygen Concentration - - Weight 82.6 kg (182 lb) 03/22/2012 8:01 AM EDT Height - - Body Mass Index - - documented in this encounter Progress Notes * Luis Fernando Gamez MD - 03/22/2012 3:54 PM EDT ON TREATMENT VISIT: DATE:03/22/2012 PATIENT STATUS: Prostate: GS=3+4=7/10, PSA=6.5, [id number] . TREATMENT PLAN: RADIATION ; Site Technique Dose/ Fraction Fraction Number MeV p e TOTAL DOSE Treatment Dates PTV 1 IMRT 180 25 p 4500 02/13 to 03/20/12 PTV 2 IMRT 180 14 P 2520 03/21 to DOSE to DATE:4860 cGy in 27 FX RADIATION TREATMENT IMAGING: matches original approved images ON TREATMENT EVALUATION: MEDICAL: Denies diarrhea. Increased urinary frequency. Drinking lots of water. No pain. Energy level ok. PHYSICAL: no change. AIDS: LABS: TOXICITY: Increased frequency of urination. Ge 1 tox RESPONSE TO TREATMENT:good MANAGEMENT PLAN: CONTINUE TREATMENT PLANNED: XX CHANGE TREATMENT HOLD TREATMENT STOP TREATMENT Discussion time with patient (face to face)10 min. documented in this encounter Plan of Treatment Upcoming Encounters Date Type Department Care Team (Late st Contact Info) Description 05/22/2024 1:00 PM EDT Office Visit Hematology/Oncology at [address] [phone] Iris Nguyen APRN [facility] [place] [address] 05/22/2024 1:30 PM EDT Infusion Hematology Oncology at [address] [phone] documented as of this encounter Visit Diagnoses Diagnosis Prostate CA- Primary Malignant neoplasm of prostate documented in this encounter Care Teams Rf Engineer Relationship Specialty Start Date End Date Brady Christensen MD [address] [place] [address] PCP - General 11/08/11 07/27/17 documented as of this encounter
--- OUTSIDE RECORDS SUMMARY | 2024-05-14 03:42 | XMS_ITS | Encounter Summary ---
[place] [address] Care Team Providers Care Director Of Event Management Name Role Phone Brady Christensen MD Primary Care Provider [phone] Encounter Details Date Type Department Care Team (Late st Contact Info) Description 02/16/2012 Notes Only Radiation Oncology at [address] [phone] Rayna Ortega RN Social History Tobacco Use Types Packs/Day Years Used Date Smoking Tobacco: Never Sex and Gender Information Value Date Recorded Sex Assigned at Not on file Gender Identity Not on file Sexual Orientation Not on file documented as of this encounter Progress Notes * Rayna Ortega RN - 02/16/2012 2:21 PM EDT Initial Patient Education for Radiation Treatments Literature reviewed and given to patient : #1 Radiation Therapy and You a Guide to Self-Help During Cancer Treatment U.S. Department of Health and Human Services National Institutes of Health Publication No. 07-7157 National Cancer [place] Revised December 2006 #2 [facility];Shared drive/info for RT Patients: a) Information for Patients Receiving Radiation Therapy Rev 06/07 b) Managing Cancer Treatment Related Fatigue Adapted from Cancersytoms.org Information for understanding cancer on 06/21/2005 c) Skin Care for Patients Receiving Radiation Therapy Rev 07/07 d) Radiation Therapy Billing Information EMD 01/27/05 e) Disease site specific Information: Information for Patients Receiving Radiation Therapy To The prostate #3 Miscellaneous: Dietary Guidelines:Diarrhea Management([place] Diet[employer]) Imodium: Dr Gamez dosing guidelines for radiation induced diarrhea. Dietary Guidelines: low residue foods(Oncology Diet and Nutrition Patient Education Resource Manual) Jeans cream supplied with the instructions to apply to site of radiation twice a day, but not less than 3 hours before radiation treatment. Contact information: If you have any questions or concerns regarding your cancer, please call: During business hours: [facility] [phone] ext [phone] (nursing extension) Weekend/holidays/nights: [facility] [phone] and ask for the media consultant outside sales radiation oncologist For general medical questions not related to cancer; Please contact your primary physician. For medical emergencies needing immediate attention;contact local primary physician, go to local hospital emergency room,or call 911. Patient verbalized understanding of these instructions and the importance of reading them more thoroughly at home. Information was presented w/ folder including Dr. Gamez's Business card and abovecontact information. Patient was encouraged to call if there are any questions or concerns. Understanding of education will be re assessed and reinforced as needed during treatments. documented in this encounter Plan of Treatment Upcoming Encounters Date Type Department Care Team (Late st Contact Info) Description 05/22/2024 1:00 PM EDT Office Visit Hematology/Oncology at [address] [phone] Iris Nguyen APRN [facility] [place] [address] 05/22/2024 1:30 PM EDT Infusion Hematology Oncology at [address] [phone] documented as of this encounter Visit Diagnoses Not on filedocumented in this encounter Care Teams Director Of Event Management Relationship Specialty Start Date End Date Brady Christensen MD [address] [place] [address] PCP - General 11/08/11 07/27/17 documented as of this encounter
--- OUTSIDE RECORDS SUMMARY | 2024-05-14 03:42 | XMS_ITS | Encounter Summary ---
Author Organization [facility] Address [facility] [place] [address] Care Team Providers Care Seasoner Hand Name Role Phone Brady Christensen MD Primary Care Provider [phone] Reason for Visit * Reason Onset Date Comments Elevated PSA 11/08/2011 Encounter Details Date Type Department Care Team (Late st Contact Info) Description 11/08/2011 9:00 AM EST Office Visit Hematology [place] [phone] Anila Garcia MD [facility] [place] [address] Elevated PSA (Primary Dx) Discharge Disposition: Home Social History Tobacco Use Types Packs/Day Years Used Date Smoking Tobacco: Never Sex and Gender Information Value Date Recorded Sex Assigned at Not on file Gender Identity Not on file Sexual Orientation Not on file documented as of this encounter Last Filed Vital Signs Vital Sign Reading Time Taken Comments Blood Pressure 214/93 11/08/2011 9:08 AM EST Pulse 109 11/08/2011 9:08 AM EST Temperature 36.4 ??C (97.5 ??F) 11/08/2011 9:08 AM ES T Respiratory Rate 16 11/08/2011 9:08 AM EST Oxygen Saturation - - Inhaled Oxygen Concentration - - Weight 80 kg (176 lb 5.9 oz) 11/08/2011 9:08 AM EST Height - - Body Mass Index - - documented in this encounter Patient Instructions * Patient Instructions* Beverly Mena MD - 11/08/2011 10:20 AM EST You will receive a phone call with your biopsy results early next week. documented in this encounter Progress Notes * Danie Blake RN - 11/08/2011 1:40 PM EST Post Prostate Biopsy Procedure Teaching done using the Prostate Biopsy Discharge Information Sheet (given to patient along with sanitary pads). Patient stated he understood the discharge information,phone numbers to call with any concerns regarding excessive bleeding or signs or symptoms of infection. Patient voiced no complaints and left the unit in a stable condition. * Beverly Mena MD - 11/08/2011 10:20 AM EST Urologic Outpatient Consult Note Asked to see this pt by Brady Christensen to evaluate and make recommendations regarding elevated PSA. HPI: Brenton Joaquin is a 66 y.o. male referred for an elevated PSA found on yearly screening. Patient is here with an elevated PSA found on routine yearly screening. PSA History: 08/29/09 - 5.1 02/16/10- 5.57 6./- 5.83 09/20/11- 7.07 10/26/11- 6.5 total, 0.5 free = 7.6% free Pt reports no recent changes in his voiding, he does not have frequency/urgency. Nocturia x1 . He denies any new back or joint pain. IPSS: (nocturia x1) Erectile function: - CINTHYA: 03/27 PMH: none PSH: none Family history: No history of malignancy, kidney stones, no bleeding disorders or trouble with anesthesia in the past. Mother with Alzheimer's. Patient was adopted by his stepfather. One biological brother, no known prostate issues. Social History: Never smoker. No EtOH. 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 . ROS: Constitutional: Denies fever, chills, weight loss/gain. HEENT: Recent URI, resolved. Mostly congestive sx. Pulmonary: Denies asthma, cough, recent pneumonia, SOB Cardiovascular: Denies chest pain GI: Denies GI bleed, GERD, constipation or diarrhea. Scheduled for colonoscopy. : As per HPI. No hematuria. Endocrine: Denies diabetes, thyroid disease Integumentary: Denies skin cancer, rash Heme/lymph: Denies easy bleeding/bruising Neurologic: Denies CVA/TIA Musculoskeletal: Denies back pain, weakness PE: BP 214/93 Pulse 109 Temp 36.4 ??C (97.5 ??F) Resp 16 Wt 80 kg (176 lb 5.9 oz) General: Oriented to person, place and time. Healthy appearance. Color normal. No significant skin lesions. There is no significant unusual hair pattern or gynecomastia Card: RRR, no murmur Lungs: CTAB Abdomen: benign without masses, rebound, guarding, or tenderness. No hepatosplenogmegaly. No CVA tenderness. Genitalia: Scrotum - Color and texture normal; no masses. Testicles - descended bilaterally withoutmasses. Penis - uncircumcised with orthotopic meatus; no masses or surface lesions. Rectal: The anus and perineum are normal. Rectal sphincter tone is normal. Prostate is small, smooth and slightly firm without nodules. Musculoskeletal: good strength in bilateral upper and lower extremities Neurologic: grossly normal Urinalysis: negative NCI risk calculator with PSA of 6.5 44% risk of prostate cancer 14% risk of high risk prostate cancer Calculator utilizing free PSA (7.6% of total) = >75% chance of biopsy-detectable prostate cancer Impression: Elevated PSA Plan: I discussed the significance of an elevated PSA and his ZACHARY findings with the pt, specifically the implications in predicting the presence of prostate cancer. He understands his risk of prostate cancer as detailed above using the NCI prostate cancer risk calculator. I informed him that given his PSA level I would recommend that he undergo biopsies of the prostate. We discussed alternatives and the risks and benefits of prostate biopsy (including risks of blood in urine, stool, and semen, infection and rarely hospital admission.) Patient does not take blood thinners. He has taken his enema as directed this AM. Will proceed withbiopsy today and follow-up with patient next week with results. BEVERLY MENA MD Seen and examined with Dr Mena Discussed risks of prostate cancer and need for biopsy. He would like to proceed todat Procedure Note Procedure: Transrectal ultrasound and prostate biopsy Surgeon: Anila Abrams Preoperative Diagnosis: Abnormal PSA/Free PSA Abnormal Rectal Exam Post Operative Diagnosis: Successful Biopsy Complications: None Procedure: A time out procedure was performed. It was confirmed the patient had a urinanalysis that did not show evidence of a urinary infection prior to the biopsy. It was confirmed that the patient took Levaquin 500mg po ~ 1 hour ago. It was confirmed the patient signed the consent for [facility] [id number]. He understands the risks and voluntary nature of study. Rectal 30 grams. No nodules The TRUS probe was inserted into the rectum and the prostate imaged in the sagittal and transverse dimensions. Prostate volume was 29cc. The prostate was homogeneous. Prostate calcifications were observed at the junction of the peripheral and transition zones. Hypochoic areas:None Rectum, periprostatic structures, visualized areas of the bladder, vas deferens and seminal vesicles all appeared normal Electrical impedance measurements were obtained Prostatic anaesthesia was achieved in the standard fashion. Electrical impedence measurements were obtained. A series of prostatic biopsies were obtained from the lateral apex, mid,and base as well as mid sagittal apex, mid and base. Biopsies were obtained from both the right and left side of the prostate. Additional biopsies: None A total of None biopsies were obtained. The patient tolerated the procedure without difficulty. I will contact him in about a weeks time with the results. He understands that if he does not hear from me or has any problems to contact my office. Anila Garcia documented in this encounter Miscellaneous Notes * Miscellaneous - Edson, Food Stylist - 11/15/2011 10:38 AM EST documented in this encounter Plan of Treatment Upcoming Encounters Date Type Department Care Team (Late st Contact Info) Description 05/22/2024 1:00 PM EDT Office Visit Hematology/Oncology at [address] [phone] Iris Nguyen, [facility] [place] [address] 05/22/2024 1:30 PM EDT Infusion Hematology Oncology at [address] [phone] documented as of this encounter Procedures Procedure Name Priority Date/Time Associated Diagnosis Comments SPECIMEN TO PATHOLOGY Routine 11/08/2011 10:20 AM EST Elevated PSA documented in this encounter Results * US guided transrectal biopsy (11/08/2011 12:21 PM EST) Anatomical Region Laterality Modality Pelvis Ultrasound 11/08/2011 12:2 1 PM EST Narrative 11/08/2011 12:25 PM EST ?Male Pelvis ? (Signed Final 11/08/2011 12:24 pm) Patient Info ID: ? [id number] ? : ??[birth year] (66 yrs) Name: ? BRENTNO JOAQUIN ?Visit Date: 11/08/2011 12:20 pm Performed By Performed By: ?Eden Farmer RDMS Attending: ? Megan STEWARD, Jessica Webster Referred By: ? ANILA GARCIA MD Service(s) Provided UTRBX - Ultrasound - Prostate Biopsy - [id number] ?[id number] Indications Elevated PSA Technique/Scan Quality Technique: ?Transducer [...] Final 11/08/2011 12:24 pm) Patient Info ID: [id number] : [birth year] (66 yrs) Name: BRENTON JOAQUIN Visit Date: 11/08/2011 12:20 pm Performed By Performed By: Eden Farmer RDMS Attending: Jessica Guzman MD Referred By: ANILA GARCIA MD Service(s) Provided UTRBX - Ultrasound - Prostate Biopsy - [id number] Indications Elevated PSA Technique/Scan Quality Technique: Transducer [...] 11/08/2011 12:24 pm Anila Garcia MD IMG US PROC ORDERABL ES * Specimen to Pathology (surgical or derm) (11/08/2011 10:20 AM EST) AP Specimen 11/08/2011 10:2 0 AM EST 11/08/2011 10:20 AM EST Narrative ROMULOMAIKEL BRIANIUM - 11/08/2011 10:20 AM EST Specimen requisition ordered. ??Separate Pathology report to follow Anila Garcia MD PATHOLOGY/CYTOLOGY O RDERABLES [facility] [place] [facility] documented in this encounter Visit Diagnoses Diagnosis Elevated PSA- Primary Elevated prostate specific antigen (PSA) Elevated PSA Elevated prostate specific antigen (PSA) documented in this encounter Care Teams Seasoner Hand Relationship Specialty Start Date End Date Brady Christensen MD [address] [place] [address] PCP - General 11/08/11 07/27/17 documented as of this encounter
--- OUTSIDE RECORDS SUMMARY | 2024-05-14 03:42 | XMS_ITS | Encounter Summary ---
Author Organization [place] [address] Care Team Providers Care Hospital Housekeeper Name Role Phone Brady Christensen MD Primary Care Provider [phone] Reason for Visit * Reason Comments Radiation Follow-up prostate cancer Encounter Details Date Type Department Care Team (Late st Contact Info) Description 11/16/2012 9:00 AM EST Follow-Up Radiation Oncology at [address] [phone] Cherise Tuttle APRN [address] [place] [address] [place] [address] Prostate cancer (Primary Dx) Discharge Disposition: Home Social History Tobacco Use Types Packs/Day Years Used Date Smoking Tobacco: Never Sex and Gender Information Value Date Recorded Sex Assigned at Not on file Gender Identity Not on file Sexual Orientation Not on file documented as of this encounter Last Filed Vital Signs Vital Sign Reading Time Taken Comments Blood Pressure 126/97 11/16/2012 8:48 AM EST Pulse 93 11/16/2012 8:48 AM EST Temperature 36.5 ??C (97.7 ??F) 11/16/2012 8:48 AM ES T Respiratory Rate 18 11/16/2012 8:48 AM EST Oxygen Saturation 98% 11/16/2012 8:48 AM EST Inhaled Oxygen Concentration - - Weight 83.9 kg (185 lb) 11/16/2012 8:48 AM EST Height - - Body Mass Index - - documented in this encounter Patient Instructions * Patient Instructions* Cherise Tuttle APRN - 11/16/2012 8:55 AM EST Mr Joaquin you are doing well at this time with a decreasing PSA and no evidence of disease. We willsee you again in three months. Please call if you have any questions or concerns. Date PSA 11/09/2012 0.79 08/07/2012--first after treatment PSA 1.67 10/26/2011--before treatment 6.5 03/19/2011 5.83 02/16/2010 5.57 08/29/2009 5.1 documented in this encounter Progress Notes * Cherise Tuttle APRN - 11/16/2012 8:47 AM EST Identification: Mr Joaquin is a [...] Garcia who saw patient on 11/08/2011 at [place]. An ultrasound was done which demonstrated a [...] with care that was delivered at the [facility] [...] Social History: Never smoker. No EtOH. 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 , two daughters and three grandchildren. No Known Allergies Current Outpatient Prescriptions on File Prior to Visit Medication Sig Dispense Refill ??? multivitamin (THERAGRAN) tablet Take 1 tablet by mouth daily. ??? UNABLE TO FIND Med Name: red yeast rice ??? [place]-3 Fatty Acids (FISH OIL) 300 mg Cap Take by mouth. Interim History: Mr Joaquin reports that he is doing well but does get very anxious prior to appointments. His B/P is elevated. He does indicate that he checks it at home and that it is in the normal range. He reports that he is doing very well. 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 He [...] fatigue and unexpected weight change. Still working mathematics department chair--appliance repair No pain HENT: Negative. Eyes: Negative. [...] is not new for patient Filed Vitals: 11/16/12 0848 BP: 126/97 Pulse: 93 Temp: 36.5 ??C (97.7 ??F) TempSrc: Oral Resp: 18 Weight: 83.915 kg (185 lb) SpO2: 98% Karnofsky: 100 IPSS : 1 Physical Exam Vitals reviewed. Constitutional: He is [...] distension and no mass. There is no tenderness. There is no rebound and no guarding. Genitourinary: Rectum [...] Judgment and thought content normal. Date PSA 11/09/2012 0.79 08/07/2012--first after treatment PSA 1.67 [...] encounter Procedure Notes * Provider, Scanning - 02/13/2013 2:17 PM EDTAssociated Order(s): SCAN DOC: LAB documented in this encounter Plan of Treatment Upcoming Encounters Date Type Department Care Team (Late st Contact Info) Description 05/22/2024 1:00 PM EDT Office Visit Hematology/Oncology at [address] [phone] Iris Nguyen APRN [facility] [place] [address] 05/22/2024 1:30 PM EDT Infusion Hematology Oncology at [address] [phone] documented as of this encounter Procedures Procedure Name Priority Date/Time Associated Diagnosis Comments LAB SCAN 02/13/2013 2:17 PM EDT documented in this encounter Results * SCAN DOC: LAB (02/13/2013 2:17 PM EDT) Narrative 02/13/2013 2:17 PM EDT Procedure Note Provider, Scanning - 02/13/2013 2:17 PM EDT Scanning Provider MEDIA MGR SCAN EXT O RDR/RSLT documented in this encounter Visit Diagnoses Diagnosis Prostate cancer- Primary Malignant neoplasm of prostate documented in this encounter Care Teams Hospital Housekeeper Relationship Specialty Start Date End Date Brady Christensen MD [address] [place] [address] PCP - General 11/08/11 07/27/17 documented as of this encounter
--- OUTSIDE RECORDS SUMMARY | 2024-05-14 03:42 | XMS_ITS | Encounter Summary ---
Author Organization [facility] [place] [address] Care Team Providers Care Title Department Manager Name Role Phone Brady Christensen MD Primary Care Provider [phone] Encounter Details Date Type Department Care Team (Late Contact Info) Description 12/14/2011 Telephone [place] [phone] Mela Mckeon, RN Social History Tobacco Use Types Packs/Day Years Used Date Smoking Tobacco: Never Sex and Gender Information Value Date Recorded Sex Assigned at Not on file Gender Identity Not on file Sexual Orientation Not on file documented as of this encounter Miscellaneous Notes * Telephone Encounter - Mela Mckeon, RN - 12/14/2011 1:11 PM EDT I just spoke to Mr. Joaquin. He does want external beam radiation but he would like to be tx in [facility] it is 6 miles away from his home. documented in this encounter Plan of Treatment Upcoming Encounters Date Type Department Care Team (Late Contact Info) Description 05/22/2024 1:00 PM EDT Office Visit Hematology/Oncology at [address] [phone] Iris Nguyen APRN [facility] [place] [address] 05/22/2024 1:30 PM EDT Infusion Hematology Oncology at [address] [phone] documented as of this encounter Visit Diagnoses Not on filedocumented in this encounter Care Teams Title Department Manager Relationship Specialty Start Date End Date Bardy Christensen MD [address] [place] [address] PCP - General 11/08/11 07/27/17 documented as of this encounter
--- OUTSIDE RECORDS SUMMARY | 2024-05-14 03:42 | XMS_ITS | Encounter Summary ---
Author Organization [facility] [place] [address] Care Team Providers Care Director Of Outreach Name Role Phone Brady Christensen MD Primary Care Provider [phone] Reason for Visit * Reason Comments Radiation Treatment Encounter Details Date Type Department Care Team (Late st Contact Info) Description 04/12/2012 8:15 AM EDT Follow-Up Radiation Oncology at [address] [phone] Luis Fernando Gamez MD [facility] [place] [address] Prostate ca (Primary Dx) Discharge Disposition: Home Social History Tobacco Use Types Packs/Day Years Used Date Smoking Tobacco: Never Sex and Gender Information Value Date Recorded Sex Assigned at Not on file Gender Identity Not on file Sexual Orientation Not on file documented as of this encounter Last Filed Vital Signs Vital Sign Reading Time Taken Comments Blood Pressure 157/94 04/12/2012 7:55 AM EDT Pulse 78 04/12/2012 7:55 AM EDT Temperature 36.7 ??C (98 ??F) 04/12/2012 7:55 AM EDT Respiratory Rate 16 04/12/2012 7:55 AM EDT Oxygen Saturation 98% 04/12/2012 7:55 AM EDT Inhaled Oxygen Concentration - - Weight 83 kg (183 lb) 04/12/2012 7:55 AM EDT Height - - Body Mass Index - - documented in this encounter Progress Notes * Luis Fernando Gamez MD - 04/12/2012 3:37 PM EDT ON TREATMENT VISIT: DATE:04/12/2012 PATIENT STATUS: Prostate: GS=3+4=7/10, PSA=6.5, [id number] . TREATMENT PLAN: RADIATION ; Site Technique Dose/ Fraction Fraction Number MeV p e TOTAL DOSE Treatment Dates PTV 1 IMRT 180 25 p 4500 02/13 to 03/20/12 PTV 2 IMRT 180 14 P 2520 03/21 to DOSE to [id number] cGy in 40 FX RADIATION TREATMENT IMAGING: matches original approved [...] 1:00 PM EDT Office Visit Hematology/Oncology at [address] [phone] Iris Nguyen APRN [facility] [place] [address] 05/22/2024 1:30 PM EDT Infusion Hematology Oncology at [address] [phone] documented as of this encounter Visit Diagnoses Diagnosis Prostate CA- Primary Malignant neoplasm of prostate documented in this encounter Care Teams Director Of Outreach Relationship Specialty Start Date End Date Brady Christensen MD [address] [place] [address] PCP - General 11/08/11 07/27/17 documented as of this encounter
--- OUTSIDE RECORDS SUMMARY | 2024-05-14 03:42 | XMS_ITS | Encounter Summary ---
Author Organization [facility] [place] [address] Care Team Providers Care Pipe Jeeper Name Role Phone Brady Christensen MD Primary Care Provider [phone] Encounter Details Date Type Department Care Team (Late st Contact Info) Description 03/14/2012 8:00 AM EDT Follow-Up Radiation Oncology at [address] [phone] Suly Guzman MD [facility] [place] [address] Prostate ca (Primary Dx) Discharge Disposition: Home Social History Tobacco Use Types Packs/Day Years Used Date Smoking Tobacco: Never Sex and Gender Information Value Date Recorded Sex Assigned at Not on file Gender Identity Not on file Sexual Orientation Not on file documented as of this encounter Patient Instructions * Patient Instructions* Suly Guzman MD - 03/14/2012 8:29 AM EDT Continue as you have been. documented in this encounter Progress Notes * Suly Guzman MD - 03/14/2012 8:28 AM EDT TREATMENT VISIT: DATE: PATIENT STATUS: Prostate: GS=3+4=7/10, PSA=6.5, [id number] . TREATMENT PLAN: RADIATION ; Site Technique Dose/ Fraction Fraction Number MeV p e TOTAL DOSE Treatment Dates PTV 1 IMRT 180 25 p 4500 02/13 to DOSE to DATE:3780 cGy in 21 FX RADIATION TREATMENT IMAGING: matches original approved images ON TREATMENT EVALUATION: MEDICAL: Denies diarrhea. Increased urinary frequency. Drinking lots of water. No pain. Energy level ok. PHYSICAL: A&Ox3, in NAD. Amb stable. AIDS: LABS: TOXICITY: Increased frequency of urination. RESPONSE TO TREATMENT:good MANAGEMENT PLAN: CONTINUE TREATMENT PLANNED: XX CHANGE TREATMENT HOLD TREATMENT STOP TREATMENT Discussion time with patient (face to face)10 min. documented in this encounter Plan of Treatment Upcoming Encounters Date Type Department Care Team (Late st Contact Info) Description 05/22/2024 1:00 PM EDT Office Visit Hematology/Oncology at [address] [phone] [facility] [place] [address] 05/22/2024 1:30 PM EDT Infusion Hematology Oncology at [address] [phone] documented as of this encounter Visit Diagnoses Diagnosis Prostate CA- Primary Malignant neoplasm of prostate documented in this encounter Care Teams Pipe Jeeper Relationship Specialty Start Date End Date Brady Christensen MD [address] [place] [address] PCP - General 11/08/11 07/27/17 documented as of this encounter
--- OUTSIDE RECORDS SUMMARY | 2024-05-14 03:42 | XMS_ITS | Encounter Summary ---
[facility] Organization [facility] [place] [address] Care Team Providers Care Punch Press Operator Helper Name Role Phone Brady Christensen MD Primary Care Provider Reason for Referral * Consultation (Routine) - Closed Specialty Diagnoses / Procedures Referred By Damien craig Referred To Contact Radiation Oncology Diagnoses Prostate cancer Anila Garcia MD [facility] [place] [address] [facility] [place] [address] Referral ID Status Reason Start Date Expiration Date V isits Requested Visits Authorized [id number] Closed Consult & Test 11/15/2011 05/13/2012 1 1 Reason for Visit * Reason Onset Date Comments Results 11/15/2011 Encounter Details Date Type Department Care Team (Late st Contact Info) Description 11/15/2011 [place] [phone] Anila Garcia MD [facility] [place] [address] Results Social History Tobacco Use Types Packs/Day Years Used Date Smoking Tobacco: Never Sex and Gender Information Value Date Recorded Sex Assigned at Not on file Gender Identity Not on file Sexual Orientation Not on file documented as of this encounter Miscellaneous Notes * Telephone Encounter - Anila Garcia MD - 11/15/2011 7:51 PM EST Brenton Joaquin [address] [facility] [phone] 11/15/2011 Dear Mr. Brenton Joaquin This is a short note in follow up on our telephone call. You will recall I evaluated you for a PSA of 6.5. On rectal exam I found that your prostate felt normal. As you will recall we performed a transrectal ultrasound and prostate biopsy. The biopsy found prostate cancer. Attached below is an excerpt from your pathology report. [facility] Provider: ANIAL GARCIA Pt. Name: BRENTON JOAQUIN Acc #: [id number] Pt. Col Date: 11/08/2011 /Sex: 1945,(66 years),Male Rec Date: 11/08/2011 LOC: SURGICAL PATHOLOGY ---Pathologic Diagnosis--- A - Prostatic core needle [...] approximately 5% of the single biopsy core. CR-0 11/09/11 BJM 11/09/11 Verified by: Carlos STEWARD, Kamlesh Lora Pathologist (Electronic Signature) I have staged your prostate cancer as [id number] [place] score 3+4=7 . As we discussed there is considerable controversy about the best management of prostate cancer. I enclose with this letter some information about the various treatment options for prostate cancer. Asyou will see there are several excellent alternatives and we will discuss all of these when you come to see me. Someone from my office should be contacting you to arrange a follow-up appointment in 1-2 weeks with me or my partner Anila Weaver and one of our Radiation Oncologists to discuss the management of your prostate cancer in more detail. In the meantime if you have any questions please contact my officeat . Yours Sincerely, Aliza Farrar. documented in this encounter Plan of Treatment Upcoming Encounters Date Type Department Care Team (Late st Contact Info) Description 05/22/2024 1:00 PM EDT Office Visit Hematology/Oncology at [address] [phone] Iris Nguyen APRN [facility] [place] [address] 05/22/2024 1:30 PM EDT Infusion Hematology Oncology at [address] [phone] Scheduled Referrals Name Type Priority Associated Diagnoses Orde r Schedule REFERRAL TO RADIATION ONCOLOGY Outpatient Referral Routine Prostate cancer Ordered: 11/15/2011 documented as of this encounter Visit Diagnoses Diagnosis Prostate cancer Malignant neoplasm of prostate documented in this encounter Care Teams Punch Press Operator Helper Relationship Specialty Start Date End Date Brady Christensen MD [address] [place] [address] PCP - General 11/08/11 07/27/17 documented as of this encounter
--- OUTSIDE RECORDS SUMMARY | 2024-05-14 03:42 | XMS_ITS | Encounter Summary ---
Author Organization [facility] [place] [address] Care Team Providers Care Uniform Cap Operator Name Role Phone Brady Christensen MD Primary Care Provider Reason for Visit * Reason Comments Radiation Follow-up prostate cancer Encounter Details Date Type Department Care Team (Late st Contact Info) Description 11/13/2014 9:45 AM EST Follow-Up Radiation Oncology at [address] [phone] Cherise Tuttle [address] [address] Malignant neoplasm of prostate Discharge Disposition: Home Social History Tobacco Use Types Packs/Day Years Used Date Smoking Tobacco: Never Sex and Gender Information Value Date Recorded Sex Assigned at Not on file Gender Identity Not on file Sexual Orientation Not on file documented as of this encounter Last Filed Vital Signs Vital Sign Reading Time Taken Comments Blood Pressure 166/88 11/13/2014 9:44 AM EST Pulse 53 11/13/2014 9:44 AM EST Temperature 36.2 ??C (97.1 ??F) 11/13/2014 9:44 AM ES T Respiratory Rate 18 11/13/2014 9:44 AM EST Oxygen Saturation 98% 11/13/2014 9:44 AM EST Inhaled Oxygen Concentration - - Weight 86.6 kg (191 lb) 11/13/2014 9:44 AM EST Height - - Body Mass Index 30.84 05/01/2014 11:20 AM EDT documented in this encounter Patient Instructions * Patient Instructions* Cherise Tuttle APRN - 11/13/2014 8:38 AM EST Date 05/01/14 0.5 11/19/13 0.5 08/03/13 0.7 04/30/2013 1.0 02/22/2013 1.50 11/09/2012 0.79 08/07/2012--first after treatment PSA 1.67 10/26/2011--before treatment 6.5 03/19/2011 5.83 02/16/2010 5.57 08/29/2009 5.1 02/22/2013 1.50 11/09/2012 0.79 08/07/2012--first after treatment PSA 1.67 10/26/2011--before treatment 6.5 03/19/2011 5.83 02/16/2010 5.57 08/29/2009 5.1 documented in this encounter Progress Notes * Cherise Tuttle APRN - 11/13/2014 8:31 AM EST Identification: Mr Joaquin is a 69 year [...] The right lateral base had adenocarcinoma [place] 3+4 with 10% of this core. The left lateral apex had adenocarcinoma 3+3 involving 5% of the core. The remaining nine cores demonstrated benign prostatic tissue. After consultation with Dr Kamlesh Nunez, Mr Joaquin elected to be treated with external beam radiation therapy with care that was delivered at the [facility] in [facility] .He was treated to a [...] and Biopsy 11/08/2011 Volume in cc 29.1 [place] grade/score a+b=c 3+4=7 Total Cores 12 Positive cores 3 Prostate confined yes ERZA -negative SV -negative Regular Nodes -negative Distant [...] Social History: Never smoker. No EtOH. 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 , two daughters and three grandchildren. No Known Allergies Current Outpatient Prescriptions on File Prior to Visit Medication Sig Dispense Refill ??? Vitamin A-Vitamin C-Vit E-Min (OCUVITE) Tab Take by mouth. ??? multivitamin (THERAGRAN) tablet Take 1 tablet by mouth daily. ??? UNABLE TO FIND Med Name: red yeast rice ??? [place]-3 Fatty Acids (FISH OIL) 300 mg Cap [...] doing very well. 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 Previously he had been concerned about his mother who is nearly 90 and has dementia. She is now in a alf facility. 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 He denies any urinary issues. His IPSS [...] fatigue and unexpected weight change. 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 [...] is not new for patient Filed Vitals: 11/13/14 0944 BP: 166/88 Pulse: 53 Temp: 36.2 ??C (97.1 ??F) TempSrc: Oral Resp: 18 Weight: 86.637 kg (191 lb) SpO2: 98% Karnofsky: 100 IPSS : [...] tone, No masses, no tenderness, prostate smooth and flat with no induration. Musculoskeletal: Normal range of motion. Lymphadenopathy: Head (right side): No submental, no [...] and thought content normal. Vitals reviewed. Date 10/21/2014 0.5 05/01/14 0.5 11/19/13 0.5 08/03/13 0.7 04/30/2013 1.0 02/22/2013 1.50 11/09/2012 0.79 08/07/2012--first after treatment PSA 1.67 10/26/2011--before treatment 6.5 03/19/2011 5.83 02/16/2010 5.57 08/29/2009 5.1 02/22/2013 1.50 11/09/2012 0.79 08/07/2012--first after treatment PSA 1.67 10/26/2011--before treatment 6.5 03/19/2011 5.83 02/16/2010 5.57 08/29/2009 5.1 Assessment Plan: Mr Joaquin is a pleasant 69 year old man with adenocarcinoma of the prostate, [place] 3+4=7, pretreatment PSA of 6.5. He was treated with external beam radiation 79.2 Gy completed on 04/18/2012. His PSA is 0.5 and is at his post treatment janey. He is doing with no evidence of disease. As part of today's visit we reviewed his prostate cancer survivor care plan. Patient was given a copy and a copy will be mailed to his PCP. We will repeat his PSA in six months and see him for clinical evaluation. Mr Joaquin is to call if he has any questions or concerns. Follow-up for a total of 30 minutes, with 20 minutes of that time spent discussing his current clinical condition, reviewing his prostate cancer survivor care plan which includes review of his prostate cancer history, treatment history, health behaviors to promote wellness, ongoing surveillance, late effects of treatments and symptoms to report as well as planning further management. documented in this encounter Miscellaneous Notes * Advance Care Plan Note - Cherise Tuttle APRN - 11/13/2014 10:36 AM EST ADVANCE CARE PLANNING NOTE I. WHEN TO USE THIS FORM: This Advance Care Planning Note should be used for patients with decisional capacity who have not executed advance directives, such as a Durable Power of Convention Manager for Health Care. This is not a legaldocument and does not carry the full weight of the optimal document, an Advance Directive. DETERMINATION OF CAPACITY The basis for decisional capacity entails all of the following criteria. The patient, Brenton Joaquin, must be able (in a general way) to understand: ?? His condition ?? Treatment alternatives ?? Potential benefits and risks of proposed treatments/interventions The patient has the capacity to make decisions: Yes If the patient does not have decisional capacity, go no further. This form cannot be used. II. DESIGNATION OF DECISION MAKER In the event the patient lacks decision-making capacity, the patient???s default surrogate decision-maker is specified by law. Briefly, in descending order of priority, the default decision-maker defined by law is: (a) The patient???s spouse, or civil union partner or common law spouse unless there is a divorce proceeding, separation agreement, or restraining order limiting that person???s relationship with thepatient. (b) Any adult son or daughter of the patient. (c) Either parent of the patient. (d) Any adult brother or sister of the patient. (e) Any adult grandchild of the patient. (f) Any grandparent of the patient. (g) Any adult aunt, uncle, niece, or nephew of the patient. (h) A close friend of the patient.* (i) The agent with financial power of energy attorney or a conservator appointed in accordance with RSA 464-A. (j) The guardian of the patient???s estate. For details, please consult the [facility] Surrogate Health Care Decisions policy. The above default surrogate decision-maker is superseded by any individual appointed by the patientto be the Durable Power of Convention Manager for Healthcare, or a court-appointed legal guardian. This Advanced Care Planning note cannot be used to change the identify of the surrogate decision-maker. The patient, Brenton Joaquin, does have an advanced directive-- and his is his designated DPOA documented in this encounter Plan of Treatment Upcoming Encounters Date Type Department Care Team (Late st Contact Info) Description 05/22/2024 1:00 PM EDT Office Visit Hematology/Oncology at [address] [phone] [facility] [place] [address] 05/22/2024 1:30 PM EDT Infusion Hematology Oncology at [address] [phone] documented as of this encounter Visit Diagnoses Diagnosis Malignant neoplasm of prostate documented in this encounter Care Teams Uniform Cap Operator Relationship Specialty Start Date End Date Brady Christensen MD [address] [place] [address] PCP - General 11/08/11 07/27/17 documented as of this encounter
--- OUTSIDE RECORDS SUMMARY | 2024-05-14 03:42 | XMS_ITS | Encounter Summary ---
[place] [address] Care Team Providers Care Shake Maker Name Role Phone Brady Christensen MD Primary Care Provider [phone] Encounter Details Date Type Department Care Team (Latest Contact Info) Description 01/20/2012 12:27 PM EDT - 01/20/2012 11:59 PM EDT Hospital [place] [phone] Prostate cancer Social History Tobacco Use Types [...] FIND Med Name: red yeast rice 07/03/2015 [place]-3 Fatty Acids (FISH OIL) 300 mg Cap Take by mouth. 07/03/2015 documented as of this encounter Miscellaneous Notes * Miscellaneous - Provider, Scanning - 01/26/2012 11:10 AM EDT documented in this encounter Plan of Treatment Upcoming Encounters Date Type Department Care Team (Late st Contact Info) Description 05/22/2024 1:00 PM EDT Office Visit Hematology/Oncology at [address] [phone] Iris Nguyen APRN [facility] [place] [address] 05/22/2024 1:30 PM EDT Infusion Hematology Oncology at [address] [phone] documented as of this encounter Procedures Procedure Name Priority Date/Time Associated Diagnosis Comments MRI PELVIS SOFT TISSUE (GI TRADE EMBALMER) WO CONTRAST Routine 01/20/2012 1:36 PM EDT Prostate cancer documented in this encounter Results * MRI pelvis WO [...] CT of the abdomen, 12/08/2011 and prostate vgcnoohiko54/06/2012 TECHNIQUE: MRI of the prostate performed per [...] prostate documented in this encounter Care Teams Shake Maker Relationship Specialty Start Date End Date Brady Christensen MD [address] [place] [address] PCP - General 11/08/11 07/27/17 documented as of this encounter
--- OUTSIDE RECORDS SUMMARY | 2024-05-14 03:42 | XMS_ITS | Encounter Summary ---
[place] [address] Care Team Providers Care Quality Assurance Qa Lab Analyst Name Role Phone Brady Christensen MD Primary Care Provider [phone] Encounter Details Date Type Department Care Team (Late st Contact Info) Description 01/20/2012 9:00 AM EDT Initial [place] [phone] Social History Tobacco Use Types Packs/Day Years [...] PM EDT Office Visit Hematology/Oncology at [address] [phone] Iris Nguyen APRN [facility] [place] [address] 05/22/2024 1:30 PM EDT Infusion Hematology Oncology at [address] [phone] documented as of this encounter Visit Diagnoses Not on filedocumented in this encounter Care Teams Quality Assurance Qa Lab Analyst Relationship Specialty Start Date End Date Brady Christensen MD [address] [place] [address] PCP - General 11/08/11 07/27/17 documented as of this encounter
--- OUTSIDE RECORDS SUMMARY | 2024-05-14 03:42 | XMS_ITS | Encounter Summary ---
Author Organization [facility] [place] [address] Care Team Providers Care Log Loader Helper Name Role Phone Brady Christensen MD Primary Care Provider [phone] Reason for Visit * Reason Comments Radiation Treatment Encounter Details Date Type Department Care Team (Late st Contact Info) Description 02/16/2012 8:30 AM EDT Follow-Up Radiation Oncology at [address] [phone] Luis Fernando Gamez MD [facility] [place] [address] Prostate cancer (Primary Dx) Discharge Disposition: Home Social History Tobacco Use Types Packs/Day Years Used Date Smoking Tobacco: Never Sex and Gender Information Value Date Recorded Sex Assigned at Not on file Gender Identity Not on file Sexual Orientation Not on file documented as of this encounter Last Filed Vital Signs Vital Sign Reading Time Taken Comments Blood Pressure 150/88 02/16/2012 8:59 AM EDT Pulse 75 02/16/2012 8:59 AM EDT Temperature - - Respiratory Rate 16 02/16/2012 8:59 AM EDT Oxygen Saturation 96% 02/16/2012 8:59 AM EDT Inhaled Oxygen Concentration - - Weight 78 kg (172 lb) 02/16/2012 8:59 AM EDT Height - - Body Mass Index - - documented in this encounter Progress Notes * Luis Fernando Gamez MD - 02/16/2012 12:28 PM EDT ON TREATMENT VISIT: DATE:02/16/2012 PATIENT STATUS: Prostate: GS=3+4=7/10, PSA=6.5, [id number] . TREATMENT PLAN: RADIATION ; Site Technique Dose/ Fraction Fraction Number MeV p e TOTAL DOSE Treatment Dates PTV 1 IMRT 180 25 p 4500 02/13 to DOSE to DATE:540 cGy in 3 FX RADIATION TREATMENT IMAGING: matches original approved images ON TREATMENT EVALUATION: MEDICAL:0 PHYSICAL: 0 AIDS: LABS: TOXICITY:o REFER TO NURSES UPDATED NOTES RESPONSE TO TREATMENT:o MANAGEMENT PLAN: CONTINUE TREATMENT PLANNED: XX CHANGE TREATMENT HOLD TREATMENT STOP TREATMENT Discussion time with patient (face to face)10 min. documented in this encounter Plan of Treatment Upcoming Encounters Date Type Department Care Team (Late st Contact Info) Description 05/22/2024 1:00 PM EDT Office Visit Hematology/Oncology at [address] [phone] Iris Nguyen [facility] [place] [address] 05/22/2024 1:30 PM EDT Infusion Hematology Oncology at [address] [phone] documented as of this encounter Visit Diagnoses Diagnosis Prostate cancer- Primary Malignant neoplasm of prostate documented in this encounter Care Teams Log Loader Helper Relationship Specialty Start Date End Date Brady Christensen MD [address] [place] [address] PCP - General 11/08/11 07/27/17 documented as of this encounter
--- OUTSIDE RECORDS SUMMARY | 2024-05-14 03:42 | XMS_ITS | Encounter Summary ---
Author Organization [facility] [place] [address] Care Team Providers Care Separator Tender Name Role Phone Brady Christensen MD Primary Care Provider [phone] Encounter Details Date Type Department Care Team (Late Contact Info) Description 01/20/2012 8:30 AM EDT Follow-Up [place] [address] NURSE, RADIATION ONCOLOGY RADIATION ONCOLOGY [facility] Discharge Disposition: Home Social History Tobacco Use [...] PM EDT Office Visit Hematology/Oncology at [address] [phone] Iris Nguyen APRN [facility] [place] [address] 05/22/2024 1:30 PM EDT Infusion Hematology Oncology at [address] [phone] documented as of this encounter Visit Diagnoses Not on filedocumented in this encounter Care Teams Separator Tender Relationship Specialty Start Date End Date Brady Christensen MD [address] [place] [address] PCP - General 11/08/11 07/27/17 documented as of this encounter
--- OUTSIDE RECORDS SUMMARY | 2024-05-14 03:42 | XMS_ITS | Encounter Summary ---
Author Organization [facility] [place] [address] Care Team Providers Care Crown Presser Name Role Phone Brady Christensen MD Primary Care Provider [phone] Reason for Visit * Reason Comments Radiation Follow-up Gold Coils Encounter Details Date Type Department Care Team (Latest Contact Info) Description 01/10/2012 9:00 AM EDT Procedure visit [place] [address] Kamlesh Nunez MD [facility] [place] [address] Prostate cancer (Primary Dx) Discharge Disposition: Home Social History Tobacco Use Types Packs/Day Years Used Date Smoking Tobacco: Never Sex and Gender Information Value Date Recorded Sex Assigned at Not on file Gender Identity Not on file Sexual Orientation Not on file documented as of this encounter Last Filed Vital Signs Vital Sign Reading Time Taken Comments Blood Pressure 158/89 01/10/2012 8:36 AM EDT Pulse 81 01/10/2012 8:36 AM EDT Temperature 36.9 ??C (98.4 ??F) 01/10/2012 8:36 AM ED T Respiratory Rate 20 01/10/2012 8:36 AM EDT Oxygen Saturation 98% 01/10/2012 8:36 AM EDT room air Inhaled Oxygen Concentration - - Weight - - Height - - Body Mass Index - - documented in this encounter Progress Notes * Kamlesh Nunez MD - 01/10/2012 10:22 AM EDT Identification: Brenton Joaquin is a 66 y.o. gentleman with PSA 6.5 [place] Score 3+4=7/10 prostate cancer, Stage [id number]. He is being seen at the request of Dr Garcia for consideration of the role ofradiation therapy in his further management Procedure: Gold coil fiducial marker placement within the prostate Physician: Kamlesh Nunze MD Anesthesia: Local lidocaine with bicarbonate Description of Procedure: Brenton Joaquin was placed in the lithotomy position. A transrectal ultrasound probe was placed within the rectum and stabilized using the placement positioning system. The perineum was prepped, anesthetized with subcutaneous lidocaine, and draped with the graticule fixed in position on the ultrasound stabilizer. A needle was then placed trans-perineally into the right lobe of the prostate under ultrasound guidance with the graticule serving for stabilization and position verification. The ultrasound was used to monitor the advancement of the needle, and lidocaine was locally applied as the needle was advanced. Once it was properly positioned, a 2.0 cm length of gold coil was placed within the right lobe, and the needle was removed. This procedure was repeated within the left prostate. Following placement of both coils, the ultrasound probe and the stabilizer system were removed. The patient was then discharged. Complications: none Estimated Blood Loss: minimal Disposition: Brenton Joaquin tolerated the treatment well. He described minimal discomfort during the course of the procedure, at a level of 1 on a 10-point pain scale, primarily related to placement of the rectalprobe, and also with needle insertion through the perineum. He will return shortly for CT-based simulation and treatment planning, with radiation therapy to proceed thereafter. documented in this encounter Plan of Treatment Upcoming Encounters Date Type Department Care Team (Late st Contact Info) Description 05/22/2024 1:00 PM EDT Office Visit Hematology/Oncology at [address] [phone] Iris Nguyen APRN [facility] [place] [address] 05/22/2024 1:30 PM EDT Infusion Hematology Oncology at [address] [phone] documented as of this encounter Visit Diagnoses Diagnosis Prostate cancer- Primary Malignant neoplasm of prostate documented in this encounter Administered Medications Inactive Administered Medications - up to 3 most recent administrations Medication Order MAR Action Action Date Dose Rate Site LORazepam (ATIVAN) tablet 0.5 mg 0.5 mg, Oral, ONCE, 1 dose, On Tue01/10/12 at 0930, Routine Given 01/10/2012 9:06 AM EDT 0.5 mg documented in this encounter Care Teams Crown Presser Relationship Specialty Start Date End Date Brady Christensen MD [address] [place] [address] PCP - General 11/08/11 07/27/17 documented as of this encounter
--- OUTSIDE RECORDS SUMMARY | 2024-05-14 03:42 | XMS_ITS | Encounter Summary ---
Author Organization [facility] [place] [address] Care Team Providers Care J2Ee Android Developer Name Role Phone Brady Christensen MD Primary Care Provider [phone] Encounter Details Date Type Department Care Team (Late st Contact Info) Description 05/01/2014 11:30 AM EDT Follow-Up Hematology Oncology at [address] [phone] Christi Potter APRN [facility] [place] [address] Prostate cancer (Primary Dx) Discharge Disposition: Home Social History Tobacco Use Types Packs/Day Years Used Date Smoking Tobacco: Never Sex and Gender Information Value Date Recorded Sex Assigned at Not on file Gender Identity Not on file Sexual Orientation Not on file documented as of this encounter Last Filed Vital Signs Vital Sign Reading Time Taken Comments Blood Pressure 161/89 05/01/2014 11:20 AM EDT Pulse 91 05/01/2014 11:20 AM EDT Temperature 36.8 ??C (98.2 ??F) 05/01/2014 11:20 AM E DT Respiratory Rate 18 05/01/2014 11:20 AM EDT Oxygen Saturation 98% 05/01/2014 11:20 AM EDT Inhaled Oxygen Concentration - - Weight 84.6 kg (186 lb 8 oz) 05/01/2014 11:20 AM EDT Height 167.6 cm (5' 5.98) 05/01/2014 11:20 AM E DT Body Mass Index 30.12 05/01/2014 11:20 AM EDT documented in this encounter Progress Notes * Christi Potter, DIRECTOR OF PEOPLE - 05/01/2014 11:44 AM EDT Identification: Mr Joaquin is a 68 y.o. [...] Garcia who saw patient on 11/08/2011 at [facility]. An ultrasound was done which demonstrated a [...] [facility] .He was [...] History: Never smoker. No EtOH. 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 , two daughters and three grandchildren. No Known Allergies Current Outpatient Prescriptions on File Prior to Visit Medication Sig Dispense Refill ??? Vitamin A-Vitamin C-Vit E-Min (OCUVITE) Tab Take by mouth. ??? multivitamin (THERAGRAN) tablet Take 1 tablet by mouth daily. ??? UNABLE TO FIND Med Name: red yeast rice ??? Granite-3 Fatty Acids (FISH OIL) 300 mg Cap Take by mouth. Advance Directive: Not on file Interim History: Mr Joaquin reports that he is doing well but does get anxious prior to appointments. His B/P is elevated. He does indicate that he checks it at home and that it is in the normal gobfd175/80 range. He is always anxious when he comes to clinic.this continues to be an issue He reports that he is doing very well. 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 He has been well since his last visit here. He does continue to try and care for his mother who has alzheimers. She is living in her own home but is increasingly forgetful and argumentative. She is also having some visual changes. He feels that she is losing her vision. Her hygiene is not as good as before. She forgets to eat and has lost some weight. He and his brother are trying to [...] and unexpected weight change. Still working parts driver--appliance repair No pain HENT: Negative. Eyes: Negative. [...] dizziness, weakness and headaches. Hematological: Negative. Psychiatric/Behavioral: negative Anxiety before medical appointments is not new for patient Filed Vitals: 05/01/14 1120 BP: 161/89 Pulse: 91 Temp: 36.8 ??C (98.2 ??F) TempSrc: Oral Resp: 18 Height: 167.6 cm (5' 5.98) Weight: 84.596 kg (186 lb 8 oz) SpO2: 98% Karnofsky: 90 IPSS : 1 [...] Judgment and thought content normal. Date PSA 05/01/14 0.5 11/19/13 0.5 08/03/13 0.7 04/30/2013 1.0 02/22/2013 1.50 11/09/2012 0.79 08/07/2012--first after treatment PSA 1.67 10/26/2011--before treatment 6.5 03/19/2011 5.83 02/16/2010 5.57 08/29/2009 5.1 Assessment Plan: Adenocarcinoma of the prostate; Mr Joaquin PSA is lower today. He is now 2 yrs out from completion of treatment. Clinically there is [...] to do grooming as well as before. She is not eating well and has lost some weight. It is becoming more obvious that she will not be able to be home for too much longer. They continue to struggle with this issue. Mr Joaquin is to call if he has any questions or concerns. documented in this encounter Miscellaneous Notes * Miscellaneous - Han Petty - 05/01/2014 11:15 AM EDT documented in this encounter Plan of Treatment Upcoming Encounters Date Type Department Care Team (Late st Contact Info) Description 05/22/2024 1:00 PM EDT Office Visit Hematology/Oncology at [address] [phone] Iris Nguyen APRN [facility] [place] [address] 05/22/2024 1:30 PM EDT Infusion Hematology Oncology at [address] [phone] documented as of this encounter Visit Diagnoses Diagnosis Prostate cancer- Primary Malignant neoplasm of prostate documented in this encounter Care Teams J2Ee Android Developer Relationship Specialty Start Date End Date Brady Christensen MD [address] [place] [address] PCP - General 11/08/11 07/27/17 documented as of this encounter
--- OUTSIDE RECORDS SUMMARY | 2024-05-14 03:42 | XMS_ITS | Encounter Summary ---
Author Organization [facility] [place] [address] Care Team Providers Care Double End Tenoner Setter Name Role Phone Brady Christensen MD Primary Care Provider [phone] Encounter Details Date Type Department Care Team (Late Contact Info) Description 01/10/2012 8:30 AM EDT Follow-[place] [phone] NURSE, RADIATION ONCOLOGY RADIATION ONCOLOGY [facility] Discharge Disposition: Home Social History Tobacco [...] 1:00 PM EDT Office Visit Hematology/Oncology at [address] [phone] Iris Nguyen APRN [facility] [place] [place] [address] 05/22/2024 1:30 PM EDT Infusion Hematology Oncology at [address] [phone] documented as of this encounter Visit Diagnoses Not on filedocumented in this encounter Care Teams Double End Tenoner Setter Relationship Specialty Start Date End Date Brady Christensen MD [address] [place] [address] PCP - General 11/08/11 07/27/17 documented as of this encounter
--- OUTSIDE RECORDS SUMMARY | 2024-05-14 03:42 | XMS_ITS | Encounter Summary ---
Author Organization [facility] [place] [address] Care Team Providers Care Hiv Nurse Name Role Phone Brady Christensen MD Primary Care Provider [phone] Reason for Visit * Reason Comments Radiation Treatment Encounter Details Date Type Department Care Team (Late st Contact Info) Description 03/29/2012 7:45 AM EDT Follow-Up Radiation Oncology at [address] [phone] Luis Fernando Gamez MD [facility] [place] [address] Prostate ca (Primary Dx) Discharge Disposition: Home Social History Tobacco Use Types Packs/Day Years Used Date Smoking Tobacco: Never Sex and Gender Information Value Date Recorded Sex Assigned at Not on file Gender Identity Not on file Sexual Orientation Not on file documented as of this encounter Last Filed Vital Signs Vital Sign Reading Time Taken Comments Blood Pressure 161/94 03/29/2012 8:04 AM EDT Pulse 66 03/29/2012 8:04 AM EDT Temperature 37 ??C (98.6 ??F) 03/29/2012 8:04 AM EDT Respiratory Rate 16 03/29/2012 8:04 AM EDT Oxygen Saturation 96% 03/29/2012 8:04 AM EDT Inhaled Oxygen Concentration - - Weight 83 kg (183 lb) 03/29/2012 8:04 AM EDT Height - - Body Mass Index - - documented in this encounter Progress Notes * Luis Fernando Gamez MD - 03/29/2012 9:43 AM EDT ON TREATMENT VISIT: DATE:03/29/2012 PATIENT STATUS: Prostate: GS=3+4=7/10, PSA=6.5, [id number] . TREATMENT PLAN: RADIATION ; Site Technique Dose/ Fraction Fraction Number MeV p e TOTAL DOSE Treatment Dates PTV 1 IMRT 180 25 p 4500 02/13 to 03/20/12 PTV 2 IMRT 180 14 P 2520 03/21 to DOSE to DATE:5580 cGy in 31 FX RADIATION TREATMENT IMAGING: matches original approved images ON TREATMENT EVALUATION: MEDICAL: Denies diarrhea. Increased urinary frequency. Drinking lots of water. No pain. Energy level ok. PHYSICAL: no change. AIDS: LABS: TOXICITY: Increased frequency of urination. Ge 1 tox RESPONSE TO TREATMENT:good MANAGEMENT PLAN: CONTINUE TREATMENT PLANNED: XX CHANGE TREATMENT HOLD TREATMENT STOP TREATMENT Discussion time with patient (face to face)15 min. documented in this encounter Plan of Treatment Upcoming Encounters Date Type Department Care Team (Late st Contact Info) Description 05/22/2024 1:00 PM EDT Office Visit Hematology/Oncology at [address] [phone] Iris Nguyen APRN [facility] [place] [address] 05/22/2024 1:30 PM EDT Infusion Hematology Oncology at [address] [phone] documented as of this encounter Visit Diagnoses Diagnosis Prostate CA- Primary Malignant neoplasm of prostate documented in this encounter Care Teams Hiv Nurse Relationship Specialty Start Date End Date Brady Christensen MD [address] [place] [address] PCP - General 11/08/11 07/27/17 documented as of this encounter
--- OUTSIDE RECORDS SUMMARY | 2024-05-14 03:42 | XMS_ITS | Encounter Summary ---
[place] [address] Care Team Providers Care Skid Road Worker Name Role Phone Say FOREMAN MD, Travon Helms Primary Care Provider Reason for Visit * Reason Onset Date Comments Other 10/28/2011 pre psa clinic c all Encounter Details Date Type Department Care Team (Late st Contact Info) Description 10/28/2011 [place] [phone] Danie Blake, RN Other (pre psa clinic call) Social History Tobacco Use Types Packs/Day Years Used Date Smoking Tobacco: Never Assessed Sex and Gender Information Value Date Recorded Sex Assigned at Not on file Gender Identity Not on file Sexual Orientation Not on file documented as of this encounter Miscellaneous Notes * Telephone Encounter - Danie Blake, RN - 10/28/2011 1:34 PM EST Reason for call: PSA clinic appointment on 11/08/11. Scheduled for Bx at this time? Yes___ No_X__ If yes, ABX script given Yes___ No___ Meds/Allergies: updated 10/28/11 (reviewed and charted) Review for anti-coag medications: (Coumadin, Plavix, ASA, NSAIDS) No _X_ Yes __ If yes instruct pt to contact PCP or prescribing physician for further instruction as to discontinuing and restarting anti-coagulant therapy for Biopsy. If unable to discontinue medication as per PCPpt to keep appointment and if biopsy warranted will be scheduled for a later date. Review OTC, herbal and vitamin supplements for potential anti-coag effect: (ginko biloba, shonda, fever few, garlic, herbal teas with supplements added, Vit C,) No _X_ Yes __ If yes and recommended by PCP: check with PCP and follow instructions given for discontinuing and restarting OTC and supplements If yes and pt started: pt to stop supplements for 1 week prior and 1 week after biopsy. Labs: Repeat PSA Yes _X_ Free PSA (must be at least 10 days prior to clinic) Yes __ when done ____ Have all labs faxed to Dr Garcia's office (fax # [phone]) or hand carried the day of the appointment. Pt will repeat labs at [facility] Patient Hx: Leaky heart valve, artifical heart valve, hx of heart attack and/or problems No _X_ Yes__ if yes, when contact Dr Garcia Artifical Joint Replacement No _X_ Yes __ if yes, when contact Dr. Garcia Other 1. New patient for [facility] 2Nora Willis at [facility] [phone] to fax labs and PCP notes Dr. Hernandez Patient Instructions/Information: Patient does not need to be NPO for biopsy. Patient to purchase Fleet Enema and use according to directions the morning of appointment if pt agreeable to have biopsy if offered at this appointment. If patient chooses to reschedule biopsy for a later date then no enema needed. Patient will meet with Dr Garcia to discuss lab results and have a ZACHARY to determine need for biopsy. Patient may park in Parking Garage Registration is at Hem/Onc airline lounge receptionist on 3rd floor. Questionaires: Has pt filled out: Urinary Function Questionaire? Yes_X__ No___ Elevated PSA Clinic Questionaire? Yes__X_ No___ Patient understands and is able to verbalize back to this nurse the above information. Patient agrees to the POC, knows when and how to call if need arises. documented in this encounter Plan of Treatment Upcoming Encounters Date Type Department Care Team (Late st Contact Info) Description 05/22/2024 1:00 PM EDT Office Visit Hematology/Oncology at [address] [phone] Iris Nguyen APRN [facility] [place] [address] 05/22/2024 1:30 PM EDT Infusion Hematology Oncology at [address] [phone] documented as of this encounter Visit Diagnoses Not on filedocumented in this encounter Care Teams Skid Road Worker Relationship Specialty Start Date End Date Travon Deal III, MD [address] [place] [address] PCP - General 08/25/10 11/07/11 documented as of this encounter
--- OUTSIDE RECORDS SUMMARY | 2024-05-14 03:42 | XMS_ITS | Encounter Summary ---
Author Organization [facility] Address [facility] [place] [address] Care Team Providers Care Victim Witness Administrator Name Role Phone Brady Christensen MD Primary Care Provider [phone] Encounter Details Date Type Department Care Team (Late st Contact Info) Description 01/20/2012 9:00 AM EDT Ancillary Appointment Radiation [place] [phone] Kamlesh Nunez MD [facility] [place] [address] Social History Tobacco Use Types Packs/Day Years Used Date Smoking Tobacco: Never Sex and Gender Information Value Date Recorded Sex Assigned at Not on file Gender Identity Not on file Sexual Orientation Not on file documented as of this encounter Progress Notes * Kamlesh Nunez MD - 01/20/2012 9:48 AM EDT Brenton Joaquin underwent CT-based simulation for PSA 6.5 [place] Score 3+4=7/10 prostate cancer, Stage [id number]. After installation of contrast material into the urethra, the patient underwent CT-based simulationscanning with images acquired covering lower lumbar spine and pelvis -- including prostate region, bladder, rectum, and draining lymphatics -- and extending below the tuberosities. Standard immobilization was accomplished using knee sponge and band-fixation of the feet. Following acquisition of the images, these were reviewed, determined adequate for radiation treatment planning, and pushed to dosimetry for off-line treatment planning. The patient was discharged in good condition. documented in this encounter Plan of Treatment Upcoming Encounters Date Type Department Care Team (Late st Contact Info) Description 05/22/2024 1:00 PM EDT Office Visit Hematology/Oncology at [address] [phone] Iris Nguyen APRN [facility] [place] [address] 05/22/2024 1:30 PM EDT Infusion Hematology Oncology at [address] [phone] documented as of this encounter Visit Diagnoses Not on filedocumented in this encounter Care Teams Victim Witness Administrator Relationship Specialty Start Date End Date Brady Christensen MD [address] [place] [address] PCP - General 11/08/11 07/27/17 documented as of this encounter
[2024-05-14 12:16] LABS: HCT 41.4 % (40.0-50.0); HGB 14.2 g/dL (13.5-17.5); MCH 30.5 pg (27.0-33.0); MCHC 34.3 % (32.0-36.0); MCV 89 fL (80-95); MPV 11.1 fL (8.0-11.0); Platelet Count 165 10^3/uL (130-400); RBC 4.65 10^6/uL (4.36-5.78); RDW 12.4 % (11.8-14.1); RDW-SD 40.4 fL; WBC 11.53 10^3/uL (4.4-10.8)
[2024-05-14 12:46] LABS: ALT 29 U/L (16-63); AST 25 U/L (15-37); Albumin 3.8 g/dL (3.4-5.0); Alkaline Phosphatase 80 U/L (46-116); Anion Gap 9.6 mmol/L (3-11); BUN 28 mg/dL (7-18); Bilirubin, Total 0.58 mg/dL (0.2-1.0); CO2 25.4 mmol/L (21.0-32.0); CREATININE 1.4 mg/dL (0.70-1.30); Calcium 9.1 mg/dL (8.5-10.1); Chloride 105 mmol/L (98-107); Estimated GFR 51.45 (mL/min/1.73m2); Glucose 98 mg/dL (74-106); Potassium 3.9 mmol/L (3.5-5.1); Sodium 140 mmol/L (136-145)
[2024-05-14 13:02] LABS: Absolute Basophil Count 0.12 10^3/uL (0.0-0.2); Absolute Eosinophil Count 0.12 10^3/uL (0.0-0.7); Absolute Lymphocyte Count 4.96 10^3/uL (1.2-3.4); Absolute Monocyte Count 0.58 10^3/uL (0.1-0.8); Absolute Neutrophil Count 5.77 10^3/uL (1.2-6.7); Atypical Lymphocytes % 5 %; Diff Comment Manual Differential; RBC Morphology Normal
[2024-05-16 10:19] LABS: PSA, Ultrasensitive <0.01 ng/mL (<= 6.5)
[2024-05-20 12:27] LABS: Testosterone, Total <7.0 ng/dL (240-950)
== END 2024-05-14 03:33 | disposition home or self-care (01) ==
PROVIDERS: PCP Family Medicine; Visit Provider Internal Medicine
DX: C61 Malignant neoplasm of prostate (principal)
CPT/HCPCS: 36415; 80053; 84153; 84403; 85025

== ENCOUNTER 2024-08-07 02:33 | Outpatient (CLI) | payer MEDICARE, SELFPAY ==
[2024-08-07 12:30] LABS: Abs Immature Grans 0.02 10^3/uL (0.0-0.06); Absolute Basophil Count 0.04 10^3/uL (0.0-0.2); Absolute Eosinophil Count 0.19 10^3/uL (0.0-0.7); Absolute Lymphocyte Count 4.11 10^3/uL (1.2-3.4); Absolute Neutrophil Count 4.13 10^3/uL (1.2-6.7); Basophils % 0.4 %; Eosinophils % 2.1 %; HCT 41.4 % (40.0-50.0); Immature Grans % 0.2 %; Lymphocytes % 45.7 %; MCH 30.5 pg (27.0-33.0); MCHC 33.8 % (32.0-36.0); MCV 90 fL (80-95); MPV 11.5 fL (8.0-11.0); Monocytes % 5.6 %; Platelet Count 178 10^3/uL (130-400); RBC 4.59 10^6/uL (4.36-5.78); RDW 12.3 % (11.8-14.1); RDW-SD 40.6 fL; WBC 8.99 10^3/uL (4.4-10.8)
[2024-08-07 12:36] LABS: ALT 28 U/L (16-63); AST 23 U/L (15-37); Albumin 3.6 g/dL (3.4-5.0); Alkaline Phosphatase 79 U/L (46-116); BUN 23 mg/dL (7-18); Bilirubin, Total 0.66 mg/dL (0.2-1.0); CREATININE 1.3 mg/dL (0.70-1.30); Calcium 9.4 mg/dL (8.5-10.1); Chloride 106 mmol/L (98-107); Estimated GFR 55.88 (mL/min/1.73m2); Glucose 90 mg/dL (74-106); Potassium 3.8 mmol/L (3.5-5.1); Sodium 141 mmol/L (136-145)
[2024-08-09 13:43] LABS: PSA, Ultrasensitive <0.01 ng/mL (<= 6.5)
[2024-08-10 14:51] LABS: Testosterone, Total 83 ng/dL (240-950)
== END 2024-08-07 02:34 | disposition home or self-care (01) ==
LOC: LOS 02:33
PROVIDERS: PCP Family Medicine; Visit Provider Internal Medicine
DX: C61 Malignant neoplasm of prostate (principal); C77.5 Secondary and unspecified malignant neoplasm of intrapelvic lymph nodes
CPT/HCPCS: 36415; 80053; 84153; 84403; 85025

== ENCOUNTER 2024-11-05 01:22 | Outpatient (CLI) | payer MEDICARE, SELFPAY ==
--- OUTSIDE RECORDS SUMMARY | 2024-11-05 01:34 | XMS_ITS | Clinical Summary ---
Author Organization [facility] Address [facility] [place] [address] Care Team Providers Care Bistro Server Name Role Phone Unknown Primary Care [...] Encounters Date Type Department Care Team Description 08/14/2024 1:30 PM EST Office Visit Hematology/Oncology at [address] [phone] Roman Addison MD Burns, Kimberly A, APRN Prostate cancer metastatic to intrapelvic lymph node; Encounter for monitoring androgen deprivation therapy 08/14/2024 Travel from Last 3 Months Family History [...] place to sleep or slept in a group home (including now)? No 04/09/2022 Sex and Gender Information Value Date Recorded Sex Assigned at Not on file Gender Identity Not on file Sexual Orientation Not on file Last Filed Vital Signs Vital Sign Reading Time Taken Comments Blood Pressure 141/79 08/14/2024 1:36 PM EST Pulse 87 08/14/2024 1:36 PM EST Temperature 36.3 ??C (97.3 ??F) 08/14/2024 1:36 PM ES T Respiratory Rate 16 08/14/2024 1:36 PM EST Oxygen Saturation 97% 08/14/2024 1:36 PM EST Inhaled Oxygen Concentration - - Weight 83.9 kg (185 lb) 08/14/2024 1:36 PM EST Height 165.1 cm (5' 5) 08/14/2024 1:36 PM EST Body Mass Index 30.79 08/14/2024 1:36 PM EST Plan of Treatment Upcoming Encounters Date Type Department Care Team (Late st Contact Info) Description 11/13/2024 2:00 PM EST Office Visit Hematology/Oncology at [address] [phone] Roman Addison MD [facility] HEMATOLOGY [place] [address] Iris Nguyen APRN [facility] [place] [address] 11/13/2024 2:30 PM EST Infusion Hematology Oncology at [address] [phone] Health Maintenance Due Date Last Done Comments Hepatitis C Screening 1963 Tetanus/Diphtheria/Pertussis Vaccines (1 - Tdap) 07/27 Pneumoccocal Vaccine: 50+ (1 of 1 - PCV) 1995 Zoster vaccine (1 of 2) 1995 Advance Directive 2000 RSV Vaccine (1 - 1-dose 75+ series) 2020 Covid-19 Vaccine (1 - season) 2024 Influenza (Flu) vaccine (1 o f 1 - Influenza standard series) 06/03/2024 Procedures Procedure Name Priority Date/Time Associated Diagnosis Comments LAB SCAN 08/07/2024 12:00 AM EST LAB SCAN 08/07/2024 12:00 AM EST from Last 3 Months Results * Scan Doc: Lab (08/07/2024 12:00 AM EST) Only the most recent of2 resultswithin the time period is included. Narrative 08/07/2024 12:00 AM EST Ordered by an unspecified provider. Scanning Provider MEDIA MGR SCAN EXT O RDR/RSLT from Last 3 Months Care Teams Bistro Server Relationship Specialty Start Date End Date Unknown None PCP - General 08/10/22
--- OUTSIDE RECORDS SUMMARY | 2024-11-05 01:34 | XMS_ITS | Encounter Summary ---
Author Organization [facility] Address [address] [place] [address] Care Team Providers Care Felt Pad Cutter Name Role Phone Donnell Cabrera MD Primary Care Provider Encounter Details Date Type Department Care Team (Late st Contact Info) Description 05/24/2022 Lab Requisition [facility] Pathology & Laboratory Medicine - [facility] [address] [place], [place] [address] Outr Resulting Lab, Provider Social History Tobacco Use Types Packs/Day Years Used Date Smoking Tobacco: Never Assessed Sex and Gender Information Value Date Recorded Sex Assigned at Not on file Legal Sex Male 16:18 EST Gender Identity Not on file Sexual Orientation Not on file documented as of this encounter Plan of Treatment Not on file documented as of this encounter Procedures Procedure Name Priority Date/Time Associated Diagnosis Comments IMMUNOGLOBULINS Routine 05/24/2022 8:06 EDT documented in this encounter Results * (ABNORMAL) IMMUNOGLOBULINS (05/24/2022 8:06 EDT) IgG 946 610-1,616 mg/dL 05/25/2022 9:34 EDT [facility] IgA 105 85 - 499 mg/dL 05/25/2022 9:34 EDT [facility] IgM 31(L) 35 - 242 mg/dL 05/25/2022 9:34 EDT [facility] Blood VENOUS BLOOD / Unknown 05/24/2022 8:06 EDT 05/24/2022 21:20 EDT us Provider Outr Resulting Lab CHEMISTRY & BLOOD GA S ORDERABLES Final Result [facility] [address] [place] [address] documented in this encounter Visit Diagnoses Not on filedocumented in this encounter Care Teams Felt Pad Cutter Relationship Specialty Start Date End Date Donnell Cabrera MD PCP - General Family Medicine - Primary Care 01/01/21 documented as of this encounter
--- OUTSIDE RECORDS SUMMARY | 2024-11-05 01:34 | XMS_ITS | Clinical Summary ---
Author Organization [facility] Address [address] [place] [address] Care Team Providers Care Ballast Inspector Name Role Phone Donnell Cabrera MD Primary Care Provider Social History Tobacco Use Types Packs/Day Years Used Date Smoking Tobacco: Never Assessed Sex and Gender Information Value Date Recorded Sex Assigned at Not on file Legal Sex Male 16:18 EST Gender Identity Not on file Sexual Orientation Not on file Plan of Treatment Health Maintenance Due Date Last Done Comments Hepatitis C Screen 1945 Fall Risk Screening 2010 RSV Immunization ( o r 60+ Years) (1 - 1-dose 75+ series) 2020 COVID-19 Vaccine ( season) 2024 Insurance [facility] MEDICARE ACO [place] Care Teams Ballast Inspector Relationship Specialty Start Date End Date Donnell Cabrera MD PCP - General Family Medicine - Primary Care 01/01/21
--- OUTSIDE RECORDS SUMMARY | 2024-11-05 01:34 | XMS_ITS | Encounter Summary ---
Author Organization [facility] Address [facility] [place] [address] Care Team Providers Care English Language Learner Tutor Name Role Phone Unknown Primary Care Provider Unavailabl e Encounter Details Date Type Department Care Team (Latest Contact Info) Description 05/22/2024 Travel Social History Tobacco Use Types Packs/Day [...] 2:00 PM EST Office Visit Hematology/Oncology at [address] [phone] Roman Addison MD [facility] DR [place] [address] Iris Nguyen APRN [facility] [place] [address] 11/13/2024 2:30 PM EST Infusion Hematology Oncology at [address] [phone] documented as of this encounter Visit Diagnoses Not on filedocumented in this encounter Care Teams English Language Learner Tutor Relationship Specialty Start Date End Date Unknown None PCP - General 08/10/22 documented as of this encounter
--- OUTSIDE RECORDS SUMMARY | 2024-11-05 01:34 | XMS_ITS | Referral Summary ---
Author Organization [facility] Address [address] [place] [address] Care Team Providers Care Mushroom Farmer Name Role Phone Donnell Cabrera MD Primary Care Provider Social History Tobacco Use Types Packs/Day Years Used Date Smoking Tobacco: Never Assessed Sex and Gender Information Value Date Recorded Sex Assigned at Not on file Legal Sex Male 16:18 EST Gender Identity Not on file Sexual Orientation Not on file Plan of Treatment Not on file Insurance [facility] MEDICARE ACO [place] Care Teams Mushroom Farmer Relationship Specialty Start Date End Date Donnell Cabrera MD PCP - General Family Medicine - Primary Care 01/01/21
--- OUTSIDE RECORDS SUMMARY | 2024-11-05 01:34 | XMS_ITS | Encounter Summary ---
Author Organization [facility] Address [address] [place] [address] Care Team Providers Care Community Engagement Leader Name Role Phone Donnell Cabrera MD Primary Care Provider [phone] Encounter Details Date Type Department Care Team (Late st Contact Info) Description 11/27/2021 Lab Requisition [facility] Pathology & Laboratory Medicine - [address] [address] Outr Resulting Lab, Provider Social History Tobacco [...] IgG 990 610-1,616 mg/dL 11/30/2021 10:19 EST [facility] IgA 118 85 - 499 mg/dL 11/30/2021 10:19 EST [facility] IgM 32(L) 35 - 242 mg/dL 11/30/2021 10:19 EST [facility] Blood VENOUS BLOOD / Unknown 11/27/2021 8:25 EST 11/27/2021 16:31 EST us Provider Outr Resulting Lab CHEMISTRY & BLOOD GA S ORDERABLES Final Result [facility] [address] [place] [address] documented in this encounter Visit Diagnoses Not on filedocumented in this encounter Care Teams Community Engagement Leader Relationship Specialty Start Date End Date Donnell Cabrera MD PCP - General Family Medicine - Primary Care 01/01/21 documented as of this encounter
--- OUTSIDE RECORDS SUMMARY | 2024-11-05 01:34 | XMS_ITS | Encounter Summary ---
Author Organization [facility] Address [facility] [place] [address] Care Team Providers Care Integration Software Engineer Name Role Phone Unknown Primary Care Provider Unavailabl e Encounter Details Date Type Department Care Team (Late st Contact Info) Description 08/14/2024 1:30 PM EST Office Visit Hematology/Oncology at [address] [phone] Roman Armstrong MD [facility] DR HEMATOLOGY [place] [address] Iris Nguyen APRN 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 He is on intermittent lupron. He has stable fatigue. He has hot flashes/sweats and mild fatigue. He denies any pain. He denies any chest pain, shortness of breath or cough..He has no issues with his bowels. He has no urinary symptoms. ROS is otherwise negative. Social History: No interval changes since last visit He is . He lives in [place]. 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 He tried riding an E bike the other day and really enjoyed it. Allergies: No Known Allergies Medications: losartan (Cozaar) [...] supraclavicular, and axillary nodes normal Vitals BP 141/79 (Patient Position: Sitting) Pulse 87 Temp 36.3 ??C (97.3 ??F) (Temporal) Resp 16 Ht 165.1 cm (5' 5) Wt 83.9 kg (185 lb) SpO2 97% BMI 30.79 kg/m?? Wt Readings from Last 3 Encounters: 08/14/24 83.9 kg (185 lb) 05/22/24 83.9 kg (185 lb) 02/21/24 84.4 kg (186 lb) Pathology: 11/08/11 Adenocarcinoma, Linda grade 3+4 This was followed by TRUS biopsy which demonstrated Linda 3+4 involving 10% the right base core. The right lateral base had adenocarcinoma [place] 3+4 with 10% of this core. The left lateral apex had adenocarcinoma 3+3 involving 5% of the core. The remaining nine cores demonstrated benign prostatic tissue. Labs: 08/26 WBC 8.99, hemoglobin 14, platelet count 178, BUN 23, creatinine 1.3, also 0.4, TB 0.66, AST 23, ALT 28, alkaline phosphatase 79, total protein 7.0, albumin 3.6, 05/22/24 BUN 28, creatinine 1.4, calcium 9.1, AST 25, ALT 29, alkaline phosphatase 80, albumin 3.8, WBC 11.53, hemoglobin 14.2, platelet count 165, ANC 5.77. 02/13/2024 BUN 28, creatinine 1.3, calcium 9.2, [...] 25 Ca 9.0 Date PSA Test Notes 08/14/2024 <0.01 83 05/14/24 <0.01 <7.0 02/13/24 <0.01 <7.0 11/18/23 <0.01 <7.0 09/06/23 <0.01 7.1 06/03/23 <0.01 <7.0 03/11/23 <0.01 7.5 12/20/22 <0.01 <7.0 09/24/22 <0.01 <7.0 07/05/22 0.04 <7.0 06/01/22 0.59 Pend. [id number] 02/04/2022 2.0 623 LDH 197 08/04/21 1.5 Date 06/13/2020 1.0 08/14/2019 0.9 07/10/2018 0.6 07/19/2017 0.5 07/20/2016 0.5 12/25/2015 0.5 06/05/2015 0.5 10/21/2014 0.5 05/01/14 0.5 11/19/13 0.5 08/03/13 0.7 04/30/2013 1.0 02/22/2013 1.50 11/09/2012 0.79 08/07/2012--first after treatment PSA 1.67 10/26/2011--before treatment 6.5 Imagin04/23/2024 DEXA scan: Impression: No evidence of osteoporosis. 04/07/22 pelvic MRI: Extraprostatic disease: Seminal vesicle involvement:No [...] nodes concerning for metastatic disease -04/30/22 to 11/29/23: Lupron 22.5q 3months Current treatment: intermittent lupron therapy. Mr. Joaquin had rising PSA s/p xrt. [...] visit in 3 months with blood work 05/22/24 PSA remains non-detectable. Testosterone remains in castrate range. Hold lupron today. PSA cut off of 2.0 for resuming ADT. F/u in 3 months, labs prior. 08/14/2024 PSA is undetectable. Testosterone slowly recovering. Clinically Mr. Joaquin is doing well. Will hold Lupron today. Will see him back in 3 months with blood work. 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 Per Dr. Thornton note 06/17/22 He should be referred back to hematology if his lymphocyte count gets greater than 20-25,000 or if he develops anemia with hemoglobin less than 12 or thrombocytopenia with a platelet count less than 80,000. #Hot flashes: secondary to treatment. Declines pharmacological therapy. Plan: 1. Hold Lupron today. PSA cut off 2.0 2. Next visit wit CBC, CMP, PSA, testosterone and possible lupron injection in 3 months ROMAN ARMSTRONG MD 25 minutes were spent on date of visit, including non-face to face time. documented in this encounter Plan of Treatment Upcoming Encounters Date Type Department Care Team (Late st Contact Info) Description 11/13/2024 2:00 PM EST Office Visit Hematology/Oncology at [address] [phone] Roman Armstrong MD [facility] DR HEMATOLOGY [place] [address] Iris Nguyen APRN [facility] [place] [address] 11/13/2024 2:30 PM EST Infusion Hematology Oncology at [address] [phone] documented as of this encounter Visit Diagnoses Diagnosis Prostate cancer metastatic to intrapelvic lymph node Encounter for monitoring androgen deprivation therapy Encounter for therapeutic drug monitoring documented in this encounter Care Teams Integration Software Engineer Relationship Specialty Start Date End Date Unknown None PCP - General 08/10/22 documented as of this encounter
--- OUTSIDE RECORDS SUMMARY | 2024-11-05 01:34 | XMS_ITS | Encounter Summary ---
Author Organization [facility] Address [facility] [place] [address] Care Team Providers Care Fire Fighters Dispatcher Name Role Phone Unknown Primary Care Provider Unavailabl e Encounter Details Date Type Department Care Team (Latest Contact Info) Description 08/14/2024 Travel Social History Tobacco Use Types Packs/Day [...] 2:00 PM EST Office Visit Hematology/Oncology at [address] [phone] Roman Addison MD [facility] [place] [address] Iris Nguyen APRN [facility] [place] [address] 11/13/2024 2:30 PM EST Infusion Hematology Oncology at [address] [phone] documented as of this encounter Visit Diagnoses Not on filedocumented in this encounter Care Teams Fire Fighters Dispatcher Relationship Specialty Start Date End Date Unknown None PCP - General 08/10/22 documented as of this encounter
--- OUTSIDE RECORDS SUMMARY | 2024-11-05 01:34 | XMS_ITS | Encounter Summary ---
Author Organization [facility] Address [address] [place] [address] Care Team Providers Care Cattle Shipper Name Role Phone Donnell Cabrera MD Primary Care Provider [phone] Encounter Details Date Type Department Care Team (Late st Contact Info) Description 06/13/2020 Lab Requisition [facility] Pathology & Laboratory Medicine - [facility] [address] [place], [place] [phone] Outr Resulting Lab, Provider Social History Tobacco [...] 0.0 - 6.5 ng/mL 06/16/2020 10:30 EDT [facility] Blood VENOUS BLOOD / Unknown 06/13/2020 8:59 EDT 06/13/2020 22:00 EDT Narrative [facility] - 06/16/2020 10:30 EDT NOTE: Serum PSA concentration should not be interpreted as absolute evidence for the presence or absence of malignant disease. Assayed on Siemens ADVIA RentFeederaur XPT using chemiluminescent technology.??Values obtained by using different assay methods cannot be used interchangeably. us Provider Outr Resulting Lab CHEMISTRY & BLOOD GA S ORDERABLES Final Result [facility] [address] [place] [address] documented in this encounter Visit Diagnoses Not on filedocumented in this encounter Care Teams Cattle Shipper Relationship Specialty Start Date End Date Donnell Cabrera MD PCP - General Family Medicine - Primary Care 01/01/21 documented as of this encounter
--- OUTSIDE RECORDS SUMMARY | 2024-11-05 01:34 | XMS_ITS | Encounter Summary ---
Author Organization [facility] Address [address] [place] [address] Care Team Providers Care Architectural Coating Finisher Name Role Phone Donnell Cabrera MD Primary Care Provider [phone] Encounter Details Date Type Department Care Team (Late st Contact Info) Description 08/14/2019 Lab Requisition [facility] Pathology & Laboratory Medicine - [address] [address] Unknown, Provider, Social History Tobacco Use Types [...] 0.0 - 6.5 ng/mL 08/15/2019 12:15 EST [facility] Blood VENOUS BLOOD / Unknown Non-Lab Collect / Unknown 08/14/2019 12:55 EST 08/14/2019 22:38 EST us Provider Unknown CHEMISTRY & BLOOD GAS ORDERA BLES Final Result [facility] [address] [place] [address] documented in this encounter Visit Diagnoses Not on filedocumented in this encounter Care Teams Architectural Coating Finisher Relationship Specialty Start Date End Date Donnell Cabrera MD PCP - General Family Medicine - Primary Care 01/01/21 documented as of this encounter
--- OUTSIDE RECORDS SUMMARY | 2024-11-05 01:34 | XMS_ITS | Encounter Summary ---
Author Organization [facility] Address [address] [place] [address] Care Team Providers Care Machine Stamper Name Role Phone Donnell Cabrera MD Primary Care Provider [phone] Encounter Details Date Type Department Care Team (Late st Contact Info) Description 07/20/2021 Lab Requisition [facility] Pathology & Laboratory Medicine - [address] [address] Outr Resulting Lab, Provider Social History Tobacco [...] IgG 928 610-1,616 mg/dL 07/21/2021 9:57 EDT [facility] IgA 107 85 - 499 mg/dL 07/21/2021 9:57 EDT [facility] IgM 31(L) 35 - 242 mg/dL 07/21/2021 9:57 EDT [facility] Blood VENOUS BLOOD / Unknown 07/20/2021 8:07 EDT 07/20/2021 17:14 EDT us Provider Outr Resulting Lab CHEMISTRY & BLOOD GA S ORDERABLES Final Result [facility] [address] [place] [address] documented in this encounter Visit Diagnoses Not on filedocumented in this encounter Care Teams Machine Stamper Relationship Specialty Start Date End Date Donnell Cabrera MD PCP - General Family Medicine - Primary Care 01/01/21 documented as of this encounter
--- OUTSIDE RECORDS SUMMARY | 2024-11-05 01:34 | XMS_ITS ---
[place] [address] Care Team Providers Care Microbiology Analyst Name Role Phone Unknown Primary Care Provider [...] treatments are documented for this patient in [facility]. Treatments may have been administered in [...] and Biopsy 11/08/2011 Volume in cc 29.1 Mahomet grade/score a+b=c 3+4=7 Total Cores 12 Positive [...] Potential late effects of treatment(s): Late and shelter effects or radiation therapy to the prostate [...] Helpful websites www. cancer. gov National Cancer [place] www.nccn.org National Comprehensive Cancer Network www.canceradvocacy.org National Coalition for Cancer Survivorship www.livestrong.org Livestrong Survivor Care www.acscsn.org Cancer Survivors Network Cherise Tuttle APRN- Radiation Oncology Adapted from [place] Society of Clinical Oncology 2008 Cancer Treatment Plan Summary Survivorship care provider contacts STRATEGY PLANNING CONSULTANT: Cherise Tuttle
--- OUTSIDE RECORDS SUMMARY | 2024-11-05 01:34 | XMS_ITS | Encounter Summary ---
Author Organization [facility] Address [address] [place] [address] Care Team Providers Care Lead Software Test Engineer Name Role Phone Donnell Cabrera MD Primary Care Provider [phone] Encounter Details Date Type Department Care Team (Late st Contact Info) Description 01/07/2021 Lab Requisition [facility] Pathology & Laboratory Medicine - [facility] [address] [place] [address] Hong Sage MD [address] [place] [phone] Encounter for other general examination Social History [...] B-cell lymphoproliferative disorder. See comment. 15:05 EDT [facility] Comment The results of [...] with morphologic and clinical data is essential. 1 15:05 [facility] Attestation By the signature below, the attending physician certifies that they have 1) personally conducted a gross and/or microscopic examination of the described specimen(s), and/or personally interpreted the results of laboratory testing of the described specimen(s), and 2) personally rendered or confirmed the above diagnosis. 1 15:05 [facility] at 1505 Clinical History 75 yo male with abnormal lymphocytes. 15:05 [facility] Description The specimen consists of [...] lineage. There is no increase in blasts. 1 15:05 EDT [facility] Flow Markers CD2, CD3, CD4, CD5, CD7, CD8, CD10, CD11b, CD11c, CD13, CD14, CD16, CD19, CD20, CD22, CD23, CD33, CD34, CD38, CD45, CD56, CD57, CD117, FMC7, HLADR, [place], and Lambda. 1 15:05 EDT [facility] FDA Disclaimer This test was developed and its performance characteristics determined by the Department of Pathology and Laboratory Medicine, [place], [place] It has not been cleared or [...] high complexity clinical laboratory testing. 1 15:05 EDT [facility] Scanned Images 1 15:05 [facility] Blood VENOUS BLOOD / Unknown 01/06/2021 8:56 EDT 01/07/2021 8:36 EDT us Hong Sage MD PATHOLOGY ORDERABLES Jennifer pereira Result [facility] [address] [place] [address] documented in this encounter Visit Diagnoses Diagnosis Encounter for other general examination documented in this encounter Care Teams Lead Software Test Engineer Relationship Specialty Start Date End Date Donnell Cabrera MD PCP - General Family Medicine - Primary Care 01/01/21 documented as of this encounter
--- OUTSIDE RECORDS SUMMARY | 2024-11-05 01:34 | XMS_ITS | Encounter Summary ---
Author Organization [facility] Address [address] [place] [address] Care Team Providers Care Bolter Helper Name Role Phone Donnell Cabrera MD Primary Care Provider [phone] Encounter Details Date Type Department Care Team (Late st Contact Info) Description 04/08/2021 Lab Requisition [facility] Pathology & Laboratory Medicine - [address] [phone] Outr Resulting Lab, Provider Social History Tobacco [...] 610-1,616 mg/dL 04/09/2021 9:39 EDT [facility] IgA 112 85 - 499 mg/dL 04/09/2021 9:39 EDT [facility] IgM 31(L) 35 - 242 mg/dL 04/09/2021 9:39 EDT [facility] Blood VENOUS BLOOD / Unknown 04/08/2021 8:35 EDT 04/08/2021 20:46 EDT us Provider Outr Resulting Lab CHEMISTRY & BLOOD GA S ORDERABLES Final Result [facility] [address] [place] [address] documented in this encounter Visit Diagnoses Not on filedocumented in this encounter Care Teams Bolter Helper Relationship Specialty Start Date End Date Donnell Cabrera MD PCP - General Family Medicine - Primary Care 01/01/21 documented as of this encounter
--- OUTSIDE RECORDS SUMMARY | 2024-11-05 01:35 | XMS_ITS | Encounter Summary ---
[place] [address] Care Team Providers Care Master Esthetician Name Role Phone Catracho Good MD Primary Care Provider [phone] Reason for Referral * Diagnostic Test (Routine) - Closed Specialty Diagnoses / Procedures Referred By Contac t Referred To Contact Radiology Diagnoses Malignant neoplasm of prostate Procedures NM PET CT PSMA Prostate (Pylarify) Yamel Woods APRN [facility] [place] [address] [place] [address] Referral ID Status Reason Start Date Expiration Date V isits Requested Visits Authorized [id number] Closed Specialty Service Requested 02/11/2022 08/14/2023 1 1 Encounter Details Date Type Department Care Team (Late st Contact Info) Description 02/11/2022 1:00 PM EDT Office Visit Radiation Oncology at [address] [phone] Yamel Woods APRN [facility] [place] [address] Malignant neoplasm of prostate (Primary Dx) Social [...] this encounter Progress Notes * Yamel Woods, ACCORDION MAKER - 02/11/2022 1:00 PM EDTSummary: 76 year old male dx Prostate cancer, compl EBRT 04/18/12 [facility] [place] [address] Phone: RADIATION ONCOLOGY FOLLOW UP NOTE Date of visit: 02/10/2022 Patient Brenton Joaquin 1945 PCP: Catracho Good MD pt just had new PCP assigned and will get name to us for records. Urologist:Dr Luis Fernando Garcia Radiation oncologist: Dr. Kamlesh Nunez consult then Luis Fernando Sanchez MD for [facility]. Chief Complaint: follow up/labs for prostate [...] was followed by TRUS biopsy which demonstrated [place] 3+4 involving 10% the right base core. The right lateral base had adenocarcinoma [place] 3+4 with 10% of this core. The left lateral apex had adenocarcinoma 3+3 involving 5% of the core. The remaining nine cores demonstrated benign prostatic tissue. 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, [...] the radiation therapy/prostate cancer Yamel Woods MSN, ACCORDION MAKER, LEARNING STRATEGIST-C Nurse Practitioner Radiation Oncology documented in this encounter Plan of Treatment Upcoming Encounters Date Type Department Care Team (Late st Contact Info) Description 11/13/2024 2:00 PM EST Office Visit Hematology/Oncology at [address] [phone] Roman Addison MD [facility] DR HEMATOLOGY [place] [address] Iris Nguyen APRN [facility] [place] [address] 11/13/2024 2:30 PM EST Infusion Hematology Oncology at [address] [phone] documented as of this encounter Results * NM PET CT PSMA Prostate (Tg) (03/02/2022 1:25 PM EDT) Anatomical Region Laterality Modality Positron Emissio n Tomography (PET) Impressions 03/04/2022 10:31 AM EDT 1. ??Recurrent cancer within the prostate gland. 2. ??Increased activity in right obturator and a left external iliac nodes concerning for metastatic disease. Thank you for referring this patient to [facility]. Thank you for letting us participate in the care of this patient. ??If you are a health care provider and have any questions regarding this report, please contact the number below. ??For patients who have questions please contact the health pet caretaker that requested your imaging first. ? Electronically signed by: Kamlesh Meier MD, [facility] ([phone]), at 03/04/2022 10:31 AM Narrative 03/04/2022 10:31 [...] Thank you for referring this patient to [facility]. Thank you for letting us participate in the care of this patient. If youare a health care provider and have any questions regarding this report,please contact the number below. For patients who have questions please contactthe health pet caretaker that requested your imaging first. Electronically signed by: Kamlesh Meier MD, [facility]([phone]), at 03/04/2022 10:31 AM Yamel Woods APRN IMG PET ORDERABLES documented in this encounter Visit Diagnoses Diagnosis Malignant neoplasm of prostate- Primary Malignant neoplasm of prostate documented in this encounter Care Teams Master Esthetician Relationship Specialty Start Date End Date Catracho Good MD PCP - General Family Medicine 08/12/21 08/09/22 documented as of this encounter
--- OUTSIDE RECORDS SUMMARY | 2024-11-05 01:35 | XMS_ITS | Encounter Summary ---
Author Organization [facility] Address [facility] [place] [address] Care Team Providers Care Hand Ii Tube Bender Name Role Phone Unknown Primary Care Provider Unavailabl e Encounter Details Date Type Department Care Team (Late st Contact Info) Description 12/28/2022 2:30 PM EDT Office Visit Hematology/Oncology at [address] [phone] Sheila Alfonso, SEGUNDO [facility] [place] [address] Prostate cancer metastatic to intrapelvic lymph node [...] this encounter Progress Notes * Sheila Alfonso, ASSESSMENT ANALYST - 12/28/2022 2:30 PM EDT Diagnosis: Prostate [...] 81.6 kg (180 lb) Pathology: 11/08/11 Adenocarcinoma, [place] grade 3+4 This was followed by TRUS biopsy which demonstrated [place] 3+4 involving 10% the right base core. [...] <7.0 07/05/22 0.04 <7.0 06/01/22 0.59 Pend. [id number] 02/04/2022 2.0 623 LDH 197 08/04/21 1.5 [...] Schedule first injection in 1-2 weeks at [facility]. We discussed the role of secondary hormonal therapy abiraterone/prednisone next visit. He would like to be followed in [facility] ?? #Monoclonal B-cell lymphocytosis: He [...] iswalking 3 miles a day on the [employer] [place] so he is active. Plan: 1. Lupron 22.5 mg today 2. Next visit in with CBc, cMP, PSA, testosterone and his next lupron injection. In 3 months ? documented in this encounter Plan of Treatment Upcoming Encounters Date Type Department Care Team (Late st Contact Info) Description 11/13/2024 2:00 PM EST Office Visit Hematology/Oncology at [address] [phone] Roman Addison MD [facility] [place] [address] Iris Nguyen APRN [facility] [place] [address] 11/13/2024 2:30 PM EST Infusion Hematology Oncology at [address] [phone] documented as of this encounter Visit Diagnoses Diagnosis Prostate cancer metastatic to intrapelvic lymph node documented in this encounter Care Teams Hand Ii Tube Bender Relationship Specialty Start Date End Date Unknown None PCP - General 08/10/22 documented as of this encounter
--- OUTSIDE RECORDS SUMMARY | 2024-11-05 01:35 | XMS_ITS | Encounter Summary ---
[place] [address] Care Team Providers Care Combat Systems Officer Name Role Phone Catracho Good MD Primary Care Provider [phone] Reason for Visit * Diagnostic Test (Routine) - Closed Specialty Diagnoses / Procedures Referred By Contac t Referred To Contact Radiology Diagnoses Malignant neoplasm of prostate Procedures NM PET CT PSMA Prostate (Pylarify) Yamel Woods FLOW FLOOR ATTENDANT [facility] [place] [address] [place] [address] Referral ID Status Reason Start Date Expiration Date V isits Requested Visits Authorized [id number] Closed Specialty Service Requested 02/11/2022 08/14/2023 1 1 Encounter Details Date Type Department Care Team (Latest Contact Info) Description 03/02/2022 11:54 AM EDT - 03/02/2022 11:59 PM EDT Hospital Encounter [place] [address] Yamel Woods [facility] [place] [address] Discharge Disposition: Home Social History [...] 2:00 PM EST Office Visit Hematology/Oncology at [address] [phone] Roman Addison MD [facility] DR HEMATOLOGY [place] [address] Iris Nguyen APRN [facility] [place] [address] 11/13/2024 2:30 PM EST Infusion Hematology Oncology at [address] [phone] documented as of this encounter Procedures Procedure [...] Thank you for referring this patient to [facility]. Thank you for letting us participate in the care of this patient. ??If you are a health care provider and have any questions regarding this report, please contact the number below. ??For patients who have questions please contact the health career portals teacher that requested your imaging first. ? Narrative 03/04/2022 10:31 AM EDT EXAMINATION: NM [...] Thank you for referring this patient to [facility]. Thank you for letting us participate in the care of this patient. If youare a health care provider and have any questions regarding this report,please contact the number below. For patients who have questions please contactthe health career portals teacher that requested your imaging first. Yamel Woods FLOW FLOOR ATTENDANT IMG PET ORDERABLES documented in this encounter Visit Diagnoses Not on filedocumented in this encounter Care Teams Combat Systems Officer Relationship Specialty Start Date End Date Catracho Good MD PCP - General Family Medicine 08/12/21 08/09/22 documented as of this encounter
--- OUTSIDE RECORDS SUMMARY | 2024-11-05 01:35 | XMS_ITS | Encounter Summary ---
Author Organization [facility] Address [facility] [place] [address] Care Team Providers Care Insurance Claims Representative Name Role Phone Unknown Primary Care Provider [...] PM EST Office Visit Hematology/Oncology at [address] [phone] Roman Addison MD [facility] DR [place] [address] Iris Nguyen APRN [facility] [place] [address] 11/13/2024 2:30 PM EST Infusion Hematology Oncology at [address] [phone] documented as of this encounter Visit Diagnoses Not on filedocumented in this encounter Care Teams Insurance Claims Representative Relationship Specialty Start Date End Date Unknown None PCP - General 08/10/22 documented as of this encounter
--- OUTSIDE RECORDS SUMMARY | 2024-11-05 01:35 | XMS_ITS | Encounter Summary ---
Author Organization [facility] Address [facility] [place] [address] Care Team Providers Care Affiliate Marketing Specialist Name Role Phone Unknown Primary Care Provider Unavailabl e Reason for Visit * Reason Comments Injections * Treatment/Therapy Plan Authorization (Routine) - Authorized Specialty Diagnoses / Procedures Referred By Contac t Referred To Contact Hematology and Oncology Diagnoses Prostate cancer metastatic to intrapelvic lymph node Procedures INFUSION Roman Addison MD [facility] [address] [place] [address] Roman Addison MD [address] [place] [address] DR HEMATOLOGY [place] [address] Referral ID Status Reason Start Date Expiration Date V isits Requested Visits Authorized [id number] Authorized 10/03/2022 10/02/2025 99 99 Encounter Details Date Type Department Care Team (Late st Contact Info) Description 09/06/2023 11:30 AM EST Infusion Hematology Oncology at [address] [phone] Prostate cancer metastatic to intrapelvic lymph node [...] 2:00 PM EST Office Visit Hematology/Oncology at [address] [phone] Roman Addison MD [facility] DR [place] [address] Iris Nguyen APRN [facility] [place] [address] 11/13/2024 2:30 PM EST Infusion Hematology Oncology at [address] [phone] documented as of this encounter [...] Gluteal documented in this encounter Care Teams Affiliate Marketing Specialist Relationship Specialty Start Date End Date Unknown None PCP - General 08/10/22 documented as of this encounter
--- OUTSIDE RECORDS SUMMARY | 2024-11-05 01:35 | XMS_ITS | Encounter Summary ---
Author Organization [facility] Address [facility] [place] [address] Care Team Providers Care Paediatric Surgeon Name Role Phone Unknown Primary Care Provider Unavailabl e Encounter Details Date Type Department Care Team (Late st Contact Info) Description 10/05/2022 11:00 AM EST Office Visit Hematology/Oncology at [address] [phone] Sheila Alfonso, SEGUNDO [facility] [place] [address] Prostate cancer metastatic to intrapelvic lymph node [...] in this encounter Progress Notes * Sheila Alfonso APRN - 10/05/2022 11:00 AM EST Diagnosis: Prostate [...] was followed by TRUS biopsy which demonstrated [place] 3+4 involving 10% the right base core. The right lateral base had adenocarcinoma [place] 3+4 with 10% of this core. The [...] <7.0 07/05/22 0.04 <7.0 06/01/22 0.59 Pend. [id number] 02/04/2022 2.0 623 LDH 197 08/04/21 1.5 [...] Schedule first injection in 1-2 weeks at [facility]. We discussed the role of secondary hormonal therapy abiraterone/prednisone next visit. He would like to be followed in [facility] ?? 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 [...] 2:00 PM EST Office Visit Hematology/Oncology at [address] [phone] Roman Addison MD [facility] DR [place] [address] Iris Nguyen APRN [facility] [place] [address] 11/13/2024 2:30 PM EST Infusion Hematology Oncology at [address] [phone] documented as of this encounter Visit Diagnoses Diagnosis Prostate cancer metastatic to intrapelvic lymph node documented in this encounter Care Teams Paediatric Surgeon Relationship Specialty Start Date End Date Unknown None PCP - General 08/10/22 documented as of this encounter
--- OUTSIDE RECORDS SUMMARY | 2024-11-05 01:35 | XMS_ITS | Encounter Summary ---
Author Organization [facility] [place] [address] Care Team Providers Care Manager Primary Care Name Role Phone Catracho Good MD Primary Care Provider [phone] Reason for Visit * Reason Comments Establish Care * Consultation (Routine) - Closed Specialty Diagnoses / Procedures Referred By Damien craig Referred To Contact Hematology and Oncology Diagnoses Malignant neoplasm of prostate Yamel Woods [facility] [place] [address] [facility] Hem Onc [address] [place] [address] Referral ID Status Reason Start Date Expiration Date V isits Requested Visits Authorized [id number] Closed Consult, Test & Treat 03/05/2022 03/05/2023 1 1 Encounter Details Date Type Department Care Team (Late st Contact Info) Description 04/09/2022 1:00 PM EDT Office Visit Hematology [place] [phone] Roman Addison MD [facility] DR HEMATOLOGY [place] [address] [address] HEMATOLOGY AND ONCOLOGY [place], [place] [address] Prostate cancer metastatic to intrapelvic lymph node [...] 96% BMI 29.79 kg/m?? Pathology: 11/08/11 Adenocarcinoma, [place] grade 3+4 This was followed by TRUS biopsy which demonstrated [place] 3+4 involving 10% the right base core. [...] Schedule first injection in 1-2 weeks at [facility]. We discussed the role of secondary hormonal therapy abiraterone/prednisone next visit. He would like to be followed in [facility] ?? 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 Thornton Plan: 1. Stand alone Lupron 22.5 mg at [facility] in 1-2 weeks 2. Next visit in with CBc, cMP, PSA, testosterone in 7 weeks at [facility] The plan was discussed with Mr. Joaquin [...] 2:00 PM EST Office Visit Hematology/Oncology at [address] [phone] Roman Addison MD [facility] DR HEMATOLOGY [place] [address] Iris Nguyen APRN [facility] [place] [address] 11/13/2024 2:30 PM EST Infusion Hematology Oncology at [address] [phone] documented as of this encounter Visit Diagnoses Diagnosis Prostate cancer metastatic to intrapelvic lymph node- Primary documented in this encounter Care Teams Manager Primary Care Relationship Specialty Start Date End Date Catracho Good MD PCP - General Family Medicine 08/12/21 08/09/22 documented as of this encounter
--- OUTSIDE RECORDS SUMMARY | 2024-11-05 01:35 | XMS_ITS | Encounter Summary ---
Author Organization [facility] Address [facility] [place] [address] Care Team Providers Care Railroad Worker Name Role Phone Unknown Primary Care [...] PM EST Office Visit Hematology/Oncology at [address] [phone] Roman Addison MD [facility] DR HEMATOLOGY [place] [address] Iris Nguyen APRN [facility] [place] [address] 11/13/2024 2:30 PM EST Infusion Hematology Oncology at [address] [phone] documented as of this encounter Visit Diagnoses Not on filedocumented in this encounter Care Teams Railroad Worker Relationship Specialty Start Date End Date Unknown None PCP - General 08/10/22 documented as of this encounter
--- OUTSIDE RECORDS SUMMARY | 2024-11-05 01:35 | XMS_ITS | Encounter Summary ---
Author Organization [facility] Address [facility] [place] [address] Care Team Providers Care System Admin Name Role Phone Catracho Good MD Primary Care Provider [phone] Encounter Details Date Type Department Care Team (Latest Contact Info) Description 06/17/2022 4:30 PM EDT Office Visit Hematology/Oncology at [address] [phone] Ryan Thornton MD [facility] [place] [address] Monoclonal B-cell lymphocytosis Social History Tobacco Use [...] male. He returns for follow-up to the [facility]. 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 The patient is seen in the [facility]. He was diagnosed with a monoclonal [...] 2:00 PM EST Office Visit Hematology/Oncology at [address] [phone] Roman Addison MD [facility] [place] [address] Iris Nguyen APRN [facility] [place] [address] 11/13/2024 2:30 PM EST Infusion Hematology Oncology at [address] [phone] documented as of this encounter Visit Diagnoses Diagnosis Monoclonal B-cell lymphocytosis Lymphocytosis (symptomatic) documented in this encounter Care Teams System Admin Relationship Specialty Start Date End Date Catracho Good MD PCP - General Family Medicine 08/12/21 08/09/22 documented as of this encounter
--- OUTSIDE RECORDS SUMMARY | 2024-11-05 01:35 | XMS_ITS | Encounter Summary ---
Author Organization [facility] Address [facility] [place] [address] Care Team Providers Care Technician Chemical Cleaning Name Role Phone Catracho Good MD Primary Care Provider [phone] Encounter Details Date Type Department Care Team (Late st Contact Info) Description 07/13/2022 3:30 PM EDT Office Visit Hematology/Oncology at [address] [phone] [facility] DR HEMATOLOGY [place] [address] Prostate cancer; Prostate cancer metastatic to intrapelvic [...] 98% BMI 29.95 kg/m?? Pathology: 11/08/11 Adenocarcinoma, [place] grade 3+4 This was followed by TRUS biopsy which demonstrated [place] 3+4 involving 10% the right base core. [...] Notes 07/05/22 0.04 <7.0 06/01/22 0.59 Pend. [id number] 02/04/2022 2.0 623 LDH 197 08/04/21 1.5 [...] Schedule first injection in 1-2 weeks at [facility]. We discussed the role of secondary hormonal therapy abiraterone/prednisone next visit. He would like to be followed in [facility] ?? #Monoclonal B-cell lymphocytosis: He will [...] 2:00 PM EST Office Visit Hematology/Oncology at [address] [phone] [facility] HEMATOLOGY [place] [address] [facility] [place] [address] 11/13/2024 2:30 PM EST Infusion Hematology Oncology at [address] [phone] documented as of this encounter Visit Diagnoses Diagnosis Prostate cancer Malignant neoplasm of prostate Prostate cancer metastatic to intrapelvic lymph node documented in this encounter Care Teams Technician Chemical Cleaning Relationship Specialty Start Date End Date Catracho Good MD PCP - General Family Medicine 08/12/21 08/09/22 documented as of this encounter
--- OUTSIDE RECORDS SUMMARY | 2024-11-05 01:35 | XMS_ITS | Encounter Summary ---
[place] [address] Care Team Providers Care Instructor Ballroom Dancing Name Role Phone Catracho Good MD Primary Care Provider [phone] Reason for Referral * Consultation (Routine) - Closed Specialty Diagnoses / Procedures Referred By Damien craig Referred To Contact Hematology and Oncology Diagnoses Malignant neoplasm of prostate Yamel Woods APRN [facility] [place] [address] [facility] Hem Onc [address] [place] [address] Referral ID Status Reason Start Date Expiration Date V isits Requested Visits Authorized [id number] Closed Consult, Test & Treat 03/05/2022 03/05/2023 1 1 * Diagnostic Test (Routine) - Closed Specialty Diagnoses / Procedures Referred By Damien craig Referred To Contact Radiology Diagnoses Malignant neoplasm of prostate Procedures MRI Pelvis wwo (Prostate) Yamel Woods APRN [facility] [place] [address] [facility] [place] [address] Referral ID Status Reason Start Date Expiration Date V isits Requested Visits Authorized [id number] Closed Specialty Service Requested 03/05/2022 09/04/2023 1 1 Encounter Details Date Type Department Care Team (Latest Contact Info) Description 03/05/2022 11:00 AM EDT TH Visit (TeleHealth) [place] [address] Yamel Woods APRN [facility] [place] [address] Malignant neoplasm of prostate (Primary Dx) Social [...] 2.0 PSMA PET + for recurring malignancy [facility] [place] [address] Phone: RADIATION ONCOLOGY FOLLOW UP NOTE Date [...] Garcia who saw patient on 11/08/2011 at [facility]. An ultrasound was done which demonstrated a prostate volume of 29.1 cc with no hypoechoic areas. This was followed by TRUS biopsy which demonstrated [place] 3+4 involving 10% the right base core. The right lateral base had adenocarcinoma [place] 3+4 with 10% of this core. The left lateral apex had adenocarcinoma 3+3 involving 5% of the core. The remaining nine cores demonstrated benign prostatic tissue. After consultation with Dr Kamlesh Nunez, Mr Joaquin elected to be treated with external beam radiation therapy with care that was delivered at the [facility] in [facility] .He was treated to [...] Biopsy 11/08/2011 Volume in cc 29.1 CC [place] grade/score a+b=c 3+4=7 Total Cores 12 Positive [...] Thank you for referring this patient to [facility] PET Center. ?? Consult Heme/Onc Flow Cytometry [...] 2 weeks ago. 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 Discussed findings with Dr Nunez prior to [...] depending on findings. Next visit: TOV w/ [facility] after MRI soon Already have Aug appt [...] the radiation therapy/prostate cancer Yamel Woods MSN, SCIENTIFIC SYSTEMS ANALYST, ARC CUTTER PLASMA ARC-C Nurse Practitioner Radiation Oncology documented in this encounter Plan of Treatment Upcoming Encounters Date Type Department Care Team (Late st Contact Info) Description 11/13/2024 2:00 PM EST Office Visit Hematology/Oncology at [address] [phone] Roman Addison MD [facility] DR HEMATOLOGY [place] [address] Iris Nugyen APRN [facility] [place] [address] 11/13/2024 2:30 PM EST Infusion Hematology Oncology at [address] [phone] Scheduled Referrals Name Type Priority Associated Diagnoses [...] C1, Klein J1, Lawrence M1, Gold S1, Becky G1, Brandi K1, Adolfo MJ1, Niels BJ1, Mohsen PA1, Monica PL1, Gabby B1. ??A Grading System for the Assessment of Risk of Extraprostatic Extension of Prostate Cancer at Multiparametric MRI. Radiology. 2019 Mar;290(3):709-719. doi: 10.1148/radiol.4999938984. Epub 2018Oct 24. I have personally reviewed [...] have questions please contact the health career and technology education teacher that requested your imaging first. ? [...] cancer is highly likely mari present) References: Mehralivanmatheus S1, Anthony JH1, Gould S1, Soares C1, Klein J1, Czarniecki M1,Gold S1, Pena G1, Rayn K1, Mata MJ1, Wood BJ1, Connolly PA1, Choreji PL1, Turkkat B1.A Grading System for the Assessment of Risk of Extraprostatic Extension of Prostate Cancer at Multiparametric MRI. Radiology. 2019Mar;290(3):709-719. doi: 10.1148/radiol.0045916306. Epub 2018Oct 24. I have personally reviewed the image(s) and the resident's interpretationand agree with the findings, Preet Villanueva MD at 04/08/2022 8:45 AM Thank you for letting us participate in the care of this patient. If youare a health care provider and have any questions regarding this report,please contact the number below. For patients who have questions please contactthe health career and technology education teacher that requested your imaging first. Yamel Woods SCIENTIFIC SYSTEMS ANALYST IMG MRI ORDERABLES documented in this encounter Visit Diagnoses Diagnosis Malignant neoplasm of prostate- Primary Malignant neoplasm of prostate documented in this encounter Care Teams Instructor Ballroom Dancing Relationship Specialty Start Date End Date Catracho Good MD PCP - General Family Medicine 08/12/21 08/09/22 documented as of this encounter
--- OUTSIDE RECORDS SUMMARY | 2024-11-05 01:35 | XMS_ITS | Encounter Summary ---
Author Organization [facility] [place] [address] Care Team Providers Care Screen Cleaner Name Role Phone Catracho Good MD Primary Care Provider [phone] Reason for Visit * Reason Onset Date Comments Labs Only 06/10/2022 Lab data security administrator Encounter Details Date Type Department Care Team (Late st Contact Info) Description 06/10/2022 Telephone Hematology Oncology at [address] [phone] Deb Orlando, RN Labs Only (Lab data security administrator) Social History Tobacco Use Types Packs/Day Years [...] 2:00 PM EST Office Visit Hematology/Oncology at [address] [phone] Roman Addison MD [facility] [place] [address] Iris Nguyen APRN [facility] [place] [address] 11/13/2024 2:30 PM EST Infusion Hematology Oncology at [address] [phone] documented as of this encounter Procedures Procedure Name Priority Date/Time Associated Diagnosis Comments CBC (WITH DIFF) Routine 05/24/2022 documented in this encounter Results * CBC (with Diff) (05/24/2022) White Blood Cell 9.52 Red Blood Cell 4.79 Hemoglobin 14.5 Hematocrit 42.2 Platelet 155 Neutrophil Absolute (ANC) - Automated 4.31 Blood 05/24/2022 Historical Provider HEMATOLOGY ORDERA BLES documented in this encounter Visit Diagnoses Not on filedocumented in this encounter Care Teams Screen Cleaner Relationship Specialty Start Date End Date Catracho Good MD PCP - General Family Medicine 08/12/21 08/09/22 documented as of this encounter
--- OUTSIDE RECORDS SUMMARY | 2024-11-05 01:35 | XMS_ITS | Encounter Summary ---
Author Organization [facility] Address [facility] [place] [address] Care Team Providers Care Preconstruction Manager Name Role Phone Unknown Primary Care Provider Unavailabl e Reason for Visit * Reason Comments Injections Lupron 22.5mg * Treatment/Therapy Plan Authorization (Routine) - Authorized Specialty Diagnoses / Procedures Referred By Contcarlton t Referred To Contact Hematology and Oncology Diagnoses Prostate cancer metastatic to intrapelvic lymph node Procedures INFUSION Roman Addison MD [facility] DR [place] [address] Roman Addison MD [address] [place] [address] DR [place] [address] Referral ID Status Reason Start Date Expiration Date V isits Requested Visits Authorized [id number] Authorized 10/03/2022 10/02/2025 99 99 Encounter Details Date Type Department Care Team (Late st Contact Info) Description 10/05/2022 11:30 AM EST Infusion Hematology Oncology at [address] [phone] Prostate cancer metastatic to intrapelvic [...] PM EST Office Visit Hematology/Oncology at [address] [phone] Roman Addison MD [facility] HEMATOLOGY [place] [address] Iris Nguyen APRN [facility] [place]ICAL [place] [address] 11/13/2024 2:30 PM EST Infusion Hematology Oncology at [address] [phone] documented as of this encounter Visit Diagnoses [...] mg documented in this encounter Care Teams Preconstruction Manager Relationship Specialty Start Date End Date Unknown None PCP - General 08/10/22 documented as of this encounter
--- OUTSIDE RECORDS SUMMARY | 2024-11-05 01:35 | XMS_ITS | Encounter Summary ---
Author Organization [facility] Address [facility] [place] [address] Care Team Providers Care Abattoir Manager Name Role Phone Unknown Primary Care Provider Unavailabl e Encounter Details Date Type Department Care Team (Late st Contact Info) Description 04/23/2024 2:15 PM EDT Ancillary Procedure Radiology Library at [facility] [place] [phone] Roman Addison MD [facility] HEMATOLOGY [place] [address] Social History Tobacco Use Types Packs/Day Years [...] place to sleep or slept in a long term (including now)? No 04/09/2022 Sex and Gender Information Value Date Recorded Sex Assigned at Not on file Gender Identity Not on file Sexual Orientation Not on file documented as of this encounter Plan of Treatment Upcoming Encounters Date Type Department Care Team (Late st Contact Info) Description 11/13/2024 2:00 PM EST Office Visit Hematology/Oncology at [address] [phone] Roman Addison MD [facility] HEMATOLOGY [place] [address] Iris Nguyen APRN [facility] [place] [address] 11/13/2024 2:30 PM EST Infusion Hematology Oncology at [address] [phone] documented as of this encounter Procedures Procedure Name Priority Date/Time Associated Diagnosis Comments FILM LIBRARY- STORAGE ONLY DXA IMAGES Routine 04/23/2024 2:11 PM EDT documented in this encounter Results * Film Library- Storage Only DXA Images (04/23/2024 2:11 PM EDT) Narrative RAD - 04/23/2024 2:11 PM EDT This exam is auto-finalizing. It's purpose is for storage only. Roman Addison MD G FILM LIBRARY ORD ERABLES [place], [place] documented in this encounter Visit Diagnoses Not on filedocumented in this encounter Care Teams Abattoir Manager Relationship Specialty Start Date End Date Unknown None PCP - General 08/10/22 documented as of this encounter
--- OUTSIDE RECORDS SUMMARY | 2024-11-05 01:35 | XMS_ITS | Encounter Summary ---
Author Organization [facility] Address [facility] [place] [address] Care Team Providers Care Rug Clipper Name Role Phone Unknown Primary Care Provider Unavailabl e Reason for Visit * Reason Comments Injections Lupron * Treatment/Therapy Plan Authorization (Routine) - Authorized Specialty Diagnoses / Procedures Referred By Contac t Referred To Contact Hematology and Oncology Diagnoses Prostate cancer metastatic to intrapelvic lymph node Procedures INFUSION Roman Addison MD [facility] DR HEMATOLOGY [place] [address] Roman Addison MD [address] [place] [address] [place] [address] Referral ID Status Reason Start Date Expiration Date V isits Requested Visits Authorized [id number] Authorized 10/03/2022 10/02/2025 99 99 Encounter Details Date Type Department Care Team (Late st Contact Info) Description 06/14/2023 2:30 PM EDT Infusion Hematology Oncology at [address] [phone] Prostate cancer metastatic to intrapelvic lymph node [...] 2:00 PM EST Office Visit Hematology/Oncology at [address] [phone] Roman Addison MD [facility] DR HEMATOLOGY [place] [address] Iris Nguyen APRN [facility] [place] [address] 11/13/2024 2:30 PM EST Infusion Hematology Oncology at [address] [phone] documented as of this encounter Visit Diagnoses [...] mg documented in this encounter Care Teams Rug Clipper Relationship Specialty Start Date End Date Unknown None PCP - General 08/10/22 documented as of this encounter
--- OUTSIDE RECORDS SUMMARY | 2024-11-05 01:35 | XMS_ITS | Encounter Summary ---
Author Organization [facility] Address [facility] [place] [address] Care Team Providers Care Student Finance Advisor Name Role Phone Unknown Primary Care Provider Unavailabl e Encounter Details Date Type Department Care Team (Late st Contact Info) Description 03/22/2023 8:30 AM EDT Office Visit Hematology/Oncology at [address] [phone] Christi Potter, PARTS REPRESENTATIVE Prostate cancer metastatic to intrapelvic lymph node [...] place to sleep or slept in a [place] health care facility (including now)? No 04/09/2022 Sex and Gender [...] will return in 3 months with labs prior and lupron. documented in this encounter Progress Notes * [...] 83.5 kg (184 lb) Pathology: 11/08/11 Adenocarcinoma, [place] grade 3+4 This was followed by TRUS biopsy which demonstrated [place] 3+4 involving 10% the right base core. [...] <7.0 07/05/22 0.04 <7.0 06/01/22 0.59 Pend. [id number] 02/04/2022 2.0 623 LDH 197 08/04/21 1.5 [...] Schedule first injection in 1-2 weeks at [facility]. We discussed the role of secondary hormonal therapy abiraterone/prednisone next visit. He would like to be followed in [facility] 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 to [...] iswalking 3 miles a day on the [employer] so he is active. Plan: 1. Lupron 22.5 mg today 2. Next visit in with CBc, cMP, PSA, testosterone and his next lupron injection. In 3 months documented in this encounter Plan of Treatment Upcoming Encounters Date Type Department Care Team (Late st Contact Info) Description 11/13/2024 2:00 PM EST Office Visit Hematology/Oncology at [address] [phone] Roman Addison MD [facility] DR HEMATOLOGY [place] [address] Iris Nguyen APRN [facility] [place] [address] 11/13/2024 2:30 PM EST Infusion Hematology Oncology at [address] [phone] documented as of this encounter Visit Diagnoses Diagnosis Prostate cancer metastatic to intrapelvic lymph node documented in this encounter Care Teams Student Finance Advisor Relationship Specialty Start Date End Date Unknown None PCP - General 08/10/22 documented as of this encounter
--- OUTSIDE RECORDS SUMMARY | 2024-11-05 01:35 | XMS_ITS | Encounter Summary ---
Author Organization [facility] Address [facility] [place] [address] Care Team Providers Care Heel Washer Stringing Machine Operator Name Role Phone Unknown Primary Care [...] 2:00 PM EST Office Visit Hematology/Oncology at [address] [phone] Roman Addison MD [facility] [place] [address] Iris Nguyen APRN [facility] [place] [place] [address] 11/13/2024 2:30 PM EST Infusion Hematology Oncology at [address] [phone] documented as of this encounter Visit Diagnoses Not on filedocumented in this encounter Care Teams Heel Washer Stringing Machine Operator Relationship Specialty Start Date End Date Unknown None PCP - General 08/10/22 documented as of this encounter
--- OUTSIDE RECORDS SUMMARY | 2024-11-05 01:35 | XMS_ITS | Encounter Summary ---
Author Organization [facility] Address [facility] [place] [address] Care Team Providers Care Helicopter Engineer Name Role Phone Catracho Good MD Primary Care Provider [phone] Encounter Details Date Type Department Care Team (Latest Contact Info) Description 12/03/2021 3:30 PM EST Office Visit Hematology/Oncology at [address] [phone] Ryan Thornton MD [facility] [place] [address] Monoclonal B-cell lymphocytosis Social History Tobacco Use [...] male. He returns for follow-up to the [facility]. 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 The patient is seen in the [facility]. We have been following him about every 3 to 4 months through this first year of observation. Clinically he has remained okay. He also gets follow-upfor his remote history of prostate cancer in the radiation oncology clinic here in [facility]. No fevers chills sweats or weight [...] 2:00 PM EST Office Visit Hematology/Oncology at [address] [phone] Roman Addison MD [facility] [place] [address] Iris Nguyen APRN [facility] MEDICAL ONCOLOG[place] [address] 11/13/2024 2:30 PM EST Infusion Hematology Oncology at [address] [phone] documented as of this encounter Procedures Procedure Name Priority Date/Time Associated Diagnosis Comments IMMUNE GLOBULIN IM Routine 11/27/2021 CBC (WITH DIFF) Routine 11/27/2021 COMPREHENSIVE METABOLIC PANEL Routine 11/27/2021 documented in this encounter Results * IMMUNE GLOBULIN IM (11/27/2021) IgG 990 IgA 118 IgM 32 Historical Provider [...] 5.07 Hemoglobin 15.1 Hematocrit 45.8 Platelet 161 Neutrophil Absolute (ANC) - Automated 4.04 Blood 11/27/2021 Historical Provider HEMATOLOGY ORDERA BLES documented in this encounter Visit Diagnoses Diagnosis Monoclonal B-cell lymphocytosis Lymphocytosis (symptomatic) documented in this encounter Care Teams Helicopter Engineer Relationship Specialty Start Date End Date Catracho Good MD PCP - General Family Medicine 11/10/21 11/7/22 documented as of this encounter
--- OUTSIDE RECORDS SUMMARY | 2024-11-05 01:35 | XMS_ITS | Encounter Summary ---
Author Organization [facility] Address [facility] [place] [address] Care Team Providers Care Airplane Rigger Name Role Phone Unknown Primary Care Provider Unavailabl e Reason for Visit * Reason Comments Injections Lupron 22.5mg * Treatment/Therapy Plan Authorization (Routine) - Authorized Specialty Diagnoses / Procedures Referred By Contac t Referred To Contact Hematology and Oncology Diagnoses Prostate cancer metastatic to intrapelvic lymph node Procedures INFUSION Roman Addison MD [facility] [place] [address] Roman Addison MD [address] [place] [address] DR [place] [address] Referral ID Status Reason Start Date Expiration Date V isits Requested Visits Authorized [id number] Authorized 10/03/2022 10/02/2025 99 99 Encounter Details Date Type Department Care Team (Late st Contact Info) Description 03/22/2023 9:00 AM EDT Infusion Hematology Oncology at [address] [phone] Prostate cancer metastatic to intrapelvic [...] PM EST Office Visit Hematology/Oncology at [address] [phone] Roman Addison MD [facility] HEMATOLOGY [place] [address] Iris Nguyen APRN [facility] [place] [address] 11/13/2024 2:30 PM EST Infusion Hematology Oncology at [address] [phone] documented as of this encounter [...] mg documented in this encounter Care Teams Airplane Rigger Relationship Specialty Start Date End Date Unknown None PCP - General 08/10/22 documented as of this encounter
--- OUTSIDE RECORDS SUMMARY | 2024-11-05 01:35 | XMS_ITS | Encounter Summary ---
Author Organization [facility] Address [facility] [place] [address] Care Team Providers Care Ordnance Artificer Helper Name Role Phone Unknown Primary Care [...] 2:00 PM EST Office Visit Hematology/Oncology at [address] [phone] Roman Addison MD [facility] DR [place] [address] Iris Nguyen APRN [facility] [place] [address] 11/13/2024 2:30 PM EST Infusion Hematology Oncology at [address] [phone] documented as of this encounter Visit Diagnoses Not on filedocumented in this encounter Care Teams Ordnance Artificer Helper Relationship Specialty Start Date End Date Unknown None PCP - General 08/10/22 documented as of this encounter
--- OUTSIDE RECORDS SUMMARY | 2024-11-05 01:35 | XMS_ITS | Encounter Summary ---
Author Organization [facility] [place] [address] Care Team Providers Care Senior Linux Systems Engineer Name Role Phone Catracho Good MD Primary Care Provider [phone] Encounter Details Date Type Department Care Team (Latest Contact Info) Description 04/13/2022 2:30 PM EDT TH Visit (TeleHealth) Radiation Oncology at [address] [phone] Yamel Woods, SEGUNDO [facility] [place] [address] Malignant neoplasm of prostate Social History Tobacco [...] place to sleep or slept in a fci (including now)? No 04/09/2022 Sex and Gender Information Value Date Recorded Sex Assigned at Not on file Gender Identity Not on file Sexual Orientation Not on file documented as of this encounter Progress Notes * Yamel Woods, MANUFACTURER AGENT - 04/13/2022 2:30 PM EDTSummary: 76 year old male dx Prostate cancer, compl EBRT 04/18/12 PSA elevation to 2.0 PSMA PET + for recurring malignancy [facility] [place] [address] Phone: RADIATION ONCOLOGY FOLLOW UP NOTE Date of visit: 04/12/2022 Patient Brenton Joaquin 1945 PCP: Catracho Good MD pt just had new PCP assigned and will get name to us for records. Urologist:Dr Luis Fernando Garcia Radiation oncologist: Dr. Kamlesh Nunez consult then Luis Fernando Sanchez MD for [facility]. Chief Complaint: follow up/labs for prostate cancer // F/U on results of imaging and check in on plan ongoing for care with medical oncology. Time since completed RT: completed external beam radiation on 04/18/2012 ADT:none (medical oncology has begun management ongoing now with lupron) Current treatment:Surveillance yearly of prostate cancer/PSA Additionally monitored now by heme/onc for [facility]. HPI: Mr Joaquin is a pleasant 76 [...] core. The right lateral base had adenocarcinoma [place] 3+4 with 10% of this core. The left lateral apex had adenocarcinoma 3+3 involving 5% of the core. The remaining nine cores demonstrated benign prostatic tissue. After consultation with Dr Kamlesh Nunez, Mr Joaquin elected to be treated with external beam radiation therapy with care that was delivered at the [facility] in [facility] .He was treated to [...] Biopsy 11/08/2011 Volume in cc 29.1 CC [place] grade/score a+b=c 3+4=7 Total Cores 12 Positive [...] Thank you for referring this patient to [facility]. ?? Consult Heme/Onc Flow Cytometry [...] 2 weeks ago. 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 Next visit: None further in Rad Oncology Brenton Joaquin had the opportunity to ask questions and I answered them to the best of my knowledge. Brenton Joaquin agreed to contact radiation oncology in between visits if he has any questions/concerns or new symptoms in regards to the radiation therapy/prostate cancer Yamel Woods MSN, MANUFACTURER AGENT, IT SECURITY MANAGER-C Nurse Practitioner Radiation Oncology documented in this encounter Plan of Treatment Upcoming Encounters Date Type Department Care Team (Late st Contact Info) Description 11/13/2024 2:00 PM EST Office Visit Hematology/Oncology at [address] [phone] Roman Adidson MD [facility] DR [place] [address] Iris Nguyen APRN [facility] [place] [address] 11/13/2024 2:30 PM EST Infusion Hematology Oncology at [address] [phone] documented as of this encounter Visit Diagnoses Diagnosis Malignant neoplasm of prostate documented in this encounter Care Teams Senior Linux Systems Engineer Relationship Specialty Start Date End Date Catracho Good MD PCP - General Family Medicine 08/12/21 08/09/22 documented as of this encounter
--- OUTSIDE RECORDS SUMMARY | 2024-11-05 01:35 | XMS_ITS | Encounter Summary ---
Author Organization [facility] Address [facility] [place] [address] Care Team Providers Care Wind Energy Technician Name Role Phone Unknown Primary Care Provider Unavailabl e Encounter Details Date Type Department Care Team (Late st Contact Info) Description 09/06/2023 11:00 AM EST Office Visit Hematology/Oncology at [address] [phone] Roman Addison MD [facility] [address] [place] [address] Iris Nguyen APRN [facility] [place] [address] Prostate cancer metastatic to intrapelvic lymph node; [...] History: He is . He lives in [place]. 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 The right lateral base had adenocarcinoma [place] 3+4 with 10% of this core. The [...] <7.0 07/05/22 0.04 <7.0 06/01/22 0.59 Pend. [id number] 02/04/2022 2.0 623 LDH 197 08/04/21 1.5 [...] walking 3 miles a day on the [employer] [place] so he is active. #Hot flashes: [...] 2:00 PM EST Office Visit Hematology/Oncology at [address] [phone] Roman Addison MD [facility] DR HEMATOLOGY [place] [address] Irsi Nguyen APRN [facility] [place] [address] 11/13/2024 2:30 PM EST Infusion Hematology Oncology at [address] [phone] documented as of this encounter Visit Diagnoses Diagnosis Prostate cancer metastatic to intrapelvic lymph node Hot flashes Symptomatic menopausal or female climacteric states documented in this encounter Care Teams Wind Energy Technician Relationship Specialty Start Date End Date Unknown None PCP - General 08/10/22 documented as of this encounter
--- OUTSIDE RECORDS SUMMARY | 2024-11-05 01:35 | XMS_ITS | Encounter Summary ---
Author Organization Replaced By [facility] Address [facility] [place] [address] Care Team Providers Care Monument Installer Name Role Phone Unknown Primary Care Provider Unavailabl e Reason for Visit * Reason Comments Injections Lupron IM * Treatment/Therapy Plan Authorization (Routine) - Authorized Specialty Diagnoses / Procedures Referred By Contac t Referred To Contact Hematology and Oncology Diagnoses Prostate cancer metastatic to intrapelvic lymph node Procedures INFUSION Roman Addison MD [facility] DR HEMATOLOGY [place] [address] Roman Addison MD [address] [place] [address] DR [place] [address] Referral ID Status Reason Start Date Expiration Date V isits Requested Visits Authorized [id number] Authorized 10/03/2022 10/02/2025 99 99 Encounter Details Date Type Department Care Team (Late st Contact Info) Description 11/29/2023 2:00 PM EST Infusion Hematology Oncology at [address] [phone] Prostate cancer metastatic to intrapelvic lymph node [...] to sleep or slept in a senior living (including now)? No 04/09/2022 Sex and Gender [...] PM EST Office Visit Hematology/Oncology at [address] [phone] Roman Addison MD [facility] DR HEMATOLOGY [place] [address] Iris Nguyen APRN [facility] [place] [address] 11/13/2024 2:30 PM EST Infusion Hematology Oncology at [address] [phone] documented as of this encounter [...] Gluteal documented in this encounter Care Teams Monument Installer Relationship Specialty Start Date End Date Unknown None PCP - General 08/10/22 documented as of this encounter
--- OUTSIDE RECORDS SUMMARY | 2024-11-05 01:35 | XMS_ITS | Encounter Summary ---
Author Organization [place] [address] Care Team Providers Care Lug Breaker And Wire Puller Name Role Phone Catracho Good MD Primary Care Provider [phone] Encounter Details Date Type Department Care Team (Late st Contact Info) Description 06/01/2022 11:00 AM EDT Office Visit Hematology/Oncology at [address] [phone] Christi Potter, SEGUNDO Prostate cancer Social History Tobacco Use Types [...] 98% BMI 30.29 kg/m?? Pathology: 11/08/11 Adenocarcinoma, [place] grade 3+4 This was followed by TRUS biopsy which demonstrated [place] 3+4 involving 10% the right base core. The right lateral base had adenocarcinoma [place] 3+4 with 10% of this core. The left lateral apex had adenocarcinoma 3+3 involving 5% of the core. The remaining nine cores demonstrated benign prostatic tissue. Labs: 05/3022 WBC 9.52 H/H 14.5/42.2 Plts 155 Na 141 K+ 4.2 BUN/cr 24/1.2 T bili 0.6 ALT 56 AST 25 Ca 9.0 Date PSA Test Notes 06/01/22 0.59 Pend. [id number] 02/04/2022 2.0 623 LDH 197 08/04/21 1.5 [...] weeks at [facility]. We discussed the role of secondary hormonal therapy abiraterone/prednisone next visit. He would like to be followed in [facility] ?? #Monoclonal B-cell lymphocytosis: He will [...] 2:00 PM EST Office Visit Hematology/Oncology at [address] [phone] Roman Addison MD [facility] DR HEMATOLOGY [place] [address] Iris Nguyen APRN [facility] [place] [address] 11/13/2024 2:30 PM EST Infusion Hematology Oncology at [address] [phone] documented as of this encounter Visit Diagnoses Diagnosis Prostate cancer Malignant neoplasm of prostate documented in this encounter Care Teams Lug Breaker And Wire Puller Relationship Specialty Start Date End Date Catracho Good MD PCP - General Family Medicine 08/12/21 08/09/22 documented as of this encounter
--- OUTSIDE RECORDS SUMMARY | 2024-11-05 01:35 | XMS_ITS | Encounter Summary ---
Author Organization [facility] Address [facility] [place] [address] Care Team Providers Care Punch Press Setter Name Role Phone Unknown Primary Care Provider [...] 2:00 PM EST Office Visit Hematology/Oncology at [address] [phone] Roman Addison MD [facility] DR HEMATOLOGY [place] [address] Iris Nguyen APRN [facility] [place] [address] 11/13/2024 2:30 PM EST Infusion Hematology Oncology at [address] [phone] documented as of this encounter Visit Diagnoses Not on filedocumented in this encounter Care Teams Punch Press Setter Relationship Specialty Start Date End Date Unknown None PCP - General 08/10/22 documented as of this encounter
--- OUTSIDE RECORDS SUMMARY | 2024-11-05 01:35 | XMS_ITS | Encounter Summary ---
Author Organization [facility] Address [facility] [place] [address] Care Team Providers Care Gear Changer Name Role Phone Unknown Primary Care Provider Unavailabl e Encounter Details Date Type Department Care Team (Late st Contact Info) Description 06/13/2023 Telephone Hematology/Oncology at [address] [phone] Latasha Anguiano Social History [...] place to sleep or slept in a halfway (including now)? No 04/09/2022 Sex and Gender [...] 2:00 PM EST Office Visit Hematology/Oncology at [address] [phone] Roman Addison MD [facility] DR [place] [address] Iris Nguyen APRN [facility] [place] [address] 11/13/2024 2:30 PM EST Infusion Hematology Oncology at [address] [phone] documented as of this encounter Visit Diagnoses Not on filedocumented in this encounter Care Teams Gear Changer Relationship Specialty Start Date End Date Unknown None PCP - General 08/10/22 documented as of this encounter
--- OUTSIDE RECORDS SUMMARY | 2024-11-05 01:35 | XMS_ITS | Encounter Summary ---
Author Organization [facility] [place] [address] Care Team Providers Care Contract Lead Name Role Phone Catracho Good MD Primary Care Provider [phone] Encounter Details Date Type Department Care Team (Late Contact Info) Description 01/12/2022 Orders Only Radiation Oncology at [address] [phone] Yamel Woods [facility] [place] [address] Malignant neoplasm of prostate (Primary Dx) Social History Tobacco Use Types Packs/Day Years Used Date Smoking Tobacco: Never Smokeless Tobacco: Never Sex and Gender Information Value Date Recorded Sex Assigned at Not on file Gender Identity Not on file Sexual Orientation Not on file documented as of this encounter Plan of Treatment Upcoming Encounters Date Type Department Care Team (Late Contact Info) Description 11/13/2024 2:00 PM EST Office Visit Hematology/Oncology at [address] [phone] Roman Addison MD [facility] DR [place] [address] Iris Nguyen APRN [facility] [place] [address] 11/13/2024 2:30 PM EST Infusion Hematology Oncology at [address] [phone] documented as of this encounter Visit Diagnoses Diagnosis Malignant neoplasm of prostate- Primary documented in this encounter Care Teams Contract Lead Relationship Specialty Start Date End Date Catracho Good MD PCP - General Family Medicine 08/12/21 08/09/22 documented as of this encounter
--- OUTSIDE RECORDS SUMMARY | 2024-11-05 01:35 | XMS_ITS | Encounter Summary ---
Author Organization [facility] Address [facility] [place] [address] Care Team Providers Care Service Unit Operator Name Role Phone Unknown Primary Care Provider Unavailabl e Encounter Details Date Type Department Care Team (Late st Contact Info) Description 11/29/2023 1:30 PM EST Office Visit Hematology/Oncology at [address] [phone] Roman Addison MD [facility] DR HEMATOLOGY [place] [address] Iris Nguyen APRN [facility] [place] [address] Hot flashes; Prostate cancer metastatic to intrapelvic [...] place to sleep or slept in a [facility] (including now)? No 04/09/2022 Sex and Gender [...] History: He is . 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 The right lateral base had adenocarcinoma [place] 3+4 with 10% of this core. The [...] <7.0 07/05/22 0.04 <7.0 06/01/22 0.59 Pend. [id number] 02/04/2022 2.0 623 LDH 197 08/04/21 1.5 [...] 2:00 PM EST Office Visit Hematology/Oncology at [address] [phone] Roman Addison MD [facility] HEMATOLOGY [place] [address] Iris Nguyen APRN [facility] [place] [address] 11/13/2024 2:30 PM EST Infusion Hematology Oncology at [address] [phone] documented as of this encounter Visit Diagnoses Diagnosis Hot flashes Symptomatic menopausal or female climacteric states Prostate cancer metastatic to intrapelvic lymph node documented in this encounter Care Teams Service Unit Operator Relationship Specialty Start Date End Date Unknown None PCP - General 08/10/22 documented as of this encounter
--- OUTSIDE RECORDS SUMMARY | 2024-11-05 01:35 | XMS_ITS | Encounter Summary ---
Author Organization [facility] Address [facility] [place] [address] Care Team Providers Care Afterschool Babysitter Name Role Phone Unknown Primary Care Provider Unavailabl e Encounter Details Date Type Department Care Team (Late st Contact Info) Description 03/25/2023 Orders Only Hematology/Oncology at [address] [phone] Christi Potter, SEGUNDO Prostate cancer metastatic to intrapelvic lymph node [...] 2:00 PM EST Office Visit Hematology/Oncology at [address] [phone] Roman Addison MD [facility] [address] [place] [address] Iris Nguyen APRN [facility] [place] [place] [address] 11/13/2024 2:30 PM EST Infusion Hematology Oncology at [address] [phone] documented as of this encounter Visit Diagnoses Diagnosis Prostate cancer metastatic to intrapelvic lymph node documented in this encounter Care Teams Afterschool Babysitter Relationship Specialty Start Date End Date Unknown None PCP - General 08/10/22 documented as of this encounter
--- OUTSIDE RECORDS SUMMARY | 2024-11-05 01:35 | XMS_ITS | Encounter Summary ---
Author Organization [facility] Address [facility] [place] [address] Care Team Providers Care Certified Personal Chef Name Role Phone Catracho Good MD Primary Care Provider [phone] Reason for Visit * Reason Comments Injections Lupron * Treatment/Therapy Plan Authorization (Routine) - Authorized Specialty Diagnoses / Procedures Referred By Contac t Referred To Contact Hematology and Oncology Diagnoses Prostate cancer metastatic to intrapelvic lymph node Procedures INFUSION Roman Addison MD [facility] [place] [address] Roman Addison MD [address] [place] [address] DR [place] [address] Referral ID Status Reason Start Date Expiration Date V isits Requested Visits Authorized [id number] Authorized 10/03/2022 10/02/2025 99 99 Encounter Details Date Type Department Care Team (Late st Contact Info) Description 04/20/2022 2:00 PM EDT Infusion Hematology Oncology at [address] [phone] Prostate cancer metastatic to intrapelvic [...] 2:00 PM EST Office Visit Hematology/Oncology at [address] [phone] Roman Addison MD [facility] [place] [address] Iris Nguyen APRN [facility] [place] [address] 11/13/2024 2:30 PM EST Infusion Hematology Oncology at [address] [phone] documented as of this encounter Visit Diagnoses [...] Gluteal documented in this encounter Care Teams Certified Personal Chef Relationship Specialty Start Date End Date Catracho Good MD PCP - General Family Medicine 08/12/21 08/09/22 documented as of this encounter
--- OUTSIDE RECORDS SUMMARY | 2024-11-05 01:35 | XMS_ITS | Encounter Summary ---
Author Organization [facility] Address [facility] [place] [address] Care Team Providers Care Multimedia Producer Name Role Phone Unknown Primary Care Provider [...] 2:00 PM EST Office Visit Hematology/Oncology at [address] [phone] Roman Addison MD [facility] DR HEMATOLOGY [place] [address] Iris Nguyen APRN [facility] [place] [address] 11/13/2024 2:30 PM EST Infusion Hematology Oncology at [address] [phone] documented as of this encounter Visit Diagnoses Not on filedocumented in this encounter Care Teams Multimedia Producer Relationship Specialty Start Date End Date Unknown None PCP - General 08/10/22 documented as of this encounter
--- OUTSIDE RECORDS SUMMARY | 2024-11-05 01:35 | XMS_ITS | Encounter Summary ---
Author Organization [facility] Address [facility] [place] [address] Care Team Providers Care Mortgage Sales Manager Name Role Phone Unknown Primary Care [...] 2:00 PM EST Office Visit Hematology/Oncology at [address] [phone] Roman Addison MD [facility] [place] [address] Iris Nguyen APRN [facility] [place] [place] [address] 11/13/2024 2:30 PM EST Infusion Hematology Oncology at [address] [phone] documented as of this encounter Visit Diagnoses Not on filedocumented in this encounter Care Teams Mortgage Sales Manager Relationship Specialty Start Date End Date Unknown None PCP - General 08/10/22 documented as of this encounter
--- OUTSIDE RECORDS SUMMARY | 2024-11-05 01:35 | XMS_ITS | Encounter Summary ---
Author Organization [facility] Address [facility] [place] [address] Care Team Providers Care Guardian Ad Litem Name Role Phone Unknown Primary Care Provider Unavailabl e Encounter Details Date Type Department Care Team (Late st Contact Info) Description 02/21/2024 10:00 AM EDT Office Visit Hematology/Oncology at [address] [phone] Roman Armstrong MD [facility] DR H[place]AT[place] [address] Iris Nguyen APRN [facility] [place] [address] Prostate cancer metastatic to intrapelvic lymph node [...] History: He is . 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 The right lateral base had adenocarcinoma [place] 3+4 with 10% of this core. The [...] <7.0 07/05/22 0.04 <7.0 06/01/22 0.59 Pend. [id number] 02/04/2022 2.0 623 LDH 197 08/04/21 1.5 [...] PM EST Office Visit Hematology/Oncology at [address] [phone] Roman Armstrong MD [facility] [place] [address] Iris Nguyen APRN [facility] [place] [address] 11/13/2024 2:30 PM EST Infusion Hematology Oncology at [address] [phone] Scheduled Orders Name Type Priority Associated Diagnoses [...] monitoring documented in this encounter Care Teams Guardian Ad Litem Relationship Specialty Start Date End Date Unknown None PCP - General 08/10/22 documented as of this encounter
--- OUTSIDE RECORDS SUMMARY | 2024-11-05 01:35 | XMS_ITS | Encounter Summary ---
Author Organization [facility] [place] [address] Care Team Providers Care Environmental Health Technician Name Role Phone Catracho Good MD Primary Care Provider [phone] Reason for Visit * Reason Onset Date Comments Questions 07/26/2022 Review info on a biraterone Encounter Details Date Type Department Care Team (Late st Contact Info) Description 07/26/2022 Telephone Hematology/Oncology at [address] [phone] Chantelle Rashid, JUAN Questions (Review [...] place to sleep or slept in a jail (including now)? No 04/09/2022 Sex and Gender [...] high copay would work with speciality pharmacy [facility] to help with this. Reviewed that at [...] 2:00 PM EST Office Visit Hematology/Oncology at [address] [phone] Roman Addison MD [facility] DR HEMATOLOGY [place] [address] Iris Nguyen APRN [facility] [place] [address] 11/13/2024 2:30 PM EST Infusion Hematology Oncology at [address] [phone] documented as of this encounter Visit Diagnoses Not on filedocumented in this encounter Care Teams Environmental Health Technician Relationship Specialty Start Date End Date Catrahco Good MD PCP - General Family Medicine 08/12/21 08/09/22 documented as of this encounter
--- OUTSIDE RECORDS SUMMARY | 2024-11-05 01:35 | XMS_ITS | Encounter Summary ---
[place] [address] Care Team Providers Care Contractor Field Hauling Name Role Phone Catracho Good MD Primary Care Provider [phone] Reason for Referral * Diagnostic Test (Routine) - Closed Specialty Diagnoses / Procedures Referred By Contac t Referred To Contact Radiology Diagnoses Malignant neoplasm of prostate Procedures NM PET CT PSMA Prostate (Pylarify) Yamel Woods RETAIL SALES MERCHANDISER DEVELOPMENT [facility] [place] [address] [place] [address] Referral ID Status Reason Start Date Expiration Date V isits Requested Visits Authorized [id number] Closed Specialty Service Requested 02/11/2022 08/14/2023 1 1 Reason for Visit * Diagnostic Test (Routine) - Closed Specialty Diagnoses / Procedures Referred By Contac t Referred To Contact Radiology Diagnoses Malignant neoplasm of prostate Procedures NM PET CT PSMA Prostate (Pylarify) Yamel Woods APRN [facility] [place] [address] [place] [address] Referral ID Status Reason Start Date Expiration Date V isits Requested Visits Authorized [id number] Closed Specialty Service Requested 02/11/2022 08/14/2023 1 1 Encounter Details Date Type Department Care Team (Latest Contact Info) Description 03/02/2022 11:53 AM EDT Hospital Encounter Nuclear Medicine at [facility] [place] [address] Yamel Woods RETAIL SALES MERCH[employer]ER DEVELOPMENT [facility] [place] [address] Malignant neoplasm of prostate Discharge Disposition: Home [...] PM EST Office Visit Hematology/Oncology at [address] [phone] Roman Addison MD [facility] HEMATOLOGY [place] [address] Iris Nguyen RETAIL SALES MERCH[employer]ER DEVELOPMENT [facility] [place] [address] 11/13/2024 2:30 PM EST Infusion Hematology Oncology at [address] [phone] documented as of this encounter Procedures Procedure [...] you for referring this patient to [facility]. Thank you for letting us participate in the care of this patient. ??If you are a health care provider and have any questions regarding this report, please contact the number below. ??For patients who have questions please contact the health adult live in caregiver that requested your imaging first. ? Narrative [...] axial and visualized appendicular skeleton. Procedure Note Kamlseh Meier MD - 03/04/2022 EXAMINATION: NM PET [...] you for referring this patient to [facility]. Thank you for letting us participate in the care of this patient. If youare a health care provider and have any questions regarding this report,please contact the number below. For patients who have questions please contactthe health adult live in caregiver that requested your imaging first. Electronically signed by: Kamlesh Meier MD, [facility]([phone]), at 03/04/2022 10:31 AM Yamel Woods RETAIL SALES [employer]ELOP[employer] IMG PET ORDERABLES documented in this encounter [...] Arm documented in this encounter Care Teams Contractor Field Hauling Relationship Specialty Start Date End Date Catracho Good MD PCP - General Family Medicine 08/12/21 08/09/22 documented as of this encounter
--- OUTSIDE RECORDS SUMMARY | 2024-11-05 01:35 | XMS_ITS | Encounter Summary ---
Author Organization [facility] Address [facility] [place] [address] Care Team Providers Care Storage Management Architect Name Role Phone Unknown Primary Care Provider Unavailabl e Reason for Visit * Reason Onset Date Comments Sweats 05/02/2023 Hot flashes Encounter Details Date Type Department Care Team (Late st Contact Info) Description 05/02/2023 Telephone Hematology/Oncology at [address] [phone] Alexia Leos, RN Sweats (Hot flashes) Social History [...] help with that. Best call back number [phone] or [phone] documented in this encounter Plan of Treatment Upcoming Encounters Date Type Department Care Team (Late st Contact Info) Description 11/13/2024 2:00 PM EST Office Visit Hematology/Oncology at [address] [phone] [facility] DR [place]EMAT[place] [address] [facility] [place] [address] 11/13/2024 2:30 PM EST Infusion Hematology Oncology at [address] [phone] documented as of this encounter Visit Diagnoses Not on filedocumented in this encounter Care Teams Storage Management Architect Relationship Specialty Start Date End Date Unknown None PCP - General 08/10/22 documented as of this encounter
--- OUTSIDE RECORDS SUMMARY | 2024-11-05 01:35 | XMS_ITS | Encounter Summary ---
Author Organization [facility] Address [facility] [place] [address] Care Team Providers Care Assistant Production Manager Name Role Phone Unknown Primary Care Provider Unavailabl e Reason for Visit * Reason Comments Injections Lupron 22.5mg * Treatment/Therapy Plan Authorization (Routine) - Authorized Specialty Diagnoses / Procedures Referred By Contac t Referred To Contact Hematology and Oncology Diagnoses Prostate cancer metastatic to intrapelvic lymph node Procedures INFUSION Roman Addison MD [facility] [place] [address] Roman Addison MD [address] [place] [address] [place] [address] Referral ID Status Reason Start Date Expiration Date V isits Requested Visits Authorized [id number] Authorized 10/03/2022 10/02/2025 99 99 Encounter Details Date Type Department Care Team (Late st Contact Info) Description 12/28/2022 3:00 PM EDT Infusion Hematology Oncology at [address] [phone] Prostate cancer metastatic to intrapelvic [...] 2:00 PM EST Office Visit Hematology/Oncology at [address] [phone] Roman Addison MD [facility] [place] [address] Iris Nguyen APRN [facility] [place] [address] 11/13/2024 2:30 PM EST Infusion Hematology Oncology at [address] [phone] documented as of this encounter Visit Diagnoses [...] Gluteal documented in this encounter Care Teams Assistant Production Manager Relationship Specialty Start Date End Date Unknown None PCP - General 08/10/22 documented as of this encounter
--- OUTSIDE RECORDS SUMMARY | 2024-11-05 01:35 | XMS_ITS | Encounter Summary ---
Author Organization [facility] [place] [address] Care Team Providers Care Lockstitch Front Edge Tape Sewer Name Role Phone Unknown Primary Care Provider Unavailabl e Encounter Details Date Type Department Care Team (Late st Contact Info) Description 05/22/2024 1:00 PM EDT Office Visit Hematology/Oncology at [address] [phone] Iris Nguyen APRN [facility] [place] [address] Prostate cancer metastatic to intrapelvic lymph node; [...] Sign Reading Time Taken Comments Blood Pressure 142/71 05/22/2024 12:58 PM EDT Pulse 68 05/22/2024 12:58 PM EDT Temperature 36 ??C (96.8 ??F) 05/22/2024 12:58 PM EDT Respiratory Rate 16 05/22/2024 12:58 PM EDT Oxygen Saturation 98% 05/22/2024 12:58 PM EDT Inhaled Oxygen Concentration - - Weight 83.9 kg (185 lb) 05/22/2024 12:58 PM EDT Height 165.1 cm (5' 5) 05/22/2024 12:58 PM EDT Body Mass Index 30.79 05/22/2024 12:58 PM EDT documented in this encounter Progress Notes * Iris Nguyen, SENIOR ART DIRECTOR - 05/22/2024 1:00 PM EDT Diagnosis: 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 Hot flashes/ sweats are most bothersome during the summer months. He denies any pain. He denies any chest pain, shortness of breath or cough. His appetite is good.He has no issues with his bowels. He has no urinary symptoms. ROS is otherwise negative. Social History: He is . He lives in [place]. 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 Wt Readings from Last 3 Encounters: 05/22/24 83.9 kg (185 lb) 02/21/24 84.4 kg (186 lb) 11/29/23 84.5 kg (186 lb 3.2 oz) Pathology: 11/08/11 Adenocarcinoma, Linda grade 3+4 This was followed by TRUS biopsy which demonstrated [place] 3+4 involving 10% the right base core. The right lateral base had adenocarcinoma [place] 3+4 with 10% of this core. The left lateral apex had adenocarcinoma 3+3 involving 5% of the core. The remaining nine cores demonstrated benign prostatic tissue. Labs: 05/22/24 BUN 28, creatinine 1.4, calcium 9.1, [...] 25 Ca 9.0 Date PSA Test Notes 05/14/24 <0.01 <7.0 02/13/24 <0.01 <7.0 11/18/23 <0.01 <7.0 09/06/23 <0.01 7.1 06/03/23 <0.01 <7.0 03/11/23 <0.01 7.5 12/20/22 <0.01 <7.0 09/24/22 <0.01 <7.0 07/05/22 0.04 <7.0 06/01/22 0.59 Pend. [id number] 02/04/2022 2.0 623 LDH 197 08/04/21 1.5 [...] ADT. F/u in 3 months, labs prior. # DEXA scan: Will obtain by DEXA [...] and possible lupron injection in 3 months Iris Nguyen APRN 25 minutes were spent on date of visit, including non-face to face time. documented in this encounter Plan of Treatment Upcoming Encounters Date Type Department Care Team (Late st Contact Info) Description 11/13/2024 2:00 PM EST Office Visit Hematology/Oncology at [address] [phone] Roman Addison MD [facility] HEMATOLOGY [place] [address] Iris Nguyen APRN [facility] [place] [address] 11/13/2024 2:30 PM EST Infusion Hematology Oncology at [address] [phone] documented as of this encounter Visit Diagnoses Diagnosis Prostate cancer metastatic to intrapelvic lymph node Hot flashes Symptomatic menopausal or female climacteric states documented in this encounter Care Teams Lockstitch Front Edge Tape Sewer Relationship Specialty Start Date End Date Unknown None PCP - General 08/10/22 documented as of this encounter
--- OUTSIDE RECORDS SUMMARY | 2024-11-05 01:35 | XMS_ITS | Encounter Summary ---
Author Organization [facility] Address [facility] [place] [address] Care Team Providers Care Lead Embedded Software Engineer Name Role Phone Unknown Primary Care Provider Unavailabl e Encounter Details Date Type Department Care Team (Late st Contact Info) Description 06/14/2023 2:00 PM EDT Office Visit Hematology/Oncology at [address] [phone] Roman Addison MD [facility] [place] [address] Prostate cancer metastatic to intrapelvic lymph node [...] was followed by TRUS biopsy which demonstrated [place] 3+4 involving 10% the right base core. The right lateral base had adenocarcinoma [place] 3+4 with 10% of this core. The [...] <7.0 07/05/22 0.04 <7.0 06/01/22 0.59 Pend. [id number] 02/04/2022 2.0 623 LDH 197 08/04/21 1.5 [...] Schedule first injection in 1-2 weeks at [facility]. We discussed the role of secondary hormonal therapy abiraterone/prednisone next visit. 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 Plan: 1. Lupron 22.5 mg today 2. Next visit in with CBc, cMP, PSA, testosterone and his next lupron injection. In 3 months documented in this encounter Plan of Treatment Upcoming Encounters Date Type Department Care Team (Late st Contact Info) Description 11/13/2024 2:00 PM EST Office Visit Hematology/Oncology at [address] [phone] Roman Addison MD [facility] [place] [address] Iris Nguyen APRN [facility] [place] [address] 11/13/2024 2:30 PM EST Infusion Hematology Oncology at [address] [phone] documented as of this encounter Visit Diagnoses Diagnosis Prostate cancer metastatic to intrapelvic lymph node- Primary Encounter for monitoring androgen deprivation therapy Encounter for therapeutic drug monitoring documented in this encounter Care Teams Lead Embedded Software Engineer Relationship Specialty Start Date End Date Unknown None PCP - General 08/10/22 documented as of this encounter
--- OUTSIDE RECORDS SUMMARY | 2024-11-05 01:35 | XMS_ITS | Encounter Summary ---
[place] [address] Care Team Providers Care Lens Generating Machine Tender Name Role Phone Catracho Good MD Primary Care Provider [phone] Reason for Referral * Diagnostic Test (Routine) - Closed Specialty Diagnoses / Procedures Referred By Pushpaac t Referred To Contact Radiology Diagnoses Malignant neoplasm of prostate Procedures MRI Pelvis wwo (Prostate) Yamel Woods CASE REVIEWER [facility] [place] [address] [place] [address] Referral ID Status Reason Start Date Expiration Date V isits Requested Visits Authorized [id number] Closed Specialty Service Requested 03/05/2022 09/04/2023 1 1 Reason for Visit * Diagnostic Test (Routine) - Closed Specialty Diagnoses / Procedures Referred By Contac t Referred To Contact Radiology Diagnoses Malignant neoplasm of prostate Procedures MRI Pelvis wwo (Prostate) Yamel Woods APRN [facility] [address] [place] [address] Referral ID Status Reason Start Date Expiration Date V isits Requested Visits Authorized [id number] Closed Specialty Service Requested 03/05/2022 09/04/2023 1 1 Encounter Details Date Type Department Care Team (Latest Contact Info) Description 04/07/2022 11:20 AM EDT - 04/07/2022 11:59 PM EDT Hospital Encounter MRI at [facility] [place] [address] Yamel Woods [facility] [place] [address] Malignant neoplasm of prostate Discharge Disposition: Home [...] Office Visit Hematology/Oncology at [address] [phone] Roman Addison MD [facility] [place] [address] Iris Nguyen [facility] [place] [address] 11/13/2024 2:30 PM EST Infusion Hematology Oncology at [address] [phone] documented as of this encounter [...] J1, Lawrence M1, Gold S1, Pena G1, Raysaran K1, Adolfo MJ1, Niels BJ1, Mohsen PA1, Monica PL1, Gabby B1. ??A Grading System for the Assessment of Risk of Extraprostatic Extension of Prostate Cancer at Multiparametric MRI. Radiology. 2019 Dec;290(3):709-719. doi: 10.1148/radiol.4588649232. Epub 2018Oct 24. I have personally reviewed [...] who have questions please contact the health pediatric critical care nurse that requested your imaging first. ? Narrative [...] mari present) References: Kit S1, Anthony JH1, Gould S1, Soares C1, Klein J1, Czarnijose M1,Gold S1, Pena G1, Raysaran K1, Adolfo MJ1, Niels BJ1, Mohsen PA1, Monica PL1, Gabby B1.A Grading System for the Assessment of Risk of Extraprostatic Extension of Prostate Cancer at Multiparametric MRI. Radiology. 2019Mar;290(3):709-719. doi: 10.1148/radiol.1879093861. Epub 2018Oct 24. I have personally reviewed the image(s) and the resident's interpretationand agree with the findings, Preet Villanueva MD at 04/08/2022 8:45 AM Thank you for letting us participate in the care of this patient. If youare a health care provider and have any questions regarding this report,please contact the number below. For patients who have questions please contactthe health pediatric critical care nurse that requested your imaging first. Yamel Woods CASE REVIEWER IMG MRI ORDERABLES documented in this encounter [...] mLs documented in this encounter Care Teams Lens Generating Machine Tender Relationship Specialty Start Date End Date Catracho Good MD PCP - General Family Medicine 08/12/21 08/09/22 documented as of this encounter
--- OUTSIDE RECORDS SUMMARY | 2024-11-05 01:35 | XMS_ITS | Encounter Summary ---
Author Organization [facility] Address [facility] [place] [address] Care Team Providers Care Looper Operator Name Role Phone Catracho Good MD Primary Care Provider [phone] Reason for Visit * Reason Comments Injections Lupron * Treatment/Therapy Plan Authorization (Routine) - Authorized Specialty Diagnoses / Procedures Referred By Contac t Referred To Contact Hematology and Oncology Diagnoses Prostate cancer metastatic to intrapelvic lymph node Procedures INFUSION Roman Addison MD [facility] DR [place] [address] Roman Addison MD [address] [place] [address] [place] [address] Referral ID Status Reason Start Date Expiration Date V isits Requested Visits Authorized [id number] Authorized 10/03/2022 10/02/2025 99 99 Encounter Details Date Type Department Care Team (Late st Contact Info) Description 07/13/2022 4:00 PM EDT Infusion Hematology Oncology at [address] [phone] Prostate cancer metastatic to intrapelvic [...] 2:00 PM EST Office Visit Hematology/Oncology at [address] [phone] Roman Addison MD [facility] HEMATOLOGY [place] [address] Iris Nguyen APRN [facility] MEDICAL ONCOLOGY [place] [address] 11/13/2024 2:30 PM EST Infusion Hematology Oncology at [address] [phone] documented as of this encounter Visit Diagnoses [...] Gluteal documented in this encounter Care Teams Looper Operator Relationship Specialty Start Date End Date Catracho Good MD PCP - General Family Medicine 08/12/21 08/09/22 documented as of this encounter
--- OUTSIDE RECORDS SUMMARY | 2024-11-05 01:35 | XMS_ITS | Encounter Summary ---
Author Organization [facility] [place] [address] Care Team Providers Care High School Art Teacher Name Role Phone Catracho Good MD Primary Care Provider [phone] Encounter Details Date Type Department Care Team (Late Contact Info) Description 11/26/2021 Telephone Hematology/Oncology at [address] [phone] Teagan Bronson Social History Tobacco Use Types [...] 2:00 PM EST Office Visit Hematology/Oncology at [address] [phone] Roman Addison MD [facility] DR HEMATOLOGY [place] [address] Iris Nguyen APRN [facility] [place] [address] 11/13/2024 2:30 PM EST Infusion Hematology Oncology at [address] [phone] documented as of this encounter Visit Diagnoses Not on filedocumented in this encounter Care Teams High School Art Teacher Relationship Specialty Start Date End Date Catracho Good MD PCP - General Family Medicine 08/12/21 08/09/22 documented as of this encounter
--- OUTSIDE RECORDS SUMMARY | 2024-11-05 01:36 | XMS_ITS | Encounter Summary ---
Author Organization [facility] [address] Care Team Providers Care Beer Brewer Name Role Phone Brady Christensen MD Primary Care Provider [phone] Reason for Visit * Reason Comments Radiation Follow-up PROSTATE CANCER Encounter Details Date Type Department Care Team (Late st Contact Info) Description 07/03/2015 10:30 AM EDT Office Visit Radiation Oncology at [address] [phone] Cherise Tuttle APRN Malignant neoplasm of prostate Social History Tobacco [...] 5.1 Vitals Office Visit from 07/03/2015 in [facility] Weight - Scale 85.503 kg [...] who saw patient on 11/08/[address] [facility]. An ultrasound was done which demonstrated a prostate volume of 29.1 cc with no hypoechoic areas. This was followed by TRUS biopsy which demonstrated [place] 3+4 involving 10% the right base core. The right lateral base had adenocarcinoma [place] 3+4 with 10% of this core. The left lateral apex had adenocarcinoma 3+3 involving 5% of the core. The remaining nine cores demonstrated benign prostatic tissue. After consultation with Dr Kamlesh Nunez, Mr Joaquin elected to be treated with external beam radiation therapy with care that was delivered at the [facility] in [facility] .He was treated [...] and Biopsy 11/08/2011 Volume in cc 29.1 [place] grade/score a+b=c 3+4=7 Total Cores 12 Positive [...] Social History: Never smoker. No EtOH. 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 , two daughters and three grandchildren. No Known Allergies Current Outpatient Prescriptions on File Prior to Visit Medication Sig Dispense Refill ??? Vitamin A-Vitamin C-Vit E-Min (OCUVITE) Tab Take by mouth. ??? multivitamin (THERAGRAN) tablet Take 1 tablet by mouth daily. ??? UNABLE TO FIND Med Name: red yeast rice ??? [place]-3 Fatty Acids (FISH OIL) 300 mg Cap [...] doing very well. 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 Previously he had been concernedabout his mother who is nearly 90 and has dementia. She was moved to a a [facility] facility. 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 She a coupleof months ago after being in the [facility] facility for a six months. He denies [...] fatigue and unexpected weight change. Still working pediatrician managing partner--appliance repair No pain HENT: Negative. Eyes: Negative. [...] patient Vitals Office Visit from 07/03/2015 in [facility] Weight - Scale 85.503 kg [...] old man with adenocarcinoma of the prostate, [place] 3+4=7, pretreatment PSA of 6.5. He was [...] 2:00 PM EST Office Visit Hematology/Oncology at [address] [phone] Roman Addison MD [facility] HEMATOLOGY [place] [address] Iris Nguyen APRN [facility] [place] [address] 11/13/2024 2:30 PM EST Infusion Hematology Oncology at [address] [phone] documented as of this encounter Visit Diagnoses Diagnosis Malignant neoplasm of prostate documented in this encounter Care Teams Beer Brewer Relationship Specialty Start Date End Date Brady Christensen MD [address] [place] [address] PCP - General 11/08/11 07/27/17 documented as of this encounter
--- OUTSIDE RECORDS SUMMARY | 2024-11-05 01:36 | XMS_ITS | Encounter Summary ---
[place] [address] Care Team Providers Care Cushion Maker Name Role Phone Brady Christensen MD Primary Care Provider [phone] Encounter Details Date Type Department Care Team (Late st Contact Info) Description 01/20/2012 9:00 AM EDT Ancillary Appointment [place] [address] Kamlesh Nunez MD Social History Tobacco Use Types Packs/Day Years Used Date Smoking Tobacco: Never Sex and Gender Information Value Date Recorded Sex Assigned at Not on file Gender Identity Not on file Sexual Orientation Not on file documented as of this encounter Progress Notes * Kamlesh Nunez MD - 01/20/2012 9:48 AM EDT Brenton Joaquin underwent CT-based simulation for PSA 6.5 [place] Score 3+4=7/10 prostate cancer, Stage [id number]. After installation of contrast material into the [...] 2:00 PM EST Office Visit Hematology/Oncology at [address] [phone] Roman Addison MD [facility] DR [place] [address] Iris Nguyen APRN [facility] [place] [address] 11/13/2024 2:30 PM EST Infusion Hematology Oncology at [address] [phone] documented as of this encounter Visit Diagnoses Not on filedocumented in this encounter Care Teams Cushion Maker Relationship Specialty Start Date End Date Brady Christensen MD [address] [place] [address] PCP - General 11/08/11 07/27/17 documented as of this encounter
--- OUTSIDE RECORDS SUMMARY | 2024-11-05 01:36 | XMS_ITS | Encounter Summary ---
Author Organization [facility] [place] [address] Care Team Providers Care Nuclear Scientist Name Role Phone Donnell Cabrera MD Primary Care Provider [phone] Encounter Details Date Type Department Care Team (Late st Contact Info) Description 08/14/2020 2:30 PM EST TH Visit (TeleHealth) Radiation Oncology at [address] [phone] Christi Potter APRN Prostate cancer Social History Tobacco Use Types [...] Garcia who saw patient [place] 11[place] [facility] An ultrasound was done which demonstrated a prostate volume of 29.1 cc with no hypoechoic areas. This was followed by TRUS biopsy which demonstrated [place] 3+4 involving 10% the right base core. The right lateral base had adenocarcinoma [place] 3+4 with 10% of this core. The left lateral apex had adenocarcinoma 3+3 involving 5% of the core. The remaining nine cores demonstrated benign prostatic tissue. After consultation with Dr Kamlesh Nunez, Mr Joaquin elected to be treated with external beam radiation therapy with care that was delivered at the [facility] in [facility] .He was [...] History: Never smoker. No Etoh. 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 He reports that his PCP checked his PSA afew months ago and that it was 1.0 and he was somewhat anxious about those results. He has not had any new health issues over the last year. 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 He enjoys [...] and unexpected weight change. 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 with adenocarcinoma of the prostate, [place] 3+4=7, [...] 2:00 PM EST Office Visit Hematology/Oncology at [address] [phone] Roman Addison MD [facility] [place] [address] Iris Nguyen APRN [facility] [place] [address] 11/13/2024 2:30 PM EST Infusion Hematology Oncology at [address] [phone] documented as of this encounter Visit Diagnoses Diagnosis Prostate cancer Malignant neoplasm of prostate documented in this encounter Care Teams Nuclear Scientist Relationship Specialty Start Date End Date Donnell Cabrera MD PCP - General General Internal Medicine 08/23/1906/05 documented as of this encounter
--- OUTSIDE RECORDS SUMMARY | 2024-11-05 01:36 | XMS_ITS | Encounter Summary ---
[place] [address] Care Team Providers Care Molecular Geneticist Name Role Phone Brady Christensen MD Primary Care Provider [phone] Reason for Visit * Reason Comments Radiation Follow-up prostate cancer Encounter Details Date Type Department Care Team (Late st Contact Info) Description 08/10/2012 9:00 AM EST Follow-Up Radiation Oncology at [address] [phone] Cherise Tuttle APRN Prostate cancer (Primary Dx) Discharge Disposition: Home [...] Garcia who saw patient on 11/08/2011 at [facility]. An ultrasound was done which demonstrated a prostate volume of 29.1 cc with no hypoechoic areas. This was followed by TRUS biopsy which demonstrated [place] 3+4 involving 10% the right base core. The right lateral base had adenocarcinoma [place] 3+4 with 10% of this core. The left lateral apex had adenocarcinoma 3+3 involving 5% of the core. The remaining nine cores demonstrated benign prostatic tissue. After consultation with Dr Kamlesh Nunez, Mr Joaquin elected to be treated with external beam radiation therapy with care that was delivered at the [facility] in [facility] .He was [...] Social History: Never smoker. No EtOH. 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 , two daughters and three grandchildren. No Known Allergies Current outpatient prescriptions ordered prior to encounter Medication Sig Dispense Refill ??? multivitamin (THERAGRAN) tablet Take 1 tablet by mouth daily. ??? UNABLE TO FIND Med Name: red yeast rice ??? [place]-3 Fatty Acids (FISH OIL) 300 mg Cap Take by mouth. Interim History: Mr Joaquin reports that he was not able to sleep last night. He was very anxious toget the result of his first post treatment PSA. He reports that he is doing very well. 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 He [...] and unexpected weight change. Still working department director--appliance repair No pain HENT: Negative. Eyes: Negative. [...] PM EST Office Visit Hematology/Oncology at [address] [phone] Roman Addison MD [facility] HEMATOLOGY [place] [address] Iris Nguyen APRN [facility] [place] [address] 11/13/2024 2:30 PM EST Infusion Hematology Oncology at [address] [phone] documented as of this encounter Procedures Procedure [...] prostate documented in this encounter Care Teams Molecular Geneticist Relationship Specialty Start Date End Date Brady Christensen MD [address] [place] [address] PCP - General 11/08/11 07/27/17 documented as of this encounter
--- OUTSIDE RECORDS SUMMARY | 2024-11-05 01:36 | XMS_ITS | Encounter Summary ---
Author Organization [facility] [place] [address] Care Team Providers Care Assistant Professor Of Life Sciences Name Role Phone Brady Christensen MD Primary Care Provider [phone] Reason for Visit * Reason Comments Radiation Treatment Encounter Details Date Type Department Care Team (Late st Contact Info) Description 02/23/2012 8:15 AM EDT Follow-Up Radiation Oncology at [address] [phone] Luis Fernando Gamez MD Prostate cancer (Primary Dx) Discharge Disposition: Home [...] VISIT: DATE:02/23/2012 PATIENT STATUS: Prostate: GS=3+4=7/10, PSA=6.5, [id number] . TREATMENT PLAN: RADIATION ; Site Technique [...] 2:00 PM EST Office Visit Hematology/Oncology at [address] [phone] Roman Addison MD [facility] DR [place] [address] Iris Nguyen APRN [facility] [place] [address] 11/13/2024 2:30 PM EST Infusion Hematology Oncology at [address] [phone] documented as of this encounter Visit Diagnoses Diagnosis Prostate cancer- Primary Malignant neoplasm of prostate documented in this encounter Care Teams Assistant Professor Of Life Sciences Relationship Specialty Start Date End Date Brady Christensen MD [address] [place] [address] PCP - General 11/08/11 07/27/17 documented as of this encounter
--- OUTSIDE RECORDS SUMMARY | 2024-11-05 01:36 | XMS_ITS | Encounter Summary ---
Author Organization Formerly [facility] Address [facility] [place] [address] Care Team Providers Care Mva Operator Name Role Phone Donnell Cabrera MD Primary Care Provider [phone] Encounter Details Date Type Department Care Team (Late st Contact Info) Description 04/23/2021 1:30 PM EDT Office Visit Hematology/Oncology at [address] [phone] Ryan Thornton MD [facility] DR HEMATOLOGY [place] [address] Azalia Cannon, WINDOW TREATMENT INSTALLER [address] [place] [address] DR HEMATOLOGY ONCOLOGY [place], [place] [id number] Lymphocytosis; Monoclonal B-cell lymphocytosis Social History Tobacco [...] plan to follow with Dr. Thornton at [facility]. ?? Brenton and his had the opportunity to ask questions, all of which were answered. ?? 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 (See summary above.) He comes to the [facility] onc[facility] clinic in [facility] today for 3 month follow-up. Brenton [...] comes to the [facility] oncology clinic in [facility] today for 3 month follow-up. Brenton [...] 2:00 PM EST Office Visit Hematology/Oncology at [address] [phone] Roman Addison MD [facility] DR HEMATOLOGY [place] [address] Iris Nguyen APRN [facility] [place] [address] 11/13/2024 2:30 PM EST Infusion Hematology Oncology at [address] [phone] documented as of this encounter Visit Diagnoses Diagnosis Lymphocytosis Lymphocytosis (symptomatic) Monoclonal B-cell lymphocytosis Lymphocytosis (symptomatic) documented in this encounter Care Teams Mva Operator Relationship Specialty Start Date End Date Donnell Cabrera MD PCP - General General Internal Medicine 08/23/19 9/3 documented as of this encounter
--- OUTSIDE RECORDS SUMMARY | 2024-11-05 01:36 | XMS_ITS | Encounter Summary ---
Author Organization [facility] [place] [address] Care Team Providers Care Legal Associate Name Role Phone Hong Sage MD Primary Care Provider [phone] Encounter Details Date Type Department Care Team (Late st Contact Info) Description 01/04/2019 Telephone Radiation Oncology at [address] [phone] Cherise Tuttle APRN Social History Tobacco Use Types Packs/Day Years [...] 2:00 PM EST Office Visit Hematology/Oncology at [address] [phone] Roman Addison MD [facility] DR HEMATOLOGY [place] [address] Iris Nguyen APRN [facility] [place] [address] 11/13/2024 2:30 PM EST Infusion Hematology Oncology at [address] [phone] documented as of this encounter Visit Diagnoses Not on filedocumented in this encounter Care Teams Legal Associate Relationship Specialty Start Date End Date Hong Sage MD [address] [place] [address] PCP - General Family Medicine 07/28/17 08/22/19 documented as of this encounter
--- OUTSIDE RECORDS SUMMARY | 2024-11-05 01:36 | XMS_ITS | Encounter Summary ---
[place] [address] Care Team Providers Care Mainspring Barrel Assembly Cleaner Name Role Phone Brady Christensen MD Primary Care Provider [phone] Reason for Visit * Reason Comments Radiation Follow-up prostate cancer Encounter Details Date Type Department Care Team (Late st Contact Info) Description 07/29/2016 9:45 AM EDT Office Visit Radiation Oncology at [address] [phone] Cherise Tuttle, SEGUNDO Malignant neoplasm of prostate Social History Tobacco [...] 5.1 Vitals Office Visit from 07/29/2016 in [facility] Radiation Oncology Weight - Scale 83.2 kg [...] Garcia who saw patient on 11/08/2011 at [facility]. An ultrasound was done which demonstrated a prostate volume of 29.1 cc with no hypoechoic areas. This was followed by TRUS biopsy which demonstrated Linda 3+4 involving 10% the right base core. The right lateral base had adenocarcinoma [place] 3+4 with 10% of this core. The left lateral apex had adenocarcinoma 3+3 involving 5% of the core. The remaining nine cores demonstrated benign prostatic tissue. After consultation with Dr Kamlesh Nunez, Mr Joaquin elected to be treated with external beam radiation therapy with care that was delivered at the [facility] .He was treated to a [...] and Biopsy 11/08/2011 Volume in cc 29.1 [place] grade/score a+b=c 3+4=7 Total Cores 12 Positive [...] Post Primary Therapy - Amari PSA 0.5 PMH: Past Medical History Diagnosis Date ??? Anxiety ??? Prostate cancer PSH: none Family history: No history of malignancy, kidney stones, no bleeding disorders or trouble with anesthesia in the past. Mother with Alzheimer's. Patient was adopted by his stepfather. One biological brother, no known prostate issues. Social History: Never smoker. No EtOH. 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 He enjoys [...] fatigue and unexpected weight change. 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 Eyes: Negative. Respiratory: Negative. [...] patient Vitals Office Visit from 07/29/2016 in [facility] Radiation Oncology Weight - Scale 83.2 kg [...] old man with adenocarcinoma of the prostate, [place] 3+4=7, pretreatment PSA of 6.5. He was treated with external beam radiation 79.2 Gy completed on 04/18/2012. His PSA is stable at 0.5 and is at his post treatment amari. He is doing very well with no [...] PM EST Office Visit Hematology/Oncology at [address] [phone] Roman Addison MD [facility] HEMATOLOGY [place] [address] Iris Nguyen APRN [facility] [place] [address] 11/13/2024 2:30 PM EST Infusion Hematology Oncology at [address] [phone] documented as of this encounter Visit Diagnoses Diagnosis Malignant neoplasm of prostate documented in this encounter Care Teams Mainspring Barrel Assembly Cleaner Relationship Specialty Start Date End Date Brady Christensen MD [address] [place] [address] PCP - General 11/08/11 07/27/17 documented as of this encounter
--- OUTSIDE RECORDS SUMMARY | 2024-11-05 01:36 | XMS_ITS | Encounter Summary ---
[place] [address] Care Team Providers Care Sand Car Worker Name Role Phone Brady Christensen MD Primary Care Provider [phone] Reason for Visit * Reason Comments Radiation Follow-up Encounter Details Date Type Department Care Team (Late st Contact Info) Description 08/15/2013 2:00 PM EST Follow-Up Hematology Oncology at [address] [phone] Christi Potter APRN Prostate cancer (Primary Dx) Discharge Disposition: [...] Progress Notes * Christi Potter APRN - 08/15/2013 2:32 PM EST Identification: Mr [...] Garcia who saw patient on 11/08/2011 at [facility]. An ultrasound was done which demonstrated a prostate volume of 29.1 cc with no hypoechoic areas. This was followed by TRUS biopsy which demonstrated [place] 3+4 involving 10% the right base core. The right lateral base had adenocarcinoma [place] 3+4 with 10% of this core. The left lateral apex had adenocarcinoma 3+3 involving 5% of the core. The remaining nine cores demonstrated benign prostatic tissue. After consultation with Dr Kamlesh Nunez, Mr Joaquin elected to be treated with external beam radiation therapy with care that was delivered at the [facility] in [facility] .He was treated to [...] History: Never smoker. No EtOH. 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 , two daughters and three grandchildren. No Known Allergies Current Outpatient Prescriptions on File Prior to Visit Medication Sig Dispense Refill ??? Vitamin A-Vitamin C-Vit E-Min (OCUVITE) Tab Take by mouth. ??? multivitamin (THERAGRAN) tablet Take 1 tablet by mouth daily. ??? UNABLE TO FIND Med Name: red yeast rice ??? [facility]-3 Fatty Acids (FISH OIL) 300 mg Cap Take by mouth. Advance Directive: Not on file Interim History: Mr Joaquin reports that he is doing well but does get anxious prior to appointments. His B/P is elevated. He does indicate that he checks it at home and that it is in the normal [id number] range He reports that he is doing very well. 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 He [...] and unexpected weight change. 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 Eyes: Negative. [...] 2:00 PM EST Office Visit Hematology/Oncology at [address] [phone] Roman Addison MD [facility] DR HEMATOLOGY [place] [address] Iris Nguyen APRN [facility] [place] [address] 11/13/2024 2:30 PM EST Infusion Hematology Oncology at [address] [phone] documented as of this encounter Visit Diagnoses Diagnosis Prostate cancer- Primary Malignant neoplasm of prostate documented in this encounter Care Teams Sand Car Worker Relationship Specialty Start Date End Date Brady Christensen MD [address] [place] [address] PCP - General 11/08/11 07/27/17 documented as of this encounter
--- OUTSIDE RECORDS SUMMARY | 2024-11-05 01:36 | XMS_ITS | Encounter Summary ---
[place] [address] Care Team Providers Care Welt Trimming Machine Operator Name Role Phone Brady Christensen MD Primary Care Provider Reason for Visit * Reason Comments Radiation Follow-up prostate cancer Encounter Details Date Type Department Care Team (Late st Contact Info) Description 01/08/2016 9:45 AM EDT Office Visit Radiation Oncology at [address] [phone] Cherise Tuttle, SEGUNDO Malignant neoplasm of prostate [...] 5.1 Vitals Office Visit from 01/08/2016 in [facility] Radiation Oncology Weight - Scale 86.637 kg [...] Garcia who saw patient on 11/08/2011 at [facility]. An ultrasound was done which demonstrated a prostate volume of 29.1 cc with no hypoechoic areas. This was followed by TRUS biopsy which demonstrated [place] 3+4 involving 10% the right base core. The right lateral base had adenocarcinoma [place] 3+4 with 10% of this core. The left lateral apex had adenocarcinoma 3+3 involving 5% of the core. The remaining nine cores demonstrated benign prostatic tissue. After consultation with Dr Kamlesh Nunez, Mr Joaquin elected to be treated with external beam radiation therapy with care that was delivered at the [facility] in [facility] .He was treated [...] Biopsy 11/08/2011 Volume in cc 29.1 [place] grade/score a+b=c 3+4=7 Total Cores 12 Positive [...] is doing well. 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 Eyes: Negative. Respiratory: Negative. [...] patient Vitals Office Visit from 01/08/2016 in [facility] Radiation Oncology Weight - Scale 86.637 kg [...] man with adenocarcinoma of the prostate, [place] 3+4=7, pretreatment PSA of 6.5. He was [...] 2:00 PM EST Office Visit Hematology/Oncology at [address] [phone] Roman Addison MD [facility] DR [place] [address] Iris Nguyen APRN [facility] [place] [address] 11/13/2024 2:30 PM EST Infusion Hematology Oncology at [address] [phone] documented as of this encounter Visit Diagnoses Diagnosis Malignant neoplasm of prostate documented in this encounter Care Teams Welt Trimming Machine Operator Relationship Specialty Start Date End Date Brady Christensen MD [address] [place] [address] PCP - General 11/08/11 07/27/17 documented as of this encounter
--- OUTSIDE RECORDS SUMMARY | 2024-11-05 01:36 | XMS_ITS | Encounter Summary ---
Author Organization [facility] [place] [address] Care Team Providers Care Metal Fabricating Shop Helper Name Role Phone Brady Christensen MD Primary Care Provider [phone] Reason for Visit * Reason Comments Radiation Treatment Encounter Details Date Type Department Care Team (Late st Contact Info) Description 04/04/2012 7:45 AM EDT Follow-Up Radiation Oncology at [address] [phone] Luis Fernando Gamez MD Prostate ca (Primary Dx) Discharge Disposition: Home [...] VISIT: DATE:04/03/2012 PATIENT STATUS: Prostate: GS=3+4=7/10, PSA=6.5, [id number] . TREATMENT PLAN: RADIATION ; Site Technique [...] 2:00 PM EST Office Visit Hematology/Oncology at [address] [phone] Roman Addison MD [facility] DR [place] [address] Iris Nguyen APRN [facility] [place] [address] 11/13/2024 2:30 PM EST Infusion Hematology Oncology at [address] [phone] documented as of this encounter Visit Diagnoses Diagnosis Prostate CA- Primary Malignant neoplasm of prostate documented in this encounter Care Teams Metal Fabricating Shop Helper Relationship Specialty Start Date End Date Brady Christensen MD [address] [place] [address] PCP - General 11/08/11 07/27/17 documented as of this encounter
--- OUTSIDE RECORDS SUMMARY | 2024-11-05 01:36 | XMS_ITS | Encounter Summary ---
[place] [address] Care Team Providers Care Report Programmer Name Role Phone Brady Christensen MD Primary Care Provider [phone] Reason for Visit * Reason Comments Radiation Follow-up Gold [facility] Encounter Details Date Type Department Care Team (Latest Contact Info) Description 01/10/2012 9:00 AM EDT Procedure [place] [phone] Kamlesh Nunez MD Prostate cancer (Primary Dx) Discharge Disposition: [...] a 66 y.o. gentleman with PSA 6.5 [place] Score 3+4=7/10 prostate cancer, Stage [id number]. He is being seen at the request of Dr Garcia for consideration of the role ofradiation therapy in his further management Procedure: Gold coil fiducial marker placement within the prostate Physician: Kamlesh Nunez MD Anesthesia: Local lidocaine with bicarbonate Description [...] 2:00 PM EST Office Visit Hematology/Oncology at [address] [phone] Roman Addison MD [facility] HEMATOLOGY [place] [address] Iris Nguyen APRN [facility] [place] [address] 11/13/2024 2:30 PM EST Infusion Hematology Oncology at [address] [phone] documented as of this encounter Visit Diagnoses [...] mg documented in this encounter Care Teams Report Programmer Relationship Specialty Start Date End Date Brady Christensen MD [address] [place] [address] PCP - General 11/08/11 07/27/17 documented as of this encounter
--- OUTSIDE RECORDS SUMMARY | 2024-11-05 01:36 | XMS_ITS | Encounter Summary ---
Author Organization [facility] [place] [address] Care Team Providers Care Baby Counselor Name Role Phone Brady Christensen MD Primary Care Provider [phone] Encounter Details Date Type Department Care Team (Late st Contact Info) Description 03/14/2012 8:00 AM EDT Follow-Up Radiation Oncology at [address] [phone] Suly Guzman MD [facility] [place] [address] Prostate ca (Primary Dx) Discharge Disposition: Home [...] VISIT: DATE: PATIENT STATUS: Prostate: GS=3+4=7/10, PSA=6.5, [id number] . TREATMENT PLAN: RADIATION ; Site Technique [...] PM EST Office Visit Hematology/Oncology at [address] [phone] Roman Addison MD [facility] DR [place] [address] Iris Nguyen APRN [facility] [place] [address] 11/13/2024 2:30 PM EST Infusion Hematology Oncology at [address] [phone] documented as of this encounter Visit Diagnoses Diagnosis Prostate CA- Primary Malignant neoplasm of prostate documented in this encounter Care Teams Baby Counselor Relationship Specialty Start Date End Date Brady Christensen MD [address] [place] [address] PCP - General 11/08/11 07/27/17 documented as of this encounter
--- OUTSIDE RECORDS SUMMARY | 2024-11-05 01:36 | XMS_ITS | Encounter Summary ---
Author Organization [facility] [place] [address] Care Team Providers Care Head Refrigeration Engineer Name Role Phone Donnell Cabrera MD Primary Care Provider [phone] Encounter Details Date Type Department Care Team (Latest Contact Info) Description 01/19/2021 9:25 AM EDT Laboratory Appointment Lab [address] [place] [phone] Malignant neoplasm of prostate Social History Tobacco [...] PM EST Office Visit Hematology/Oncology at [address] [phone] Roman Addison MD [facility] [place] [address] Iris Nguyen APRN [facility] [place] [address] 11/13/2024 2:30 PM EST Infusion Hematology Oncology at [address] [phone] documented as of this encounter Procedures Procedure Name Priority Date/Time Associated Diagnosis Comments HC PROSTATE SPECIFIC ANTIGEN Routine 01/19/2021 9:39 AM EDT Malignant neoplasm of prostate documented in this encounter Results * PSA (Ultrasensitive) (01/19/2021 9:39 AM EDT) Prostate Specific Antigen (Ultrasensitive ) 1.41 0.00 - 4.00 ng/mL [facility] Comment: PLEASE NOTE: The above reference interval is intended for healthy males with an intact prostate. Values within this reference interval may indicate recurrence in men who have undergone radical prostatectomy. Blood specimen (specimen) 01/19/2021 9:39 AM EDT 01/19/2021 10:08 AM EDT Narrative Resulting Agency Comment Spec In Lab Cherise Tuttle INHALATION THERAPY TEACHER CHEMISTRY ORDERABLES [facility] [place] [address] documented in this encounter Visit Diagnoses Diagnosis Malignant neoplasm of prostate documented in this encounter Care Teams Head Refrigeration Engineer Relationship Specialty Start Date End Date Donnell Cabrera MD PCP - General General Internal Medicine 08/23/19 9/ documented as of this encounter
--- OUTSIDE RECORDS SUMMARY | 2024-11-05 01:36 | XMS_ITS | Encounter Summary ---
Author Organization [facility] [place] [address] Care Team Providers Care High [employer] Home Economics Teacher Name Role Phone Brady Christensen MD Primary Care Provider [phone] Encounter Details Date Type Department Care Team (Late st Contact Info) Description 01/20/2012 9:00 AM EDT Initial consult [place] [address] Social History Tobacco Use Types Packs/Day Years Used Date Smoking Tobacco: Never Sex and Gender Information Value Date Recorded Sex Assigned at Not on file Gender Identity Not on file Sexual Orientation Not on file documented as of this encounter Plan of Treatment Upcoming Encounters Date Type Department Care Team (Late st Contact Info) Description 11/13/2024 2:00 PM EST Office Visit Hematology/Oncology at [address] [phone] Roman Addison MD [facility] DR HEMATOLOGY [place] [address] Iris Nguyen APRN [facility] [place] [address] 11/13/2024 2:30 PM EST Infusion Hematology Oncology at [address] [phone] documented as of this encounter Visit Diagnoses Not on filedocumented in this encounter Care Teams [employer] Home Economics Teacher Relationship Specialty Start Date End Date Brady Christensen MD [address] [place] [address] PCP - General 11/08/11 07/27/17 documented as of this encounter
--- OUTSIDE RECORDS SUMMARY | 2024-11-05 01:36 | XMS_ITS | Encounter Summary ---
Author Organization [facility] [place] [address] Care Team Providers Care Precision Jig Grinder Name Role Phone Hong Sgae MD Primary Care Provider [phone] Reason for Visit * Reason Comments Radiation Follow-up prostate cancer Encounter Details Date Type Department Care Team (Late st Contact Info) Description 07/20/2018 9:45 AM EDT Office Visit Radiation Oncology at [address] [phone] Cherise Tuttle APRN Malignant neoplasm of prostate [...] was followed by TRUS biopsy which demonstrated [place] 3+4 involving 10% the right base core. The right lateral base had adenocarcinoma [place] 3+4 with 10% of this core. The left lateral apex had adenocarcinoma 3+3 involving 5% of the core. The remaining nine cores demonstrated benign prostatic tissue. After consultation with Dr Kamlesh Nunez, Mr Joaquin elected to be treated with external beam radiation therapy with care that was delivered at the [facility] in [facility] .He was [...] and Biopsy 11/08/2011 Volume in cc 29.1 [place]illiner grade/score a+b=c 3+4=7 Total Cores 12 Positive [...] - Amari PSA 0.5 PMH: Past Medical History: Diagnosis Date ??? Anxiety ??? Prostate cancer PSH: none Family history: No history of malignancy, kidney stones, no bleeding disorders or trouble with anesthesia in the past. Mother with Alzheimer's. Patient was adopted by his stepfather. One biological brother, no known prostate issues. Social History: Never smoker. No Etoh. 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 He enjoys [...] and unexpected weight change. 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 Eyes: Negative. Respiratory: Negative. [...] Visit from 07/20/2018 in Radiation Oncology at [facility] Weight 83.5 kg (184 lb) Height [...] old man with adenocarcinoma of the prostate, [place] 3+4=7, pretreatment PSA of 6.5. He was treated with external beam radiation 79.2 Gy completed on 04/18/2012. His PSA is stable at 0.6. His PSA amari is 0.5. He is doing very well [...] 2:00 PM EST Office Visit Hematology/Oncology at [address] [phone] Roman Addison MD [facility] DR HEMATOLOGY [place] [address] Iris Nguyen APRN [facility] [place] [address] 11/13/2024 2:30 PM EST Infusion Hematology Oncology at [address] [phone] documented as of this encounter Procedures Procedure [...] prostate documented in this encounter Care Teams Precision Jig Grinder Relationship Specialty Start Date End Date Hong Sage MD [address] [place] [address] PCP - General Family Medicine 07/28/17 08/22/19 documented as of this encounter
--- OUTSIDE RECORDS SUMMARY | 2024-11-05 01:36 | XMS_ITS | Encounter Summary ---
[facility] [place] [address] Care Team Providers Care Pin Machine Operator Name Role Phone Brady Christensen MD Primary Care Provider [phone] Reason for Visit * Reason Comments Radiation Treatment Encounter Details Date Type Department Care Team (Late st Contact Info) Description 04/18/2012 7:45 AM EDT Office Visit Radiation Oncology at [address] [phone] Luis Fernando Gamez MD Prostate ca (Primary [...] RADIATION TREATMENT: : DATE:04/18/2012 PATIENT STATUS: Prostate: GS=3+4=7/10, PSA=6.5, [id number] . TREATMENT SUMMERY; Site Technique Dose/ Fraction [...] 2:00 PM EST Office Visit Hematology/Oncology at [address] [phone] Roman Addison MD [facility] DR HEMATOLOGY [place] [address] Iris Nguyen APRN [facility] [place] [address] 11/13/2024 2:30 PM EST Infusion Hematology Oncology at [address] [phone] documented as of this encounter Visit Diagnoses Diagnosis Prostate CA- Primary Malignant neoplasm of prostate documented in this encounter Care Teams Pin Machine Operator Relationship Specialty Start Date End Date Brady Christensen MD [address] [place] [address] PCP - General 11/08/11 07/27/17 documented as of this encounter
--- OUTSIDE RECORDS SUMMARY | 2024-11-05 01:36 | XMS_ITS | Encounter Summary ---
Author Organization [facility] [place] [address] Care Team Providers Care Media Librarian Name Role Phone Donnell Cabrera MD Primary Care Provider [phone] Encounter Details Date Type Department Care Team (Latest Contact Info) Description 01/19/2021 9:19 AM EDT - 01/19/2021 11:59 PM EDT Hospital Encounter [place] [phone] Lymphocytosis Discharge Disposition: Home Social History Tobacco [...] PM EST Office Visit Hematology/Oncology at [address] [phone] Roman Addison MD [facility] DR HEMATOLOGY [place] [address] Iris Nguyen APRN [facility] [place] [address] 11/13/2024 2:30 PM EST Infusion Hematology Oncology at [address] [phone] documented as of this encounter [...] 9:39 AM EDT) Neutrophil % 51.7 % [facility] Neutrophil Absolute 5.62 1.70 - 6.10 x10(3)/mc L [facility] Lymph % 42.5 % [facility] Lymphocytes Abs 4.6(H) 0.9 - 3.2 x10(3)/mc L [facility] Monocyte % 4.4 % [facility] Monocyte Abs 0.5 0.3 - 0.9 x10(3)/mc L [facility] Eos % 0.6 % [facility] Eosinophils Abs 0.1 0.0 - 0.4 x10(3)/mc L [facility] Basophil % 0.5 % [facility] Baso Absolute 0.0 0.0 - 0.1 x10(3)/ L [facility] Immature Gran % 0.30 % [facility] Comment: Immature granulocytes(IG's)percentage and absolute count will include metamyelocytes, myelocytes, and promyelocytes. Blood smears from CBCs yielding IG's will be scanned manually for concordance. If this scan disagrees with the automated IG or if promyelocytes are noted, a manual differential will be performed. Immature Gran Absolute 0.03 0.00 - 0.04 x10(3)/ L [facility] Blood specimen (specimen) 01/19/2021 9:39 AM EDT 01/19/2021 10:08 AM EDT Narrative Resulting Agency Comment Spec In Lab Naomie Beard MD HEMATOLOGY ORDERA BLES Performing Organization Address City/State/[facility] Co de Phone Number [facility] [place] [address] * (ABNORMAL) Hemogram (01/19/2021 9:39 AM EDT) White Blood Cell 10.8(H) 4.0 - 9.5 x10(3)/[facility] Red Blood Cell 5.01 4.58 - 5.54 x10(6)/ L [facility] Hemoglobin 15.1 13.7 - 16.5 gm/dL [facility] Hematocrit 45.0 40.5 - 48.5 % [facility] Mean Cell Volume 89.8 82.9 - 93.1 fL [facility] Mean Cell Hemoglobin 30.1 27.5 - 32.1 pg [facility] Mean Cell Hemoglobin Concentration 33.6 32.0 - 35.7 gm/dL [facility] Platelet 165 145 - 357 x10(3)/ L [facility] RDW Standard Deviation 39.6 36.0 - 45.0 fL [facility] RDW coefficient of variation 12.3 11.4 - 13.8 % [facility] Mean Platelet Volume 11.2 7.6 - 12.9 [facility] NRBC% auto 0.0 % [facility] NRBC Absolute 0.000 0.000 - 0.000 x10(3)/mc L [facility] Blood specimen (specimen) 01/19/2021 9:39 AM EDT 01/19/2021 10:08 AM EDT Narrative Resulting Agency Comment Spec In Lab Naomie Beard MD HEMATOLOGY ORDERA BLES [facility] [place] [address] * (ABNORMAL) Comprehensive metabolic panel (non-fasting) (01/19/2021 9:39 AM EDT) Glucose 96 65 - 199 mg/dL [facility] Comment:Diabetes: >=200 mg/d L plus symptoms Blood Urea Nitrogen 21(H) 10 - 20 mg/dL [facility] Creatinine 1.18 0.80 - 1.50 mg/dL [facility] Sodium 140 135 - 145 mmol/L [facility] Potassium 4.6 3.5 - 5.0 mmol/L [facility] Comment: Please note: ??Patients with WBC >100,000 may have falsely elevated Potassium levels. ??For accurate Potassium quantification in these patients send serum separator tube (gold top) for subsequent determinations. ??Contact the Clinical Chemistry Laboratory if there are any questions. Chloride 106 98 - 107 mmol/L [facility] Carbon Dioxide 25 22 - 31 mmol/L [facility] Anion Gap 9 5 - 15 mmol/L [facility] Calcium 9.6 8.5 - 10.5 mg/dL [facility] Protein, Total 6.8 6.1 - 8.0 gm/dL [facility] Albumin 4.3 3.2 - 5.2 gm/dL [facility] Aspartate Aminotransferase 21 0 - 39 unit/L [facility] Alanine Aminotransferase 19 0 - 55 unit/L [facility] Alkaline Phosphatase 55 40 - 130 unit/L [facility] Bilirubin, Total 0.3 0.2 - 1.3 mg/dL [facility] Est Glomerular Filtration Rate 60 >=60 mL/min/1. 73 m?? [facility] Comment: This patient? s estimated [...] In Lab Ryan Thornton MD CHEMISTRY ORDERABLES [facility] [place] [address] * (ABNORMAL) Immunoglobulins, Quantitative (01/19/2021 9:39 AM EDT) IgG 981 700 - 1,600 mg/dL [facility] Comment: Pediatric Reference Intervals obtained from the Caliper Reference Interval project. http://www.sickkids.ca/caliperproject/index.html IgA 117 70 - 400 mg/dL [facility] IgM 29(L) 40 - 230 mg/dL [facility] Blood specimen (specimen) 01/19/2021 9:39 AM EDT 01/19/2021 10:08 AM EDT Narrative Resulting Agency Comment Spec In Lab Ryan Thornton MD CHEMISTRY ORDERABLES Performing Organization Address [facility] Co de Phone Number [facility] [place] [address] * Reticulocyte Count (01/19/2021 9:39 AM EDT) Reticulocyte % 1.3 0.7 - 2.6 % [facility] Retic Abs # 0.070 0.030 - 0.120 x10(6)/[facility] Immature Retic% 5.9 0.0 - 15.6 % [facility] Reticulated Hgb 34.6 31.3 - 40.2 pg [facility] Blood specimen (specimen) 01/19/2021 9:39 AM EDT 01/19/2021 10:08 AM EDT Narrative Resulting Agency Comment Spec In Lab Ryan Thornton MD HEMATOLOGY ORDERABLE S Performing Organization Address [facility] Co de Phone Number [facility] [place] [address] documented in this encounter Visit Diagnoses Diagnosis Lymphocytosis Lymphocytosis (symptomatic) documented in this encounter Care Teams Media Librarian Relationship Specialty Start Date End Date Donnell Cabrera MD PCP - General General Internal Medicine 08/23/1906/05 documented as of this encounter
--- OUTSIDE RECORDS SUMMARY | 2024-11-05 01:36 | XMS_ITS | Encounter Summary ---
Author Organization [facility] [place] [address] Care Team Providers Care Core Cleaner Name Role Phone Brady Christensen MD Primary Care Provider [phone] Encounter Details Date Type Department Care Team (Late st Contact Info) Description 05/01/2014 11:30 AM EDT Follow-Up Hematology Oncology at [address] [phone] Christi Potter APRN Prostate cancer (Primary Dx) [...] Progress Notes * Christi Potter APRN - 05/01/2014 11:44 AM EDT Identification: Mr [...] who saw patient on 11/08/2011 at [facility]. An ultrasound was done which demonstrated a prostate volume of 29.1 cc with no hypoechoic areas. This was followed by TRUS biopsy which demonstrated [place] 3+4 involving 10% the right base core. The right lateral base had adenocarcinoma [place] 3+4 with 10% of this core. The left lateral apex had adenocarcinoma 3+3 involving 5% of the core. The remaining nine cores demonstrated benign prostatic tissue. After consultation with Dr Kamlesh Nunez, Mr Joqauin elected to be treated with external beam radiation therapy with care that was delivered at the [facility] in [facility] .He [...] Social History: Never smoker. No EtOH. 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 , two daughters and three grandchildren. No Known Allergies Current Outpatient Prescriptions on File Prior to Visit Medication Sig Dispense Refill ??? Vitamin A-Vitamin C-Vit E-Min (OCUVITE) Tab Take by mouth. ??? multivitamin (THERAGRAN) tablet Take 1 tablet by mouth daily. ??? UNABLE TO FIND Med Name: red yeast rice ??? [place]-3 Fatty Acids (FISH OIL) 300 mg Cap Take by mouth. Advance Directive: Not on file Interim History: Mr Joaquin reports that he is doing well but does get anxious prior to appointments. His B/P is elevated. He does indicate that he checks it at home and that it is in the normal [id number] range. He is always anxious when he comes to clinic.this continues to be an issue He reports that he is doing very well. 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 He [...] fatigue and unexpected weight change. 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 Eyes: Negative. [...] this encounter Miscellaneous Notes * Miscellaneous - ProviderHan - 05/01/2014 11:15 AM EDT documented in this encounter Plan of Treatment Upcoming Encounters Date Type Department Care Team (Late st Contact Info) Description 11/13/2024 2:00 PM EST Office Visit Hematology/Oncology at [address] [phone] Roman Addison MD [facility] HEMATOLOGY [place] [address] Iris Nguyen APRN [facility] [place] [address] 11/13/2024 2:30 PM EST Infusion Hematology Oncology at [address] [phone] documented as of this encounter Visit Diagnoses Diagnosis Prostate cancer- Primary Malignant neoplasm of prostate documented in this encounter Care Teams Core Cleaner Relationship Specialty Start Date End Date Brady Christensen MD [address] [place] [address] PCP - General 11/08/11 07/27/17 documented as of this encounter
--- OUTSIDE RECORDS SUMMARY | 2024-11-05 01:36 | XMS_ITS | Encounter Summary ---
Author Organization [facility] [place] [address] Care Team Providers Care Agency Sales Development Associate Name Role Phone Unknown Primary Care Provider Unavailabl e Encounter Details Date Type Department Care Team (Late st Contact Info) Description 08/11/2021 11:00 AM EST Office Visit Radiation Oncology at [address] [phone] Yamel Woods APRN [facility] [place] [address] Malignant neoplasm of prostate (Primary Dx) Social [...] this encounter Progress Notes * Yamel Woods, FARM TRUCK DRIVER - 08/11/2021 11:00 AM ESTSummary: 76 year old male dx Prostate cancer, compl EBRT 04/18/12 [facility] [place] [address] Phone: RADIATION ONCOLOGY FOLLOW UP NOTE Date of visit: 08/10/2021 Patient Brenton Joaquin 1945 PCP: Unknown pt just had new PCP assigned and will get name to us for records. Urologist:Dr Luis Fernando Garcia Radiation oncologist: Dr. Kamlesh Nunez consult then Dr Bro Cm for [facility]. Chief Complaint: follow up/labs for prostate cancer Time since completed RT: completed external beam radiation on 04/18/2012 ADT:none Current treatment:Surveillance yearly of proste cancer/PSA Additionally monitored now by heme[facility]onc for [facility]. HPI: Mr Joaquin is a pleasant 72 [...] who saw patient on 11/08/2011 at [facility]. An ultrasound was done which demonstrated a prostate volume of 29.1 cc with no hypoechoic areas. This was followed by TRUS biopsy which demonstrated [place] 3+4 involving 10% the right base core. The right lateral base had adenocarcinoma [place] 3+4 with 10% of this core. 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 Exercise:sev miles [...] the radiation therapy/prostate cancer Yamel Woods MSN, FARM TRUCK DRIVER, OPERATIONS ENGINEER-C Nurse Practitioner Radiation Oncology documented in this encounter Plan of Treatment Upcoming Encounters Date Type Department Care Team (Late st Contact Info) Description 11/13/2024 2:00 PM EST Office Visit Hematology/Oncology at [address] [phone] Roman Addison MD [facility] DR HEMATOLOGY [place] [address] Iris Nguyen APRN [facility] [place] [address] 11/13/2024 2:30 PM EST Infusion Hematology Oncology at [address] [phone] documented as of this encounter Visit Diagnoses Diagnosis Malignant neoplasm of prostate- Primary documented in this encounter Care Teams Agency Sales Development Associate Relationship Specialty Start Date End Date Unknown None PCP - General 07/03/21 08/11/21 documented as of this encounter
--- OUTSIDE RECORDS SUMMARY | 2024-11-05 01:36 | XMS_ITS | Encounter Summary ---
Author Organization [facility] [place] [place] [address] Care Team Providers Care Office Nurse Practitioner Name Role Phone Brady Christensen MD Primary Care Provider [phone] Encounter Details Date Type Department Care Team (Late st Contact Info) Description 07/05/2012 Orders Only Radiation Oncology at [address] [phone] Gracie Finley, RN Prostate cancer (Primary Dx) [...] 2:00 PM EST Office Visit Hematology/Oncology at [address] [phone] Roman Addison MD [facility] HEMATOLOGY [place] [address] Iris Nguyen APRN [facility] [place] [address] 11/13/2024 2:30 PM EST Infusion Hematology Oncology at [address] [phone] documented as of this encounter Visit Diagnoses Diagnosis Prostate cancer- Primary Malignant neoplasm of prostate documented in this encounter Care Teams Office Nurse Practitioner Relationship Specialty Start Date End Date Brady Christensen MD [address] [place] [address] PCP - General 11/08/11 07/27/17 documented as of this encounter
--- OUTSIDE RECORDS SUMMARY | 2024-11-05 01:36 | XMS_ITS | Encounter Summary ---
Author Organization [facility] [place] [address] Care Team Providers Care Land Leveler Name Role Phone Brady Christensen MD Primary Care Provider [phone] Reason for Visit * Reason Comments Radiation Follow-up prostate cancer Encounter Details Date Type Department Care Team (Late st Contact Info) Description 11/13/2014 9:45 AM EST Follow-Up Radiation Oncology at [address] [phone] Cherise Tuttle, STEAM STATION SUPERVISOR Malignant neoplasm of prostate Discharge Disposition: Home [...] encounter Patient Instructions * Patient Instructions* Cherise Tuttle, SEGUNDO - 11/13/2014 8:38 AM EST Date 05/01/14 [...] Garcia who saw patient on 11/08/2011 at [facility]. An ultrasound was done which demonstrated a prostate volume of 29.1 cc with no hypoechoic areas. This was followed by TRUS biopsy which demonstrated Linda 3+4 involving 10% the right base core. The right lateral base had adenocarcinoma Thrall 3+4 with 10% of this core. The left lateral apex had adenocarcinoma 3+3 involving 5% of the core. The remaining nine cores demonstrated benign prostatic tissue. After consultation with Dr Kamlesh Nunez, Mr Joaquin elected to be treated with external beam radiation therapy with care that was delivered at the [facility] in [facility] .He was [...] and Biopsy 11/08/2011 Volume in cc 29.1 Thrall grade/score a+b=c 3+4=7 Total Cores 12 Positive [...] Social History: Never smoker. No EtOH. 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 , two daughters and three grandchildren. No Known Allergies Current Outpatient Prescriptions on File Prior to Visit Medication Sig Dispense Refill ??? Vitamin A-Vitamin C-Vit E-Min (OCUVITE) Tab Take by mouth. ??? multivitamin (THERAGRAN) tablet Take 1 tablet by mouth daily. ??? UNABLE TO FIND Med Name: red yeast rice ??? [place]-3 Fatty Acids (FISH OIL) 300 mg Cap [...] doing very well. 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 Previously he had been concerned about his mother who is nearly 90 and has dementia. She is now in a half-way facility. He is his mother's health care [...] fatigue and unexpected weight change. 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 Eyes: Negative. [...] his post treatment amari. He is doing with no evidence of [...] directives, such as a Durable Power of Glove Pairer for Health Care. This is not a [...] (i) The agent with financial power of managing attorney or a conservator appointed in accordance with RSA 464-A. (j) The guardian of the patient???s estate. For details, please consult the [facility] Surrogate Health Care Decisions policy. The above default surrogate decision-maker is superseded by any individual appointed by the patientto be the Durable Power of Glove Pairer for Healthcare, or a court-appointed legal guardian. [...] 2:00 PM EST Office Visit Hematology/Oncology at [address] [phone] Roman Addison MD [facility] [address] H[place] [address] Iris Nguyen APRN [facility] [place] [address] 11/13/2024 2:30 PM EST Infusion Hematology Oncology at [address] [phone] documented as of this encounter Visit Diagnoses Diagnosis Malignant neoplasm of prostate documented in this encounter Care Teams Land Leveler Relationship Specialty Start Date End Date Brady Christensen MD [address] [place] [address] PCP - General 11/08/11 07/27/17 documented as of this encounter
--- OUTSIDE RECORDS SUMMARY | 2024-11-05 01:36 | XMS_ITS | Encounter Summary ---
Author Organization [facility] [place] [address] Care Team Providers Care Crust Sorter Name Role Phone Brady Christensen MD Primary Care Provider Encounter Details Date Type Department Care Team (Late Contact Info) Description 12/14/2011 Telephone [place]iation [place] [phone] Mela Mckeon, RN Social History Tobacco Use [...] he would like to be tx in [facility] it is 6 miles away from his home. documented in this encounter Plan of Treatment Upcoming Encounters Date Type Department Care Team (Late Contact Info) Description 11/13/2024 2:00 PM EST Office Visit Hematology/Oncology at [address] [phone] Roman Addison MD [facility] DR H[place]AT[place] [address] Iris Nguyen APRN [facility] MEDICAL [facility]COL[facility] [place] [address] 11/13/2024 2:30 PM EST Infusion Hematology Oncology at [address] [phone] documented as of this encounter Visit Diagnoses Not on filedocumented in this encounter Care Teams Crust Sorter Relationship Specialty Start Date End Date Brady Christensen MD [address] [place] [address] PCP - General 11/08/11 07/27/17 documented as of this encounter
--- OUTSIDE RECORDS SUMMARY | 2024-11-05 01:36 | XMS_ITS | Encounter Summary ---
Author Organization [facility] Address [facility] [place] [address] Care Team Providers Care Diesel Dinkey Operator Name Role Phone Donnell Cabrera MD Primary Care Provider [phone] Reason for Visit * Reason Comments Advice Only * Consultation (Routine) - Closed Specialty Diagnoses / Procedures Referred By Damien t Referred To Contact Hematology and Oncology Diagnoses Elevated white blood cell count, unspecified Hong Sage MD [address] [place] [address] [facility] [address] [place] [address] Referral ID Status Reason Start Date Expiration Date V isits Requested Visits Authorized [id number] Closed Consult, Test & Treat Connection [facility] PCP Updated and/or Approved 01/09/2021 01/09/2022 6 6 Encounter Details Date Type Department Care Team (Late st Contact Info) Description 01/19/2021 8:15 AM EDT Office Visit Hematology [place] [address] Ryan Thornton MD [facility] DR [place] [address] Suly Tate, Naomie Flynn MD Monoclonal B-cell lymphocytosis Social History Tobacco Use [...] PERSONAL and SOCIAL HISTORY ?? Lives in: [facility] with his , Nicol ?? 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 ETOH: very rare [...] plan to follow with Dr. Thornton at [facility]. Brenton and his had the opportunity to ask questions, all of which were answered. Summary of Plan: # Monoclonal B Cell Lymphocytosis - Labs ordered today: CBC, CMP, Retic, Quantitative Immunoglobulins - RTC to [facility] in 3 mo with labs - knows to call with any questions or concerns in the interim CC: MD Chu Stallworth Mitchell J This patient was evaluated with Dr. Thornton who agrees with the plan as above. Naomie Beard MD Hematology/Oncology Fellow Pager #[phone] 01/19/21 I saw this patient with Dr [...] will try to see him in the [facility] which is closer to his home. Please see above note for full details. documented in this encounter Plan of Treatment Upcoming Encounters Date Type Department Care Team (Late st Contact Info) Description 11/13/2024 2:00 PM EST Office Visit Hematology/Oncology at [address] [phone] Roman Addison MD [facility] DR HEMATOLOG[place] [address] Iris Nguyen APRN [facility] [place] [address] 11/13/2024 2:30 PM EST Infusion Hematology Oncology at [address] [phone] documented as of this encounter Results * Reticulocyte Count (01/19/2021 9:39 AM EDT) Reticulocyte % 1.3 0.7 - 2.6 % [facility] Retic Abs # 0.070 0.030 - 0.120 x10(6)/mcL [facility] Immature Retic% 5.9 0.0 - 15.6 % [facility] Reticulated Hgb 34.6 31.3 - 40.2 pg [facility] Blood specimen (specimen) 01/19/2021 9:39 AM EDT 01/19/2021 10:08 AM EDT Narrative Resulting Agency Comment Spec In Lab Ryan Thornton MD HEMATOLOGY ORDERABLE S [facility] [place] [address] * (ABNORMAL) Immunoglobulins, Quantitative (01/19/2021 9:39 AM EDT) IgG 981 700 - 1,600 mg/dL [facility] Comment: Pediatric Reference Intervals obtained from the Caliper Reference Interval project. http://www.sickkids.ca/caliperproject/index.html IgA 117 70 - 400 mg/dL [facility] IgM 29(L) 40 - 230 mg/dL [facility] Blood specimen (specimen) 01/19/2021 9:39 AM EDT 01/19/2021 10:08 AM EDT Narrative Resulting Agency Comment Spec In Lab Ryan Thornton MD CHEMISTRY ORDERABLES [facility] [place] [address] * (ABNORMAL) Comprehensive metabolic panel (non-fasting) (01/19/2021 9:39 AM EDT) Glucose 96 65 - 199 mg/dL [facility] Comment:Diabetes: >=200 mg/d L plus symptoms Blood Urea Nitrogen 21(H) 10 - 20 mg/dL [facility] Creatinine 1.18 0.80 - 1.50 mg/dL [facility] Sodium 140 135 - 145 mmol/L [facility] Potassium 4.6 3.5 - 5.0 mmol/L [facility] Comment: Please note: ??Patients with WBC >100,000 may have falsely elevated Potassium levels. ??For accurate Potassium quantification in these patients send serum separator tube (gold top) for subsequent determinations. ??Contact the Clinical Chemistry Laboratory if there are any questions. Chloride 106 98 - 107 mmol/L [facility] Carbon Dioxide 25 22 - 31 mmol/L [facility] Anion Gap 9 5 - 15 mmol/L [facility] Calcium 9.6 8.5 - 10.5 mg/dL [facility] Protein, Total 6.8 6.1 - 8.0 gm/dL [facility] Albumin 4.3 3.2 - 5.2 gm/dL [facility] Aspartate Aminotransferase 21 0 - 39 unit/L [facility] Alanine Aminotransferase 19 0 - 55 unit/L [facility] Alkaline Phosphatase 55 40 - 130 unit/L [facility] Bilirubin, Total 0.3 0.2 - 1.3 mg/dL [facility] Est Glomerular Filtration Rate 60 >=60 mL/min/1. 73 m?? [facility] Comment: This patient? s estimated [...] In Lab Ryan Thornton [place] [address] documented in this encounter Visit Diagnoses Diagnosis Monoclonal B-cell lymphocytosis Lymphocytosis (symptomatic) documented in this encounter Care Teams Diesel Dinkey Operator Relationship Specialty Start Date End Date Donnell Cabrera MD PCP - General General Internal Medicine 08/23/1906/05 documented as of this encounter
--- OUTSIDE RECORDS SUMMARY | 2024-11-05 01:36 | XMS_ITS | Encounter Summary ---
[place] [address] Care Team Providers Care Flatwork Finisher Name Role Phone Brady Christensen MD Primary Care Provider [phone] Encounter Details Date Type Department Care Team (Late st Contact Info) Description 12/20/2011 Notes Only [place] [phone] Mela Mckeon, RN Social History Tobacco Use [...] also mailed to him. [facility] [place] [place] Patient Teaching for Prostate Fiducials: Procedure [...] 2:00 PM EST Office Visit Hematology/Oncology at [address] [phone] Roman Addison MD [facility] DR HEMATOLOGY [place] [address] Iris Nguyen APRN [facility] [place] [address] 11/13/2024 2:30 PM EST Infusion Hematology Oncology at [address] [phone] documented as of this encounter Visit Diagnoses Not on filedocumented in this encounter Care Teams Flatwork Finisher Relationship Specialty Start Date End Date Brady Christensen MD [address] [place] [address] PCP - General 11/08/11 07/27/17 documented as of this encounter
--- OUTSIDE RECORDS SUMMARY | 2024-11-05 01:36 | XMS_ITS | Encounter Summary ---
Author Organization [facility] [place] [address] Care Team Providers Care Filter Tank Tender Helper Head Name Role Phone Donnell Cabrera MD Primary Care Provider Encounter Details Date Type Department Care Team (Late Contact Info) Description 04/27/2021 Orders Only Hematology/Oncology at [address] [phone] Ryan Thornton MD [facility] HEMATOLOGY [place] [address] Lymphocytosis; Monoclonal B-cell lymphocytosis Social History Tobacco [...] PM EST Office Visit Hematology/Oncology at [address] [phone] Roman Addison MD [facility] HEMATOLOGY [place] [address] Iris Nguyen APRN [facility] [place] [address] 11/13/2024 2:30 PM EST Infusion Hematology Oncology at [address] [phone] documented as of this encounter Visit Diagnoses Diagnosis Lymphocytosis Lymphocytosis (symptomatic) Monoclonal B-cell lymphocytosis Lymphocytosis (symptomatic) documented in this encounter Care Teams Filter Tank Tender Helper Head Relationship Specialty Start Date End Date Donnell Cabrera MD PCP - General General Internal Medicine 08/23/19 9/3 documented as of this encounter
--- OUTSIDE RECORDS SUMMARY | 2024-11-05 01:36 | XMS_ITS | Encounter Summary ---
[place] [address] Care Team Providers Care Filling And Packing Supervisor Name Role Phone Hong Sage MD Primary Care Provider [phone] Reason for Visit * Reason Comments Radiation Follow-up prostate cancer Encounter Details Date Type Department Care Team (Late st Contact Info) Description 07/28/2017 9:00 AM EDT Office Visit Radiation Oncology at [address] [phone] Cherise Tuttle, SALES AND MARKETING ADMINISTRATOR Malignant neoplasm of prostate Social History Tobacco [...] Visit from 07/28/2017 in Radiation Oncology at [facility] Weight - Scale 83 kg (183 [...] core. The right lateral base had adenocarcinoma [place] 3+4 with 10% of this core. The left lateral apex had adenocarcinoma 3+3 involving 5% of the core. The remaining nine cores demonstrated benign prostatic tissue. After consultation with Dr Kamlesh Nunez, Mr Joaquin elected to be treated with external beam radiation therapy with care that was delivered at the [facility] in [facility] .He was treated [...] and Biopsy 11/08/2011 Volume in cc 29.1 [place] grade/score a+b=c 3+4=7 Total Cores 12 Positive [...] Social History: Never smoker. No Etoh. 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 , [...] new health issues. 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 He enjoys the work. He has [...] fatigue and unexpected weight change. 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 Eyes: Negative. Respiratory: Negative. [...] Visit from 07/28/2017 in Radiation Oncology at [facility] Weight - Scale 83 kg (183 [...] PM EST Office Visit Hematology/Oncology at [address] [phone] Roman Addison MD [facility] HEMATOLOGY [place] [address] Iris Nguyen APRN [facility] [place] [address] 11/13/2024 2:30 PM EST Infusion Hematology Oncology at [address] [phone] documented as of this encounter Visit Diagnoses Diagnosis Malignant neoplasm of prostate documented in this encounter Care Teams Filling And Packing Supervisor Relationship Specialty Start Date End Date Hong Sage MD [address] [place] [address] [address] [place] [address] PCP - General Family Medicine 07/28/17 08/22/19 documented as of this encounter
--- OUTSIDE RECORDS SUMMARY | 2024-11-05 01:36 | XMS_ITS | Encounter Summary ---
[place] [address] Care Team Providers Care Right Of Way Supervisor Name Role Phone Brady Christensen MD Primary Care Provider [phone] Reason for Visit * Reason Comments Radiation Follow-up prostate cancer Encounter Details Date Type Department Care Team (Late st Contact Info) Description 11/16/2012 9:00 AM EST Follow-Up Radiation Oncology at [address] [phone] Cherise Tuttle APRN Prostate cancer (Primary Dx) [...] Garcia who saw patient on 11/08/2011 at [facility]. An ultrasound was done which demonstrated a prostate volume of 29.1 cc with no hypoechoic areas. This was followed by TRUS biopsy which demonstrated Linda 3+4 involving 10% the right base core. The right lateral base had adenocarcinoma [place] 3+4 with 10% of this core. The left lateral apex had adenocarcinoma 3+3 involving 5% of the core. The remaining nine cores demonstrated benign prostatic tissue. After consultation with Dr Kamlesh Nunez, Mr Joaquin elected to be treated with external beam radiation therapy with care that was delivered at the [facility] in [facility] .He was treated to a total [...] Social History: Never smoker. No EtOH. 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 , two daughters and three grandchildren. No Known Allergies Current Outpatient Prescriptions on File Prior to Visit Medication Sig Dispense Refill ??? multivitamin (THERAGRAN) tablet Take 1 tablet by mouth daily. ??? UNABLE TO FIND Med Name: red yeast rice ??? [place]-3 Fatty Acids (FISH OIL) 300 mg Cap Take by mouth. Interim History: Mr Joaquin reports that he is doing well but does get very anxious prior to appointments. His B/P is elevated. He does indicate that he checks it at home and that it is in the normal range. He reports that he is doing very well. 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 He [...] fatigue and unexpected weight change. 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 Eyes: Negative. [...] PM EST Office Visit Hematology/Oncology at [address] [phone] Roman Addison MD [facility] DR [place] [address] Iris Nguyen APRN [facility] [place] [address] 11/13/2024 2:30 PM EST Infusion Hematology Oncology at [address] [phone] documented as of this encounter Procedures Procedure [...] prostate documented in this encounter Care Teams Right Of Way Supervisor Relationship Specialty Start Date End Date Brady Christensen MD [address] [place] [address] PCP - General 11/08/11 07/27/17 documented as of this encounter
--- OUTSIDE RECORDS SUMMARY | 2024-11-05 01:36 | XMS_ITS | Encounter Summary ---
Author Organization [facility] [place] [address] Care Team Providers Care Box Icer Name Role Phone Brady Christensen MD Primary Care Provider Encounter Details Date Type Department Care Team (Late Contact Info) Description 01/10/2012 8:30 AM EDT Follow-[place] [address] NURSE, RADIATION ONCOLOGY RADIATION ONCOLOGY [facility] Discharge Disposition: Home Social History Tobacco Use [...] 2:00 PM EST Office Visit Hematology/Oncology at [address] [phone] Roman Addison MD [facility] DR [place]AT[place] [address] Iris Nguyen APRN [facility] [place] [address] 11/13/2024 2:30 PM EST Infusion Hematology Oncology at [address] [phone] documented as of this encounter Visit Diagnoses Not on filedocumented in this encounter Care Teams Box Icer Relationship Specialty Start Date End Date Brady Christensen MD [address] [place] [address] PCP - General 11/08/11 07/27/17 documented as of this encounter
--- OUTSIDE RECORDS SUMMARY | 2024-11-05 01:36 | XMS_ITS | Encounter Summary ---
[place] [address] Care Team Providers Care Pruner Name Role Phone Brady Christensen MD Primary Care Provider [phone] Encounter Details Date Type Department Care Team (Late st Contact Info) Description 02/16/2012 Notes Only Radiation Oncology at [address] [phone] Rayna Ortega RN Social History [...] of Health Publication No. [id number] National Cancer [place] Revised December 2006 #2 [facility];Shared drive/info for RT Patients: a) Information for Patients Receiving Radiation Therapy Rev 06/07 b) Managing Cancer Treatment Related Fatigue Adapted from Cancersytoms.org Information for understanding cancer on 06/21/2005 c) Skin Care for Patients Receiving Radiation Therapy Rev 07/07 d) Radiation Therapy Billing Information EMD 01/27/05 e) Disease site specific Information: Information for Patients Receiving Radiation Therapy To The prostate #3 Miscellaneous: Dietary Guidelines:Diarrhea Management([place] [employer]) Imodium: Dr Gamez dosing guidelines [...] your cancer, please call: During business hours: [facility] [phone] ext [phone] (nursing extension) Weekend/holidays/nights: [facility] [phone] and ask for the refrigeration manager radiation oncologist For general medical questions not [...] PM EST Office Visit Hematology/Oncology at [address] [phone] Roman Addison MD [facility] [place] [address] Iris Nguyen APRN [facility] [place] [place] [address] 11/13/2024 2:30 PM EST Infusion Hematology Oncology at [address] [phone] documented as of this encounter Visit Diagnoses Not on filedocumented in this encounter Care Teams Pruner Relationship Specialty Start Date End Date Brady Christensen MD [address] [place] [address] PCP - General 11/08/11 07/27/17 documented as of this encounter
--- OUTSIDE RECORDS SUMMARY | 2024-11-05 01:36 | XMS_ITS | Encounter Summary ---
Author Organization [facility] [place] [address] Care Team Providers Care Stator Tester Name Role Phone Unknown Primary Care Provider Unavailabl e Encounter Details Date Type Department Care Team (Late st Contact Info) Description 07/30/2021 2:00 PM EDT Office Visit Hematology/Oncology at [address] [phone] Azalia Cannon APRN [address] [place] [address] DR HEMATOLOGY ONCOLOGY [place], [place] [id number] Lymphocytosis; Monoclonal B-cell lymphocytosis Social History Tobacco [...] encounter Progress Notes * Kassandra Azalia Roberta, CHIMNEY MECHANIC - 07/30/2021 2:00 PM EDT Subjective: Patient [...] plan to follow with Dr. Thornton at [facility]. ?? Brenton and his had the opportunity to ask questions, all of which were answered. ?? 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 (See summary above.) He comes to the [facility] oncology clinic in [facility] today for 3 month follow-up. He [...] (See summary above.) He comes to the [facility] oncology clinic in [facility] today for 3 month follow-up. Brenton [...] 2:00 PM EST Office Visit Hematology/Oncology at [address] [phone] Roman Addison MD [facility] DR HEMATOLOGY [place] [address] Iris Nguyen APRN [facility] [place] [address] 11/13/2024 2:30 PM EST Infusion Hematology Oncology at [address] [phone] documented as of this encounter Procedures Procedure Name Priority Date/Time Associated Diagnosis Comments IMMUNE GLOBULIN IM Routine 07/20/2021 CBC (WITH DIFF) Routine 07/20/2021 COMPREHENSIVE METABOLIC PANEL Routine 07/20/2021 IMMUNE GLOBULIN IM Routine 04/08/2021 CBC (WITH DIFF) Routine 04/08/2021 COMPREHENSIVE METABOLIC PANEL Routine 04/08/2021 documented in this encounter Results * (ABNORMAL) IMMUNE GLOBULIN IM (07/20/2021) IgG 928 IgA 107 IgM 31(L) Ryan Thornton MD IMMUNE GLOBULIN ORDAndres CASILLAS * (ABNORMAL) Comprehensive metabolic panel (non-fasting) (07/20/2021) Blood Urea Nitrogen 20(H) Creatinine 1.2 Sodium 140 Potassium 4.4 Calcium 8.7 Protein, Total 6.6 Albumin 3.8 Bilirubin, Total 0.5 Alkaline Phosphatase 53 Aspartate Aminotransferase 23 Alanine Aminotransferase 31 Blood 07/20/2021 Ryan Thornton MD CHEMISTRY ORDERABLES * CBC (with Diff) (07/20/2021) Pathologist [facility] White Blood Cell 9.26 Red Blood Cell 4.85 Hemoglobin 14.8 Hematocrit 43.7 Platelet 178 Neutrophil Absolute (ANC) - Automated 4.06 Blood 07/20/2021 Ryan Thornton MD HEMATOLOGY ORDERABLE S * (ABNORMAL) IMMUNE GLOBULIN IM (04/08/2021) Pathologist [facility] IgG 962 IgA 112 IgM 31(L) Ryan Thornton MD IMMUNE GLOBULIN ORDE RABLES * (ABNORMAL) Comprehensive metabolic panel (non-fasting) (04/08/2021) [facility] Blood Urea Nitrogen 24(H) Creatinine 1.3 Sodium 143 Potassium 4.1 Calcium 8.9 Protein, Total 6.5 Albumin 3.9 Bilirubin, Total 0.9 Alkaline Phosphatase 51 Aspartate Aminotransferase 13(L) Alanine Aminotransferase 28 Blood 04/08/2021 Ryan Thornton MD CHEMISTRY ORDERABLES * CBC (with Diff) (04/08/2021) [facility] White Blood Cell 11.59 Red Blood Cell 4.89 Hemoglobin 14.6 Hematocrit 43.0 Platelet 160 Neutrophil Absolute (ANC) - Automated 5.80 Blood 04/08/2021 Ryan Thornton MD HEMATOLOGY ORDERABLE S documented in this encounter Visit Diagnoses Diagnosis Lymphocytosis Lymphocytosis (symptomatic) Monoclonal B-cell lymphocytosis Lymphocytosis (symptomatic) documented in this encounter Care Teams Stator Tester Relationship Specialty Start Date End Date Unknown None PCP - General 07/03/21 08/11/21 documented as of this encounter
--- OUTSIDE RECORDS SUMMARY | 2024-11-05 01:36 | XMS_ITS | Encounter Summary ---
[place] [address] Care Team Providers Care Cloth Hauler Name Role Phone Brady Christensen MD Primary Care Provider [phone] Reason for Visit * Reason Onset Date Comments Post Procedure Call 01/11/2012 Encounter Details Date Type Department Care Team (Late st Contact Info) Description 01/11/2012 Telephone [place] [address] Zuleika Adames RN Post Procedure Call Social [...] 2:00 PM EST Office Visit Hematology/Oncology at [address] [phone] Roman Addison MD [facility] [place] [address] Iris Nguyen APRN [facility] [place] [address] 11/13/2024 2:30 PM EST Infusion Hematology Oncology at [address] [phone] documented as of this encounter Visit Diagnoses Not on filedocumented in this encounter Care Teams Cloth Hauler Relationship Specialty Start Date End Date Brady Christensen MD [address] [place] [address] PCP - General 11/08/11 07/27/17 documented as of this encounter
--- OUTSIDE RECORDS SUMMARY | 2024-11-05 01:36 | XMS_ITS | Encounter Summary ---
Author Organization [facility] [place] [address] Care Team Providers Care Engagement Engineer Name Role Phone Brady Christensen MD Primary Care Provider [phone] Reason for Visit * Reason Comments Radiation Treatment Encounter Details Date Type Department Care Team (Late st Contact Info) Description 03/22/2012 7:45 AM EDT Follow-Up Radiation Oncology at [address] [phone] Luis Fernando Gamez MD Prostate ca (Primary [...] VISIT: DATE:03/22/2012 PATIENT STATUS: Prostate: GS=3+4=7/10, PSA=6.5, [id number] . TREATMENT PLAN: RADIATION ; Site Technique [...] 2:00 PM EST Office Visit Hematology/Oncology at [address] [phone] Roman Addison MD [facility] DR [place] [address] Iris Nguyen APRN [facility] [place] [address] 11/13/2024 2:30 PM EST Infusion Hematology Oncology at [address] [phone] documented as of this encounter Visit Diagnoses Diagnosis Prostate CA- Primary Malignant neoplasm of prostate documented in this encounter Care Teams Engagement Engineer Relationship Specialty Start Date End Date Brady Christensen MD [address] [place] [address] PCP - General 11/08/11 07/27/17 documented as of this encounter
--- OUTSIDE RECORDS SUMMARY | 2024-11-05 01:36 | XMS_ITS | Encounter Summary ---
Author Organization [facility] [place] [address] Care Team Providers Care Data Report Analyst Name Role Phone Brady Christensen MD Primary Care Provider [phone] Reason for Visit * Reason Comments Radiation Treatment Encounter Details Date Type Department Care Team (Late st Contact Info) Description 03/01/2012 8:15 AM EDT Follow-Up Radiation Oncology at [address] [phone] Luis Fernando Gamez MD Prostate cancer (Primary [...] Notes * Luis Fernando Gamez MD - 03/01/2012 9:30 AM EDT TREATMENT VISIT: DATE: PATIENT STATUS: Prostate: GS=3+4=7/10, PSA=6.5, [id number] . TREATMENT PLAN: RADIATION ; Site Technique [...] PM EST Office Visit Hematology/Oncology at [address] [phone] Roman Addison MD [facility] DR [place] [address] Iris Nguyen APRN [facility] [place] [address] 11/13/2024 2:30 PM EST Infusion Hematology Oncology at [address] [phone] documented as of this encounter Visit Diagnoses Diagnosis Prostate cancer- Primary Malignant neoplasm of prostate documented in this encounter Care Teams Data Report Analyst Relationship Specialty Start Date End Date Brady Christensen MD [address] [place] [address] PCP - General 11/08/11 07/27/17 documented as of this encounter
--- OUTSIDE RECORDS SUMMARY | 2024-11-05 01:36 | XMS_ITS | Encounter Summary ---
Author Organization [facility] [address] Care Team Providers Care Respiratory Care Assistant Name Role Phone Brady Christensen MD Primary Care Provider [phone] Encounter Details Date Type Department Care Team (Late Contact Info) Description 01/20/2012 8:30 AM EDT Follow-[place] [address] NURSE, RADIATION ONCOLOGY RADIATION ONCOLOGY [facility] Discharge Disposition: Home Social History Tobacco Use [...] 2:00 PM EST Office Visit Hematology/Oncology at [address] [phone] Roman Addison MD [facility] DR HEMATOLOGY [place] [address] Iris Nguyen APRN [facility] [place] [address] 11/13/2024 2:30 PM EST Infusion Hematology Oncology at [address] [phone] documented as of this encounter Visit Diagnoses Not on filedocumented in this encounter Care Teams Respiratory Care Assistant Relationship Specialty Start Date End Date Brady Christensen MD [address] [place] [address] PCP - General 11/08/11 07/27/17 documented as of this encounter
--- OUTSIDE RECORDS SUMMARY | 2024-11-05 01:36 | XMS_ITS | Encounter Summary ---
Author Organization [facility] [place] [address] Care Team Providers Care Supervisor Advice Name Role Phone Brady Christensen MD Primary Care Provider [phone] Encounter Details Date Type Department Care Team (Late st Contact Info) Description 12/20/2011 Orders Only [place] [address] Mela Mckeon, RN Cancer (Primary Dx) Social [...] 2:00 PM EST Office Visit Hematology/Oncology at [address] [phone] Roman Addison MD [facility] [place] [address] Iris Nguyen APRN [facility] [place] [address] 11/13/2024 2:30 PM EST Infusion Hematology Oncology at [address] [phone] documented as of this encounter Visit Diagnoses Diagnosis Cancer- Primary Other malignant neoplasm without specification of site documented in this encounter Care Teams Supervisor Advice Relationship Specialty Start Date End Date Brady Christensen MD [address] [place] [address] PCP - General 11/08/11 07/27/17 documented as of this encounter
--- OUTSIDE RECORDS SUMMARY | 2024-11-05 01:36 | XMS_ITS | Encounter Summary ---
Author Organization [facility] [place] [address] Care Team Providers Care Pasteuriser Operator Name Role Phone Brady Christensen MD Primary Care Provider [phone] Reason for Visit * Reason Comments Radiation Treatment Encounter Details Date Type Department Care Team (Late st Contact Info) Description 04/12/2012 8:15 AM EDT Follow-Up Radiation Oncology at [address] [phone] Luis Fernando Gamez MD Prostate ca (Primary [...] VISIT: DATE:04/12/2012 PATIENT STATUS: Prostate: GS=3+4=7/10, PSA=6.5, [id number] . TREATMENT PLAN: RADIATION ; Site Technique Dose/ Fraction Fraction Number MeV p e TOTAL DOSE Treatment Dates PTV 1 IMRT 180 25 p 4500 02/13 to 03/20/12 PTV 2 IMRT 180 14 P 2520 03/21 to DOSE to [id number] cGy in 40 FX RADIATION TREATMENT IMAGING: [...] 2:00 PM EST Office Visit Hematology/Oncology at [address] [phone] Roman Addison MD [facility] DR [place] [address] Iris Nguyen APRN [facility] [place] [address] 11/13/2024 2:30 PM EST Infusion Hematology Oncology at [address] [phone] documented as of this encounter Visit Diagnoses Diagnosis Prostate CA- Primary Malignant neoplasm of prostate documented in this encounter Care Teams Pasteuriser Operator Relationship Specialty Start Date End Date Brady Christensen MD [address] [place] [address] PCP - General 11/08/11 07/27/17 documented as of this encounter
--- OUTSIDE RECORDS SUMMARY | 2024-11-05 01:36 | XMS_ITS | Encounter Summary ---
[place] [address] Care Team Providers Care Die Cast Engineer Name Role Phone Brady Christensen MD Primary Care Provider [phone] Reason for Visit * Reason Comments Follow-up Encounter Details Date Type Department Care Team (Late st Contact Info) Description 11/28/2013 1:00 PM EST Follow-Up Hematology Oncology at [address] [phone] Christi Potter APRN Prostate cancer (Primary Dx) [...] Progress Notes * Christi Potter APRN - 11/28/2013 1:21 PM EST Identification: Mr [...] who saw patient on 11/08/2011 at [facility]. An ultrasound was done [...] with care that was delivered at the [facility] in [facility] .He was treated to a total [...] History: Never smoker. No EtOH. 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 , two daughters and three grandchildren. No Known Allergies Current Outpatient Prescriptions on File Prior to Visit Medication Sig Dispense Refill ??? Vitamin A-Vitamin C-Vit E-Min (OCUVITE) Tab Take by mouth. ??? multivitamin (THERAGRAN) tablet Take 1 tablet by mouth daily. ??? UNABLE TO FIND Med Name: red yeast rice ??? [place]-3 Fatty Acids (FISH OIL) 300 mg Cap Take by mouth. Advance Directive: Not on file Interim History: Mr Joaquin reports that he is doing well but does get anxious prior to appointments. His B/P is elevated. He does indicate that he checks it at home and that it is in the normal /80 range. He is always anxious when he comes to clinic. He reports that he is doing very well. 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 [...] and unexpected weight change. 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 Eyes: [...] PM EST Office Visit Hematology/Oncology at [address] [phone] Roman Addison MD [facility] DR H[place]AT[place] [address] Iris Nguyen APRN [facility] [place] [address] 11/13/2024 2:30 PM EST Infusion Hematology Oncology at [address] [phone] documented as of this encounter Visit Diagnoses Diagnosis Prostate cancer- Primary Malignant neoplasm of prostate documented in this encounter Care Teams Die Cast Engineer Relationship Specialty Start Date End Date Brady Christensen MD [address] [place] [address] PCP - General 11/08/11 07/27/17 documented as of this encounter
--- OUTSIDE RECORDS SUMMARY | 2024-11-05 01:36 | XMS_ITS | Encounter Summary ---
Author Organization [facility] [address] Care Team Providers Care Table Machine Operator Name Role Phone Brady Christensen MD Primary Care Provider [phone] Encounter Details Date Type Department Care Team (Late st Contact Info) Description 12/14/2011 Orders [place] [address] Kamlesh Nunez MD Prostate cancer (Primary Dx) Social History Tobacco [...] PM EST Office Visit Hematology/Oncology at [address] [phone] Roman Addison MD [facility] HEMATOLOGY [place] [address] Iris Nguyen APRN [facility] [place] [address] 11/13/2024 2:30 PM EST Infusion Hematology Oncology at [address] [phone] documented as of this encounter Results * [...] CT of the abdomen, 12/08/2011 and prostate gbmclpemkb68/06/2012 TECHNIQUE: MRI of the prostate performed per [...] prostate documented in this encounter Care Teams Table Machine Operator Relationship Specialty Start Date End Date Brady Christensen MD [address] [place] [address] PCP - General 11/08/11 07/27/17 documented as of this encounter
--- OUTSIDE RECORDS SUMMARY | 2024-11-05 01:36 | XMS_ITS | Encounter Summary ---
Author Organization [facility] Address [facility] [place] [address] Care Team Providers Care Ammunition Supervisor Name Role Phone Brady Christensen MD Primary Care Provider [phone] Reason for Referral * Consultation (Routine) - Closed by system - unspecified Specialty Diagnoses / Procedures Referred By Damien craig Referred To Contact Dermatology Diagnoses Skin lesion Cherise Tuttle APRN [facility] [place] [address] Referral ID Status Reason Start Date Expiration Date Visits Requested Visits Authorized [id number] Closed by system - unspecified Consult, Test & Treat 02/22/2013 08/21/2013 1 1 Reason for Visit * Reason Comments Radiation Follow-up prostate cancer Encounter Details Date Type Department Care Team (Late st Contact Info) Description 02/22/2013 9:30 AM EDT Follow-Up Radiation Oncology at [address] [phone] Cherise Tuttle APRN Prostate cancer (Primary Dx); Skin lesion Discharge [...] Garcia who saw patient on 11/08/2011 at [facility]. An ultrasound was done which demonstrated a prostate volume of 29.1 cc with no hypoechoic areas. This was followed by TRUS biopsy which demonstrated Bath 3+4 involving 10% the right base core. The right lateral base had adenocarcinoma Bath 3+4 with 10% of this core. The left lateral apex had adenocarcinoma 3+3 involving 5% of the core. The remaining nine cores demonstrated benign prostatic tissue. After consultation with Dr Kamlesh Nunez, Mr Joaquin elected to be treated with external beam radiation therapy with care that was delivered at the [facility] in [facility] .He was treated to [...] Social History: Never smoker. No EtOH. 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 , two daughters and three grandchildren. No Known Allergies Current Outpatient Prescriptions on File Prior to Visit Medication Sig Dispense Refill ??? Vitamin A-Vitamin C-Vit E-Min (OCUVITE) Tab Take by mouth. ??? multivitamin (THERAGRAN) tablet Take 1 tablet by mouth daily. ??? UNABLE TO FIND Med Name: red yeast rice ??? [place]-3 Fatty Acids (FISH OIL) 300 mg Cap [...] doing very well. 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 He does report concerns related to his mother. She is living in her own home but is increasingly forgetful. She is also having some visual changes. He will be taking her to [facility] for a second opinion regarding treatment for her vision. He is unsure regarding what to do in regards to the jail care needs of his Mom. He denies [...] fatigue and unexpected weight change. 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 Eyes: [...] patient regarding area on aging resources for [facility] where patient's mother resides. Skin changes: referral to Dr Foster. Mr Jemal is to call if he has any questions or concerns. documented in this encounter Procedure Notes * Provider, Scanning - 05/01/2013 10:08 PM EDTAssociated Order(s): SCAN DOC: LAB documented in this encounter Plan of Treatment Upcoming Encounters Date Type Department Care Team (Late st Contact Info) Description 11/13/2024 2:00 PM EST Office Visit Hematology/Oncology at [address] [phone] Roman Addison MD [facility] [place] [address] Iris Nguyen APRN [facility] [place] [address] 11/13/2024 2:30 PM EST Infusion Hematology Oncology at [address] [phone] Scheduled Referrals Name Type Priority Associated Diagnoses [...] tissue documented in this encounter Care Teams Ammunition Supervisor Relationship Specialty Start Date End Date Brady Christensen MD [address] [place] [address] PCP - General 11/08/11 07/27/17 documented as of this encounter
--- OUTSIDE RECORDS SUMMARY | 2024-11-05 01:36 | XMS_ITS | Encounter Summary ---
Author Organization [facility] [place] [address] Care Team Providers Care Ordnance Officer Name Role Phone Brady Christensen MD Primary Care Provider [phone] Reason for Visit * Reason Comments Radiation Treatment Encounter Details Date Type Department Care Team (Late st Contact Info) Description 03/29/2012 7:45 AM EDT Follow-Up Radiation Oncology at [address] [phone] Luis Fernando Gamez MD Prostate ca (Primary [...] VISIT: DATE:03/29/2012 PATIENT STATUS: Prostate: GS=3+4=7/10, PSA=6.5, [id number] . TREATMENT PLAN: RADIATION ; Site Technique [...] 2:00 PM EST Office Visit Hematology/Oncology at [address] [phone] Roman Addison MD [facility] DR [place] [address] Iris Nguyen APRN [facility] [place] [address] 11/13/2024 2:30 PM EST Infusion Hematology Oncology at [address] [phone] documented as of this encounter Visit Diagnoses Diagnosis Prostate CA- Primary Malignant neoplasm of prostate documented in this encounter Care Teams Ordnance Officer Relationship Specialty Start Date End Date Brady Christensen MD [address] [place] [address] PCP - General 11/08/11 07/27/17 documented as of this encounter
--- OUTSIDE RECORDS SUMMARY | 2024-11-05 01:36 | XMS_ITS | Encounter Summary ---
Author Organization [facility] [place] [address] Care Team Providers Care Abstracter Name Role Phone Brady Christensen MD Primary Care Provider [phone] Reason for Visit * Reason Comments Radiation Treatment Encounter Details Date Type Department Care Team (Late st Contact Info) Description 02/16/2012 8:30 AM EDT Follow-Up Radiation Oncology at [address] [phone] Luis Fernando Gamez MD Prostate cancer (Primary [...] VISIT: DATE:02/16/2012 PATIENT STATUS: Prostate: GS=3+4=7/10, PSA=6.5, [id number] . TREATMENT PLAN: RADIATION ; Site Technique [...] 2:00 PM EST Office Visit Hematology/Oncology at [address] [phone] Roman Addison MD [facility] DR HEMATOLOGY [place] [address] Iris Nguyen APRN [facility] [place] [address] 11/13/2024 2:30 PM EST Infusion Hematology Oncology at [address] [phone] documented as of this encounter Visit Diagnoses Diagnosis Prostate cancer- Primary Malignant neoplasm of prostate documented in this encounter Care Teams Abstracter Relationship Specialty Start Date End Date Brady Christensen MD [address] [place] [address] PCP - General 11/08/11 07/27/17 documented as of this encounter
--- OUTSIDE RECORDS SUMMARY | 2024-11-05 01:36 | XMS_ITS | Encounter Summary ---
[place] [address] Care Team Providers Care Blocker Heated Metal Forms Name Role Phone Brady Christensen MD Primary Care Provider [phone] Encounter Details Date Type Department Care Team (Latest Contact Info) Description 01/20/2012 12:27 PM EDT - 01/20/2012 11:59 PM EDT Hospital [place] [phone] Prostate cancer Social History Tobacco Use Types [...] FIND Med Name: red yeast rice 07/03/2015 [place]-3 Fatty Acids (FISH OIL) 300 mg Cap Take by mouth. 07/03/2015 documented as of this encounter Miscellaneous Notes * Miscellaneous - Provider, Scanning - 01/26/2012 11:10 AM EDT documented in this encounter Plan of Treatment Upcoming Encounters Date Type Department Care Team (Late st Contact Info) Description 11/13/2024 2:00 PM EST Office Visit Hematology/Oncology at [address] [phone] Roman Addison MD [facility] HEMATOLOGY [place] [address] Iris Nguyen APRN [facility] [place] [address] 11/13/2024 2:30 PM EST Infusion Hematology Oncology at [address] [phone] documented as of this encounter Procedures Procedure Name Priority Date/Time Associated Diagnosis Comments MRI PELVIS SOFT TISSUE (GI BOTTLE WASHER) WO CONTRAST Routine 01/20/2012 1:36 PM EDT [...] CT of the abdomen, 12/08/2011 and prostate qtzsyghnyz59/06/2012 TECHNIQUE: MRI of the prostate performed per [...] prostate documented in this encounter Care Teams Blocker Heated Metal Forms Relationship Specialty Start Date End Date Brady Christensen MD [address] [place] [address] PCP - General 11/08/11 07/27/17 documented as of this encounter
--- OUTSIDE RECORDS SUMMARY | 2024-11-05 01:36 | XMS_ITS | Encounter Summary ---
Author Organization [facility] [place] [address] Care Team Providers Care Room Service Manager Name Role Phone Donnell Cabrera MD Primary Care Provider [phone] Reason for Visit * Reason Comments Radiation Follow-up prostate cancer Encounter Details Date Type Department Care Team (Late st Contact Info) Description 08/23/2019 9:45 AM EST Office Visit Radiation Oncology at [address] [phone] Cherise [place], ONLINE MARKETING MANAGER Malignant neoplasm of prostate Social History Tobacco [...] * Patient Instructions* Cherise Tuttle, SEGUNDO - 08/23/2019 9:45 AM EST Date 08/14/2019 [...] Garcia who saw patient on 11/08/2011 at [facility]. An ultrasound was done which demonstrated [...] at the [facility] in [facility] .He [...] Biopsy 11/08/2011 Volume in cc 29.1 CC [place] grade/score a+b=c 3+4=7 Total Cores 12 Positive [...] Social History: Never smoker. No Etoh. 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 , [...] the last year. 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 He enjoys [...] fatigue and unexpected weight change. 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 Eyes: Negative. Respiratory: Negative. [...] Visit from 08/23/2019 in Radiation Oncology at [facility] Weight 84.9 kg (187 lb 3.2 [...] old man with adenocarcinoma of the prostate, [place] 3+4=7, pretreatment PSA of 6.5. He was [...] PM EST Office Visit Hematology/Oncology at [address] [phone] Roman Addison MD [facility] DR HEMAT[place] [address] Iris Nguyen APRN [facility] [place] [address] 11/13/2024 2:30 PM EST Infusion Hematology Oncology at [address] [phone] documented as of this encounter Results * [...] Agency Comment Spec In Lab Cherise Tuttle ONLINE MARKETING MANAGER CHEMISTRY ORDERABLES Performing Organization Address City/State/[facility] Co de Phone Number [facility] [address] documented in this encounter Visit Diagnoses Diagnosis Malignant neoplasm of prostate documented in this encounter Care Teams Room Service Manager Relationship Specialty Start Date End Date Donnell Cabrera MD PCP - General General Internal Medicine 08/23/19 9/ documented as of this encounter
--- OUTSIDE RECORDS SUMMARY | 2024-11-05 01:36 | XMS_ITS | Encounter Summary ---
Author Organization [facility] [place] [address] Care Team Providers Care Dining Service Worker Name Role Phone Brady Christensen MD Primary Care Provider [phone] Reason for Visit * Reason Comments Radiation Treatment Encounter Details Date Type Department Care Team (Late st Contact Info) Description 03/07/2012 8:00 AM EDT Follow-Up Radiation Oncology at [address] [phone] Suly Guzman MD [facility] [place] [address] Malignant neoplasm of prostate (Primary Dx) Discharge [...] VISIT: DATE: PATIENT STATUS: Prostate: GS=3+4=7/10, PSA=6.5, [id number] . TREATMENT PLAN: RADIATION ; Site Technique [...] PM EST Office Visit Hematology/Oncology at [address] [phone] Roman Addison MD [facility] DR HEMATOLOGY [place] [address] Iris Nguyen APRN [facility] [place] [address] 11/13/2024 2:30 PM EST Infusion Hematology Oncology at [address] [phone] documented as of this encounter Visit Diagnoses Diagnosis Malignant neoplasm of prostate- Primary documented in this encounter Care Teams Dining Service Worker Relationship Specialty Start Date End Date Brady Christensen MD [address] [place] [address] PCP - General 11/08/11 07/27/17 documented as of this encounter
--- OUTSIDE RECORDS SUMMARY | 2024-11-05 01:36 | XMS_ITS | Encounter Summary ---
Author Organization [facility] [place] [address] Care Team Providers Care Lift Truck Operator Name Role Phone Brady Christensen MD Primary Care Provider [phone] Encounter Details Date Type Department Care Team (Late Contact Info) Description 12/27/2011 Telephone [place] [phone] Mela Mckeon, RN Social History Tobacco Use Types Packs/Day Years Used Date Smoking Tobacco: Never Sex and Gender Information Value Date Recorded Sex Assigned at Not on file Gender Identity Not on file Sexual Orientation Not on file documented as of this encounter Miscellaneous Notes * Telephone Encounter - Mela Mckeon RN - 12/27/2011 9:36 AM EDT I returned Mr Mccall's call. He had second thoughts about radiation tx last week, but this week he is set to proceed with radiation tx. documented in this encounter Plan of Treatment Upcoming Encounters Date Type Department Care Team (Late Contact Info) Description 11/13/2024 2:00 PM EST Office Visit Hematology/Oncology at [address] [phone] Roman Addison MD [facility] DR HEMATOLOGY [place] [address] Iris Nguyen APRN [facility] [place] [address] 11/13/2024 2:30 PM EST Infusion Hematology Oncology at [address] [phone] documented as of this encounter Visit Diagnoses Not on filedocumented in this encounter Care Teams Lift Truck Operator Relationship Specialty Start Date End Date Brady Christensen MD [address] [place] [address] PCP - General 11/08/11 07/27/17 documented as of this encounter
--- OUTSIDE RECORDS SUMMARY | 2024-11-05 01:36 | XMS_ITS | Encounter Summary ---
[place] [address] Care Team Providers Care Tactical Air Control Party Manager Name Role Phone Brady Christensen MD Primary Care Provider Encounter Details Date Type Department Care Team (Late st Contact Info) Description 05/10/2013 1:30 PM EDT Follow-Up Hematology Oncology at [address] [phone] Christi Potter APRN Prostate cancer (Primary Dx) [...] Garcia who saw patient on 11/08/2011 at [facility]. An ultrasound was done which demonstrated a [...] [facility] in [facility] .He was [...] Never smoker. No EtOH. 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 , two daughters and three grandchildren. No Known Allergies Current Outpatient Prescriptions on File Prior to Visit Medication Sig Dispense Refill ??? Vitamin A-Vitamin C-Vit E-Min (OCUVITE) Tab Take by mouth. ??? multivitamin (THERAGRAN) tablet Take 1 tablet by mouth daily. ??? UNABLE TO FIND Med Name: red yeast rice ??? [place]-3 Fatty Acids (FISH OIL) 300 mg Cap [...] well. 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 He [...] unexpected weight change. 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 Eyes: Negative. [...] PM EST Office Visit Hematology/Oncology at [address] [phone] Roman Addison MD [facility] DR HEMATOLOGY [place] [address] Iris Nguyen APRN [facility] [place] [address] 11/13/2024 2:30 PM EST Infusion Hematology Oncology at [address] [phone] documented as of this encounter Procedures Procedure [...] prostate documented in this encounter Care Teams Tactical Air Control Party Manager Relationship Specialty Start Date End Date Brady Christensen MD [address] [place] [address] PCP - General 11/08/11 07/27/17 documented as of this encounter
--- OUTSIDE RECORDS SUMMARY | 2024-11-05 01:36 | XMS_ITS | Encounter Summary ---
Author Organization [facility] [place] [address] Care Team Providers Care Wood Preparation Supervisor Name Role Phone Brady Christensen MD Primary Care Provider Encounter Details Date Type Department Care Team (Late Contact Info) Description 12/13/2011 Telephone [place] [phone] Mela Mckeon, RN Social History Tobacco Use [...] PM EST Office Visit Hematology/Oncology at [address] [phone] Roman Addison MD [facility] DR [place] [address] Iris Nguyen APRN [facility] MEDICAL [facility]COL[facility] [place] [address] 11/13/2024 2:30 PM EST Infusion Hematology Oncology at [address] [phone] documented as of this encounter Visit Diagnoses Not on filedocumented in this encounter Care Teams Wood Preparation Supervisor Relationship Specialty Start Date End Date Brady Christensen MD [address] [place] [address] PCP - General 11/08/11 07/27/17 documented as of this encounter
--- OUTSIDE RECORDS SUMMARY | 2024-11-05 01:37 | XMS_ITS | Encounter Summary ---
Author Organization [facility] Address [facility] [place] [address] Care Team Providers Care Exhaust Worker Name Role Phone Brady Christensen MD Primary Care Provider [phone] Reason for Visit * Reason Onset Date Comments Elevated PSA 11/08/2011 Encounter Details Date Type Department Care Team (Late st Contact Info) Description 11/08/2011 9:00 AM EST Office Visit Hematology [place] [phone] Anila Helton MD [facility] [place] [address] Elevated PSA (Primary Dx) Discharge Disposition: Home [...] encounter Patient Instructions * Patient Instructions* Beverly Priest MD - 11/08/2011 10:20 AM EST You [...] unit in a stable condition. * Beverly Priest MD - 11/08/2011 10:20 AM EST Urologic [...] Social History: Never smoker. No EtOH. 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 . ROS: Constitutional: [...] with patient next week with results. BEVERLY PRIEST MD Seen and examined with Dr Priest Discussed risks of prostate cancer and need [...] confirmed the patient signed the consent for [facility] [id number]. He understands the risks and voluntary nature [...] any problems to contact my office. Anila Helton documented in this encounter Miscellaneous Notes * Miscellaneous - Kylee Sandhu - 11/15/2011 10:38 AM EST documented in this encounter Plan of Treatment Upcoming Encounters Date Type Department Care Team (Late st Contact Info) Description 11/13/2024 2:00 PM EST Office Visit Hematology/Oncology at [address] [phone] Roman Addison MD [facility] [place]EMATOLOGY [place] [address] Iris Nguyen APRN [facility] [place] [address] 11/13/2024 2:30 PM EST Infusion Hematology Oncology at [address] [phone] documented as of this encounter [...] 11/08/2011 12:24 pm) Patient Info ID: ? [id number] ? : ??[birth year] (66 yrs) Name: ? BRENTON JOAQUIN ?Visit Date: 11/08/2011 12:20 pm Performed By Performed By: ?Eden Farmer RDMS Attending: ? Megan STEWARD, Jessica Webster Referred By: ? ANILA HELTON MD Service(s) Provided UTRBX - Ultrasound - Prostate Biopsy - [id number] ?[id number] Indications Elevated PSA Technique/Scan Quality Technique: ?Transducer #: 12 Comparison None. -------- Prostate -------- Size (cm) ?L: ??4.41 ?AP: ??2.76 ?TV: ??4.57 Vol (ml): ?29.1 Comment: ?No hypoechoic areas seen. Impression Ultrasound - Prostate Ultrasound - Summary Transrectal ultrasound was performed. ??Estimated prostate volume as above. No hypoechoic areas seen Ultrasound - Prostate Biopsy - Summary Ultrasound guidance was provided for Dr. Helton of the section of Urology who performed [...] Final 11/08/2011 12:24 pm) Patient Info ID: [id number] : [birth year] (66 yrs) Name: BRENTON JOAQUIN Visit Date: 11/08/2011 12:20 pm Performed By Performed By: Eden Farmer RDMS Attending: Jessica Guzman MD. Referred By: ANILA HELTON MD Service(s) Provided UTRBX - Ultrasound - Prostate Biopsy - [id number] Indications Elevated PSA Technique/Scan Quality Technique: Transducer #: 12 Comparison None. -------- Prostate -------- Size (cm) L: 4.41 AP: 2.76 TV: 4.57 Vol (ml): 29.1 Comment: No hypoechoic areas seen. Impression Ultrasound - Prostate Ultrasound - Summary Transrectal ultrasound was performed. Estimated prostate volume as above. No hypoechoic areas seen Ultrasound - Prostate Biopsy - Summary Ultrasound guidance was provided for Dr. Helton of the section of Urology who performed a total of 12 prostate biopsies, 6 of the right lobe and 6 of the left lobe, at [facility] clinic location. I viewed the images and agree with the above interpretation. Thank you for allowing us to participate in the care of BRENTON JOAQUIN. Please do not hesitate to call if you have any questions. Jsesica Guzman MD Electronically Signed Final Report 11/08/2011 12:24 pm Anila Helton MD IMG US PROC ORDERABL ES * Specimen to Pathology (surgical or derm) (11/08/2011 10:20 AM EST) AP Specimen 11/08/2011 10:2 0 AM EST 11/08/2011 10:20 AM EST Narrative JOSE MARTIN CASTORENA - 11/08/2011 10:20 AM EST Specimen requisition ordered. ??Separate Pathology report to follow Anila Helton MD PATHOLOGY/CYTOLOGY O RDERABLES JOSE MARTIN CASTORENA documented in this encounter Visit Diagnoses Diagnosis Elevated PSA- Primary Elevated prostate specific antigen (PSA) Elevated PSA Elevated prostate specific antigen (PSA) documented in this encounter Care Teams Exhaust Worker Relationship Specialty Start Date End Date Brady Christensen MD [address] [place] [address] PCP - General 11/08/11 07/27/17 documented as of this encounter
--- OUTSIDE RECORDS SUMMARY | 2024-11-05 01:37 | XMS_ITS | Encounter Summary ---
[place] [address] Care Team Providers Care Business Education Instructor Name Role Phone Brady Christensen MD Primary Care Provider [phone] Encounter Details Date Type Department Care Team (Latest Contact Info) Description 12/08/2011 10:53 AM EST - 12/08/2011 11:59 PM [facility] [place] [phone] CLINIC, Kamlesh Richter MD Prostate cancer Discharge Disposition: Home Social History [...] FIND Med Name: red yeast rice 07/03/2015 [place]-3 Fatty Acids (FISH OIL) 300 mg Cap Take by mouth. 07/03/2015 documented as of this encounter Miscellaneous Notes * Miscellaneous - Provider, Scanning - 12/13/2011 10:09 AM EDT documented in this encounter Plan of Treatment Upcoming Encounters Date Type Department Care Team (Late st Contact Info) Description 11/13/2024 2:00 PM EST Office Visit Hematology/Oncology at [address] [phone] Roman Addison MD [facility] [place] [address] Iris Nguyen APRN [facility] [place] [place] [address] 11/13/2024 2:30 PM EST Infusion Hematology Oncology at [address] [phone] documented as of this encounter Procedures Procedure [...] mg documented in this encounter Care Teams Business Education Instructor Relationship Specialty Start Date End Date Brady Christensen MD [address] [place] [address] PCP - General 11/08/11 07/27/17 documented as of this encounter
--- OUTSIDE RECORDS SUMMARY | 2024-11-05 01:37 | XMS_ITS | Encounter Summary ---
Author Organization [facility] [place] [address] Care Team Providers Care Shotgun Shell Loading Machine Operator Name Role Phone Brady Christensen MD Primary Care Provider [phone] Encounter Details Date Type Department Care Team (Late st Contact Info) Description 11/08/2011 11:06 AM EST - 11/08/2011 11:59 PM EST Hospital En[place] [phone] Elevated PSA Social History Tobacco Use Types [...] PM EST Office Visit Hematology/Oncology at [address] [phone] Roman Addison MD [facility] [place] [address] Iris Nguyen APRN [facility] [place] [address] 11/13/2024 2:30 PM EST Infusion Hematology Oncology at [address] [phone] documented as of this encounter Procedures Procedure Name Priority Date/Time Associated Diagnosis Comments SURGICAL PATHOLOGY REPORT Routine 11/08/2011 1:03 PM EST US GUIDED BIOPSY PROSTATE ([place] ONLY) Routine 11/08/2011 12:21 PM EST Elevated PSA documented in this encounter Results * SURGICAL PATHOLOGY REPORT (11/08/2011 1:03 PM EST) Surgical Pathology Report ? [facility] ? Provider: ?? ANILA HELTON ?Pt. Name: ?? BRENTON JOAQUIN ? Acc #: ?[id number] ?Pt. ? Col Date: ?? 11/08/2011 ?/Sex: ?1945,(66 years),Male ? Rec Date: ?? 11/08/2011 ?LOC: ?3K ? SURGICAL PATHOLOGY ? ---Pathologic Diagnosis--- ? A - Prostatic core needle biopsy, right base: ? Adenocarcinoma, [place] grade 3+4, involving approximately 10% of the ? single bio spy core. ? B - Prostatic core needle biopsy, right mid: ? Benign prostatic tissue. ? C - Prostatic core needle biopsy, right apex: ? Benign prostatic tissue. ? D - Prostatic core needle biopsy, right lateral base: ? Adenocarcinoma, [place] grade 3+4, involving approximately 10% [...] needle biopsy, left lateral apex: ? Adenocarcinoma, [place] grade 3+3, involving approximately 5% of the ? single biopsy core. ? [facility] ? Provider: ?? ANILA HELTON ?Pt. Name: ?? BRENTON JOAQUIN ? Acc #: ?[id number] ?Pt. ? Col Date: ?? 11/08/2011 ?/Sex: [...] 0.1 cm. ? Sections/Processi ng: ??(T1) ? [facility] ? Provider: ?? ANILA HELTON ?Pt. Name: ?? JOAQUINBRENTON Messina ? Acc #: ?[id number] ?Pt. ? Col Date: ?? 11/08/2011 ?/Sex: [...] MARTIN CASTORENA 11/08/2011 1:03 PM EST Anila Helton MD PATHOLOGY/CYTOLOGY Raj BUSTOS Performing Organization Address City/State/[facility] Co de Phone Number JOSE MARTIN CASTORENA * US guided transrectal biopsy (11/08/2011 12:21 PM EST) Anatomical Region Laterality Modality Pelvis Ultrasound 11/08/2011 12:2 1 PM EST Narrative 11/08/2011 12:25 PM EST ?Male Pelvis ? (Signed Final 11/08/2011 12:24 pm) Patient Info ID: ? [id number] ? : ??[birth year] (66 yrs) Name: ? BRENTON JOAQUIN ?Visit Date: 11/08/2011 12:20 pm Performed By Performed By: ?Eden Farmer RDMS Attending: ? Megan STEWARD, Jessica Webster Referred By: ? ANILA HELTON MD Service(s) Provided UTRBX - Ultrasound - Prostate Biopsy - [id number] ?[id number] Indications Elevated PSA Technique/Scan Quality Technique: ?Transducer [...] and 6 of the left lobe, at [address] [place] [address] location. I ??viewed the images and agree with the above interpretation. Thank you for allowing us to participate in the care of BRENTON JOAQUIN. Please do not hesitate to call if you have any questions. ?Jessica Guzman MD Electronically Signed Final Report ?? 11/08/2011 12:24 pm Procedure Note Jessica Guzman MD - 11/08/2011 Male Pelvis (Signed Final 11/08/2011 12:24 pm) Patient Info ID: [id number] : 45 (66 yrs) Name: BRENTON JOAQUIN Visit Date: 11/08/2011 12:20 pm Performed By Performed By: Eden Farmer RDMS Attending: Jessica Guzman MD Referred By: NAILA HELTON MD Service(s) Provided UTRBX - Ultrasound - Prostate Biopsy - [id number] Indications Elevated PSA Technique/Scan Quality Technique: Transducer [...] Helton MD IMG US PROC ORDERABL ES documented in this encounter Visit Diagnoses Diagnosis Elevated PSA Elevated prostate specific antigen (PSA) documented in this encounter Care Teams Shotgun Shell Loading Machine Operator Relationship Specialty Start Date End Date Brady Christensen MD [address] [place] [address] PCP - General 11/08/11 07/27/17 documented as of this encounter
--- OUTSIDE RECORDS SUMMARY | 2024-11-05 01:37 | XMS_ITS | Encounter Summary ---
[place] [address] Care Team Providers Care Staffing Executive Name Role Phone Say FOREMAN MD, Travon Helms Primary Care Provider Reason for Visit * Reason Onset Date Comments Other 10/28/2011 pre psa clinic c all Encounter Details Date Type Department Care Team (Late st Contact Info) Description 10/28/2011 [place] [phone] Danie Blake, RN Other (pre psa clinic [...] faxed to Dr Garcia's office (fax # [phone]) or hand carried the day of the appointment. Pt will repeat labs at [facility] Patient Hx: Leaky heart valve, artifical heart valve, hx of heart attack and/or problems No _X_ Yes__ if yes, when contact Dr Garcia Artifical Joint Replacement No _X_ Yes __ if yes, when contact Dr. Garcia Other 1. New patient for [facility] 2Nora Willis at [facility] [phone] to fax labs and PCP notes Dr. [...] in Parking Garage Registration is at Hem/Onc surveillance agent on 3rd floor. Questionaires: Has pt filled [...] PM EST Office Visit Hematology/Oncology at [address] [phone] Roman Addison MD [facility] DR HEMATOLOGY [place] [address] Iris Nguyen APRN [facility] [place] [address] 11/13/2024 2:30 PM EST Infusion Hematology Oncology at [address] [phone] documented as of this encounter Visit Diagnoses Not on filedocumented in this encounter Care Teams Staffing Executive Relationship Specialty Start Date End Date Travon Deal III, MD [address] [place], [place] [phone] PCP - General 08/25/10 11/07/11 documented as of this encounter
--- OUTSIDE RECORDS SUMMARY | 2024-11-05 01:37 | XMS_ITS | Encounter Summary ---
[facility] [place] [address] Care Team Providers Care Mud Plant Operator Name Role Phone Brady Christensen MD Primary Care Provider Reason for Referral * Consultation (Routine) - Closed Specialty Diagnoses / Procedures Referred By Damien craig Referred To Contact Radiation Oncology Diagnoses Prostate cancer Anila Garcia MD [facility] [place] [address] [facility] [place] [address] Referral ID Status Reason Start Date Expiration Date V isits Requested Visits Authorized [id number] Closed Consult & Test 11/15/2011 05/13/2012 1 1 Reason for Visit * Reason Onset Date Comments Results 11/15/2011 Encounter Details Date Type Department Care Team (Late st Contact Info) Description 11/15/2011 [place] [address] Anila Gacria MD [facility] [place] [address] Results Social History Tobacco Use Types Packs/Day Years Used Date Smoking Tobacco: Never Sex and Gender Information Value Date Recorded Sex Assigned at Not on file Gender Identity Not on file Sexual Orientation Not on file documented as of this encounter Miscellaneous Notes * Telephone Encounter - Anila Garcia MD - 11/15/2011 7:51 PM EST Brenton Joaquin [address] [facility] [phone] 11/15/2011 Dear Mr. Brenton Joaquin This is [...] is an excerpt from your pathology report. [facility] Provider: ANILA GARCIA Pt. Name: BRENTON JOAQUIN Acc #: [id number] Pt. Col Date: 11/08/2011 /Sex: 1945,(66 years),Male [...] core needle biopsy, right lateral base: Adenocarcinoma, [place] grade 3+4, involving approximately 10% of the [...] I have staged your prostate cancer as [id number] Linda score 3+4=7 . As we discussed there [...] PM EST Office Visit Hematology/Oncology at [address] [phone] Roman Addison MD [facility] [address] [place]AT[place] [address] Iris Nguyen APRN [facility] [place] [address] 11/13/2024 2:30 PM EST Infusion Hematology Oncology at [address] [phone] Scheduled Referrals Name Type Priority Associated Diagnoses Orde r Schedule REFERRAL TO RADIATION ONCOLOGY Outpatient Referral Routine Prostate cancer Ordered: 11/15/2011 documented as of this encounter Visit Diagnoses Diagnosis Prostate cancer Malignant neoplasm of prostate documented in this encounter Care Teams Mud Plant Operator Relationship Specialty Start Date End Date Brady Christensen MD [address] [place] [address] PCP - General 11/08/11 07/27/17 documented as of this encounter
--- OUTSIDE RECORDS SUMMARY | 2024-11-05 01:37 | XMS_ITS | Encounter Summary ---
[place] [address] Care Team Providers Care Manager Financial Name Role Phone Brady Christensen MD Primary Care Provider [phone] Reason for Visit * Reason Comments Radiation Consult Prostate Cancer Encounter Details Date Type Department Care Team (Late st Contact Info) Description 12/06/2011 1:00 PM EST Office Visit [place] [phone] Kamlesh Nunez MD Prostate cancer (Primary Dx) [...] a 66 y.o. gentleman with PSA 6.5 Satsuma Score 3+4=7/10 prostate cancer, Stage [id number]. He is being seen at the request of Dr Garcia for consideration of the role of radiation therapy in his further management. History of Present Illness Elevated PSA found on yearly screening. PSA History: 08/29/09 - 5.1 02/16/10- 5.57 6.17/- 5.83 09/20/11- 7.07 10/26/11- 6.5 total, 0.5 free = 7.6% free Ultrasound 11/08/11 demonstrated -- Size (cm) L: 4.41 AP: 2.76 TV: 4.57 Vol (ml): 29.1 Comment: No hypoechoic areas seen. Pathology demonstrated -- ---Pathologic Diagnosis--- A - Prostatic core needle biopsy, right base: Adenocarcinoma, S[place]uma grade 3+4, involving approximately 10% of the [...] core needle biopsy, left lateral apex: Adenocarcinoma, S[place] grade 3+3, involving approximately 5% of the [...] a day, withoutout constipation, diarrhea, or blood [place]. Erectile dysfunction with CINTHYA at 1. -- [...] above. Assessment/Plan Mr. Joaquin presents with Stage [id number] Linda 3+4=7/10 prostate cancer arising in 10% of two cores, as well as Satsuma 3+3=6/10 in 10% of one additional core, pre-treatment PSA 6.5 ng/ml. With this Satsuma Score 7/10 prostate cancer in two cores, [...] which will provide staging information for thispatient's Satsuma 7/10 prostate cancer, and will also provide [...] x Kidney problems/creatinine x SOCIAL ASSESSMENT: See [facility] social assessment information entered. Support Systems:: Nicol Barriers to treatment: closer to [facility]. Referrals/Interventions:none LEARNING STYLE:verbal and written RADIATION SPECIFIC TEACHING: __x_ [facility] and You and folder given ___ Site specific teaching : ___ Other: PLAN: Follow with Dr. Nunez documented in this encounter Plan of Treatment Upcoming Encounters Date Type Department Care Team (Late st Contact Info) Description 11/13/2024 2:00 PM EST Office Visit Hematology/Oncology at [address] [phone] Roman Addison MD [facility] DR [place] [address] Iris Nguyen APRN [facility] [place] [address] 11/13/2024 2:30 PM EST Infusion Hematology Oncology at [address] [phone] documented as of this encounter Results * [...] prostate documented in this encounter Care Teams Manager Financial Relationship Specialty Start Date End Date Brady Christensen MD [address] [place] [address] PCP - General 11/08/11 07/27/17 documented as of this encounter
[2024-11-05 12:24] LABS: Abs Immature Grans 0.02 10^3/uL (0.0-0.06); Absolute Basophil Count 0.06 10^3/uL (0.0-0.2); Absolute Eosinophil Count 0.16 10^3/uL (0.0-0.7); Absolute Lymphocyte Count 4.62 10^3/uL (1.2-3.4); Absolute Monocyte Count 0.57 10^3/uL (0.1-0.8); Absolute Neutrophil Count 4.82 10^3/uL (1.2-6.7); Basophils % 0.6 %; Eosinophils % 1.6 %; HCT 41.4 % (40.0-50.0); HGB 13.9 g/dL (13.5-17.5); Immature Grans % 0.2 %; Lymphocytes % 45.1 %; MCH 29.6 pg (27.0-33.0); MCHC 33.6 % (32.0-36.0); MCV 88 fL (80-95); MPV 11.1 fL (8.0-11.0); Monocytes % 5.6 %; Neutrophils % 46.9 %; Platelet Count 166 10^3/uL (130-400); RBC 4.69 10^6/uL (4.36-5.78); RDW 12.3 % (11.8-14.1); RDW-SD 39.4 fL; WBC 10.25 10^3/uL (4.4-10.8)
[2024-11-05 12:50] LABS: ALT 27 U/L (16-63); AST 25 U/L (15-37); Albumin 3.7 g/dL (3.4-5.0); Alkaline Phosphatase 83 U/L (46-116); Anion Gap 9.2 mmol/L (3-11); BUN 30 mg/dL (7-18); Bilirubin, Total 0.76 mg/dL (0.2-1.0); CO2 25.8 mmol/L (21.0-32.0); CREATININE 1.4 mg/dL (0.70-1.30); Calcium 9.1 mg/dL (8.5-10.1); Chloride 106 mmol/L (98-107); Estimated GFR 51.13 (mL/min/1.73m2); Glucose 91 mg/dL (74-106); Potassium 3.9 mmol/L (3.5-5.1); Sodium 141 mmol/L (136-145); Total Protein 7.1 g/dL (6.4-8.2)
[2024-11-07 18:21] LABS: PSA, Ultrasensitive 0.02 ng/mL (<= 6.5)
[2024-11-10 11:02] LABS: Testosterone, Total 130 ng/dL (240-950)
== END 2024-11-05 01:23 | disposition home or self-care (01) ==
LOC: LOS 01:22
PROVIDERS: PCP Family Medicine; Visit Provider Internal Medicine
DX: C61 Malignant neoplasm of prostate (principal); C77.5 Secondary and unspecified malignant neoplasm of intrapelvic lymph nodes
CPT/HCPCS: 36415; 80053; 84153; 84403; 85025

== ENCOUNTER 2024-12-02 09:19 | Observation (INO) | payer MEDICARE, SELFPAY ==
[2024-12-02 09:25] VITALS: BP 117/68; PULSE 83; RESP 20; TEMP 37.2; O2SAT 91
--- NOTE | 2024-12-02 09:30 | DI.RAD_ITS ---
Exam(s) XR CHEST 2V PA LATERAL EXAM: XR CHEST 2V PA LATERAL CLINICAL HISTORY: cough TECHNIQUE: 2D digital imaging was performed. Two views. COMPARISON: No exams were available for comparison FINDINGS: HEART: Normal size. Aorta: Not dilated. Mildly tortuous. PULMONARY VASCULATURE: Normal. MEDIASTINUM: Unremarkable. LUNGS: Clear. PLEURAL SPACE: No pleural effusion or pneumothorax. BONE:Unremarkable for age. SOFT TISSUES: Unremarkable. IMPRESSION: No acute abnormality. DATA REPOSITORY: RADIATION DOSE DELIVERED:
[2024-12-02 09:33] VITALS: BP 117/68; PULSE 83; RESP 20; TEMP 37.2; O2SAT 91
--- NOTE | 2024-12-02 09:36 | W.ED.GENAD ---
Discharge Plan Disposition Patient Disposition: Admit to [facility] Discharge Details Chief Complaint: RespSymp Clinical Impression: Influenza A Admit Date/Time: 12/02/24 11:30 Admit Provider: Luis Fernando Voss Attending Provider: Luis Fernando Voss Primary Care Provider: Lilia Palomares ED Provider: Luis Fernando Shahid Discharge Data Discharge Date/Time-TO BE ENTERED AT DEPARTURE: 12/02/24 12:51 HPI General Date/Time Provider Initiated Documentation: 12/02/24 09:36. HPI Narrative: MDM This is a normothermic and not tachycardic but initially hypoxic 79-year-old male with abnormal lung sounds influenza positive for which we will pursue hospitalization in the setting of an elevated port score of 129. Patient is not requiring supplemental oxygen. He is no acidemia on blood gases no indication for BiPAP. No black or bloody stools to suggest GI bleed. He does appear slightly dry on labs with a BUN of 48 and an GABBY on top of CKD so we will treat with 500 cc of crystalloid. No pain on proportion to suggest necrotizing soft tissue infection. Will treat with oseltamavir. I considered sepsis however the patient was not tachypneic febrile tachycardic or hypotensive so I did not check a lactate nor treat empirically with broad-spectrum antibiotics. 4 PM I was in touch with Dr. Voss who graciously agreed to accept the patient for hospitalization. HPI This is a 79-year-old male right emergency department via private vehicle with his in setting of fever productive cough and general malaise for the past several days. He reportedly has had a fever up to 100 ?F at home. He has been fatigued and had some discharge to the back of his throat. His cough is worse at night. He denies any routine tobacco ethanol. No dysuria frequency chest pain nor black nor bloody stools. Exam General: Elderly-appearing in no acute distress speaking in complete sentences. Hard of hearing. Head: Normocephalic, atraumatic. Eye: Extraocular eye movements intact. No conjunctival injection. No scleral icterus. Ear, nose, mouth, throat: Grossly normal inspection. Normal voice, handling secretions normally. Neck: Trachea midline. Cardiovascular: Well-perfused distal extremities. Regular rate and rhythm Respiratory: Nonlabored respiration. Coarse right-sided breath sounds. Gastrointestinal: Nondistended abdomen. Musculoskeletal: No edema. Moving all 4 extremities spontaneously. Skin: Normal for age and race, grossly normal temperature and turgor. No acute rash. Neurologic: Alert and appropriate, no apparent acute deficits. Related Data Home Medications ?Medication ?Instructions ?Recorded ?Confirmed vitamins A,C,A-poje-ondjts 2,148 1 ea PO DAILY 09/08/15 12/02/24 mcg-113 mg-45 mg-17.4 mg tablet (PreserVision AREDS) leuprolide (3 month) 11.25 mg (3 11.25 mg IM [id number] 10/26/23 12/02/24 month) intramuscular syringe kit (Lupron Depot) atorvastatin 10 mg tablet (Lipitor) 10 mg PO DAILY #90 tab-caps 10/08/24 12/02/24 losartan 50 mg-hydrochlorothiazide 1 tab PO DAILY #90 tabs 10/08/24 12/02/24 12.5 mg tablet Previous Rx's ?Medication ?Instructions ?Recorded atorvastatin 10 mg tablet (Lipitor) 10 mg PO DAILY #90 tab-caps 10/08/24 losartan 50 mg-hydrochlorothiazide 1 tab PO DAILY #90 tabs 10/08/24 12.5 mg tablet Allergies Allergy/AdvReac Type Severity Reaction Status Date / Time No Known Allergies Allergy Verified 12/02/24 09:26 General Stated Complaint: RespSymp TIM: 4 Course Vital Signs Vital signs: Vital Signs Temperature 37.2 C 12/02/24 09:25 Pulse 83 12/02/24 09:25 Respiratory Rate 20 12/02/24 09:25 Blood Pressure 117/68 12/02/24 09:25 Pulse Oximetry 91 L 12/02/24 09:25 Temperature 37.2 C 12/02/24 09:33 Temperature Source Oral 12/02/24 09:33 Pulse 83 12/02/24 09:33 Respiratory Rate 20 12/02/24 09:33 Respiratory Effort Normal, Non-Labored 12/02/24 09:33 Blood Pressure 117/68 12/02/24 09:33 Blood Pressure Position Sitting 12/02/24 09:33 Pulse Oximetry 91 L 12/02/24 09:33 Oxygen Delivery Method Room Air 12/02/24 09:33 Oxygen Flow Rate 0 12/02/24 09:33 Pain Level 0 12/02/24 09:33 Medical Decision Making Quality:SDOH Health Related Social Needs: Health related social needs material hardship(utilities) (Z59.12) [facility] Active Problems (Updated 12/02/24 @ 16:05 by Luis Fernando Shahid MD) Influenza A (Acute) Right inguinal hernia (Chronic) [place] [facility] [place] Monoclonal B-cell lymphocytosis (Chronic) Essential hypertension (Chronic) Hearing impairment (Chronic) [facility] - not working at present Hyperlipidemia (Chronic 09/13/13) Primary malignant neoplasm of prostate (Chronic) 2011 treated with external beam radiation followed by urology at [facility] 04/2022 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 Daughter No problems noted. Mother , 87 No problems noted. 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 Pets and animals: Yes Pets and animals: cat(s) Do you think of yourself as: straight/heterosexual Current gender identity: male What is your relationship status?: How often do you talk on the phone with friends or family?: once per week How often do you get together with friends or relatives?: once per week How often do you attend restorationism or hinduism services?: 4 or more times per year Do you belong to any clubs or organized social groups?: no Panel score (0-1 are the most socially isolated patients): 2 What type of physical activity do you participate in: walking Duration: 45-60 minutes/day Frequency: daily Katrin/Zoroastrianism: Hoahaoism Special katrin needs: No Seatbelt use: always Helmet use: Yes Helmet use: sometimes Drive intox or ride w/intox electric screw driver operator: No Do you feel safe at home: Yes Do you feel safe in your relationship?: Yes Additional Social history: Enjoys tinkering, watching car races, gambling.
[2024-12-02 09:55] LABS: BE (Venous) 1 mmol/L (-2-3); HCO3 (Venous) 25 mmol/L (23-28); O2 Sat (Venous) 81 %; TCO2 (Venous) 23 mmol/L (24-29); pCO2 (Venous) 38 mmHg (41-51); pH (Venous) 7.43 (7.31-7.41); pO2 (Venous) 43 mmHg
[2024-12-02 10:02] LABS: Abs Immature Grans 0.07 10^3/uL (0.0-0.06); HCT 37.8 % (40.0-50.0); HGB 12.8 g/dL (13.5-17.5); MCHC 33.9 % (32.0-36.0); MCV 89 fL (80-95); MPV 10.8 fL (8.0-11.0); Platelet Count 137 10^3/uL (130-400); RBC 4.27 10^6/uL (4.36-5.78); RDW 12.6 % (11.8-14.1); RDW-SD 41.3 fL; WBC 19.01 10^3/uL (4.4-10.8)
[2024-12-02 10:06] VITALS: BP 126/73; PULSE 80; RESP 15; O2SAT 97
[2024-12-02 10:08] LABS: Anion Gap 10.5 mmol/L (3-11); BUN 48 mg/dL (7-18); CO2 25.5 mmol/L (21.0-32.0); CREATININE 1.7 mg/dL (0.70-1.30); Calcium 8.9 mg/dL (8.5-10.1); Chloride 103 mmol/L (98-107); Glucose 138 mg/dL (74-106); Potassium 3.3 mmol/L (3.5-5.1); Sodium 139 mmol/L (136-145)
[2024-12-02 10:15] LABS: COVID-19 PCR Negative (Negative); Influenza A PCR Positive (Negative); Influenza B PCR Negative (Negative); RSV PCR Negative (Negative)
[2024-12-02 10:18] LABS: Source Nasopharynx
[2024-12-02 10:22] LABS: Absolute Neutrophil Count 8.74 10^3/uL (1.2-6.7); Bands % 0 %
[2024-12-02 10:23] LABS: Absolute Eosinophil Count 0.19 10^3/uL (0.0-0.7); Absolute Lymphocyte Count 8.93 10^3/uL (1.2-3.4); Absolute Monocyte Count 1.14 10^3/uL (0.1-0.8); Atypical Lymphocytes % 4 %; Diff Comment Manual Differential
[2024-12-02] MEDS: Oseltamivir 75 MG CAP PO ×2 (10:32→20:45)
[2024-12-02] MEDS: Normal Saline 500 ML 1000 ML IV (10:33)
--- NOTE | 2024-12-02 11:06 | DI.VRAD_ITS ---
PROCEDURE INFORMATION: Exam: XR Chest Exam date and time: 12/02/2024 9:56 AM Age: 79 years old Clinical indication: Cough TECHNIQUE: Imaging protocol: Radiologic exam of the chest. Views: 2 views. COMPARISON: No relevant prior studies available. FINDINGS: Lungs: Unremarkable. No consolidation. Pleural spaces: Unremarkable. No pleural effusion. No pneumothorax. Heart/Mediastinum: Unremarkable. No cardiomegaly. Vasculature: There is unfolding of the thoracic aorta. Bones/joints: Mild degenerative disease of bilateral acromioclavicular joints. There are mild degenerative changes of the glenohumeral joint. The thoracic spine demonstrates mild degenerative changes at multiple levels. IMPRESSION: No acute cardiopulmonary process. Dictated and Authenticated by: Josse mAato MD. Orderin Kleber Gould MD
[2024-12-02 12:44] VITALS: BP 126/73; PULSE 80; RESP 15; O2SAT 97
--- NOTE | 2024-12-02 13:38 | W.PC.ACHO ---
Registration Status: Primary Language: Preferred Language: ED Information & Data Chief Complaint RespSymp 12/02/24 09:36 Triage Note fever, productive cough, 12/02/24 09:25 plugged ears & fatigue x 7 days. Medical / Surgical History (Last Updated 04/23/22 @ 11:31 by Lilia Palomares MD) Actinic keratosis (09/13/13) (Last Updated 02/17/24 @ 14:33 by Lilia Palomares MD) S/P cataract extraction (2023) Most Recent Vital Signs Temperature 37.2 C 12/02/24 09:33 Temperature Source Oral 12/02/24 09:33 Pulse 80 12/02/24 12:44 Respiratory Rate 15 12/02/24 12:44 Respiratory Effort Normal, Non-Labored 12/02/24 09:33 Blood Pressure 126/73 12/02/24 12:44 Blood Pressure Position Sitting 12/02/24 09:33 Pulse Oximetry 97 12/02/24 12:44 Oxygen Delivery Method Room Air 12/02/24 10:06 Oxygen Flow Rate 0 12/02/24 10:06 Pain Level 0 12/02/24 09:33 Allergies No Known Allergies Allergy (Verified 12/02/24 09:26) Precautions Isolation Standard precaution 12/02/24 09:33 IV IV Catheter Type [Right Saline Lock Antecubital] IV Catheter Gauge [Right 18 Antecubital] Diet Orders Category Date Time Status Regular/Normal [DIET] Nutrition 12/02/24 Lunch Active Diagnostics 12/02/24 12/02/24 Range/Units 09:49 09:28 WBC 19.01 H (4.4-10.8) 10^3/uL RBC 4.27 L (4.36-5.78) 10^6/uL Hgb 12.8 L (13.5-17.5) g/dL Hct 37.8 L (40.0-50.0) % MCV 89 (80-95) fL MCH 30.0 (27.0-33.0) pg MCHC 33.9 (32.0-36.0) % RDW 12.6 (11.8-14.1) % Plt Count 137 (130-400) 10^3/uL MPV 10.8 (8.0-11.0) fL Immature Gran % 0.0 % Neutrophils % 46.0 % Band Neutrophils % 0 % Lymphocytes % 43.0 % Atypical Lymphs % 4 % Monocytes % 6.0 % Eosinophils % 1.0 % Basophils % 0.0 % Nucleated RBC % 0.0 (0.0-0.3) % Absolute Neutrophils 8.74 H (1.2-6.7) 10^3/uL Absolute Lymphocytes 8.93 H (1.2-3.4) 10^3/uL Absolute Monocytes 1.14 H (0.1-0.8) 10^3/uL Absolute Eosinophils 0.19 (0.0-0.7) 10^3/uL Absolute Basophils 0.00 (0.0-0.2) 10^3/uL VBG pH 7.43 H (7.31-7.41) VBG pCO2 38 L (41-51) mmHg VBG pO2 43 mmHg VBG HCO3 25 (23-28) mmol/L VBG Total CO2 23 L (24-29) mmol/L VBG O2 Saturation 81 % VBG Base Excess 1 (-2-3) mmol/L Sodium 139 (136-145) mmol/L Potassium 3.3 L (3.5-5.1) mmol/L Chloride 103 (98-107) mmol/L Carbon Dioxide 25.5 (21.0-32.0) mmol/L Anion Gap 10.5 (3-11) mmol/L BUN 48 H (7-18) mg/dL Creatinine 1.7 H (0.70-1.30) mg/dL Est GFR (CKD-EPI 2020) 40.50 (mL/min/1.73m2) Glucose 138 H (74-106) mg/dL Calcium 8.9 (8.5-10.1) mg/dL COVID-19 Source Nasopharynx SARS-CoV-2 (PCR) Negative (Negative) Influenza Type A (PCR) Positive A (Negative) Influenza Type B (PCR) Negative (Negative) RSV (PCR) Negative (Negative) Intake and Output - 24 Hour Total 12/02/24 09:19 thru 12/02/24 11:14 Intake Total 500 Balance 500 Weight 80.739 kg Intake: IV 500 Falls Risk Assessment History of Falls No History 12/02/24 09:54 Contributing Factors No Factors 12/02/24 09:54 Ambulatory Aids Independent 12/02/24 09:54 Tubes/Lines None 12/02/24 09:54 Gait Evaluation No gait disturbance 12/02/24 09:54 Cognition No cognitive impairment 12/02/24 09:54 Fall Total Score 0 12/02/24 09:54 Level of Risk Standard/Low Risk 12/02/24 09:54 v v v v v v v v v Sending and/or Receiving Nurses: Please use comment section below to note any information pertinent to the patient hand-off not included above. Information / Comments: Report received from: Received report from Instructional Systems Design Consultant Aquiles who delivered the patient to the floor.
--- NOTE | 2024-12-02 16:05 | W.PM.HP.N ---
Date of service: 12/02/24 Time of Service: 16:06 Assessment and Plan Assessment and plan (1) Influenza A: Status: Acute Assessment and plan: Viral pneumonia associated with malaise, GABBY on CKD, and mild hypoxia. Given high PSA/PORT score [address] Vicente in ED, which is reasonable. Treat with oseltamivir given severity of illness despite >48 hrs of symptoms (2) Acute on chronic renal insufficiency: Status: Acute Assessment and plan: Cr 1.7 up from baseline 1.3-4 reflecting baseling CKD3a. Likely pre-renal due to acute illness, but also at risk for retention, get post void bladder scan. Gentle hydration IV, then po, monitor renal function. (3) Essential hypertension: Status: Chronic Assessment and plan: holding outpatient FRANCESCO/thiazide with GABBY, resume in AM if improving. (4) Hypokalemia: Status: Acute Assessment and plan: replace orally, follow with Mag. (5) Primary malignant neoplasm of prostate: Status: Chronic Assessment and plan: Has been clinically stable, Lupron has been on hold this year. (6) DVT prophylaxis: Status: Acute Assessment and plan: enoxaparin History of Present Illness History of Present Illness Chief Complaint: cough Narrative: 79 yo M with history of HTN, prostate cancer, and CKD3a who presented with one week of cough and generalized fatigue and malaise. Started a week ago with generalized fatigue. Developed sore throat and productive cough. Coughing a lot at night and not sleeping well. No blood in sputum. No chest pain. Eating and drinking but a little less than usual. He has very little energy, but doesn't feel SOB at rest. His finally convinced him to come in. She was sick last week but got better in 2 days. He has had no change in urinary output or other urinary symptoms. Had some loose stools last week but has normalized in the past few days. Review of Systems All systems reviewed & are unremarkable except as noted in HPI and below Cardiovascular Cardiovascular: Denies leg edema and Denies orthopnea Respiratory Respiratory: Reports as per HPI Comments: snoring at night, has declined sleep study Integumentary/Breasts Comments: cut on left russo healing PFSH All Active Problems (Updated 12/02/24 @ 16:38 by Luis Fernando Voss) Hypokalemia (Acute) Acute on chronic renal insufficiency (Acute) DVT prophylaxis (Acute) Influenza A (Acute) Right inguinal hernia (Chronic) found incidentally on PET scan at [facility] Monoclonal B-cell lymphocytosis (Chronic) Essential hypertension (Chronic) Hearing impairment (Chronic) has [facility] - not working at present Hyperlipidemia (Chronic 09/13/13) Primary malignant neoplasm of prostate (Chronic) 2011 treated with external beam radiation followed by urology at [facility] 04/2022 recurrence of disease with local lymph node metastases-starting Lupron therapy Medical History (Updated 12/02/24 @ 16:38 by Luis Fernando Voss) CKD stage 3a, GFR 45-59 ml/min Actinic keratosis (09/13/13) Surgical History S/P cataract extraction (2023) Family History Father , 84 Neoplasm Brother Hyperlipidemia Daughter No problems noted. Daughter No problems noted. Mother , 87 No problems noted. 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 Pets and animals: Yes Pets and animals: cat(s) Do you think of yourself as: straight/heterosexual Current gender identity: male What is your relationship status?: How often do you talk on the phone with friends or family?: once per week How often do you get together with friends or relatives?: once per week How often do you attend scientology or methodist services?: 4 or more times per year Do you belong to any clubs or organized social groups?: no Panel score (0-1 are the most socially isolated patients): 2 What type of physical activity do you participate in: walking Duration: 45-60 minutes/day Frequency: daily Katrin/Oriental Orthodox: Confucianism Special katrin needs: No Seatbelt use: always Helmet use: Yes Helmet use: sometimes Drive intox or ride w/intox van driver: No Do you feel safe at home: Yes Do you feel safe in your relationship?: Yes Additional Social history: Enjoys tinkering, watching car races, gambling. Meds Allergies and Home Medications Allergies Allergy/AdvReac Type Severity Reaction Status Date / Time No Known Allergies Allergy Verified 12/02/24 09:26 Home Medications ?Medication ?Instructions ?Recorded ?Confirmed ?Type vitamins A,C,B-wdtw-rirmju 2,148 1 ea PO DAILY 09/08/15 12/02/24 History mcg-113 mg-45 mg-17.4 mg tablet (PreserVision AREDS) leuprolide (3 month) 11.25 mg (3 11.25 mg IM [id number] 10/26/23 12/02/24 History month) intramuscular syringe kit (Lupron Depot) atorvastatin 10 mg tablet (Lipitor) 10 mg PO DAILY #90 tab-caps 10/08/24 12/02/24 Rx losartan 50 mg-hydrochlorothiazide 1 tab PO DAILY #90 tabs 10/08/24 12/02/24 Rx 12.5 mg tablet Exam Narrative Exam Narrative: GEN: Alert and oriented x 4, pleasant and cooperative, gives linear history. No acute distress at rest. HEENT: Head atraumatic. Conjunctiva clear, no icterus. PEERL, EOMI. Mild rhinorrhea. MMM, OP red, no exudate. Neck is supple with no masses or lymphadenopathy, trachea midline LUNGS: Slight bibasilar rales and end expiratory wheezes in lower lung amador normal effort CV: RRR with no murmurs, gallops, or rubs. ABD: active bowel sounds, soft, nontender and nondistended. No masses. EXT: no cyanosis, clubbing, or edema, non-tender MSK: No joint redness or swelling NEURO: CN 2-12 grossly intact. Normal movement of 4 extremities. Normal speech and coordination. No tremor SKIN: No rashes or open wounds. Healing dry wound left russo. PSYCH: normal mood and affect, normal thought process Results Imaging Chest x-ray: report reviewed (No acute cardiopulmonary process. ) Labs 12/02/24 09:49 12/02/24 09:49 Labs: Laboratory Results - last 24 hr 12/02/24 12/02/24 09:28 09:49 WBC 19.01 H RBC 4.27 L Hgb 12.8 L Hct 37.8 L MCV 89 MCH 30.0 MCHC 33.9 RDW 12.6 Plt Count 137 MPV 10.8 Immature Gran % 0.0 Neutrophils % 46.0 Band Neutrophils % 0 Lymphocytes % 43.0 Atypical Lymphs % 4 Monocytes % 6.0 Eosinophils % 1.0 Basophils % 0.0 Nucleated RBC % 0.0 Absolute Neutrophils 8.74 H Absolute Lymphocytes 8.93 H Absolute Monocytes 1.14 H Absolute Eosinophils 0.19 Absolute Basophils 0.00 VBG pH 7.43 H VBG pCO2 38 L VBG pO2 43 VBG HCO3 25 VBG Total CO2 23 L VBG O2 Saturation 81 VBG Base Excess 1 Sodium 139 Potassium 3.3 L Chloride 103 Carbon Dioxide 25.5 Anion Gap 10.5 BUN 48 H Creatinine 1.7 H Est GFR (CKD-EPI 2020) 40.50 Glucose 138 H Calcium 8.9 COVID-19 Source Nasopharynx SARS-CoV-2 (PCR) Negative Influenza Type A (PCR) Positive A Influenza Type B (PCR) Negative RSV (PCR) Negative Last Vital Signs Temp 37.2 C 12/02/24 09:33 Pulse 80 12/02/24 12:44 Resp 15 12/02/24 12:44 BP 126/73 12/02/24 12:44 Pulse Ox 97 12/02/24 12:44 Time Spent Time spent with Patient: 55-74 minutes Time was spent: preparing to see the patient(eg.review tests), obtaining and/or reviewing separately otained hiistory, ordering medications,tests, procedures, referring, communicating with other health congregational care pastor, indepentently interpreting results, counseling the patient and care coordination
[2024-12-02] MEDS: POTASSIUM CHLORIDE 20 MEQ, POTASSIUM CHLORIDE 10 MEQ 30 MEQ PO (16:10)
[2024-12-02] MEDS: Lactated Ringers 1,000 ML 100 ML IV (16:11)
[2024-12-02] MEDS: Enoxaparin 40 MG/0.4 ML SYR SC (16:11)
[2024-12-02] MEDS: Benzonatate 100 MG CAP PO (20:45)
[2024-12-02 21:03] VITALS: BP 117/77; PULSE 65; RESP 22; TEMP 35.6; O2SAT 98
[2024-12-03 05:49] VITALS: BP 133/71; PULSE 65; RESP 16; TEMP 36.4; O2SAT 94
[2024-12-03 06:36] LABS: HCT 33.8 % (40.0-50.0); HGB 11.5 g/dL (13.5-17.5); MCH 30.1 pg (27.0-33.0); MCV 89 fL (80-95); MPV 11.3 fL (8.0-11.0); Platelet Count 120 10^3/uL (130-400); RBC 3.82 10^6/uL (4.36-5.78); RDW 12.6 % (11.8-14.1); RDW-SD 40.6 fL; WBC 14.97 10^3/uL (4.4-10.8)
[2024-12-03 06:50] LABS: Anion Gap 7.3 mmol/L (3-11); BUN 34 mg/dL (7-18); CO2 27.7 mmol/L (21.0-32.0); CREATININE 1.5 mg/dL (0.70-1.30); Calcium 8.5 mg/dL (8.5-10.1); Chloride 105 mmol/L (98-107); Estimated GFR 47.06 (mL/min/1.73m2); Glucose 101 mg/dL (74-106); Potassium 3.7 mmol/L (3.5-5.1); Sodium 140 mmol/L (136-145)
[2024-12-03 06:59] LABS: Absolute Lymphocyte Count 5.54 10^3/uL (1.2-3.4); Absolute Neutrophil Count 7.63 10^3/uL (1.2-6.7); Atypical Lymphocytes % 1 %; Bands % 1 %; Diff Comment Manual Differential; RBC Morphology Normal
[2024-12-03] MEDS: Atorvastatin 10 MG TAB PO (08:09)
[2024-12-03] MEDS: Oseltamivir 75 MG CAP PO (08:09)
[2024-12-03] MEDS: Benzonatate 100 MG CAP PO (08:09)
--- NOTE | 2024-12-03 08:54 | W.PM.DS.N ---
Date of service: 12/03/24 Time of Service: 08:54 DS: Diagnosis Discharge Diagnosis (1) Influenza A: Status: Acute (2) Acute on chronic renal insufficiency: Status: Acute (3) Essential hypertension: Status: Chronic (4) Hypokalemia: Status: Acute (5) Primary malignant neoplasm of prostate: Status: Chronic (6) DVT prophylaxis: Status: Acute Discharge Plan Disposition Patient Disposition: Home Condition: Improving Discharge Details Reason For Visit: Influenza Pneumonia Admit Date/Time: 12/02/24 11:30 Admit Provider: Luis Fernando Voss Attending Provider: Luis Fernando Voss Primary Care Provider: Lilia Palomares Hospital Course Hospital Course: 9 yo M with history of HTN, prostate cancer, and CKD3a who presented with one week of cough and generalized fatigue and malaise and was diagnosed with influenza A. ED evaluation was also significant for creatinine of 1.7 up from baseline of 1.3-4. Chest x-ray was negative for focal pneumonia. He was mildly hypoxic in the low 90s. Given his overall risk, he was observed in the hospital and treated with oseltamivir and given a total of 1.5 liters of fluid. His losartan-HCTZ was held with the acute renal insufficiency. His potassium was low and was supplemented orally. He did well overnight, was not hypoxic. WBC decreased from 19.01 to 14.97. He did have a mild anemia of 11.5 hemoglobin. Platelets were slightly low at 120 after getting a dose of enoxaparin, though on admission they were low normal at 137. Creatinine improved from 1.7 to 1.5. He was discharged on 4 more days of oseltamivir at a reduced dose of 30mg. He should have follow up BMP in one week to follow up on renal function and potassium. Home Meds and New Rx's Prescriptions: New acetaminophen 325 mg Tablet 650 mg PO Q4H PRN PRNQty: 90 0RF benzonatate 100 mg Capsule 100 mg PO TID PRN (Reason: Cough) Qty: 24 0RF oseltamivir 30 mg capsule 30 mg PO BID 4 Days Qty: 8 0RF Continued PreserVision AREDS 1 EACH tablet 1 ea PO DAILY atorvastatin [Lipitor] 10 mg tablet 10 mg PO DAILY Qty: 90 3RF losartan-hydrochlorothiazide 50-12.5 mg tablet 1 tab PO DAILY Qty: 90 3RF Discontinued Lupron Depot (3 month) 11.25 mg syringe kit 11.25 mg IM [id number] Patient Comments: unsure of strength of medication. May stop the medication next month. Discharge Instructions Instructions: Flu Additional Instructions: You can resume your blood pressure medication tomorrow if you are feeling better and able to drink plenty of fluids. Take acetaminophen for aching or fevers. This is safer for your kidneys than ibuprofen or naproxen. Stand Alone Forms: Nursing Discharge Form Referrals: Lilia Palomares MD [Primary Care Provider] - 12/12/24 1:00 pm Activity:: Activity as Tolerated Equipment/Supplies:: No Equipment Needed Diet:: As Tolerated Discharge Orders Discharge Orders: Discharge Order (Routine); Ordered 12/03/24 Ordered By: Luis Fernando Voss Discharge Data Discharge Date/Time-TO BE ENTERED AT DEPARTURE: 12/03/24 09:38 DS: Summary Time Spent with Patient providing and/or coordinating discharge services: Less than 30 minutes Status at Discharge Functional status at discharge: independent ambulation Overall status at discharge: patient is progressing back to baseline Mental Status: mental status grossly normal Speech and Movement: speech and movement normal Mood: congruent mood Affect: normal affect Quality:SDOH Health Related Social Needs: Health related social needs material hardship(utilities) (Z59.12) Exam Narrative Exam Narrative: GEN: Alert and oriented, sitting up in bed. No acute distress at rest. LUNGS: Course in lower lung amador bilaterally but no wheezing or rales this morning, normal effort, speaking in full sentances CV: RRR with no murmurs, gallops, or rubs. EXT: no cyanosis, clubbing, or edema, non-tender Psych Mental Status: mental status grossly normal Speech and Movement: speech and movement normal Mood: congruent mood Affect: normal affect DS: Data Vitals/I&O Vitals and I&O: Vital Signs Temperature 36.4 C L 12/03/24 05:49 Temperature Source Temporal Artery Scan 12/03/24 05:49 Pulse 65 12/03/24 05:49 Pulse Rhythm Regular 12/02/24 15:00 Respiratory Rate 16 12/03/24 05:49 Respiratory Effort Short of Breath 12/02/24 15:00 Respiratory Depth Normal 12/02/24 15:00 Blood Pressure 133/71 12/03/24 05:49 Blood Pressure Position Sitting 12/02/24 09:33 Pulse Oximetry 94 12/03/24 05:49 Oxygen Delivery Method Room Air 12/03/24 05:49 Oxygen Flow Rate 0 12/03/24 05:49 Pain Level 0 12/02/24 15:00 Intake & Output 12/02/24 12/02/24 12/03/24 11:59 23:59 11:59 Intake Total 500 / 680 180 / 680 1000 / 1000 Balance 500 / 680 180 / 680 1000 / 1000 Weight 80.739 kg 82.8 kg Intake: IV 500 / 500 1000 / 1000 Oral 180 / 180 Other: Urine Color Yellow Comment per pt voided x1 Data Completed and Pending Labs on day of discharge: Labs from last 24 hours 12/03/24 12/02/24 12/02/24 06:12 09:49 09:28 WBC 14.97 H 19.01 H RBC 3.82 L 4.27 L Hgb 11.5 L 12.8 L Hct 33.8 L 37.8 L MCV 89 89 MCH 30.1 30.0 MCHC 34.0 33.9 RDW 12.6 12.6 Plt Count 120 L 137 MPV 11.3 H 10.8 Immature Gran % 0.0 0.0 Neutrophils % 50.0 46.0 Band Neutrophils % 1 0 Lymphocytes % 36.0 43.0 Atypical Lymphs % 1 4 Monocytes % 10.0 6.0 Eosinophils % 2.0 1.0 Basophils % 0.0 0.0 Nucleated RBC % 0.0 0.0 Absolute Neutrophils 7.63 H 8.74 H Absolute Lymphocytes 5.54 H 8.93 H Absolute Monocytes 1.50 H 1.14 H Absolute Eosinophils 0.30 0.19 Absolute Basophils 0.00 0.00 RBC Morphology Normal VBG pH 7.43 H VBG pCO2 38 L VBG pO2 43 VBG HCO3 25 VBG Total CO2 23 L VBG O2 Saturation 81 VBG Base Excess 1 Sodium 140 139 Potassium 3.7 3.3 L Chloride 105 103 Carbon Dioxide 27.7 25.5 Anion Gap 7.3 10.5 BUN 34 H 48 H Creatinine 1.5 H 1.7 H Est GFR (CKD-EPI 2020) 47.06 40.50 Glucose 101 138 H Calcium 8.5 8.9 Magnesium 2.0 COVID-19 Source Nasopharynx SARS-CoV-2 (PCR) Negative Influenza Type A (PCR) Positive A Influenza Type B (PCR) Negative RSV (PCR) Negative PFSH All Active Problems (Updated 12/03/24 @ 08:43 by Luis Fernando Voss) Hypokalemia (Acute) Acute on chronic renal insufficiency (Acute) DVT prophylaxis (Acute) Influenza A (Acute) Right inguinal hernia (Chronic) found incidentally on PET scan at [facility] [place] Monoclonal B-cell lymphocytosis (Chronic) Essential hypertension (Chronic) Hearing impairment (Chronic) has hearing aids from [facility] [employer] - not working at present Hyperlipidemia (Chronic 09/13/13) Primary malignant neoplasm of prostate (Chronic) 2011 treated with external beam radiation followed by urology at [facility] 04/2022 recurrence of disease with local lymph node metastases-starting Lupron therapy Medical History (Updated 12/03/24 @ 08:43 by Luis Fernando Voss) CKD stage 3a, GFR 45-59 ml/min Actinic keratosis (09/13/13) Surgical History S/P cataract extraction (2023) Family History Father , 84 Neoplasm Brother Hyperlipidemia Daughter No problems noted. Daughter No problems noted. Mother , 87 No problems noted. 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 Pets and animals: Yes Pets and animals: cat(s) Do you think of yourself as: straight/heterosexual Current gender identity: male What is your relationship status?: How often do you talk on the phone with friends or family?: once per week How often do you get together with friends or relatives?: once per week How often do you attend restorationist or rastafari services?: 4 or more times per year Do you belong to any clubs or organized social groups?: no Panel score (0-1 are the most socially isolated patients): 2 What type of physical activity do you participate in: walking Duration: 45-60 minutes/day Frequency: daily Katrin/Taoist: Mu-Ism Special katrin needs: No Seatbelt use: always Helmet use: Yes Helmet use: sometimes Drive intox or ride w/intox [employer] hazmat tanker driver: No Do you feel safe at home: Yes Do you feel safe in your relationship?: Yes Additional Social history: Enjoys tinkering, watching car races, gambling. Time Spent with Patient Time Spent with Patient: <45 minutes Time was spent: preparing to see the patient(eg.review tests), obtaining and/or reviewing separately otained hiistory, ordering medications,tests, procedures, referring, communicating with other health career discovery teacher, indepentently interpreting results, counseling the patient and care coordination
--- NOTE | 2024-12-03 09:10 | PDOC.CMDIS ---
Date of service: 12/03/24 Time of Service: 09:10 LACE Index Scoring Tool Questions: Length of Stay (in days): 1 Was the patient admitted via the E.D.?: Yes Comorbidities: Metastatic Solid Tumor (Prostate) E.D. Visits: 1 Answers: Total Score: 10 Risk of Readmission: High Risk Care Management Discharge Plan Reason for Hospitalization: Influenza pneumonia Discharge Plan: Discharge home via private vehicle with family. Follow up with community providers and discharge plan of care as directed. No new services are ordered prior to discharge. Patient/Family Education Needs: Review discharge instructions, limitations, medications and plan to follow up with his PCP. Discuss ask me three. SDOH Health Related Social Needs: Health related social needs material hardship(utilities) (Z59.12)
--- NOTE | 2024-12-03 09:19 | NUR.NOTE ---
patient AxOx4 during shift, VSS, reports he feels improved from prior days, denies pain this AM, dry cough but otherwise limited s/s of flu. Patient educated on d/c instructions including f/u appointment with PCP, meds to pickup from pharmacy and s/s to report to ED for. PIV removed for discharge, all belongings packed, waiting for ride from . Discussed with pt that his CKD is related to chronically high kidney function labs over the years per MD Voss and he can continue to f/u with PCP on this as it's not a new disease process. No neph consulted need per MD Voss when discussed this with him prior to d/c. Nursing Note:
--- NOTE | 2024-12-03 09:36 | NUR.NOTE ---
pt and verbalized understanding of all teaching, PIV removed, pt leaving with by POV. Nursing Note:
== END 2024-12-03 09:38 | disposition home or self-care (01) ==
LOC: ER 11:58 → MS 12:51
PROVIDERS: Physician Assistant; Admitting Provider Family Medicine; Emergency Provider Emergency Medicine; PCP Family Medicine; Responsible Provider Family Medicine; Visit Provider Family Medicine
DX: I12.9 Hypertensive chronic kidney disease with stage 1 through stage 4 chronic kidney disease, or unspecified chronic kidney disease; E87.6 Hypokalemia; N17.9 Acute kidney failure, unspecified; Z79.899 Other long term (current) drug therapy; R09.02 Hypoxemia; J10.01 Influenza due to other identified influenza virus with the same other identified influenza virus pneumonia; C61 Malignant neoplasm of prostate; N18.31 Chronic kidney disease, stage 3a; E78.5 Hyperlipidemia, unspecified; C77.5 Secondary and unspecified malignant neoplasm of intrapelvic lymph nodes; D64.9 Anemia, unspecified
CPT/HCPCS: 00123; 36415; 80048; 82805; 87637; 96360; 96372; 99285; J1650; 71046; 83735; 85025; 99223; 99238; G0378

== ENCOUNTER 2024-12-12 13:59 | Outpatient (REF) | payer MEDICARE, SELFPAY ==
[2024-12-12 21:37] LABS: Abs Immature Grans 0.05 10^3/uL (0.0-0.06); HCT 36.4 % (40.0-50.0); HGB 12.4 g/dL (13.5-17.5); MCH 30.2 pg (27.0-33.0); MCHC 34.1 % (32.0-36.0); MCV 89 fL (80-95); MPV 10.4 fL (8.0-11.0); Platelet Count 259 10^3/uL (130-400); RBC 4.11 10^6/uL (4.36-5.78); RDW 12.6 % (11.8-14.1); RDW-SD 40.5 fL; WBC 12.83 10^3/uL (4.4-10.8)
[2024-12-12 21:48] LABS: ALT 54 U/L (16-63); AST 29 U/L (15-37); Albumin 3.5 g/dL (3.4-5.0); Alkaline Phosphatase 86 U/L (46-116); Anion Gap 10.1 mmol/L (3-11); BUN 27 mg/dL (7-18); Bilirubin, Total 0.4 mg/dL (0.2-1.0); CO2 26.9 mmol/L (21.0-32.0); CREATININE 1.5 mg/dL (0.70-1.30); Calcium 8.9 mg/dL (8.5-10.1); Calculated LDL 96 mg/dL (<100); Chloride 103 mmol/L (98-107); Cholesterol 176 mg/dL (<200); Estimated GFR 47.06 (mL/min/1.73m2); Glucose 145 mg/dL (74-106); HDL Cholesterol 56 mg/dL (>or=40); Potassium 3.7 mmol/L (3.5-5.1); Sodium 140 mmol/L (136-145); Total Protein 6.7 g/dL (6.4-8.2); Triglyceride 123 mg/dL (<150)
[2024-12-12 22:10] LABS: Absolute Lymphocyte Count 5.39 10^3/uL (1.2-3.4); Absolute Neutrophil Count 6.29 10^3/uL (1.2-6.7)
[2024-12-12 22:11] LABS: Absolute Eosinophil Count 0.13 10^3/uL (0.0-0.7); Absolute Monocyte Count 1.03 10^3/uL (0.1-0.8); Diff Comment Manual Differential; RBC Morphology Normal
== END 2024-12-12 14:00 | disposition home or self-care (01) ==
LOC: LBN 13:59
PROVIDERS: PCP Family Medicine; Visit Provider Family Medicine
DX: I10 Essential (primary) hypertension; J10.1 Influenza due to other identified influenza virus with other respiratory manifestations
CPT/HCPCS: 80053; 80061; 85025

== ENCOUNTER 2025-02-04 03:07 | Outpatient (CLI) | payer MEDICARE, SELFPAY ==
[2025-02-04 12:26] LABS: Abs Immature Grans 0.01 10^3/uL (0.0-0.06); Absolute Basophil Count 0.04 10^3/uL (0.0-0.2); Absolute Eosinophil Count 0.14 10^3/uL (0.0-0.7); Absolute Lymphocyte Count 4.06 10^3/uL (1.2-3.4); Absolute Monocyte Count 0.52 10^3/uL (0.1-0.8); Absolute Neutrophil Count 3.94 10^3/uL (1.2-6.7); Basophils % 0.5 %; Eosinophils % 1.6 %; HCT 41.5 % (40.0-50.0); HGB 13.7 g/dL (13.5-17.5); Immature Grans % 0.1 %; Lymphocytes % 46.6 %; MCV 91 fL (80-95); MPV 11.1 fL (8.0-11.0); Neutrophils % 45.2 %; Platelet Count 148 10^3/uL (130-400); RBC 4.57 10^6/uL (4.36-5.78); RDW 12.4 % (11.8-14.1); WBC 8.71 10^3/uL (4.4-10.8)
[2025-02-04 12:40] LABS: ALT 28 U/L (16-63); AST 26 U/L (15-37); Albumin 3.7 g/dL (3.4-5.0); Alkaline Phosphatase 79 U/L (46-116); Anion Gap 6.7 mmol/L (3-11); BUN 22 mg/dL (7-18); Bilirubin, Total 0.7 mg/dL (0.2-1.0); CO2 29.3 mmol/L (21.0-32.0); CREATININE 1.2 mg/dL (0.70-1.30); Calcium 9.4 mg/dL (8.5-10.1); Chloride 103 mmol/L (98-107); Estimated GFR 61.52 (mL/min/1.73m2); Glucose 88 mg/dL (74-106); Potassium 3.9 mmol/L (3.5-5.1); Sodium 139 mmol/L (136-145); Total Protein 6.9 g/dL (6.4-8.2)
[2025-02-07 11:44] LABS: PSA, Ultrasensitive 0.15 ng/mL (<= 6.5)
[2025-02-11 14:41] LABS: Testosterone, Total 181 ng/dL (240-950)
== END 2025-02-04 03:08 | disposition home or self-care (01) ==
PROVIDERS: PCP Family Medicine; Visit Provider Internal Medicine
DX: C61 Malignant neoplasm of prostate (principal); C77.5 Secondary and unspecified malignant neoplasm of intrapelvic lymph nodes
CPT/HCPCS: 36415; 80053; 84153; 84403; 85025

== ENCOUNTER 2025-05-06 03:20 | Outpatient (CLI) | payer MEDICARE, SELFPAY ==
[2025-05-06 12:16] LABS: Abs Immature Grans 0.02 10^3/uL (0.0-0.06); HCT 41.0 % (40.0-50.0); HGB 13.9 g/dL (13.5-17.5); Immature Grans % 0.2 %; MCH 30.3 pg (27.0-33.0); MCHC 33.9 % (32.0-36.0); MCV 90 fL (80-95); MPV 11.3 fL (8.0-11.0); Platelet Count 161 10^3/uL (130-400); RBC 4.58 10^6/uL (4.36-5.78); RDW 12.3 % (11.8-14.1); RDW-SD 40.0 fL; WBC 10.66 10^3/uL (4.4-10.8)
[2025-05-06 12:28] LABS: RBC Morphology Normal
[2025-05-06 12:46] LABS: ALT 27 U/L (16-63); AST 24 U/L (15-37); Albumin 3.8 g/dL (3.4-5.0); Alkaline Phosphatase 76 U/L (46-116); Anion Gap 6.3 mmol/L (3-11); BUN 26 mg/dL (7-18); Bilirubin, Total 0.6 mg/dL (0.2-1.0); CO2 28.7 mmol/L (21.0-32.0); Calcium 9.3 mg/dL (8.5-10.1); Chloride 103 mmol/L (98-107); Estimated GFR 55.88 (mL/min/1.73m2); Glucose 102 mg/dL (74-106); Potassium 3.6 mmol/L (3.5-5.1); Sodium 138 mmol/L (136-145); Total Protein 7.0 g/dL (6.4-8.2)
== END 2025-05-06 03:21 | disposition home or self-care (01) ==
PROVIDERS: PCP Family Medicine; Visit Provider Nurse Practitioner
DX: C61 Malignant neoplasm of prostate (principal)
CPT/HCPCS: 36415; 80053; 84153; 84403; 85025

== ENCOUNTER 2025-07-29 00:29 | Outpatient (CLI) | payer MEDICARE, SELFPAY ==
[2025-07-29 14:37] LABS: Abs Immature Grans 0.03 10^3/uL (0.0-0.06); HCT 41.6 % (40.0-50.0); HGB 13.7 g/dL (13.5-17.5); Immature Grans % 0.3 %; MCH 29.9 pg (27.0-33.0); MCHC 32.9 % (32.0-36.0); MCV 91 fL (80-95); MPV 10.7 fL (8.0-11.0); Platelet Count 191 10^3/uL (130-400); RBC 4.58 10^6/uL (4.36-5.78); RDW 12.2 % (11.8-14.1); RDW-SD 40.4 fL; WBC 11.03 10^3/uL (4.4-10.8)
[2025-07-29 15:03] LABS: ALT 27 U/L (16-63); AST 22 U/L (15-37); Albumin 3.7 g/dL (3.4-5.0); Alkaline Phosphatase 76 U/L (46-116); Anion Gap 8.5 mmol/L (3-11); BUN 24 mg/dL (7-18); Bilirubin, Total 0.5 mg/dL (0.2-1.0); CO2 28.5 mmol/L (21.0-32.0); Calcium 9.4 mg/dL (8.5-10.1); Chloride 102 mmol/L (98-107); Estimated GFR 61.13 (mL/min/1.73m2); Glucose 92 mg/dL (74-106); Potassium 4.0 mmol/L (3.5-5.1); Sodium 139 mmol/L (136-145); Total Protein 7.4 g/dL (6.4-8.2)
== END 2025-07-29 00:30 | disposition home or self-care (01) ==
PROVIDERS: PCP Family Medicine; Visit Provider Nurse Practitioner
DX: C61 Malignant neoplasm of prostate (principal)
CPT/HCPCS: 36415; 80053; 84153; 84403; 85025